=== PATIENT | female | born 1970 | race Caucasian/White ===

== ENCOUNTER → 2017-07-04 15:02 | Outpatient (CLI) | payer MEDICAID, SELFPAY ==
[2017-07-04 20:19] LABS: Amphetamine/Metha Screen,Urine Negative ng/mL (<1000); Barbiturates Screen,Urine Negative ng/mL (<200); Benzodiazepines Screen,Urine Negative ng/mL (200); Cannabinoid Screen,Urine Negative ng/mL (<50); Cocaine Screen,Urine Negative ng/g (<300); Methadone Screen,Urine Negative ng/mL (<300); Opiate Screen,Urine Positive ng/mL (<300); Phencyclidine Screen,Urine Negative ng/mL (<25)
[2017-07-10 12:15] LABS: Codeine Negative (Cutoff=100); Hydrocodone Positive (.); Hydromorphone Negative (Cutoff=100); Morphine Negative (Cutoff=100)
[2017-07-11 06:27] LABS: Opiates Positive (.)
== END ==
PROVIDERS: PCP Emergency Medicine; Visit Provider Clinical Nurse Specialist Family Health
DX: Z79.899 Other long term (current) drug therapy (principal)
CPT/HCPCS: 80305; 80361; 80365; G0480

== ENCOUNTER → 2017-07-31 14:51 | Outpatient (POV) | payer MEDICAID, SELFPAY ==
[2017-07-31 15:25] VITALS: BP 125/80; PULSE 75; RESP 20; O2SAT 97; BMI 29.0
--- NOTE | 2017-07-31 15:40 | HMH.PAINSOAP ---
[facility] Pain Management SOAP Note Subjective:: This patient is a pleasant 47-year-old white female who we are treating for low back pain with lumbar radiculopathy symptoms. Injections have made her worse in the past. She is working more so she is having more pain. However she is doing well with her [place] 5 mg 3 times a day and gabapentin 300 mg 4 times a day. We will refill her medications today. We will give HER-2 months worth of prescriptions. Her [place] and urine drug screen are all appropriate. Kaspar #[id number]. Objective:: Alert and oriented ?3 in no acute distress. Patient does have an antalgic gait. Motor strength of the lower extremities is 5 out of 5. There is no sensory deficit. Assessment:: Degenerative disc disease of lumbar spine with lumbar radiculopathy symptoms. Plan:: We will continue her [place] 5 mg 1 tablet 3 times a day and gabapentin 300 mg 5 times a day. She is also wanting us to refill her Cymbalta. We will find out if we have been prescribing this or if this comes from her primary care physician. We will give her 2 months worth of prescriptions for her [place]. We will follow-up with her in 3 months. She can picker tender her third month prescription from the pain clinic.
--- NOTE | 2017-07-31 15:44 | P.CONS_ITS ---
[facility] Pain Management SOAP Note Subjective:: This patient is a pleasant 47-year-old white female who we are treating for low back pain with lumbar radiculopathy symptoms. Injections have made her worse in the past. She is working more so she is having more pain. However she is doing well with her [place] 5 mg 3 times a day and gabapentin 300 mg 4 times a day. We will refill her medications today. We will give HER-2 months worth of prescriptions. Her [place] and urine drug screen are all appropriate. Kaspar # [id number]. Objective:: Alert and oriented ?3 in no acute distress. Patient does have an antalgic gait. Motor strength of the lower extremities is 5 out of 5. There is no sensory deficit. Assessment:: Degenerative disc disease of lumbar spine with lumbar radiculopathy symptoms. Plan:: We will continue her [place] 5 mg 1 tablet 3 times a day and gabapentin 300 mg 5 times a day. She is also wanting us to refill her Cymbalta. We will find out if we have been prescribing this or if this comes from her primary care physician. We will give her 2 months worth of prescriptions for her [place]. We will follow-up with her in 3 months. She can pickle pumper her third month prescription from the pain clinic.
--- NOTE | 2017-08-01 10:23 | PC.PHONENOTE ---
called in Rx for Cymbalta 30mg Daily with 2 refills to [facility] in Check
== END ==
PROVIDERS: Family Provider Emergency Medicine; PCP Emergency Medicine; Visit Provider Anesthesiology
DX: M54.16 Radiculopathy, lumbar region (principal)
CPT/HCPCS: 99212

== ENCOUNTER → 2017-10-30 12:29 | Outpatient (POV) | payer MEDICAID, SELFPAY ==
[2017-10-30 12:46] VITALS: BP 138/81; PULSE 69; RESP 18; O2SAT 99; BMI 33.3
--- NOTE | 2017-10-30 13:13 | HMH.PAINSOAP ---
[facility] Pain Management SOAP Note Subjective:: Patient is a pleasant 47-year-old white female resents today for medication refills. Patient is being treated for pain secondary to degenerative disc disease of lumbar spine with lumbar radiculopathy symptoms. Patient is currently being managed [place] 5 mg 1 p.o. 3 times daily and gabapentin 300 mg 1 p.o. 5 times a day. Patient is still working full-time and is having some increased pain. Patient would like to make some changes to her medication today I believe that this would be beneficial. Patient's ALEJANDRA #[id number] reviewed and appropriate. Patient's UDS appropriate in the past. We will send her for urine drug screen today to continue to monitor compliance. Patient rates her pain a 5 out of 10 today. Most of it being in her low back and her legs. ROS General: no recent weight change, no fever, no sleep disturbances Respiratory: no cough, no shortness of air, no recurring pulmonary infections Cardiovascular/Peripheral Vascular: No chest pain, No palpitations, no edema, no shortness of breath. Gastrointestinal: no incontinence, normal bowel movements reported Genitourinary: no incontinence Musculoskeletal: Back pain, leg pain Psychiatric: normal mood/ affect Neurological: [denies weakness in extremities], [denies balance issues] Objective:: Physical Exam General: Alert and oriented x3, no acute distress, pleasant and cooperative, [on room air] Lungs: Resps E/U, Symmetrical chest expansion, Eyes: PERRL Musculoskeletal: Flexion and extension of lumbar spine somewhat guarded secondary to pain, deep tendon reflexes normal, strength in upper and lower extremities [5/5], antalgic gait noted Neurological: speech clear, hosiery mender equal, no gross sensory deficits Assessment:: Degenerative disc disease of lumbar spine with lumbar radiculopathy symptoms Plan:: I spoke with Dr. Acosta in regards to patient medication management. Patient will be increased to [place] 5 mg 1 p.o. 4 times daily and gabapentin 600 mg 1 p.o. 3 times daily. Patient's Alejandra and urine drug screen both reviewed and appropriate. We will follow-up with this patient in 3 months. We will give her 2 months worth of prescriptions and she can bean picker her third in the interim. Patient has been prescribed a controlled substance after being counseled on the medication, medication safety, and possible side effects. ALEJANDRA report has been obtained and reviewed prior to prescription and found to be appropriate. Opioid contract was reviewed and signed by the patient, and that they have agreed to all of the terms set forth by our compliance program. This note was dictated using voice recognition software and may contain errors or omissions
--- NOTE | 2017-10-30 13:17 | P.CONS_ITS ---
[facility] Pain Management SOAP Note Subjective:: Patient is a pleasant 47-year-old white female resents today for medication refills. Patient is being treated for pain secondary to degenerative disc disease of lumbar spine with lumbar radiculopathy symptoms. Patient is currently being managed [place] 5 mg 1 p.o. 3 times daily and gabapentin 300 mg 1 p.o. 5 times a day. Patient is still working full-time and is having some increased pain. Patient would like to make some changes to her medication today I believe that this would be beneficial. Patient's ALEJANDRA #[id number] reviewed and appropriate. Patient's UDS appropriate in the past. We will send her for urine drug screen today to continue to monitor compliance. Patient rates her pain a 5 out of 10 today. Most of it being in her low back and her legs. ROS General: no recent weight change, no fever, no sleep disturbances Respiratory: no cough, no shortness of air, no recurring pulmonary infections Cardiovascular/Peripheral Vascular: No chest pain, No palpitations, no edema, no shortness of breath. Gastrointestinal: no incontinence, normal bowel movements reported Genitourinary: no incontinence Musculoskeletal: Back pain, leg pain Psychiatric: normal mood/ affect Neurological: [denies weakness in extremities], [denies balance issues] Objective:: Physical Exam General: Alert and oriented x3, no acute distress, pleasant and cooperative, [ on room air] Lungs: Resps E/U, Symmetrical chest expansion, Eyes: PERRL Musculoskeletal: Flexion and extension of lumbar spine somewhat guarded secondary to pain, deep tendon reflexes normal, strength in upper and lower extremities [5/5], antalgic gait noted Neurological: speech clear, cover maker equal, no gross sensory deficits Assessment:: Degenerative disc disease of lumbar spine with lumbar radiculopathy symptoms Plan:: I spoke with Dr. Acosta in regards to patient medication management. Patient will be increased to [place] 5 mg 1 p.o. 4 times daily and gabapentin 600 mg 1 p.o. 3 times daily. Patient's Alejandra and urine drug screen both reviewed and appropriate. We will follow-up with this patient in 3 months. We will give her 2 months worth of prescriptions and she can fruit picker her third in the interim. Patient has been prescribed a controlled substance after being counseled on the medication, medication safety, and possible side effects. ALEJANDRA report has been obtained and reviewed prior to prescription and found to be appropriate. Opioid contract was reviewed and signed by the patient, and that they have agreed to all of the terms set forth by our compliance program. This note was dictated using voice recognition software and may contain errors or omissions
[2017-10-30 14:32] LABS: Amphetamine/Metha Screen,Urine Negative ng/mL (<1000); Barbiturates Screen,Urine Negative ng/mL (<200); Benzodiazepines Screen,Urine Negative ng/mL (200); Cannabinoid Screen,Urine Negative ng/mL (<50); Cocaine Screen,Urine Negative ng/g (<300); Methadone Screen,Urine Negative ng/mL (<300); Opiate Screen,Urine Positive ng/mL (<300); Phencyclidine Screen,Urine Negative ng/mL (<25)
[2017-11-05 17:08] LABS: Codeine Negative (Cutoff=100); Hydrocodone Positive (.); Hydromorphone Positive (.); Morphine Negative (Cutoff=100)
[2017-11-06 09:48] LABS: Opiates Positive (.)
== END ==
PROVIDERS: Family Provider Emergency Medicine; PCP Family Medicine; Visit Provider Clinical Nurse Specialist Family Health
DX: M54.16 Radiculopathy, lumbar region (principal); Z79.899 Other long term (current) drug therapy
CPT/HCPCS: 80305; 80361; 80365; 99212; G0480

== ENCOUNTER → 2018-01-29 15:45 | Outpatient (POV) | payer MEDICAID, SELFPAY ==
[2018-01-29 15:53] VITALS: BP 137/77; PULSE 85; RESP 18; O2SAT 98; BMI 33.3
--- NOTE | 2018-01-29 16:08 | HMH.PAINSOAP ---
[facility] Pain Management SOAP Note Subjective:: Patient is a pleasant 47-year-old white female who presents today for medication refills. Patient is being treated for pain secondary to degenerative disc disease of lumbar spine with lumbar radiculopathy symptoms. Patient is currently being medically managed with [place] 5 mg 1 p.o. 4 times daily and gabapentin. Patient states she stopped her gabapentin due to some side effects including lightheadedness and dizziness. Patient is still working full-time. Patient's ALEJANDRA #[id number] reviewed and appropriate. Patient states that her [place] does not give her any side effects. Patient would like to discuss other options other than gabapentin could patient is tried Cymbalta in the past however she states it did not help her she rates her pain a 6 out of 10 today. Mostly in her low back and down her legs. ROS General: no recent weight change, no fever, no sleep disturbances Respiratory: no cough, no shortness of air, no recurring pulmonary infections Cardiovascular/Peripheral Vascular: No chest pain, No palpitations, no edema, no shortness of breath. Gastrointestinal: no incontinence, normal bowel movements reported Genitourinary: no incontinence Musculoskeletal: Back pain, leg pain Psychiatric: normal mood/ affect Neurological: [denies weakness in extremities], [denies balance issues] Objective:: Physical Exam General: Alert and oriented x3, no acute distress, pleasant and cooperative, [on room air] Lungs: Resps E/U, Symmetrical chest expansion, Eyes: PERRL Musculoskeletal: Flexion and extension of lumbar spine somewhat guarded secondary to pain, deep tendon reflexes normal, strength in upper and lower extremities [5/5], slightly antalgic gait noted Neurological: speech clear, medical unit secretary equal, no gross sensory deficits Assessment:: Degenerative disc disease lumbar spine with lumbar radiculopathy symptoms Plan:: We will refill the patient's [place] 5 mg 1 p.o. 4 times daily and give HER-2 months worth of prescriptions. We will also try her on Lyrica 75 mg 1 p.o. twice daily. We will do a 2 week trial to see if this is beneficial for her. If it is we can call in a prescription for her. We will follow-up with the patient in 3 months. Patient's urine drug screen has been appropriate in the past. We will send her for one today. Dr. Acosta has reviewed this chart and agrees with this plan of care. Patient has been prescribed a controlled substance after being counseled on the medication, medication safety, and possible side effects. ALEJANDRA report has been obtained and reviewed prior to prescription and found to be appropriate. Opioid contract was reviewed and signed by the patient, and that they have agreed to all of the terms set forth by our compliance program. This note was dictated using voice recognition software and may contain errors or omissions
== END ==
PROVIDERS: Family Provider Emergency Medicine; PCP Family Medicine; Visit Provider Clinical Nurse Specialist Family Health
DX: M51.16 Intervertebral disc disorders with radiculopathy, lumbar region (principal); Z76.0 Encounter for issue of repeat prescription
CPT/HCPCS: 99213

== ENCOUNTER → 2018-01-29 16:22 | Outpatient (CLI) | payer MEDICAID, SELFPAY ==
[2018-01-29 18:22] LABS: Amphetamine/Metha Screen,Urine Negative ng/mL (<1000); Barbiturates Screen,Urine Negative ng/mL (<200); Benzodiazepines Screen,Urine Negative ng/mL (<200); Cannabinoid Screen,Urine Negative ng/mL (<50); Cocaine Screen,Urine Negative ng/mL (<300); Methadone Screen,Urine Negative ng/mL (<300); Opiate Screen,Urine Positive ng/mL (<300); Phencyclidine Screen,Urine Negative ng/mL (<25)
[2018-02-06 06:13] LABS: Codeine Negative (Cutoff=100); Hydrocodone Positive (.); Hydromorphone Positive (.); Morphine Negative (Cutoff=100)
[2018-02-07 16:45] LABS: Opiates Positive (.)
== END ==
PROVIDERS: PCP Family Medicine; Visit Provider Clinical Nurse Specialist Family Health
DX: Z79.899 Other long term (current) drug therapy (principal)
CPT/HCPCS: 80305; 80361; 80365; G0480

== ENCOUNTER → 2018-04-30 14:39 | Outpatient (POV) | payer MEDICAID, SELFPAY ==
[2018-04-30 15:57] VITALS: BP 146/78; PULSE 87; RESP 18; O2SAT 98; BMI 33.7
--- NOTE | 2018-05-01 08:19 | HMH.PAINSOAP ---
[facility] Pain Management SOAP Note Subjective:: Patient is a pleasant 48-year-old white female who presents today for medication refills. Patient is currently on [place] 5 mg 1 p.o. 4 times a day. She unable to take Lyrica due to the expense. Patient denies side effects or medication and states it helps up to 80%. She still working full-time. ALEJANDRA #[id number] reviewed and appropriate. Urine drug screens have been appropriate in the past. ROS General: no recent weight change, no fever, no sleep disturbances Respiratory: no cough, no shortness of air, no recurring pulmonary infections Cardiovascular/Peripheral Vascular: No chest pain, No palpitations, no edema, no shortness of breath. Gastrointestinal: no incontinence, normal bowel movements reported Genitourinary: no incontinence Musculoskeletal: Back pain Psychiatric: normal mood/ affect Neurological: [denies weakness in extremities], [denies balance issues] Objective:: Physical Exam General: Alert and oriented x3, no acute distress, pleasant and cooperative, [on room air] Lungs: Resps E/U, Symmetrical chest expansion, Eyes: PERRL Musculoskeletal: Flexion and extension of lumbar spine somewhat guarded secondary to pain, deep tendon reflexes normal, strength in upper and lower extremities [5/5], antalgic gait noted Neurological: speech clear, platform builder equal, no gross sensory deficits Assessment:: Degenerative disc disease lumbar spine with lumbar radiculopathy Plan:: We will refill her [place] 5 mg 1 p.o. 4 times a day and give her 2 months worth of medication. We will follow-up with her in 3 months and reassess her symptoms at that time. Patient can berry picker her third month in the interim. Patient has been instructed to call the office if she has any issues prior to her next appointment. Dr. Acosta is reviewed this chart and agrees with this plan of care. Patient has been prescribed a controlled substance after being counseled on the medication, medication safety, and possible side effects. ALEJANDRA report has been obtained and reviewed prior to prescription and found to be appropriate. Opioid contract was reviewed and signed by the patient, and that they have agreed to all of the terms set forth by our compliance program.. This note was dictated using voice recognition software and may contain errors or omissions
--- NOTE | 2018-05-01 08:25 | P.CONS_ITS ---
[facility] Pain Management SOAP Note Subjective:: Patient is a pleasant 48-year-old white female who presents today for medication refills. Patient is currently on [place] 5 mg 1 p.o. 4 times a day. She unable to take Lyrica due to the expense. Patient denies side effects or medication and states it helps up to 80%. She still working full-time. ALEJANDRA #[id number] reviewed and appropriate. Urine drug screens have been appropriate in the past. ROS General: no recent weight change, no fever, no sleep disturbances Respiratory: no cough, no shortness of air, no recurring pulmonary infections Cardiovascular/Peripheral Vascular: No chest pain, No palpitations, no edema, no shortness of breath. Gastrointestinal: no incontinence, normal bowel movements reported Genitourinary: no incontinence Musculoskeletal: Back pain Psychiatric: normal mood/ affect Neurological: [denies weakness in extremities], [denies balance issues] Objective:: Physical Exam General: Alert and oriented x3, no acute distress, pleasant and cooperative, [on room air] Lungs: Resps E/U, Symmetrical chest expansion, Eyes: PERRL Musculoskeletal: Flexion and extension of lumbar spine somewhat guarded secondary to pain, deep tendon reflexes normal, strength in upper and lower extremities [5/5], antalgic gait noted Neurological: speech clear, curve saw operator equal, no gross sensory deficits Assessment:: Degenerative disc disease lumbar spine with lumbar radiculopathy Plan:: We will refill her [place] 5 mg 1 p.o. 4 times a day and give her 2 months worth of medication. We will follow-up with her in 3 months and reassess her symptoms at that time. Patient can excelsior picker her third month in the interim. Patient has been instructed to call the office if she has any issues prior to her next appointment. Dr. Acosta is reviewed this chart and agrees with this plan of care. Patient has been prescribed a controlled substance after being counseled on the medication, medication safety, and possible side effects. ALEJANDRA report has been obtained and reviewed prior to prescription and found to be appropriate. Opioid contract was reviewed and signed by the patient, and that they have agreed to all of the terms set forth by our compliance program.. This note was dictated using voice recognition software and may contain errors or omissions
== END ==
PROVIDERS: PCP Family Medicine; Visit Provider Clinical Nurse Specialist Family Health
DX: M51.16 Intervertebral disc disorders with radiculopathy, lumbar region (principal)
CPT/HCPCS: 99213

== ENCOUNTER → 2018-07-24 11:24 | Outpatient (POV) | payer MEDICAID, SELFPAY ==
[2018-07-24 11:41] VITALS: BP 126/72; PULSE 98; RESP 18; O2SAT 98; BMI 33.5
--- NOTE | 2018-07-24 12:08 | HMH.PAINSOAP ---
[facility] Pain Management SOAP Note Subjective:: Patient is a pleasant 48-year-old white female who presents today for medication refills. She is currently on [place] 5 mg 1 p.o. 4 times daily. Patient denies any side effects to the medication and states it helps up to 80%. Patient recently broke her right foot she is currently in a boot. Patient's urine drug screens have been appropriate in the past. Alejandra reviewed and appropriate. ROS General: no recent weight change, no fever, no sleep disturbances Respiratory: no cough, no shortness of air, no recurring pulmonary infections Cardiovascular/Peripheral Vascular: No chest pain, No palpitations, no edema, no shortness of breath. Gastrointestinal: no incontinence, normal bowel movements reported Genitourinary: no incontinence Musculoskeletal: Back pain, right foot pain Psychiatric: normal mood/ affect Neurological: [denies weakness in extremities], [denies balance issues] Objective:: Physical Exam General: Alert and oriented x3, no acute distress, pleasant and cooperative, [on room air] Lungs: Resps E/U, Symmetrical chest expansion, Eyes: PERRL Musculoskeletal: Flexion and extension of lumbar spine somewhat guarded secondary to pain, deep tendon reflexes normal, strength in upper and lower extremities [5/5], [abnormal gait noted] Neurological: speech clear, range mounter equal, no gross sensory deficits Assessment:: Degenerative disc disease lumbar spine with lumbar radiculopathy, right foot fracture Plan:: We will refill the patient's [place] 5 mg 1 p.o. 4 times daily and give her 2 months worth of medication. We will follow-up with her in 3 months and reassess her symptoms at that time she is. Patient can continuous pickling line pickler helper her third month in the interim. Patient's been instructed to call the office if she has any issues prior to her next appointment. Patient has been prescribed a controlled substance after being counseled on the medication, medication safety, and possible side effects. ALEJANDRA report has been obtained and reviewed prior to prescription and found to be appropriate. Opioid contract was reviewed and signed by the patient, and that they have agreed to all of the terms set forth by our compliance program. Dr. Acosta has reviewed this note and agrees with this plan of care. This note was dictated using voice recognition software and may contain errors or omissions
== END ==
PROVIDERS: PCP Family Medicine; Visit Provider Clinical Nurse Specialist Family Health
DX: M51.16 Intervertebral disc disorders with radiculopathy, lumbar region (principal); S92.901A Unspecified fracture of right foot, initial encounter for closed fracture
CPT/HCPCS: 99213

== ENCOUNTER → 2018-09-25 14:05 | Outpatient (CLI) | payer MEDICAID, SELFPAY ==
[2018-09-25 16:18] LABS: Amphetamine/Metha Screen,Urine Negative ng/mL (<1000); Barbiturates Screen,Urine Negative ng/mL (<200); Benzodiazepines Screen,Urine Negative ng/mL (<200); Cannabinoid Screen,Urine Negative ng/mL (<50); Cocaine Screen,Urine Negative ng/mL (<300); Methadone Screen,Urine Negative ng/mL (<300); Opiate Screen,Urine Negative ng/mL (<300); Phencyclidine Screen,Urine Negative ng/mL (<25)
[2018-10-02 05:14] LABS: Codeine Negative (Cutoff=100); Hydrocodone Positive (.); Hydromorphone Negative (Cutoff=100); Morphine Negative (Cutoff=100)
[2018-10-02 08:51] LABS: Opiates Positive (.)
== END ==
PROVIDERS: Visit Provider Clinical Nurse Specialist Family Health
DX: Z79.899 Other long term (current) drug therapy (principal)
CPT/HCPCS: 80305; 80361; 80365; G0480

== ENCOUNTER → 2018-10-15 14:30 | Outpatient (POV) | payer MEDICAID, SELFPAY ==
--- NOTE | 2018-10-15 14:53 | HMH.PAINSOAP ---
[facility] Pain Management SOAP Note Subjective:: Patient is a pleasant 48-year-old white female who presents today for medication refills. The patient is being treated for low back pain. She also had a right ankle fracture and is currently using a brace for the right ankle. She is also doing physical therapy 3 times a week. She says this has helped significantly, but she has not returned to work yet. Patient does report that the pain medication has been 80% effective her pain. She is currently on [place] 5 mg 1 p.o. 4 times daily. Patient's ALEJANDRA #[id number] has been reviewed and is appropriate. He denies side effects to her medication. ROS General: no recent weight change, no fever, no sleep disturbances Respiratory: no cough, no shortness of air, no recurring pulmonary infections Cardiovascular/Peripheral Vascular: No chest pain, No palpitations, no edema, no shortness of breath. Gastrointestinal: no incontinence, normal bowel movements reported Genitourinary: no incontinence Musculoskeletal: Back pain, hip pain Psychiatric: normal mood/ affect, [denies depression], [denies anxiety] Neurological: [denies weakness in extremities], [denies balance issues] Objective:: Physical Exam General: Alert and oriented x3, no acute distress, pleasant and cooperative, [on room air] Lungs: Resps E/U, Symmetrical chest expansion, Eyes: PERRL Musculoskeletal: Flexion and extension of lumbar spine somewhat guarded secondary to pain, deep tendon reflexes normal, strength in upper and lower extremities [5/5], [abnormal gait noted] Neurological: speech clear, cogeneration technician equal, no gross sensory deficits Assessment:: Degenerative disc disease lumbar spine with lumbar radiculopathy, right foot fracture Plan:: We will refill the patient's [place] 5 mg 1 p.o. 4 times daily and give her 2 months worth of medication we will follow-up with her in 3 months and reassess her symptoms at that time. She can warehouse order picker her third month in the interim. She is instructed to call the office if she has any issues prior to her next appointment. Patient has been prescribed a controlled substance after being counseled on the medication, medication safety, and possible side effects. ALEJANDRA report has been obtained and reviewed prior to prescription and found to be appropriate. Opioid contract was reviewed and signed by the patient, and that they have agreed to all of the terms set forth by our compliance program. Dr. Acosta has reviewed this note and agrees with this plan of care. This note was dictated using voice recognition software and may contain errors or omissions
--- NOTE | 2018-10-15 14:56 | P.CONS_ITS ---
[facility] Pain Management SOAP Note Subjective:: Patient is a pleasant 48-year-old white female who presents today for medication refills. The patient is being treated for low back pain. She also had a right ankle fracture and is currently using a brace for the right ankle. She is also doing physical therapy 3 times a week. She says this has helped significantly, but she has not returned to work yet. Patient does report that the pain medication has been 80% effective her pain. She is currently on [place] 5 mg 1 p.o. 4 times daily. Patient's ALEJANDRA #[id number] has been reviewed and is appropriate. He denies side effects to her medication. ROS General: no recent weight change, no fever, no sleep disturbances Respiratory: no cough, no shortness of air, no recurring pulmonary infections Cardiovascular/Peripheral Vascular: No chest pain, No palpitations, no edema, no shortness of breath. Gastrointestinal: no incontinence, normal bowel movements reported Genitourinary: no incontinence Musculoskeletal: Back pain, hip pain Psychiatric: normal mood/ affect, [denies depression], [denies anxiety] Neurological: [denies weakness in extremities], [denies balance issues] Objective:: Physical Exam General: Alert and oriented x3, no acute distress, pleasant and cooperative, [on room air] Lungs: Resps E/U, Symmetrical chest expansion, Eyes: PERRL Musculoskeletal: Flexion and extension of lumbar spine somewhat guarded secondary to pain, deep tendon reflexes normal, strength in upper and lower ext remities [5/5], [abnormal gait noted] Neurological: speech clear, home demonstration agent equal, no gross sensory deficits Assessment:: Degenerative disc disease lumbar spine with lumbar radiculopathy, right foot fracture Plan:: We will refill the patient's [place] 5 mg 1 p.o. 4 times daily and give her 2 months worth of medication we will follow-up with her in 3 months and reassess her symptoms at that time. She can shrimp picker her third month in the interim. She is instructed to call the office if she has any issues prior to her next appointment. Patient has been prescribed a controlled substance after being counseled on the medication, medication safety, and possible side effects. ALEJANDRA report has been obtained and reviewed prior to prescription and found to be appropriate. Opioid contract was reviewed and signed by the patient, and that they have agreed to all of the terms set forth by our compliance program. Dr. Acosta has reviewed this note and agrees with this plan of care. This note was dictated using voice recognition software and may contain errors or omissions
[2018-10-15 14:58] VITALS: BP 152/98; PULSE 89; RESP 18; O2SAT 98; BMI 35.5
== END ==
PROVIDERS: PCP Family Medicine; Visit Provider Clinical Nurse Specialist Family Health
DX: M51.16 Intervertebral disc disorders with radiculopathy, lumbar region (principal); S82.891D Other fracture of right lower leg, subsequent encounter for closed fracture with routine healing
CPT/HCPCS: 99212

== ENCOUNTER → 2019-01-28 08:38 | Outpatient (POV) | payer MEDICAID, SELFPAY ==
--- NOTE | 2019-01-28 09:17 | HMH.PAINSOAP ---
[facility] Pain Management SOAP Note Subjective:: She is a pleasant 48-year-old white female presents today for medication refills. She is currently being medically managed with [place] 5 mg 1 p.o. 4 times daily. 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 Patient rates her pain a 4 out of 10. Patient denies side effects or medication. Alejandra #[id number] reviewed and appropriate. Urine drug screens have been appropriate. ROS General: no recent weight change, no fever, no sleep disturbances Respiratory: no cough, no shortness of air, no recurring pulmonary infections Cardiovascular/Peripheral Vascular: No chest pain, No palpitations, no edema, no shortness of breath. Gastrointestinal: no incontinence, normal bowel movements reported Genitourinary: no incontinence Musculoskeletal: Back pain, leg pain Psychiatric: normal mood/ affect Neurological: [denies weakness in extremities], [denies balance issues] Objective:: Physical Exam General: Alert and oriented x3, no acute distress, pleasant and cooperative, [on room air] Lungs: Resps E/U, Symmetrical chest expansion, Eyes: PERRL Musculoskeletal: Flexion and extension of lumbar spine somewhat guarded secondary to pain, deep tendon reflexes normal, strength in upper and lower extremities [5/5], slightly antalgic gait noted Neurological: speech clear, learning support specialist equal, no gross sensory deficits Assessment:: Degenerative disc disease lumbar spine with lumbar radiculopathy Plan:: We will continue her on her [place] 5 mg 1 p.o. 4 times daily reassess her symptoms in 3 months. 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 Patient's been instructed to call the office if she has any issues prior to her next appointment. Patient has been prescribed a controlled substance after being counseled on the medication, medication safety, and possible side effects. ALEJANDRA report has been obtained and reviewed prior to prescription and found to be appropriate. Opioid contract was reviewed and signed by the patient, and that they have agreed to all of the terms set forth by our compliance program. Dr. Acosta has reviewed this note and agrees with this plan of care. This note was dictated using voice recognition software and may contain errors or omissions [facility] History I have reviewed the patient's past medical history: Yes Medical History: Reports:: Anxiety, Asthma, Depression, Migraine *Have you ever received a pneumonia vaccine?: Yes *Have you received a flu vaccine this season?: Yes Other Medical History: Reports: Other Other Surgeries: Yes: Dilation and Curettage, Tubal Ligation Amputation: No Fractures: Yes - *Social History Smoking Status: Current every day smoker Tobacco Type: cigarettes # Packs/Day (cigarettes): 1 Alcohol Intake: never Substance Use Type: denies use *Occupational Status:: employed Housing: house Household Members: significant other *Travel in the last 8 weeks: None - Psychiatric History Pschychiatric History:: Reports:: Anxiety, Depression Family Hx:: Non-contributory
--- NOTE | 2019-01-28 09:22 | P.CONS_ITS ---
[facility] Pain Management SOAP Note Subjective:: She is a pleasant 48-year-old white female presents today for medication refills. She is currently being medically managed with [place] 5 mg 1 p.o. 4 times daily. 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 Patient rates her pain a 4 out of 10. Patient denies side effects or medication. Alejandra #[id number] reviewed and appropriate. Urine drug screens have been appropriate. ROS General: no recent weight change, no fever, no sleep disturbances Respiratory: no cough, no shortness of air, no recurring pulmonary infections Cardiovascular/Peripheral Vascular: No chest pain, No palpitations, no edema, no shortness of breath. Gastrointestinal: no incontinence, normal bowel movements reported Genitourinary: no incontinence Musculoskeletal: Back pain, leg pain Psychiatric: normal mood/ affect Neurological: [denies weakness in extremities], [denies balance issues] Objective:: Physical Exam General: Alert and oriented x3, no acute distress, pleasant and cooperative, [on room air] Lungs: Resps E/U, Symmetrical chest expansion, Eyes: PERRL Musculoskeletal: Flexion and extension of lumbar spine somewhat guarded secondary to pain, deep tendon reflexes normal, strength in upper and lower extremities [5/5], slightly antalgic gait noted Neurological: speech clear, soap maker equal, no gross sensory deficits Assessment:: Degenerative disc disease lumbar spine with lumbar radiculopathy Plan:: We will continue her on her [place] 5 mg 1 p.o. 4 times daily reassess her symptoms in 3 months. 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 Patient's been instructed to call the office if she has any issues prior to her next appointment. Patient has been prescribed a controlled substance after being counseled on the medication, medication safety, and possible side effects. ALEJANDRA report has been obtained and reviewed prior to prescription and found to be appropriate. Opioid contract was reviewed and signed by the patient, and that they have agreed to a ll of the terms set forth by our compliance program. Dr. cAosta has reviewed this note and agrees with this plan of care. This note was dictated using voice recognition software and may contain errors or omissions [facility] History I have reviewed the patient's past medical history: Yes Medical History: Reports:: Anxiety, Asthma, Depression, Migraine *Have you ever received a pneumonia vaccine?: Yes *Have you received a flu vaccine this season?: Yes Other Medical History: Reports: Other Other Surgeries: Yes: Dilation and Curettage, Tubal Ligation Amputation: No Fractures: Yes - *Social History Smoking Status: Current every day smoker Tobacco Type: cigarettes # Packs/Day (cigarettes): 1 Alcohol Intake: never Substance Use Type: denies use *Occupational Status:: employed Housing: house Household Members: significant other *Travel in the last 8 weeks: None - Psychiatric History Pschychiatric History:: Reports:: Anxiety, Depression Family Hx:: Non-contributory
[2019-01-28 09:30] VITALS: BP 121/75; PULSE 84; RESP 18; O2SAT 98; BMI 37.3
[2019-01-28 15:54] LABS: Amphetamine/Metha Screen,Urine Negative ng/mL (<1000); Barbiturates Screen,Urine Negative ng/mL (<200); Benzodiazepines Screen,Urine Negative ng/mL (<200); Cannabinoid Screen,Urine Negative ng/mL (<50); Cocaine Screen,Urine Negative ng/mL (<300); Methadone Screen,Urine Negative ng/mL (<300); Opiate Screen,Urine Positive ng/mL (<300); Phencyclidine Screen,Urine Negative ng/mL (<25)
[2019-02-03 16:15] LABS: Codeine Negative (Cutoff=100); Hydrocodone Positive (.); Hydromorphone Positive (.); Morphine Negative (Cutoff=100)
[2019-02-04 14:24] LABS: Opiates Positive (.)
== END ==
PROVIDERS: PCP Family Medicine; Visit Provider Clinical Nurse Specialist Family Health
DX: M51.16 Intervertebral disc disorders with radiculopathy, lumbar region (principal)
CPT/HCPCS: 80305; 80361; 80365; 99212; G0480

== ENCOUNTER → 2019-05-09 10:23 | Outpatient (POV) | payer MEDICAID, SELFPAY ==
[2019-05-09 10:30] VITALS: BP 147/81; PULSE 80; RESP 18; O2SAT 99; BMI 34.7
--- NOTE | 2019-05-09 10:38 | HMH.PAINSOAP ---
[facility] Pain Management SOAP Note Subjective:: Patient is a pleasant 49-year-old white female who presents today for medication refills. She is being treated for low back pain with lumbar radiculopathy symptoms. She is currently managed with [place] 5 mg 1 tablet p.o. 4 times daily. She also takes gabapentin 300 mg 1 tablet p.o. 3 times daily. She denies any side effects to her medications. She rates her pain a 4 out of 10 today. Her [place] #[id number] has been reviewed and is appropriate. Patient says that she to reschedule her last appointment due to the loss of her granddaughter. Patient says her daughter recently had a baby that was born prematurely and due to complications 2 days later. Patient says she is having a difficult time dealing with the loss. She also complains of having some pain to her teeth. Patient says she has had chronic infections in her teeth. She is asking for an antibiotic today to treat her current abscessed tooth. She says that she will follow-up with her primary care provider, but was unable to get in with her at this time due to the holidays. Has any allergies to the antibiotics. Review of Systems General: No recent weight changes, no fever, no sleep disturbances Respiratory: No cough, no shortness of air, no recurring pulmonary infections Cardiovascular/peripheral vascular: No chest pain, no palpitations, no edema, no shortness of breath Gastrointestinal: No new onset incontinence, normal bowel movements reported Genitourinary: No new onset incontinence Musculoskeletal: Low back pain Psychiatric: Normal mood/affect Neurological: [Denies weakness in extremities], [denies balance issues] Objective:: Physical exam General: Alert and oriented x3, no acute distress, pleasant and cooperative, [on room air] Lungs: Respirations even and unlabored, symmetrical chest expansion Eyes: PERRL Musculoskeletal: Flexion and extension of lumbar spine somewhat guarded secondary to pain, deep tendon reflexes normal, strength in upper and lower extremities [5/5], [abnormal gait noted] Neurological: Speech clear, veneer supervisor equal, no gross sensory deficit Assessment:: Degenerative disc disease lumbar spine with lumbar radiculopathy Plan:: We will refill the patient's [place] 5 mg 1 tablet p.o. 4 times daily. We will also continue her on gabapentin 300 mg 1 tablet p.o. 3 times daily. We will call him the patient Bactrim DS 1 tablet p.o. twice daily for 7 days. 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 Patient's been instructed to contact the clinic if she has any concerns before next appointment. We will see her back in 3 months to reassess her symptoms. Dr. Acosta has reviewed this note and agrees with this plan of care. This note was dictated using voice recognition software and make contain errors or omissions. [facility] History I have reviewed the patient's past medical history: Yes Medical History: Reports:: Anxiety, Asthma, Depression, Migraine *Have you ever received a pneumonia vaccine?: Yes *Have you received a flu vaccine this season?: Yes Other Medical History: Reports: Other Other Surgeries: Yes: Dilation and Curettage, Tubal Ligation Amputation: No Fractures: Yes - *Social History Smoking Status: Current every day smoker Tobacco Type: cigarettes # Packs/Day (cigarettes): 1 Alcohol Intake: never Substance Use Type: denies use *Occupational Status:: other Housing: house Household Members: significant other *Travel in the last 8 weeks: None - Psychiatric History Pschychiatric History:: Reports:: Anxiety, Depression Family Hx:: Non-contributory
== END ==
PROVIDERS: PCP Family Medicine; Visit Provider Clinical Nurse Specialist Family Health
DX: M51.16 Intervertebral disc disorders with radiculopathy, lumbar region (principal)
CPT/HCPCS: 99212

== ENCOUNTER → 2019-07-29 13:36 | Outpatient (POV) | payer MEDICAID, SELFPAY ==
[2019-07-29 14:50] VITALS: BP 132/82; PULSE 88; RESP 18; O2SAT 98; BMI 34.7
[2019-07-29 18:41] LABS: Barbiturates Screen,Urine Negative ng/ml (<200); Benzodiazepines Screen,Urine Negative ng/ml (<200)
[2019-07-29 18:42] LABS: Amphetamine/Metha Screen,Urine Negative ng/ml (<1000); Cannabinoid Screen,Urine Negative ng/ml (<50)
[2019-07-29 18:43] LABS: Cocaine Screen,Urine Negative ng/ml (<300)
[2019-07-29 18:44] LABS: Methadone Screen,Urine Negative ng/ml (<300); Opiate Screen,Urine Positive ng/ml (<300)
[2019-07-29 18:45] LABS: Phencyclidine Screen,Urine Negative ng/ml (<25)
--- NOTE | 2019-07-30 08:56 | P.CONS_ITS ---
[facility] Pain Management SOAP Note Subjective:: She is a pleasant 49-year-old white female who presents today for medication refills she is being treated for low back pain with lumbar radiculopathy symptoms. She is currently managed with [place] 5 mg 1 tab p.o. 4 times daily and gabapentin 3 mg 1 tab p.o. 3 times daily. She denies side effects to her medication. She rates her pain an 8 out of 10 which is higher than typical. Alejandra #[id number] reviewed and appropriate she is still continuing to work. Patient has appropriate UDS is. ROS General: no recent weight change, no fever, no sleep disturbances Respiratory: no cough, no shortness of air, no recurring pulmonary infections Cardiovascular/Peripheral Vascular: No chest pain, No palpitations, no edema, no shortness of breath. Gastrointestinal: no new onset incontinence, normal bowel movements reported Genitourinary: no new onset incontinence Musculoskeletal: Back pain, leg pain Psychiatric: normal mood/ affect, [denies depression], [denies anxiety] Neurological: [denies new onset weakness in extremities], [denies new onset balance issues] Objective:: Physical Exam General: Alert and oriented x3, no acute distress, pleasant and cooperative, [on room air] Lungs: Resps E/U, Symmetrical chest expansion, Eyes: PERRL Musculoskeletal: Flexion and extension of lumbar spine somewhat guarded secondary to pain, deep tendon reflexes normal, strength in upper and lower extremities [5/5], slightly antalgic gait noted Neurological: speech clear, scientific laboratory supervisor equal, no gross sensory deficits Assessment:: Degenerative disc disease lumbar spine with lumbar radiculopathy Plan:: We will refill the patient's [place] 10 5 mg 1 tab p.o. 4 times daily and gabapentin 300 mg we will increase to 4 times a day. I will follow-up with the patient in 2 months reassess her symptoms at that time she has been instructed to call the office if she has any issues prior to her next appointment. Patient has been prescribed a controlled substance after being counseled on the medication, medication safety, and possible side effects. ALEJANDRA report has been obtained and reviewed prior to prescription and found to be appropriate. Opioid contract was reviewed and signed by the patient, and that they have agreed to all of the terms set forth by our compliance program. Dr. Acosta has reviewed this note and agrees with this plan of care. This note was dictated using voice recognition software and may contain errors or omissions [facility] History I have reviewed the patient's past medical history: Yes Medical History: Reports:: Anxiety, Asthma, Depression, Migraine *Have you ever received a pneumonia vaccine?: Yes *Have you received a flu vaccine this season?: Yes Other Medical History: Reports: Other Other Surgeries: Yes: Dilation and Curettage, Tubal Ligation Amputation: No Fractures: Yes - *Social History Smoking Status: Current every day smoker Tobacco Type: cigarettes # Packs/Day (cigarettes): 1 Alcohol Intake: never Substance Use Type: denies use *Occupational Status:: other Housing: house Household Members: significant other *Travel in the last 8 weeks: None - Psychiatric History Pschychiatric History:: Reports:: Anxiety, Depression Family Hx:: Non-contributory
[2019-08-04 15:27] LABS: Codeine Negative (Cutoff=100); Hydrocodone Positive (.); Hydromorphone Positive (.); Morphine Negative (Cutoff=100)
[2019-08-04 17:56] LABS: Opiates Positive (.)
== END ==
PROVIDERS: PCP Family Medicine; Visit Provider Clinical Nurse Specialist Family Health
DX: M51.16 Intervertebral disc disorders with radiculopathy, lumbar region (principal); Z79.899 Other long term (current) drug therapy
CPT/HCPCS: 80305; 80361; 80365; 99212; G0480

== ENCOUNTER → 2019-10-21 14:47 | Outpatient (POV) | payer MEDICAID, SELFPAY ==
[2019-10-21 15:16] VITALS: BP 159/91; PULSE 95; RESP 18; TEMP 36.6; O2SAT 98; BMI 33.9
--- NOTE | 2019-10-21 15:24 | HMH.PAINSOAP ---
[facility] Pain Management SOAP Note Subjective:: Patient is a pleasant 49-year-old white female who presents today for medication refill she is being treated for low back pain with lumbar radiculopathy symptoms. She is currently being managed with [place] 5 mg 1 tab p.o. 4 times daily and gabapentin 300 mg 1 tab p.o. 4 times daily. She denies side effects or medication. Patient Alejandra #[id number] reviewed and appropriate. Urine drug screens have been appropriate. Patient rates her pain a 4 out of 10 today. She has been furloughed from work due to the current pandemic. She will return to work this week. ROS General: no recent weight change, no fever, no sleep disturbances Respiratory: no cough, no shortness of air, no recurring pulmonary infections Cardiovascular/Peripheral Vascular: No chest pain, No palpitations, no edema, no shortness of breath. Gastrointestinal: no new onset incontinence, normal bowel movements reported Genitourinary: no new onset incontinence Musculoskeletal: Back pain, leg pain Psychiatric: normal mood/ affect, Neurological: [denies new onset weakness in extremities], [denies new onset balance issues] Objective:: Physical Exam General: Alert and oriented x3, no acute distress, pleasant and cooperative, [on room air] Lungs: Resps E/U, Symmetrical chest expansion, Eyes: PERRL Musculoskeletal: Flexion and extension of lumbar spine somewhat guarded secondary to pain, deep tendon reflexes normal, strength in upper and lower extremities [5/5], slightly antalgic gait noted Neurological: speech clear, electrical appliance preparer equal, no gross sensory deficits Assessment:: degenerative disc disease lumbar spine with lumbar radiculopathy Plan:: We will refill his [place] 5 mg 1 tab p.o. 4 times daily and gabapentin 300 mg 1 tab p.o. 4 times daily. We will give him 2 months worth of medication and reassess her symptoms in 3 months. 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 Dr. Acosta has reviewed this note and agrees with this plan of care. This note was dictated using voice recognition software and may contain errors or omissions Patient has been prescribed a controlled substance after being counseled on the medication, medication safety, and possible side effects. ALEJANDRA report has been obtained and reviewed prior to prescription and found to be appropriate. Opioid contract was reviewed and signed by the patient, and that they have agreed to all of the terms set forth by our compliance program. [facility] History I have reviewed the patient's past medical history: Yes Medical History: Reports:: Anxiety, Asthma, Depression, Migraine *Have you ever received a pneumonia vaccine?: Yes *Have you received a flu vaccine this season?: Yes Other Medical History: Reports: Other Other Surgeries: Yes: Dilation and Curettage, Tubal Ligation Amputation: No Fractures: Yes - *Social History Smoking Status: Current every day smoker Tobacco Type: cigarettes # Packs/Day (cigarettes): 1 Alcohol Intake: never Substance Use Type: denies use *Occupational Status:: other Housing: house Household Members: significant other *Travel in the last 8 weeks: None - Psychiatric History Pschychiatric History:: Reports:: Anxiety, Depression Family Hx:: Non-contributory
== END ==
PROVIDERS: PCP Family Medicine; Visit Provider Clinical Nurse Specialist Family Health
DX: M51.16 Intervertebral disc disorders with radiculopathy, lumbar region (principal)
CPT/HCPCS: 99212

== ENCOUNTER → 2020-01-23 14:18 | Outpatient (POV) | payer MEDICAID, SELFPAY ==
[2020-01-23 14:41] VITALS: BP 132/75; PULSE 74; RESP 18; O2SAT 99; BMI 34.9
--- NOTE | 2020-01-23 14:57 | HMH.PAINSOAP ---
[facility] Pain Management SOAP Note Subjective:: Patient is a 49-year-old white female who presents today for medication refills. She has been treated for low back pain with lumbar radiculopathy symptoms. She is managed with [place] 5 mg 1 tablet p.o. 4 times daily and gabapentin 300 mg 1 tablet p.o. 4 times daily. She denies any side effects to the medications. Patient says she has been battling and migraines over the last 3 to 4 days. She is having severe nausea. She would like to try Zofran to see if this gives her relief from her nausea. She does have an allergy to Phenergan. She says it caused her to feel like she has bugs crawling all over her. We will give her Zofran to see if this helps with the nausea. Her [place] #[id number] has been reviewed and is appropriate. Her morphine equivalent is 20. Her urine drug screens have been appropriate. Her pain a 7 out of 10 today. Review of Systems General: No recent weight changes, no fever, no sleep disturbances Respiratory: No cough, no shortness of air, no recurring pulmonary infections Cardiovascular/peripheral vascular: No chest pain, no palpitations, no edema, no shortness of breath Gastrointestinal: No new onset incontinence, normal bowel movements reported Genitourinary: No new onset incontinence Musculoskeletal: Low back pain Psychiatric: Normal mood/affect Neurological: [Denies weakness in extremities], [denies balance issues] Objective:: Physical exam General: Alert and oriented x3, no acute distress, pleasant and cooperative, [on room air] Lungs: Respirations even and unlabored, symmetrical chest expansion Eyes: PERRL Musculoskeletal: Flexion and extension of lumbar spine somewhat guarded secondary to pain, deep tendon reflexes normal, strength in upper and lower extremities [5/5], [abnormal gait noted] Neurological: Speech clear, cellular equipment repairer equal, no gross sensory deficit Assessment:: Degenerative disc disease lumbar spine with lumbar radiculopathy symptoms Plan:: We will refill the patient's [place] 5 mg 1 tablet p.o. 4 times daily and gabapentin 300 mg 1 tablet p.o. 3 times daily. We will give her 3 months worth of medication. We will also give her a month of Zofran 4 mg 1 tablet p.o. 3 times daily as needed nausea. We will see her back in the clinic in 3 months to reassess her symptoms. The patient and I specifically discussed risk factors for COVID19. These risks include, but are not limited to age greater than 60, heart or lung disease, diabetes, immunosuppression, and travel. We also discussed NSAIDs may worsen COVID19 infection or symptoms. Patient should not use NSAIDs to treat COVID19 signs or symptoms. Patient was also informed that any type of corticosteroid of any form (oral or injection) will decrease the patient's immune system response and may increase the likelihood of COVID19 infection and symptoms[address] Dr. Acosta has reviewed this note and agrees with this plan of care. This note was dictated using voice recognition software and make contain errors or omissions. [facility] History I have reviewed the patient's past medical history: Yes Medical History: Reports:: Anxiety, Asthma, Depression, Migraine *Have you ever received a pneumonia vaccine?: Yes *Have you received a flu vaccine this season?: Yes Other Medical History: Reports: Other Other Surgeries: Yes: Dilation and Curettage, Tubal Ligation Amputation: No Fractures: Yes - *Social History Smoking Status: Current every day smoker Tobacco Type: cigarettes # Packs/Day (cigarettes): 1 Alcohol Intake: never Substance Use Type: denies use *Occupational Status:: other Housing: house Household Members: significant other *Travel in the last 8 weeks: None - Psychiatric History Pschychiatric History:: Reports:: Anxiety, Depression Family Hx:: Non-contributory
== END ==
PROVIDERS: PCP Family Medicine; Visit Provider Clinical Nurse Specialist Family Health
DX: M51.16 Intervertebral disc disorders with radiculopathy, lumbar region (principal)
CPT/HCPCS: 99212

== ENCOUNTER → 2020-04-30 13:11 | Outpatient (POV) | payer MEDICAID, SELFPAY ==
[2020-04-30 13:18] VITALS: BP 131/80; PULSE 80; RESP 18; TEMP 36.6; O2SAT 98; BMI 29.0
--- NOTE | 2020-04-30 13:34 | HMH.PAINSOAP ---
[facility] Pain Management SOAP Note Subjective:: Patient is a 50-year-old white female who presents today for medication refills. She has been treated for chronic low back pain with lumbar radiculopathy symptoms. Patient says she is having worsening low back pain along with bilateral wrist and shoulder pain. She says her pain is worse in her left shoulder at this time. She says she is having difficulty raising her left arm above her head. Patient I did discuss undergoing injective therapy to her left shoulder, however, patient says she does not want to wait for the injection. She says she will go to her primary care provider's office to receive the injection. She has managed in the clinic with gabapentin 300 mg 1 tablet p.o. 4 times daily and [place] 5 mg 1 tablet p.o. 4 times daily. Patient was scheduled to come into the clinic last week, however, she says her car would not start and she was unable to make that appointment. As result, she will be out of medication today. Patient understands medication will be refilled tomorrow with Dr. DENNYS Cervantes. She does rate her pain a 7 out of 10 today. She denies any side effects to the medication. The patient's [place] #[id number] has been reviewed and is appropriate. Drug screens have been appropriate. Morphine equivalent is 0. Review of Systems General: No recent weight changes, no fever, no sleep disturbances Respiratory: No cough, no shortness of air, no recurring pulmonary infections Cardiovascular/peripheral vascular: No chest pain, no palpitations, no edema, no shortness of breath Gastrointestinal: No new onset incontinence, normal bowel movements reported Genitourinary: No new onset incontinence Musculoskeletal: Low back pain, left shoulder pain, bilateral wrist pain Psychiatric: Normal mood/affect Neurological: [Denies weakness in extremities], [denies balance issues] Objective:: Physical exam General: Alert and oriented x3, no acute distress, pleasant and cooperative, [on room air] Lungs: Respirations even and unlabored, symmetrical chest expansion Eyes: PERRL Musculoskeletal: Flexion and extension of lumbar and cervical spine somewhat guarded secondary to pain, deep tendon reflexes normal, strength in upper and lower extremities [5/5], slightly antalgic gait noted Neurological: Speech clear, 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 4 times daily as well as her gabapentin 3 mg 1 tablet p.o. 4 times daily. We will give the patient 3 months worth medication and see her back in clinic in 3 months to reassess her symptoms. She has been instructed to contact clinic if she has any concerns before next appointment. Risks and benefits of the medication have been explained in detail to the patient. The patient has been advised to consult with his/her primary care provider and pharmacist regarding drug-drug interaction of medications currently prescribed. The patient and I specifically discussed risk factors for COVID19. These risks include, but are not limited to age greater than 60, heart or lung disease, diabetes, immunosuppression, and travel. We also discussed NSAIDs may worsen COVID19 infection or symptoms. Patient should not use NSAIDs to treat COVID19 signs or symptoms. Patient was also informed that any type of corticosteroid of any form (oral or injection) will decrease the patient's immune system response and may increase the likelihood of COVID19 infection and symptoms. Patient has been instructed to contact clinic if he does she has any concerns before the next appointment. Dr. Acosta has reviewed this note and agrees with this plan of care. This note was dictated using voice recognition software and make contain errors or omissions. Patient has been prescribed a controlled substance after being counseled on the medication, medication sa
== END ==
PROVIDERS: PCP Family Medicine; Visit Provider Clinical Nurse Specialist Family Health
DX: M51.16 Intervertebral disc disorders with radiculopathy, lumbar region (principal)
CPT/HCPCS: 99212

== ENCOUNTER → 2020-07-30 13:13 | Outpatient (POV) | payer MEDICAID, SELFPAY ==
--- NOTE | 2020-07-30 13:52 | HMH.PAINSOAP ---
[facility] Pain Management SOAP Note Subjective:: Pleasant 50-year-old white female who presents today for medication refills. She recently has had some tooth ache which has resolved. She is also no longer moving. Her pharmacy is changing back to [facility]. She is currently being medically managed with [place] 5 mg 1 tab p.o. 4 times daily and gabapentin 300 mg 1 tab p.o. 4 times daily. She denies side effects from medication Alejandra #[id number] reviewed and appropriate drug screens have been appropriate her current morphine equivalent is 20. Patient does have some swelling in her foot that was broken about a year ago. Patient states that she utilizes a compression sock and brace when needed. ROS General: no recent weight change, no fever, no sleep disturbances Respiratory: no cough, no shortness of air, no recurring pulmonary infections Cardiovascular/Peripheral Vascular: No chest pain, No palpitations, no edema, no shortness of breath. Gastrointestinal: no new onset incontinence, normal bowel movements reported Genitourinary: no new onset incontinence Musculoskeletal: Back pain, upper and lower Psychiatric: normal mood/ affect Neurological: [denies new onset weakness in extremities], [denies new onset balance issues] Objective:: Physical Exam General: Alert and oriented x3, no acute distress, pleasant and cooperative, [on room air] Lungs: Resps E/U, Symmetrical chest expansion, Eyes: PERRL Musculoskeletal: Flexion and extension of lumbar spine somewhat guarded secondary to pain, deep tendon reflexes normal, strength in upper and lower extremities [5/5], [abnormal gait noted] Neurological: speech clear, general magistrate equal, no gross sensory deficits Assessment:: Degenerative disc disease lumbar spine lumbar radiculopathy symptoms and back pain Plan:: We will refill the patient's [place] 5 mg 1 tab p.o. 4 times daily minor gabapentin 300 mg 1 tab p.o. 4 times daily we will see the patient back in 3 months reassess her symptoms at that time she has been instructed to call the office if she has any issues prior to her next appointment. Dr. Acosta has reviewed this note and agrees with this plan of care. This note was dictated using voice recognition software and may contain errors or omissions Patient has been prescribed a controlled substance after being counseled on the medication, medication safety, and possible side effects. ALEJANDRA report has been obtained and reviewed prior to prescription and found to be appropriate. Opioid contract was reviewed and signed by the patient, and that they have agreed to all of the terms set forth by our compliance program. [facility] History I have reviewed the patient's past medical history: Yes Medical History: Reports:: Anxiety, Asthma, Depression, Migraine *Have you ever received a pneumonia vaccine?: No *Have you received a flu vaccine this season?: Yes Other Medical History: Reports: Other Other Surgeries: Yes: Dilation and Curettage, Tubal Ligation Amputation: No Fractures: Yes - *Social History Smoking Status: Current every day smoker Tobacco Type: cigarettes # Packs/Day (cigarettes): 1 Alcohol Intake: never Substance Use Type: denies use *Occupational Status:: employed Housing: house Household Members: significant other *Travel in the last 8 weeks: None - Psychiatric History Pschychiatric History:: Reports:: Anxiety, Depression Family Hx:: Non-contributory
[2020-07-30 13:57] VITALS: BP 133/78; PULSE 79; RESP 18; O2SAT 98; BMI 33.9
== END ==
PROVIDERS: Visit Provider Clinical Nurse Specialist Family Health
DX: M51.16 Intervertebral disc disorders with radiculopathy, lumbar region (principal)
CPT/HCPCS: 99212; G0463

== ENCOUNTER → 2020-10-29 13:57 | Outpatient (POV) | payer MEDICAID, SELFPAY ==
[2020-10-29 14:43] VITALS: BP 130/88; PULSE 79; RESP 20; O2SAT 98; BMI 32.3
--- NOTE | 2020-10-30 07:21 | HMH.PAINSOAP ---
[facility] Pain Management SOAP Note Subjective:: Patient is a 50-year-old white female who presents today for follow-up and for medication refill. The patient is being treated for degenerative disc disease lumbar spine with lumbar radiculopathy symptoms and chronic back pain. Patient says that she has pain all over today. She rates her pain a 5 out of 10 when not working and a 10 out of 10 when working. She has managed in the clinic with [place] 5 mg 1 tablet p.o. 4 times daily and gabapentin 300 mg 1 tablet p.o. 4 times daily. She denies any side effects. Her [place] #[id number] has been reviewed and is appropriate. Drug screen is appropriate. Review of Systems General: No recent weight changes, no fever, no sleep disturbances Respiratory: No cough, no shortness of air, no recurring pulmonary infections Cardiovascular/peripheral vascular: No chest pain, no palpitations, no edema, no shortness of breath Gastrointestinal: No new onset incontinence, normal bowel movements reported Genitourinary: No new onset incontinence Musculoskeletal: Low back pain Psychiatric: Normal mood/affect Neurological: [Denies weakness in extremities], [denies balance issues] Objective:: Physical exam General: Alert and oriented x3, no acute distress, pleasant and cooperative, [on room air] Lungs: Respirations even and unlabored, symmetrical chest expansion Eyes: PERRL Musculoskeletal: Flexion and extension of [] lumbar spine somewhat guarded secondary to pain, deep tendon reflexes normal, strength in upper and lower extremities [5/5], [abnormal gait noted] Neurological: Speech clear, glass 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 4 times daily and tramadol 50 mg 1 tablet p.o. 4 times daily. We will see the patient back in 1 month for refill. [facility] History I have reviewed the patient's past medical history: Yes Medical History: Reports:: Anxiety, Asthma, Depression, Migraine *Have you ever received a pneumonia vaccine?: Yes *Have you received a flu vaccine this season?: Yes Other Medical History: Reports: Other Other Surgeries: Yes: Dilation and Curettage, Tubal Ligation Amputation: No Fractures: Yes - *Social History Smoking Status: Current every day smoker Tobacco Type: cigarettes # Packs/Day (cigarettes): 1 Alcohol Intake: never Substance Use Type: denies use *Occupational Status:: employed Housing: house Household Members: significant other *Travel in the last 8 weeks: None - Psychiatric History Pschychiatric History:: Reports:: Anxiety, Depression Family Hx:: Non-contributory
== END ==
PROVIDERS: Visit Provider Clinical Nurse Specialist Family Health
DX: M51.16 Intervertebral disc disorders with radiculopathy, lumbar region (principal); G89.29 Other chronic pain
CPT/HCPCS: 99212; G0463

== ENCOUNTER → 2020-11-26 13:08 | Outpatient (POV) | payer MEDICAID, SELFPAY ==
[2020-11-26 13:18] VITALS: BP 137/86; PULSE 90; RESP 18; O2SAT 95; BMI 38.7
--- NOTE | 2020-11-26 13:31 | HMH.PAINSOAP ---
[facility] Pain Management SOAP Note Subjective:: Patient is a 50-year-old white female who presents today for medication refills and follow-up. She has been treated for degenerative disc disease lumbar spine with lumbar radiculopathy symptoms. She is managed with oral medications of [place] 5 mg 1 tablet p.o. 4 times daily, gabapentin 300 mg 1 tablet p.o. 4 times daily, meloxicam 15 mg 1 tablet p.o. daily. She denies any side effects. [facility] #[id number] has been reviewed and is appropriate. Morphine equivalent is 20. Her pain is a 6 out of 10. This is her baseline. Medications are working well for her. Review of Systems General: No recent weight changes, no fever, no sleep disturbances Respiratory: No cough, no shortness of air, no recurring pulmonary infections Cardiovascular/peripheral vascular: No chest pain, no palpitations, no edema, no shortness of breath Gastrointestinal: No new onset incontinence, normal bowel movements reported Genitourinary: No new onset incontinence Musculoskeletal: Chronic low back pain Psychiatric: Normal mood/affect Neurological: [Denies weakness in extremities], [denies balance issues] Objective:: Physical exam General: Alert and oriented x3, no acute distress, pleasant and cooperative, [on room air] Lungs: Respirations even and unlabored, symmetrical chest expansion Eyes: PERRL Musculoskeletal: Flexion and extension of [] lumbar spine somewhat guarded secondary to pain, deep tendon reflexes normal, strength in upper and lower extremities [5/5], [abnormal gait noted] Neurological: Speech clear, 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 4 times daily, gabapentin 300 mg 1 tablet p.o. 4 times daily, and meloxicam 50 mg 1 tablet p.o. daily. She will get a month medication be seen in the clinic in 1 month for reevaluation of symptoms. Her medications are working well for her at this time. Patient has been instructed to contact the clinic with any concerns before the next appointment. Dr. Acosta has reviewed this note and agrees with this plan of care. This note was dictated using voice recognition software and make contain errors or omissions. Risks and benefits of the medication have been explained in detail to the patient. The patient has been advised to consult with his/her primary care provider and pharmacist regarding drug-drug interaction of medications currently prescribed. Patient has been prescribed a controlled substance after being counseled on the medication, medication safety, and possible side effects. ALEJANDRA report has been obtained and reviewed prior to prescription and found to be appropriate. Opioid contract was reviewed and signed by the patient, and that they have agreed to all of the terms set forth by our compliance program. [facility] History I have reviewed the patient's past medical history: Yes Medical History: Reports:: Anxiety, Asthma, Depression, Migraine *Have you ever received a pneumonia vaccine?: Yes *Have you received a flu vaccine this season?: No Other Medical History: Reports: Other Other Surgeries: Yes: Dilation and Curettage, Tubal Ligation Amputation: No Fractures: Yes - *Social History Smoking Status: Current every day smoker Tobacco Type: cigarettes # Packs/Day (cigarettes): 1 Alcohol Intake: never Substance Use Type: denies use *Occupational Status:: employed Housing: house Household Members: significant other *Travel in the last 8 weeks: None - Psychiatric History Pschychiatric History:: Reports:: Anxiety, Depression Family Hx:: Non-contributory
== END ==
PROVIDERS: Visit Provider Clinical Nurse Specialist Family Health
DX: M51.16 Intervertebral disc disorders with radiculopathy, lumbar region (principal)
CPT/HCPCS: 99212; G0463

== ENCOUNTER → 2020-12-24 13:09 | Outpatient (POV) | payer MEDICAID, SELFPAY ==
[2020-12-24 13:18] VITALS: BP 134/91; PULSE 82; RESP 18; TEMP 36.6; O2SAT 98; BMI 37.1
--- NOTE | 2020-12-24 13:54 | HMH.PAINSOAP ---
[facility] Pain Management SOAP Note Subjective:: Patient is a 50-year-old white female who presents today for follow-up. She is also treated with medications in our clinic. She is being treated for degenerative disc disease lumbar spine with lumbar radiculopathy symptoms. Patient gets [place] 5 mg 1 tablet p.o. 4 times daily, gabapentin 300 mg 1 tablet p.o. 4 times daily, and meloxicam 15 mg 1 tablet p.o. daily. Patient does deny any side effects to the medication. She says she is doing well overall with her medication regimen. She gets 60 to 70 percent relief. She does rate her pain a 5 out of 10 today. Her Alejandra #[id number] has been reviewed and is appropriate. Drug screen is appropriate. Review of Systems General: No recent weight changes, no fever, no sleep disturbances Respiratory: No cough, no shortness of air, no recurring pulmonary infections Cardiovascular/peripheral vascular: No chest pain, no palpitations, no edema, no shortness of breath Gastrointestinal: No new onset incontinence, normal bowel movements reported Genitourinary: No new onset incontinence Musculoskeletal: Low back pain, intermittent bilateral leg pain Psychiatric: [Normal mood/affect] Neurological: [Denies weakness in extremities], [denies balance issues] Objective:: Physical exam General: Alert and oriented x3, no acute distress, pleasant and cooperative, [on room air] Lungs: Respirations even and unlabored, symmetrical chest expansion Eyes: PERRL Musculoskeletal: Flexion and extension of [] lumbar [spine] somewhat guarded secondary to pain, strength in upper and lower extremities [5/5], [antalgic gait noted] Neurological: Speech clear, [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 4 times daily and gabapentin 310 mg 1 tablet p.o. 4 times daily along with her meloxicam 15 mg 1 tablet p.o. daily. We will give the patient a month medication see her back in the clinic in 1 month for reevaluation of symptoms. Patient has been prescribed a controlled substance after being counseled on the medication, medication safety, and possible side effects. ALEJANDRA report has been obtained and reviewed prior to prescription and found to be appropriate. Opioid contract was reviewed and signed by the patient, and that they have agreed to all of the terms set forth by our compliance program. Risks and benefits of the medication have been explained in detail to the patient. The patient has been advised to consult with his/her primary care provider and pharmacist regarding drug-drug interaction of medications currently prescribed. Patient has been instructed to contact the clinic with any concerns before the next appointment. Dr. Acosta has reviewed this note and agrees with this plan of care. This note was dictated using voice recognition software and make contain errors or omissions. [facility] History I have reviewed the patient's past medical history: Yes Medical History: Reports:: Anxiety, Asthma, Depression, Migraine *Have you ever received a pneumonia vaccine?: No *Have you received a flu vaccine this season?: No Other Medical History: Reports: Other Other Surgeries: Yes: Dilation and Curettage, Tubal Ligation Amputation: No Fractures: Yes - *Social History Smoking Status: Current every day smoker Tobacco Type: cigarettes # Packs/Day (cigarettes): 1 Alcohol Intake: never Substance Use Type: denies use *Occupational Status:: employed Housing: house Household Members: significant other *Travel in the last 8 weeks: None - Psychiatric History Pschychiatric History:: Reports:: Anxiety, Depression Family Hx:: Non-contributory
== END ==
PROVIDERS: Visit Provider Clinical Nurse Specialist Family Health
DX: M51.16 Intervertebral disc disorders with radiculopathy, lumbar region (principal)
CPT/HCPCS: 99212; G0463

== ENCOUNTER → 2021-01-28 13:22 | Outpatient (POV) | payer MEDICAID, SELFPAY ==
--- NOTE | 2021-01-28 15:12 | HMH.VVPMSO ---
[facility] Virtual Visit SOAP Consent for virtual visit:: With the recent concerns about the COVID-19, we are trying to minimize exposure to you by shifting to telehealth appointments whenever possible. It restricts me from seeing you in person, but the trade off is protecting you during this pandemic. Can you see and hear me okay, and do you consent to this option? If not, I would be happy to see if we can reschedule your appointment in the future, when feasible. Has patient consented to this virtual visit?: Yes Subjective:: Patient is a 50-year-old white female who is following up today via telehealth due to recent Covid exposure. She is being treated for degenerative disc disease lumbar spine with lumbar radicular symptoms. She is managed with [place] 5 mg 1 tablet p.o. 4 times daily, gabapentin 300 g 1 tablet p.o. 4 times daily, meloxicam 15 mg 1 tablet p.o. daily. Patient denies any side effects to the medicine. She says that the medicine is giving her significant relief. She rates her pain a 4 out of 10. Right now, she is being managed with antibiotic therapy. She is reporting to be having dizziness, nausea, and coughing. Review of Systems General: No recent weight changes, no fever, no sleep disturbances Respiratory: No cough, no shortness of air, no recurring pulmonary infections Cardiovascular/peripheral vascular: No chest pain, no palpitations, no edema, no shortness of breath Gastrointestinal: No new onset incontinence, normal bowel movements reported Genitourinary: No new onset incontinence Musculoskeletal: Low back pain with radiation into bilateral lower extremities?chronic Psychiatric: [Normal mood/affect] Neurological: [Denies weakness in extremities], [denies balance issues] Objective:: Physical exam General: Alert and oriented x3, Assessment:: Degenerative disc disease lumbar spine with lumbar radiculopathy symptoms Plan:: We will continue the patient on gabapentin 300 mg 1 tablet p.o. 4 times daily, [place] 5 mg 1 tablet p.o. 4 times daily and meloxicam 15 mg 1 tablet p.o. daily. We will give the patient a month medication plan to see her in the clinic at next visit. [facility] #[id number] has been reviewed and is appropriate. Drug screen is appropriate. Risks and benefits of the medication have been explained in detail to the patient. The patient has been advised to consult with his/her primary care provider and pharmacist regarding drug-drug interaction of medications currently prescribed. Patient has been prescribed a controlled substance after being counseled on the medication, medication safety, and possible side effects. ALEJANDRA report has been obtained and reviewed prior to prescription and found to be appropriate. Opioid contract was reviewed and signed by the patient, and that they have agreed to all of the terms set forth by our compliance program. Patient has been instructed to contact the clinic with any concerns before the next appointment. Dr. Acosta has reviewed this note and agrees with this plan of care. This note was dictated using voice recognition software and make contain errors or omissions. Time In:: 13:20 Time Out:: 13:30 [facility] History I have reviewed the patient's past medical history: Yes Medical History: Reports:: Anxiety, Asthma, Depression, Migraine *Have you ever received a pneumonia vaccine?: No *Have you received a flu vaccine this season?: No Other Medical History: Reports: Other Other Surgeries: Yes: Dilation and Curettage, Tubal Ligation Amputation: No Fractures: Yes - *Social History Smoking Status: Current every day smoker Tobacco Type: cigarettes # Packs/Day (cigarettes): 1 Alcohol Intake: never Substance Use Type: denies use *Occupational Status:: employed Housing: house Household Members: significant other *Travel in the last 8 weeks: None - Psychiatric History Pschychiatric History:: Reports:: Anxiety, Depression Family Hx:: Non-contributory
== END ==
PROVIDERS: Visit Provider Clinical Nurse Specialist Family Health
DX: M51.16 Intervertebral disc disorders with radiculopathy, lumbar region (principal)
CPT/HCPCS: 99212; G0463

== ENCOUNTER → 2021-02-23 11:23 | Outpatient (POV) | payer MEDICAID, SELFPAY ==
[2021-02-23 11:55] VITALS: BP 151/93; PULSE 71; RESP 18; O2SAT 99; BMI 37.1
--- NOTE | 2021-02-23 12:47 | HMH.PAINSOAP ---
[facility] Pain Management SOAP Note Subjective:: Patient is a 50-year-old white female who presents today for medication refill. Last visit was via telehealth due to a respiratory infection. Patient says that she was worked up for Covid but was found to be negative. She is feeling much better regarding her respiratory symptoms. Patient is treated in the clinic for chronic low back pain with symptoms into her lower extremities. She does rate her pain a 6 out of 10 which is baseline for her. She does get [place] 5 mg 1 tablet p.o. 4 times daily, gabapentin 301 tablet p.o. 4 times daily, meloxicam 15 mg 1 tablet p.o. daily, and Flexeril 10 mg 1 tablet p.o. 3 times daily. She is doing well with her medication regimen. [facility] #[id number] has been reviewed and is appropriate. Morphine equivalent is 0. She denies any side effects from medication. Review of Systems General: No recent weight changes, no fever, no sleep disturbances Respiratory: No cough, no shortness of air, no recurring pulmonary infections Cardiovascular/peripheral vascular: No chest pain, no palpitations, no edema, no shortness of breath Gastrointestinal: No new onset incontinence, normal bowel movements reported Genitourinary: No new onset incontinence Musculoskeletal: Chronic low back pain with radiation into bilateral lower extremities Psychiatric: [Normal mood/affect] Neurological: [Denies weakness in extremities], [denies balance issues] Objective:: Physical exam General: Alert and oriented x3, no acute distress, pleasant and cooperative Lungs: Respirations even and unlabored, symmetrical chest expansion Eyes: PERRL Musculoskeletal: Flexion and extension of lumbar [spine] somewhat guarded secondary to pain, [antalgic gait noted] Neurological: Speech clear, no gross sensory deficit Assessment:: Degenerative disc disease lumbar spine with lumbar radiculopathy symptoms Plan:: We will refill the patient's Flexeril 10 mg 1 tablet p.o. 3 times daily, [place] 5 mg 1 tablet p.o. 4 times daily, gabapentin 300 mg 1 tablet p.o. 4 times daily. She does take meloxicam 15 mg 1 tablet p.o. daily but does not need refill on this medication at this visit. We will follow-up with the patient in 1 month for reevaluation of symptoms. Risks and benefits of the medication have been explained in detail to the patient. The patient does understand the risk of dependence on the medication when given over a prolonged period. Patient has been advised of risks of oversedation with the prescribed medication. Narcan has been offered to the paitent in the event of oversedation. Patient has been advised that a family member should also be educated regarding administration of Narcan. The patient has been advised to consult with his/her primary care provider and pharmacist regarding drug-drug interaction of medications currently prescribed. Patient has been prescribed a controlled substance after being counseled on the medication, medication safety, and possible side effects. ALEJANDRA report has been obtained and reviewed prior to prescription and found to be appropriate. Opioid contract was reviewed and signed by the patient, and that they have agreed to all of the terms set forth by our compliance program. Patient has been instructed to contact the clinic with any concerns before the next appointment. Dr. Acosta has reviewed this note and agrees with this plan of care. This note was dictated using voice recognition software and make contain errors or omissions. [facility] History I have reviewed the patient's past medical history: Yes Medical History: Reports:: Anxiety, Asthma, Depression, Migraine *Have you ever received a pneumonia vaccine?: No *Have you received a flu vaccine this season?: No Other Medical History: Reports: Other Other Surgeries: Yes: Dilation and Curettage, Tubal Ligation Amputation: No Fractures: Yes - *Social History Smoking Status: Current every day smok
== END ==
PROVIDERS: Visit Provider Clinical Nurse Specialist Family Health
DX: M51.16 Intervertebral disc disorders with radiculopathy, lumbar region (principal)
CPT/HCPCS: 99212; G0463

== ENCOUNTER → 2021-03-30 10:34 | Outpatient (POV) | payer MEDICAID, SELFPAY ==
[2021-03-30 11:02] VITALS: BP 141/96; PULSE 69; RESP 18; O2SAT 99; BMI 32.3
--- NOTE | 2021-03-30 11:16 | HMH.PAINSOAP ---
[facility] Pain Management SOAP Note Subjective:: Patient is a 50-year-old white female who presents today for medication refills. Patient says that she has recently had a new grandbaby. She is very excited. She was last seen via telehealth due to a respiratory infection. She is here today with complaints of worsening low back pain. She is managed with [place] 5 mg 1 tablet p.o. 4 times daily, gabapentin 300 mg 1 tablet p.o. 4 times daily, meloxicam 50 mg 1 tablet p.o. daily, and Flexeril 10 mg 1 tablet p.o. 3 times daily. The medications are working well for her at this time. She denies any side effects. She does have chronic low back pain that does go into her bilateral lower extremities. She is continuing to work daily. [facility] #[id number] has been reviewed and is appropriate. Morphine equivalent is 20. Patient says most of her pain today is in her wrist. She has worn braces to her wrist in the past which gave her some stability pain relief while working, but she is concerned she will need to undergo surgical intervention to her wrist pain. Review of Systems General: No recent weight changes, no fever, no sleep disturbances Respiratory: No cough, no shortness of air, no recurring pulmonary infections Cardiovascular/peripheral vascular: No chest pain, no palpitations, no edema, no shortness of breath Gastrointestinal: No new onset incontinence, normal bowel movements reported Genitourinary: No new onset incontinence Musculoskeletal: Bilateral wrist pain, low back pain with bilateral lower extremity pain Psychiatric: [Normal mood/affect] Neurological: [Denies weakness in extremities], [denies balance issues] Objective:: Physical exam General: Alert and oriented x3, no acute distress, pleasant and cooperative Lungs: Respirations even and unlabored, symmetrical chest expansion Eyes: PERRL Musculoskeletal: Flexion and extension of lumbar [spine] somewhat guarded secondary to pain, [antalgic gait noted] Neurological: Speech clear, no gross sensory deficit Assessment:: degenerative disc disease lumbar spine with lumbar radiculopathy symptoms, bilateral wrist pain Plan:: We will continue the patient's [place] 5 mg 1 tablet p.o. 4 times daily, gabapentin 310 mg 1 tablet p.o. 4 times daily, Flexeril 10 mg 1 tablet p.o. 3 times daily and meloxicam 15 mg 1 tablet p.o. daily. She will get a month medication we will see her back in the clinic in 1 month. Risks and benefits of the medication have been explained in detail to the patient. The patient does understand the risk of dependence on the medication when given over a prolonged period. Patient has been advised of risks of oversedation with the prescribed medication. Narcan has been offered to the paitent in the event of oversedation. Patient has been advised that a family member should also be educated regarding administration of Narcan. The patient has been advised to consult with his/her primary care provider and pharmacist regarding drug-drug interaction of medications currently prescribed. Patient has been prescribed a controlled substance after being counseled on the medication, medication safety, and possible side effects. ALEJANDRA report has been obtained and reviewed prior to prescription and found to be appropriate. Opioid contract was reviewed and signed by the patient, and that they have agreed to all of the terms set forth by our compliance program. Patient has been instructed to contact the clinic with any concerns before the next appointment. Dr. Acosta has reviewed this note and agrees with this plan of care. This note was dictated using voice recognition software and make contain errors or omissions. [facility] History I have reviewed the patient's past medical history: Yes Medical History: Reports:: Anxiety, Asthma, Depression, Migraine *Have you ever received a pneumonia vaccine?: No *Have you received a flu vaccine this season?: No Other Medical History: Christa
[2021-03-30 11:58] LABS: Benzodiazepines Screen,Urine Negative ng/ml (<200)
[2021-03-30 11:59] LABS: Amphetamine/Metha Screen,Urine Negative ng/ml (<1000)
[2021-03-30 12:00] LABS: Barbiturates Screen,Urine Negative ng/ml (<200); Cannabinoid Screen,Urine Negative ng/ml (<50)
[2021-03-30 12:01] LABS: Cocaine Screen,Urine Negative ng/ml (<300); Methadone Screen,Urine Negative ng/ml (<300)
[2021-03-30 12:02] LABS: Opiate Screen,Urine Positive ng/ml (<300)
[2021-03-30 12:03] LABS: Phencyclidine Screen,Urine Negative ng/ml (<25)
== END ==
PROVIDERS: Visit Provider Clinical Nurse Specialist Family Health
DX: M51.16 Intervertebral disc disorders with radiculopathy, lumbar region (principal); M25.531 Pain in right wrist; M25.532 Pain in left wrist; Z79.891 Long term (current) use of opiate analgesic
CPT/HCPCS: 80305; 99212; G0463

== ENCOUNTER → 2021-04-27 10:41 | Outpatient (POV) | payer MEDICAID, SELFPAY ==
[2021-04-27 10:58] VITALS: BP 147/78; PULSE 83; RESP 18; O2SAT 98; BMI 35.5
--- NOTE | 2021-04-27 11:13 | P.CONS_ITS ---
[facility] Pain Management SOAP Note Subjective:: Patient is a pleasant 51-year-old female who comes in here today for follow-up and medication refills. Patient is currently being treated for degenerative disc disease of the lumbar spine with lumbar radiculopathy symptoms. Patient is currently being managed with [place] 5 mg 4 times a day, gabapentin 300 mg 4 times a day, Flexeril 10 mg 3 times a day, and meloxicam 15 mg daily. Patient denies any side effects from any of these medications. Patient says that she is taking Aleve more than her meloxicam because she can take it more frequently. Patient says she does not need any refills on her meloxicam but she says that she still takes it from time to time. However she would like refills of the other medications. Patient denies any changes to location of pain. She rates her pain today as 5 out of 10. Her [place] number is [id number] with an active morphine equivalent of 20. Drug screen have been evaluated and appropriate. Review of Systems General: No recent weight changes, no fever, no sleep disturbances Respiratory: No cough, no shortness of air, no recurring pulmonary infections Cardiovascular/peripheral vascular: No chest pain, no palpitations, no edema, no shortness of breath Gastrointestinal: No new onset incontinence, normal bowel movements reported Genitourinary: No new onset incontinence Musculoskeletal: Low back pain Psychiatric: [Normal mood/affect] Neurological: [Denies weakness in extremities], [denies balance issues] Objective:: Physical exam General: Alert and oriented x3, no acute distress, pleasant and cooperative Lungs: Respirations even and unlabored, symmetrical chest expansion Eyes: PERRL Musculoskeletal: Flexion and extension of lumbar [spine] somewhat guarded secondary to pain, [antalgic gait noted] Neurological: Speech clear, no gross sensory deficit Assessment:: Degenerative disc disease of the lumbar spine with lumbar radiculopathy symptoms Plan:: We will continue the patient's [place] 5 mg 4 times a day, 100 mg 4 times a day, and Flexeril 10 mg 3 times a day.. We will provide the patient with [1 month] of refills. We would like to see the patient back in [1 month]. Patient has been instructed to contact the clinic with any concerns before the next appointment. Dr. Acosta has reviewed this note and agrees with this plan of care. This note was dictated using voice recognition software and make contain errors or omissions. [facility] History Medical History: Reports:: Anxiety, Asthma, Depression, Migraine *Have you ever received a pneumonia vaccine?: No *Have you received a flu vaccine this season?: No Other Medical History: Reports: Other Other Surgeries: Yes: Dilation and Curettage, Tubal Ligation Amputation: No Fractures: Yes - *Social History Smoking Status: Current every day smoker Tobacco Type: cigarettes # Packs/Day (cigarettes): 1 Alcohol Intake: never Substance Use Type: denies use *Occupational Status:: employed Housing: house Household Members: significant other *Travel in the last 8 weeks: None - Psychiatric History Pschychiatric History:: Reports:: Anxiety, Depression Family Hx:: Non-contributory
== END ==
PROVIDERS: Visit Provider Clinical Nurse Specialist Family Health
DX: M51.16 Intervertebral disc disorders with radiculopathy, lumbar region (principal)
CPT/HCPCS: 99212; G0463

== ENCOUNTER → 2021-05-27 10:48 | Outpatient (POV) | payer MEDICAID, SELFPAY ==
[2021-05-27 11:01] VITALS: BP 144/92; PULSE 87; RESP 18; O2SAT 99; BMI 32.3
--- NOTE | 2021-05-27 12:04 | HMH.PAINSOAP ---
[facility] Pain Management SOAP Note Subjective:: Patient is a 51-year-old white female who presents today for medication refills. Today, the patient rates her pain an 8 out of 10. She does have chronic low back pain. We manage the patient with [place] 5 mg 1 tablet p.o. 4 times daily, gabapentin 300 mg 1 tablet p.o. 4 times daily, Flexeril 10 mg 1 tablet p.o. 3 times daily, and meloxicam 15 mg 1 tablet p.o. daily. She is continuing to work and does say the medications do help her with her mobility while working. [facility] #[id number] has been reviewed and is appropriate. Drug screen is appropriate. Morphine equivalent is 20. She rates her pain an 8 out of 10 today. She does feel that the weather has contributed to worsening pain at this time. Review of Systems General: No recent weight changes, no fever, no sleep disturbances Respiratory: No cough, no shortness of air, no recurring pulmonary infections Cardiovascular/peripheral vascular: No chest pain, no palpitations, no edema, no shortness of breath Gastrointestinal: No new onset incontinence, normal bowel movements reported Genitourinary: No new onset incontinence Musculoskeletal: Low back pain, bilateral lower extremity pain Psychiatric: [Normal mood/affect] Neurological: [Denies weakness in extremities], [denies balance issues] Objective:: Physical exam General: Alert and oriented x3, no acute distress, pleasant and cooperative Lungs: Respirations even and unlabored, symmetrical chest expansion Eyes: PERRL Musculoskeletal: Flexion and extension of lumbar [spine] somewhat guarded secondary to pain, [antalgic gait noted] Neurological: Speech clear, no gross sensory deficit Assessment:: Degenerative disc disease lumbar spine with lumbar radiculopathy symptoms Plan:: We will continue the patient's [place] 5 mg 1 tablet p.o. 4 times daily, gabapentin 310 mg 1 tablet p.o. 4 times daily, Flexeril 10 mg 1 tablet p.o. 3 times daily, meloxicam 15 mg 1 tablet p.o. daily. The patient will get a month medication will be seen back in the clinic in 1 month. Risks and benefits of the medication have been explained in detail to the patient. The patient does understand the risk of dependence on the medication when given over a prolonged period. Patient has been advised of risks of oversedation with the prescribed medication. Narcan has been offered to the roberts chapeltent in the event of oversedation. Patient has been advised that a family member should also be educated regarding administration of Narcan. The patient has been advised to consult with his/her primary care provider and pharmacist regarding drug-drug interaction of medications currently prescribed. Patient has been prescribed a controlled substance after being counseled on the medication, medication safety, and possible side effects. ALEJANDRA report has been obtained and reviewed prior to prescription and found to be appropriate. Opioid contract was reviewed and signed by the patient, and that they have agreed to all of the terms set forth by our compliance program. Patient has been instructed to contact the clinic with any concerns before the next appointment. Dr. Acosta has reviewed this note and agrees with this plan of care. This note was dictated using voice recognition software and make contain errors or omissions. [facility] History I have reviewed the patient's past medical history: Yes Medical History: Reports:: Anxiety, Asthma, Depression, Migraine *Have you ever received a pneumonia vaccine?: No *Have you received a flu vaccine this season?: No Other Medical History: Reports: Other Other Surgeries: Yes: Dilation and Curettage, Tubal Ligation Amputation: No Fractures: Yes - *Social History Smoking Status: Current every day smoker Tobacco Type: cigarettes # Packs/Day (cigarettes): 1 Alcohol Intake: never Substance Use Type: denies use *Occupational Status:: unemployed Housing: house Household Members: significant
== END ==
PROVIDERS: Visit Provider Clinical Nurse Specialist Family Health
DX: M51.16 Intervertebral disc disorders with radiculopathy, lumbar region (principal)
CPT/HCPCS: 99212; G0463

== ENCOUNTER → 2021-07-01 15:06 | Outpatient (POV) | payer MEDICAID, SELFPAY ==
[2021-07-01 15:12] VITALS: BP 143/76; PULSE 86; RESP 18; O2SAT 96; BMI 35.5
--- NOTE | 2021-07-01 15:16 | HMH.PAINSOAP ---
[facility] Pain Management SOAP Note Subjective:: Is a very pleasant 51-year-old white female who presents today for follow-up and medication refills. She is currently being treated for degenerative disease of lumbar spine lumbar radiculopathy. She is currently managed with [place] 5 mg 1 tablet p.o. 4 times daily and gabapentin 300 mg 4 times daily, Flexeril 10 mg 3 times a day as needed for muscle spasms, and meloxicam 15 mg 1 tablet p.o. daily as needed. She states that her current pain regimen is adequately managing her chronic pain symptoms and allows her to maintain functionality and maintain her job. She denies any adverse effects to these medications. She is requesting refills on the gabapentin and [place] today. She rates her pain today as a 6 out of 10. ROS General: No recent weight changes, no fever, no sleep disturbances Respiratory: No cough, no shortness of air, no recurring pulmonary infections Cardiovascular/peripheral vascular: No chest pain, no palpitations, no edema, no shortness of breath Gastrointestinal: No new onset incontinence, normal bowel movements reported Genitourinary: No new onset incontinence Musculoskeletal: Low back and leg pain Psychiatric: [Normal mood/affect] Neurological: [Denies weakness in extremities], [denies balance issues] Objective:: General: Alert and oriented x3, no acute distress, pleasant and cooperative Lungs: Resps E/U, symmetric chest expansion Eyes: PERRL Musculoskeletal: limited flexion and extension of the lumbar spine secondary to pain. Deep tendon reflexes were normal in bilateral lower extremities. Motor exam was grossly intact in the bilateral lower extremities, antalgic gait noted. Neurological: Speech is clear, painter ordnance equal, no gross sensory deficits Assessment:: Degenerative disease of lumbar spine lumbar radiculopathy Plan:: I discussed with the patient that we will continue and refill her [place] 5 mg 1 tablet p.o. 4 times daily #124 1 month supply, and gabapentin 300 mg 1 tablet p.o. 4 times daily #120 for a 1 month supply with 2 refills. We will continue Flexeril 10 mg 3 times daily as needed and meloxicam 15 mg 1 tablet p.o. daily as needed but she does not need refills on these medications today. [facility] #[id number] and prior directions reviewed and appropriate. We will follow-up with this patient for reassessment and medication refills in 1 month. [facility] History Medical History: Reports:: Anxiety, Asthma, Depression, Migraine *Have you ever received a pneumonia vaccine?: No *Have you received a flu vaccine this season?: No Other Medical History: Reports: Other Other Surgeries: Yes: Dilation and Curettage, Tubal Ligation Amputation: No Fractures: Yes - *Social History Smoking Status: Current every day smoker Tobacco Type: cigarettes # Packs/Day (cigarettes): 1 Alcohol Intake: never Substance Use Type: denies use *Occupational Status:: unemployed Housing: house Household Members: significant other *Travel in the last 8 weeks: None - Psychiatric History Pschychiatric History:: Reports:: Anxiety, Depression Family Hx:: Non-contributory
[2021-07-01 19:21] LABS: Benzodiazepines Screen,Urine Negative ng/ml (<200)
[2021-07-01 19:22] LABS: Amphetamine/Metha Screen,Urine Negative ng/ml (<1000); Barbiturates Screen,Urine Negative ng/ml (<200)
[2021-07-01 19:23] LABS: Cannabinoid Screen,Urine Negative ng/ml (<50); Cocaine Screen,Urine Negative ng/ml (<300)
[2021-07-01 19:24] LABS: Methadone Screen,Urine Negative ng/ml (<300)
[2021-07-01 19:25] LABS: Opiate Screen,Urine Positive ng/ml (<300); Phencyclidine Screen,Urine Negative ng/ml (<25)
[2021-07-22 21:08] LABS: Codeine Negative (Cutoff=100); Hydrocodone Positive (.); Hydromorphone Positive (.); Morphine Negative (Cutoff=100); Opiates Positive (.)
== END ==
PROVIDERS: Visit Provider Anesthesiology Pain Medicine
DX: M51.16 Intervertebral disc disorders with radiculopathy, lumbar region (principal)
CPT/HCPCS: 80305; 80361; 80365; 99212; G0463; G0480

== ENCOUNTER → 2021-07-26 07:55 | Outpatient (POV) | payer MEDICAID, SELFPAY ==
[2021-07-26 08:19] VITALS: BP 140/94; PULSE 69; RESP 20; TEMP 36.5; O2SAT 100; BMI 35.5
--- NOTE | 2021-07-26 08:56 | HMH.PAINSOAP ---
[facility] Pain Management SOAP Note Subjective:: Patient is a very pleasant 51-year-old white female that presents today for medication refills. She is currently being treated for degenerative disc disease of her spine multiple levels with radiculopathy. She is currently being managed with [place] 5 mg 1 p.o. 4 times daily and gabapentin 3 mg 4 times daily, Flexeril 10 mg 3 times a day as needed for muscle spasm, meloxicam 15 mg 1 p.o. daily. She states her current pain regime is adequately managing her chronic pain symptoms and allows her to maintain functionality and maintain her job. She denies any adverse effects to these medications. She is requesting refills on the above medications. Her pain today is 5/10. Objective:: Patient is awake alert oriented x3 no acute distress. Flexion-extension lumbar spine somewhat guarded secondary to pain. Deep tendon reflexes lower extremities normal. Patient is in no acute distress. Motor exam grossly intact bilaterally. Assessment:: Disc disease lumbar spine multilevels. Lumbar radiculopathy at times. Plan:: Discussed in detail with the patient regarding continuing her current medication regime. We will refill her [place] 5 mg 1 p.o. 4 times daily. Gabapentin 300 mg 1 p.o. 4 times daily. 1 month supply with 2 refills. Flexeril as needed. Back strain appropriate. [facility] #[id number] has been reviewed and appropriate. Patient will return in 1 month. [facility] History I have reviewed the patient's past medical history: Yes Medical History: Reports:: Anxiety, Asthma, Depression, Migraine *Have you ever received a pneumonia vaccine?: Yes *Have you received a flu vaccine this season?: No Other Medical History: Reports: Other Other Surgeries: Yes: Dilation and Curettage, Tubal Ligation Amputation: No Fractures: Yes - *Social History Last grade of school completed: High school graduate Smoking Status: Current every day smoker Tobacco Type: cigarettes # Packs/Day (cigarettes): 1 Alcohol Intake: never Substance Use Type: denies use *Occupational Status:: other Housing: house Household Members: significant other *Travel in the last 8 weeks: None - Psychiatric History Expresses thoughts of harming self/others: None Pschychiatric History:: Reports:: Anxiety, Depression Family Hx:: Non-contributory
== END ==
PROVIDERS: Visit Provider Nurse Anesthetist, Certified Registered
DX: M51.16 Intervertebral disc disorders with radiculopathy, lumbar region (principal)
CPT/HCPCS: 99212; G0463

== ENCOUNTER → 2021-08-30 09:54 | Outpatient (POV) | payer MEDICAID, SELFPAY ==
[2021-08-30 10:05] VITALS: BP 127/87; PULSE 77; RESP 18; TEMP 36.6; O2SAT 98; BMI 35.5
--- NOTE | 2021-08-30 10:53 | P.CONS_ITS ---
[facility] Pain Management SOAP Note Subjective:: Patient is a pleasant 51-year-old female who is here for medication refill and follow-up. Patient is currently being treated for degenerative disc disease of lumbar spine with lumbar radiculopathy symptoms. Patient is being managed with [place] 5 mg 4 times a day, gabapentin 300 mg 4 times a day, Flexeril 10 mg 3 times a day, and meloxicam 15 mg daily. Patient denies any side effects from the medications. Patient denies any changes to the location and type of pain. Patient states that this is adequately helping manage their pain. Rates pain as 5 out of 10. [facility] number [id number] with an active morphine equivalent 20. Drug screens have been reviewed and appropriate. Review of Systems: General: No recent weight changes, no fever, no sleep disturbances Respiratory: No cough, no shortness of air, no recurring pulmonary infections Cardiovascular/peripheral vascular: No chest pain, no palpitations, no edema, no shortness of breath Gastrointestinal: No new onset incontinence, normal bowel movements reported Genitourinary: No new onset incontinence Musculoskeletal: Low back pain Psychiatric: [Normal mood/affect] Neurological: [Denies weakness in extremities], [denies balance issues] Objective:: Physical Exam: General: Alert and oriented x3, no acute distress, pleasant and cooperative, [on room air] Lungs: Respirations even and unlabored, symmetrical chest expansion Eyes: PERRL Musculoskeletal: Flexion and extension of lumbar [spine] somewhat guarded se condary to pain, [antalgic gait noted] Neurological: Speech clear, no gross sensory deficit Assessment:: Degenerative disc disease of lumbar spine with lumbar radiculopathy symptoms Plan:: We will continue the patient's [place] 5 mg 4 times a day, gabapentin 300 mg 4 times a day, meloxicam 15 mg daily. Patient states that she is only taking the Flexeril as needed. I will change it to Flexeril 10 mg twice a day.. We will provide the patient with 1 month of refills. We would like to see the patient back in 1 month for follow-up and reevaluation of chronic pain syndrome. Patient has been advised of risks of oversedation with the prescribed medication. Narcan has been offered to the patient in the event of oversedation. Patient has been advised that a family member should also be educated regarding administration of Narcan. Patient has been instructed to contact the clinic with any concerns before the next appointment. Dr. Acosta has reviewed this note and agrees with this plan of care. This note was dictated using voice recognition software and make contain errors or omissions. [facility] History Medical History: Reports:: Anxiety, Asthma, Depression, Migraine *Have you ever received a pneumonia vaccine?: No *Have you received a flu vaccine this season?: No Other Medical History: Reports: Other Other Surgeries: Yes: Dilation and Curettage, Tubal Ligation Amputation: No Fractures: Yes - *Social History Smoking Status: Current every day smoker Tobacco Type: cigarettes # Packs/Day (cigarettes): 1 Alcohol Intake: never Substance Use Type: denies use *Occupational Status:: employed Housing: house Household Members: significant other *Travel in the last 8 weeks: None - Psychiatric History Pschychiatric History:: Reports:: Anxiety, Depression Family Hx:: Non-contributory
== END ==
PROVIDERS: Visit Provider Student in an Organized Health Care Education/Training Program
DX: M51.16 Intervertebral disc disorders with radiculopathy, lumbar region (principal)
CPT/HCPCS: 99212; G0463

== ENCOUNTER → 2021-09-27 10:15 | Outpatient (POV) | payer MEDICAID, SELFPAY ==
[2021-09-27 11:10] VITALS: BP 149/106; PULSE 79; RESP 18; TEMP 36.9; O2SAT 98; BMI 35.5
--- NOTE | 2021-09-27 12:52 | HMH.PAINSOAP ---
[facility] Pain Management SOAP Note Subjective:: Patient is a pleasant 51-year-old female who is here for medication refill and follow-up. Patient is currently being treated for degenerative disc disease of the lumbar spine with lumbar radiculopathy symptoms. Patient is being managed with [place] 5 mg 4 times a day, gabapentin 300 mg 4 times a day, Flexeril 10 mg 3 times a day, and meloxicam 15 mg daily. Patient denies any side effects from the medications. Patient denies any changes to the location and type of pain. Patient states that this is adequately helping manage their pain. Rates pain as 6 out of 10. [facility] number [id number] with an active morphine equivalent 20. Drug screens have been reviewed and appropriate. Review of Systems: General: No recent weight changes, no fever, no sleep disturbances Respiratory: No cough, no shortness of air, no recurring pulmonary infections Cardiovascular/peripheral vascular: No chest pain, no palpitations, no edema, no shortness of breath Gastrointestinal: No new onset incontinence, normal bowel movements reported Genitourinary: No new onset incontinence Musculoskeletal: Low back pain Psychiatric: [Normal mood/affect] Neurological: [Denies weakness in extremities], [denies balance issues] Objective:: Physical Exam: General: Alert and oriented x3, no acute distress, pleasant and cooperative Lungs: Respirations even and unlabored, symmetrical chest expansion Eyes: PERRL Musculoskeletal: Flexion and extension of lumbar [spine] somewhat guarded secondary to pain, [antalgic gait noted] Neurological: Speech clear, no gross sensory deficit Assessment:: Degenerative disc disease of lumbar spine with lumbar radiculopathy symptoms Plan:: We will continue the patient's [place] 5 mg 4 times a day, gabapentin 300 mg 4 times a day, meloxicam 15 mg daily, Flexeril 10 mg 3 times a day. We will provide the patient with 1 month of refills. We would like to see the patient back in 1 month for follow-up and reevaluation of chronic pain syndrome. Patient has been advised of risks of oversedation with the prescribed medication. Narcan has been offered to the patient in the event of oversedation. Patient has been advised that a family member should also be educated regarding administration of Narcan. Patient has been instructed to contact the clinic with any concerns before the next appointment. Dr. Acosta has reviewed this note and agrees with this plan of care. This note was dictated using voice recognition software and make contain errors or omissions. [facility] History Medical History: Reports:: Anxiety, Asthma, Depression, Migraine *Have you ever received a pneumonia vaccine?: Yes *Have you received a flu vaccine this season?: No Other Medical History: Reports: Other Other Surgeries: Yes: Dilation and Curettage, Tubal Ligation Amputation: No Fractures: Yes - *Social History Smoking Status: Current every day smoker Tobacco Type: cigarettes # Packs/Day (cigarettes): 1 Alcohol Intake: never Substance Use Type: denies use *Occupational Status:: employed Housing: house Household Members: significant other *Travel in the last 8 weeks: None - Psychiatric History Pschychiatric History:: Reports:: Anxiety, Depression Family Hx:: Non-contributory
== END ==
PROVIDERS: Visit Provider Student in an Organized Health Care Education/Training Program
DX: M51.16 Intervertebral disc disorders with radiculopathy, lumbar region (principal)
CPT/HCPCS: 99212; G0463

== ENCOUNTER → 2021-10-25 11:37 | Outpatient (POV) | payer MEDICAID, SELFPAY ==
[2021-10-25 12:06] VITALS: BP 141/94; PULSE 78; RESP 20; TEMP 36.9; O2SAT 97; BMI 35.5
--- NOTE | 2021-10-25 13:05 | P.CONS_ITS ---
[facility] Pain Management SOAP Note Subjective:: Patient is a pleasant 51-year-old female who is here for medication refill and follow-up. Patient is currently being treated for degenerative disease of lumbar spine with lumbar radiculopathy symptoms. Patient is being managed with [place] 5 mg 4 times a day, gabapentin 300 mg 4 times a day, Flexeril 10 mg 3 times a day, and meloxicam 15 mg daily. Patient denies any side effects from the medications. Patient denies any changes to the location and type of pain. Patient states that this is adequately helping manage their pain. Rates pain as 6 out of 10. [facility] number [id number] with an active morphine equivalent 20. Drug screens have been reviewed and appropriate. Patient is needing refills on her [place] and gabapentin. Review of Systems: General: No recent weight changes, no fever, no sleep disturbances Respiratory: No cough, no shortness of air, no recurring pulmonary infections Cardiovascular/peripheral vascular: No chest pain, no palpitations, no edema, no shortness of breath Gastrointestinal: No new onset incontinence, normal bowel movements reported Genitourinary: No new onset incontinence Musculoskeletal: Low back pain Psychiatric: [Normal mood/affect] Neurological: [Denies weakness in extremities], [denies balance issues] Objective:: Physical Exam: General: Alert and oriented x3, no acute distress, pleasant and cooperative Lungs: Respirations even and unlabored, symmetrical chest expansion Eyes: PERRL Musculoskeletal: Flexion and extension of lumbar [spine] somewhat guarded secondary to pain, [antalgic gait noted] Neurological: Speech clear, no gross sensory deficit Assessment:: Degenerative disc disease of lumbar spine with lumbar radiculopathy symptoms Plan:: We will continue the patient's [place] 5 mg 4 times a day and gabapentin 300 mg 4 times a day. We will provide the patient with 1 month of refills. We would like to see the patient back in 1 month for follow-up and reevaluation of chronic pain syndrome. Patient has been advised of risks of oversedation with the prescribed medication. Narcan has been offered to the patient in the event of oversedation. Patient has been advised that a family member should also be educated regarding administration of Narcan. Patient has been instructed to contact the clinic with any concerns before the next appointment. Dr. Acosta has reviewed this note and agrees with this plan of care. This note was dictated using voice recognition software and make contain errors or omissions. [facility] History Medical History: Reports:: Anxiety, Asthma, Depression, Migraine *Have you ever received a pneumonia vaccine?: No *Have you received a flu vaccine this season?: No Other Medical History: Reports: Other Other Surgeries: Yes: Dilation and Curettage, Tubal Ligation Amputation: No Fractures: Yes - *Social History Smoking Status: Current every day smoker Tobacco Type: cigarettes # Packs/Day (cigarettes): 1 Alcohol Intake: never Substance Use Type: denies use *Occupational Status:: other Housing: house Household Members: significant other *Travel in the last 8 weeks: None - Psychiatric History Pschychiatric History:: Reports:: Anxiety, Depression Family Hx:: Non-contributory
== END ==
PROVIDERS: Visit Provider Student in an Organized Health Care Education/Training Program
DX: M51.16 Intervertebral disc disorders with radiculopathy, lumbar region (principal)
CPT/HCPCS: 99212; G0463

== ENCOUNTER → 2021-10-25 12:21 | Outpatient (CLI) | payer MEDICAID, SELFPAY ==
[2021-10-25 13:04] LABS: Amphetamine/Metha Screen,Urine Negative ng/ml (<1000); Barbiturates Screen,Urine Negative ng/ml (<200)
[2021-10-25 13:05] LABS: Benzodiazepines Screen,Urine Negative ng/ml (<200); Cannabinoid Screen,Urine Negative ng/ml (<50)
[2021-10-25 13:06] LABS: Cocaine Screen,Urine Negative ng/ml (<300)
[2021-10-25 13:07] LABS: Methadone Screen,Urine Negative ng/ml (<300); Opiate Screen,Urine Positive ng/ml (<300)
[2021-10-25 13:08] LABS: Phencyclidine Screen,Urine Negative ng/ml (<25)
[2021-11-02 23:07] LABS: Codeine Negative (Cutoff=100); Hydrocodone Positive (.); Hydromorphone Positive (.); Morphine Negative (Cutoff=100); Opiates Positive (.)
== END ==
PROVIDERS: PCP Family Medicine; Visit Provider Student in an Organized Health Care Education/Training Program
DX: Z79.891 Long term (current) use of opiate analgesic (principal)
CPT/HCPCS: 80305; 80361; 80365; G0480

== ENCOUNTER → 2021-11-22 07:55 | Outpatient (POV) | payer MEDICAID, SELFPAY ==
--- NOTE | 2021-11-22 08:45 | P.CONS_ITS ---
[facility] Pain Management SOAP Note Subjective:: Patient is a pleasant 51-year-old female who is here for medication refill and follow-up. Patient is currently being treated for degenerative disc disease of lumbar spine with lumbar radiculopathy symptoms. Patient rates her pain 6 out of 10 today. Pain is in her low back and an achy sensation. Patient denies any changes to the location or type of pain. Patient is being treated with [place] 5 mg 4 times a day, gabapentin 300 mg 4 times a day, Flexeril 10 mg 3 times a day, and meloxicam 15 mg daily. Patient denies any side effects from these medications. She does state that this medication is adequately managing her pain. Patient is requesting refill on her gabapentin and her [place]. Her [place] is [id number] with a morphine equivalent of 20. It has been reviewed and is appropriate. Review of Systems: General: No recent weight changes, no fever, no sleep disturbances Respiratory: No cough, no shortness of air, no recurring pulmonary infections Cardiovascular/peripheral vascular: No chest pain, no palpitations, no edema, no shortness of breath Gastrointestinal: No new onset incontinence, normal bowel movements reported Genitourinary: No new onset incontinence Musculoskeletal: No back pain Psychiatric: [Normal mood/affect] Neurological: [Denies weakness in extremities], [denies balance issues] Objective:: Physical Exam: General: Alert and oriented x3, no acute distress, pleasant and cooperative Lungs: Respirations even and unlabored, symmetrical chest expansion Eyes: PERRL Musculoskeletal: Flexion and extension of lumbar [spine] somewhat guarded secondary to pain, [antalgic gait noted] Neurological: Speech clear, no gross sensory deficit Assessment:: Degenerative disc disease of lumbar spine with lumbar radiculopathy symptoms Plan:: We will continue the patient's [place] 5 mg 4 times a day and gabapentin 300 mg 4 times a day. We will provide the patient with 1 month of refills. Patient will return to clinic in 1 month for medication refill and follow-up. Patient has been instructed to contact the clinic with any concerns before the next appointment. Dr. Acosta has reviewed this note and agrees with this plan of care. This note was dictated using voice recognition software and make contain errors or omissions. [facility] History I have reviewed the patient's past medical history: Yes Medical History: Reports:: Anxiety, Asthma, Depression, Migraine *Have you ever received a pneumonia vaccine?: No *Have you received a flu vaccine this season?: No Other Medical History: Reports: Other Other Surgeries: Yes: Dilation and Curettage, Tubal Ligation Amputation: No Fractures: Yes - *Social History Smoking Status: Current every day smoker Tobacco Type: cigarettes # Packs/Day (cigarettes): 1 Alcohol Intake: never Substance Use Type: denies use *Occupational Status:: other Housing: house Household Members: significant other *Travel in the last 8 weeks: Inside the [place] - Psychiatric History Pschychiatric History:: Reports:: Anxiety, Depression Family Hx:: Non-contributory
[2021-11-22 09:05] VITALS: BP 140/90; PULSE 70; RESP 20; TEMP 36.6; O2SAT 100; BMI 35.5
== END ==
PROVIDERS: Visit Provider Student in an Organized Health Care Education/Training Program
DX: M51.16 Intervertebral disc disorders with radiculopathy, lumbar region (principal); Z72.0 Tobacco use
CPT/HCPCS: 99212; G0463

== ENCOUNTER → 2021-12-27 09:56 | Outpatient (POV) | payer MEDICAID, SELFPAY ==
[2021-12-27 11:57] VITALS: BP 137/86; PULSE 71; RESP 20; TEMP 36.5; O2SAT 98; BMI 35.3
--- NOTE | 2021-12-27 13:04 | HMH.PAINSOAP ---
[facility] Pain Management SOAP Note Subjective:: Patient is a pleasant 51-year-old female who presents today for medication refill and follow-up. We are currently treating the patient for degenerative disc disease of lumbar spine with lumbar radiculopathy symptoms. Patient rates her pain today an 8 out of 10. She states her pain is all in her low back that radiates to her right hip. Patient denies any new trauma to the site. Patient states she has had falls in the past but had no significant trauma from these events. Patient describes this pain as a ache, throbbing sensation that is worse with activity. She states about 2 weeks ago her low back pain seemed more severe but it is getting better. Patient states she has pain occasionally in her wrist and has had injections in the past for this. She also states she uses a TENS unit and Salonpas that provides significant relief she is currently being managed with gabapentin 300 mg 4 times a day and [place] 5 mg 4 times a day. She denies any side effects from these medications. She states these medications are adequately managing her pain. Her [place] is [phone]. It has been reviewed and appropriate. Review of Systems: General: No recent weight changes, no fever, no sleep disturbances Respiratory: No cough, no shortness of air, no recurring pulmonary infections Cardiovascular/peripheral vascular: No chest pain, no palpitations, no edema, no shortness of breath Gastrointestinal: No new onset incontinence, normal bowel movements reported Genitourinary: No new onset incontinence Musculoskeletal: Low back pain, right hip pain Psychiatric: [Normal mood/affect] Neurological: [Denies weakness in extremities], [denies balance issues] Objective:: Physical Exam: General: Alert and oriented x3, no acute distress, pleasant and cooperative Lungs: Respirations even and unlabored, symmetrical chest expansion Eyes: PERRL Musculoskeletal: Flexion and extension of lumbar [spine] somewhat guarded secondary to pain, [antalgic gait noted]. Extreme point tenderness along right hip. Neurological: Speech clear, no gross sensory deficit Assessment:: Degenerative disc disease of lumbar spine with lumbar radiculopathy symptoms, right greater trochanter bursitis Plan:: Patient is having worsening pain in her right hip. She had extreme point tenderness along the outer aspect of her right hip. I have discussed with the patient regarding right hip bursa injections. Risk and benefits were discussed with the patient. The patient would like to proceed forward with this injection. I will order the patient a compounding cream. Patient will be scheduled for a right greater trochanteric bursa injection. Patient has been instructed to contact the clinic with any concerns before the next appointment. Dr. Acosta has reviewed this note and agrees with this plan of care. This note was dictated using voice recognition software and make contain errors or omissions. [facility] History I have reviewed the patient's past medical history: Yes Medical History: Reports:: Anxiety, Asthma, Depression, Migraine *Have you ever received a pneumonia vaccine?: Yes *Have you received a flu vaccine this season?: Yes Other Medical History: Reports: Other Other Surgeries: Yes: Dilation and Curettage, Tubal Ligation Amputation: No Fractures: Yes - *Social History Smoking Status: Current every day smoker Tobacco Type: cigarettes # Packs/Day (cigarettes): 1 Alcohol Intake: never Substance Use Type: denies use *Occupational Status:: employed Housing: house Household Members: significant other *Travel in the last 8 weeks: None - Psychiatric History Pschychiatric History:: Reports:: Anxiety, Depression Family Hx:: Non-contributory
== END ==
PROVIDERS: PCP Family Medicine; Visit Provider Nurse Practitioner Family
DX: M51.16 Intervertebral disc disorders with radiculopathy, lumbar region (principal); M70.61 Trochanteric bursitis, right hip
CPT/HCPCS: 99212; G0463

== ENCOUNTER 2021-12-31 08:48 | Day surgery (SDC) | payer MEDICAID, SELFPAY ==
[2021-12-31 09:12] VITALS: BP 144/94; PULSE 75; TEMP 36.5; O2SAT 100; BMI 33.0
[2021-12-31 09:35] VITALS: BP 143/93; PULSE 72; RESP 20; O2SAT 98
--- NOTE | 2021-12-31 10:10 | P.PCN_ITS ---
- Procedure Date: 12/31/21 Time: 09:30 Anesthesiologist:: Bruce Oakley CRNA Complications:: None Pre-procedure Diagnosis:: Right trochanteric bursitis Post-procedure Diagnosis:: Same Indications for Procedure:: This patient is a pleasant 51-year-old female that comes our injection clinic today for right trochanteric bursa injection. Patient has extreme point tenderness over the right trochanteric bursa area. She rates pain 8/10. Patient states she is unable to lie on that side without extreme pain. Walking increases pain. Procedure Details:: Procedure: Right trochanteric bursa injection under fluoroscopy We then moved to the right trochanteric bursa.~ C-arm fluoroscopy was used to view the left greater trochanter.~ The skin and subcutaneous tissues overlying the right greater trochanter were anesthetized using lidocaine, 1.5% and a 25- gauge needle.~ After this, a 22-gauge spinal needle was inserted and advanced until it contacted the right greater trochanter.~ Dye was injected and good spread was seen throughout the right trochanteric bursa. After this, approximately 5 mL of bupivacaine, 0.25% and Depo-Medrol, 40 mg was incrementally injected into the right right trochanteric bursa.~ The patient tolerated the procedure well with no complications. Plan and Disposition:: Patient was discharged without incident.
== END 2021-12-31 09:35 | disposition home or self-care (01) ==
LOC: SC.PAINP 08:49
PROVIDERS: PCP Family Medicine; Visit Provider Nurse Anesthetist, Certified Registered
DX: M70.61 Trochanteric bursitis, right hip (principal)
CPT/HCPCS: 20610; 77002; J1040

== ENCOUNTER → 2022-01-24 10:53 | Outpatient (POV) | payer MEDICAID, SELFPAY ==
[2022-01-24 11:15] VITALS: BP 140/91; PULSE 67; RESP 18; TEMP 36.6; O2SAT 99; BMI 35.5
--- NOTE | 2022-01-24 11:35 | A.OFFVIS_ITS ---
[facility] Pain Management SOAP Note Subjective:: Patient is a pleasant 51-year-old female who presents today for follow-up of right trochanteric bursa injection on 12/31/2021. We are currently treating the patient for degenerative disc disease of lumbar spine with lumbar radiculopathy symptoms, right greater trochanteric bursitis. Patient states she has had significant improvement of her pain symptoms following this injection. She rates 70 to 80% improvement and feels like she still is getting some relief. Patient denies any new trauma to the site. She states this is the same pain she has been experiencing. She describes this as a aching, throbbing sensation that is worse with increased activity. Patient continues to use her at home TENS unit and Salonpas that provides some relief. She is managed with gabapentin 300 mg 4 times a day and [place] 5 mg 4 times a day. Patient denies any side effects from this medication. She states these medications are adequately managing her pain. She is requesting a refill at today's visit. Her [place] is [phone]. Is been reviewed and appropriate. Review of Systems: General: No recent weight changes, no fever, no sleep disturbances Respiratory: No cough, no shortness of air, no recurring pulmonary infections Cardiovascular/peripheral vascular: No chest pain, no palpitations, no edema, no shortness of breath Gastrointestinal: No new onset incontinence, normal bowel movements reported Genitourinary: No new onset incontinence Musculoskeletal: Low back pain, right hip pain Psychiatric: [Normal mood/affect] Neurological: [Denies weakness in extremities], [denies balance issues] Objective:: Physical Exam: General: Alert and oriented x3, no acute distress, pleasant and cooperative Lungs: Respirations even and unlabored, symmetrical chest expansion Eyes: PERRL Musculoskeletal: Flexion and extension of lumbar [spine] somewhat guarded secondary to pain, [antalgic gait noted] Neurological: Speech clear, no gross sensory deficit Assessment:: Degenerative disc disease of lumbar spine with lumbar radiculopathy symptoms, right greater trochanteric bursitis Plan:: Patient continues to have significant improvement of her symptoms. At this time she is not needing additional injective therapy. I will reorder the patient's gabapentin 300 mg 4 times a day and [place] 5 mg 4 times a day and provide a 1 month supply of this medication. Patient will follow-up in 1 month for reevaluation of symptoms and medication refill. Patient has been advised of risks of oversedation with the prescribed medication. Narcan has been offered to the patient in the event of oversedation. Patient has been advised that a family member should also be educated regarding administration of Narcan. Patient has been instructed to contact the clinic with any concerns before the next appointment. Dr. Acosta has reviewed this note and agrees with this plan of care. This note was dictated using voice recognition software and make contain errors or omissions. PFSH PFSH Social History Smoking Status: Current every day smoker tobacco type: cigarettes packs per day: 1 alcohol intake: never substance use type: denies use current occupational status: employed Travel in the last 8 weeks: None household members: significant other housing: house
== END | disposition home or self-care (01) ==
PROVIDERS: Visit Provider Nurse Practitioner Family
DX: M51.16 Intervertebral disc disorders with radiculopathy, lumbar region (principal); M70.61 Trochanteric bursitis, right hip
CPT/HCPCS: 99212; G0463

== ENCOUNTER → 2022-02-28 10:33 | Outpatient (POV) | payer MEDICAID, SELFPAY ==
[2022-02-28 11:19] VITALS: BP 140/96; PULSE 73; RESP 18; TEMP 36.9; O2SAT 98; BMI 35.5
--- NOTE | 2022-02-28 11:22 | EXP.PAIN.SOA ---
[facility] Pain Management SOAP Note Subjective:: Patient is a pleasant 51-year-old female who presents today for follow-up. We are currently treating the patient for degenerative disc disease of lumbar spine with lumbar radiculopathy symptoms, right greater trochanteric bursitis. Today she rates her pain a 7 out of 10. She states the pain is primarily in her low back that radiates into her bilateral hips. Patient denies any new trauma or injury. She denies any change to location or type of pain she experiences. Patient does state that this is a aching, throbbing sensation that is worse with increased activity. 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 Patient does use a TENS unit at home. She is currently prescribed a compounding cream that she states does provide some additional improvement of her symptoms. She is also managed with gabapentin 300 mg 4 times a day and [place] 5 mg 4 times a day. Patient denies any side effects from these medications. She states these medications do adequately manage her pain. She is requesting refills at today's visit. Her [place] is [id number]. It has been reviewed and appropriate. Review of Systems: General: No recent weight changes, no fever, no sleep disturbances Respiratory: No cough, no shortness of air, no recurring pulmonary infections Cardiovascular/peripheral vascular: No chest pain, no palpitations, no edema, no shortness of breath Gastrointestinal: No new onset incontinence, normal bowel movements reported Genitourinary: No new onset incontinence Musculoskeletal: Low back pain, bilateral hip pain Psychiatric: [Normal mood/affect] Neurological: [Denies weakness in extremities], [denies balance issues] Objective:: Physical Exam: General: Alert and oriented x3, no acute distress, pleasant and cooperative Lungs: Respirations even and unlabored, symmetrical chest expansion Eyes: PERRL Musculoskeletal: Flexion and extension of lumbar [spine] somewhat guarded secondary to pain, [antalgic gait noted] Neurological: Speech clear, no gross sensory deficit Assessment:: Degenerative disc disease of lumbar spine with lumbar radiculopathy symptoms, bilateral greater trochanteric bursitis Plan:: Patient continues to have significant pain in her low back and bilateral hips. Patient did have limited range of motion of her lumbar spine during today's visit. I will refill the patient's gabapentin 300 mg 4 times a day and [place] 5 mg 4 times a day and provide a 1 month supply of this medication. I have also discussed with the patient regarding having repeat bilateral bursa injections in the future risk and benefits were discussed with the patient. At this time she would like to wait and see how the change in the weather affects her pain symptoms. We will follow-up with the patient in 1 month. Patient will return to clinic in 1 month for reevaluation of symptoms, medication refill and follow-up. Patient has been advised of risks of oversedation with the prescribed medication. Narcan has been offered to the patient in the event of oversedation. Patient has been advised that a family member should also be educated regarding administration of Narcan. Patient has been instructed to contact the clinic with any concerns before the next appointment. Dr. Acosta has reviewed this note and agrees with this plan of care. This note was dictated using voice recognition software and make contain errors or omissions. PFSH PFSH Social History Smoking Status: Current every day smoker tobacco type: cigarettes packs per day: 1 alcohol intake: never substance use type: denies use current occupational status: employed Travel in the last 8 weeks: None household members: significant other housing: house
== END | disposition home or self-care (01) ==
PROVIDERS: PCP Family Medicine; Visit Provider Nurse Practitioner Family
DX: M51.16 Intervertebral disc disorders with radiculopathy, lumbar region (principal); M70.61 Trochanteric bursitis, right hip; M70.62 Trochanteric bursitis, left hip; Z72.0 Tobacco use
CPT/HCPCS: 99212; G0463

== ENCOUNTER → 2022-02-28 11:24 | Outpatient (CLI) | payer MEDICAID, SELFPAY ==
[2022-02-28 12:39] LABS: Amphetamine/Metha Screen,Urine Negative ng/ml (<1000); Barbiturates Screen,Urine Negative ng/ml (<200)
[2022-02-28 12:40] LABS: Benzodiazepines Screen,Urine Negative ng/ml (<200)
[2022-02-28 12:41] LABS: Cannabinoid Screen,Urine Negative ng/ml (<50)
[2022-02-28 12:42] LABS: Cocaine Screen,Urine Negative ng/ml (<300)
[2022-02-28 12:43] LABS: Methadone Screen,Urine Negative ng/ml (<300); Opiate Screen,Urine Positive ng/ml (<300)
[2022-02-28 12:44] LABS: Phencyclidine Screen,Urine Negative ng/ml (<25)
[2022-03-03 12:12] LABS: Codeine Negative (Cutoff=100); Hydrocodone Positive (.); Hydromorphone Positive (.); Morphine Negative (Cutoff=100); Opiates Positive (.)
== END ==
PROVIDERS: PCP Family Medicine; Visit Provider Nurse Practitioner Family
DX: Z79.891 Long term (current) use of opiate analgesic (principal)
CPT/HCPCS: 80305; 80361; 80365; G0480

== ENCOUNTER → 2022-03-28 11:13 | Outpatient (POV) | payer MEDICAID, SELFPAY ==
[2022-03-28 11:41] VITALS: BP 147/87; PULSE 71; RESP 18; O2SAT 99; BMI 35.5
--- NOTE | 2022-03-28 12:18 | A.OFFVIS_ITS ---
[facility] Pain Management SOAP Note Subjective:: Patient is a pleasant 51-year-old female who presents today for medication refill and follow-up. We are currently treating the patient for degenerative disc disease of lumbar spine with lumbar radiculopathy symptoms, greater trochanteric bursitis, myofascial pain. Today she rates her pain a 6 out of 10. She states the pain continues to be in her low back that radiates into her bilateral hips. Patient denies any new trauma or injury. Patient denies any change in location or type of pain she experiences. She is currently managed with gabapentin 300 mg 4 times a day and [place] 5 mg 4 times a day. Patient denies any side effects from these medications. She states these medications do adequately manage her pain symptoms. She is requesting refills at today's visit. She does also take cyclobenzaprine 10 mg twice daily and is requesting a refill. Patient has had injective therapy in the past that has provided significant improvement of her symptoms including her bursa injection. Patient does state the previous trigger point injections did seem to aggravate her back pain. Her [place] is [id number]. It has been reviewed and appropriate. Review of Systems: General: No recent weight changes, no fever, no sleep disturbances Respiratory: No cough, no shortness of air, no recurring pulmonary infections Cardiovascular/peripheral vascular: No chest pain, no palpitations, no edema, no shortness of breath Gastrointestinal: No new onset incontinence, normal bowel movements reported Genitourinary: No new onset incontinence Musculoskeletal: Low back pain, hip pain Psychiatric: [Normal mood/affect] Neurological: [Denies weakness in extremities], [denies balance issues] Objective:: Physical Exam: General: Alert and oriented x3, no acute distress, pleasant and cooperative Lungs: Respirations even and unlabored, symmetrical chest expansion Eyes: PERRL Musculoskeletal: Flexion and extension of lumbar [spine] somewhat guarded secondary to pain, [antalgic gait noted] Neurological: Speech clear, no gross sensory deficit Assessment:: Degenerative disc disease of lumbar spine with lumbar radiculopathy symptoms, greater trochanteric bursitis, myofascial pain Plan:: Patient continues to have significant pain in her low back and bilateral hips however she is currently managed well with her current medication regimen. I will refill the patient's gabapentin 300 mg 4 times a day and [place] 5 mg 4 times a day and cyclobenzaprine 10 mg twice daily and provide a 1 month supply of these medications. We will follow-up with the patient in 1 month. Patient will return to clinic in 1 month for reevaluation of symptoms, medication refill and follow-up. Patient has been advised of risks of oversedation with the prescribed medicat ion. Narcan has been offered to the patient in the event of oversedation. Patient has been advised that a family member should also be educated regarding administration of Narcan. Patient has been instructed to contact the clinic with any concerns before the next appointment. Dr. Acosta has reviewed this note and agrees with this plan of care. This note was dictated using voice recognition software and make contain errors or omissions. PFSH PFSH Social History Smoking Status: Current every day smoker tobacco type: cigarettes packs per day: 1 alcohol intake: never substance use type: denies use current occupational status: employed Travel in the last 8 weeks: None household members: significant other housing: house
== END | disposition home or self-care (01) ==
PROVIDERS: PCP Family Medicine; Visit Provider Nurse Practitioner Family
DX: M51.16 Intervertebral disc disorders with radiculopathy, lumbar region (principal); M70.60 Trochanteric bursitis, unspecified hip; M79.10 Myalgia, unspecified site; Z72.0 Tobacco use
CPT/HCPCS: 99212; G0463

== ENCOUNTER → 2022-05-02 10:34 | Outpatient (POV) | payer MEDICAID, SELFPAY ==
[2022-05-02 11:44] VITALS: BP 133/89; PULSE 83; RESP 18; O2SAT 98; BMI 38.7
--- NOTE | 2022-05-02 14:35 | A.OFFVIS_ITS ---
[facility] Pain Management SOAP Note Subjective:: Patient is a pleasant 52-year-old female who is here for medication refill and follow-up. Patient is currently being treated for degenerative disc disease of lumbar spine with lumbar radiculopathy symptoms, greater trochanteric bursitis, myofascial pain. Patient is being managed with gabapentin 300 mg 4 times a day, [place] 5 mg 4 times a day, Flexeril 10 mg daily. Patient denies any side effects from the medications. Patient denies any changes to the location and type of pain. Patient states that this is adequately helping manage their pain. Rates pain as 6 out of 10. [facility] number [id number] with an active morphine equivalent 20. Drug screens have been reviewed and appropriate. Review of Systems: General: No recent weight changes, no fever, no sleep disturbances Respiratory: No cough, no shortness of air, no recurring pulmonary infections Cardiovascular/peripheral vascular: No chest pain, no palpitations, no edema, no shortness of breath Gastrointestinal: No new onset incontinence, normal bowel movements reported Genitourinary: No new onset incontinence Musculoskeletal: Low back pain, hip pain Psychiatric: [Normal mood/affect] Neurological: [Denies weakness in extremities], [denies balance issues] Objective:: Physical Exam: General: Alert and oriented x3, no acute distress, pleasant and cooperative Lungs: Respirations even and unlabored, symmetrical chest expansion Eyes: PERRL Musculoskeletal: Flexion and extension of lumbar [spine] somewhat guarded secondary to pain, [antalgic gait noted] Neurological: Speech clear, no gross sensory deficit Assessment:: Degenerative disc disease of lumbar spine with lumbar radiculopathy symptoms, myofascial pain, hip pain Plan:: We will continue the patient's gabapentin 300 mg 4 times a day, [place] 5 mg 4 times a day, Flexeril 10 mg twice a day. We will provide the patient with 1 month of refills. We would like to see the patient back in 1 month for follow-up and reevaluation of chronic pain syndrome. Patient has been advised of risks of oversedation with the prescribed medication. Narcan has been offered to the patient in the event of oversedation. Patient has been advised that a family member should also be educated regarding administration of Narcan. Patient has been instructed to contact the clinic with any concerns before the next appointment. Dr. Acosta has reviewed this note and agrees with this plan of care. This note was dictated using voice recognition software and make contain errors or omissions. [facility] Disclaimer: The information contained in this section may have been updated after the patient was seen, as this information can be updated by other users. Social History Smoking Status: Current every day smoker tobacco type: cigarettes packs per day: 1 alcohol intake: never substance use type: denies use current occupational status: employed Travel in the last 8 weeks: None household members: significant other housing: house
== END | disposition home or self-care (01) ==
PROVIDERS: PCP Family Medicine; Visit Provider Nurse Practitioner Family
DX: M51.16 Intervertebral disc disorders with radiculopathy, lumbar region (principal); M79.10 Myalgia, unspecified site; M70.60 Trochanteric bursitis, unspecified hip; M25.559 Pain in unspecified hip
CPT/HCPCS: 99212; G0463

== ENCOUNTER → 2022-05-30 10:19 | Outpatient (POV) | payer MEDICAID, SELFPAY ==
[2022-05-30 10:33] VITALS: BP 144/98; PULSE 93; RESP 18; O2SAT 98; BMI 37.1
--- NOTE | 2022-05-30 11:00 | EXP.PAIN.SOA ---
[facility] Pain Management SOAP Note Subjective:: Patient is a pleasant 52-year-old female who presents today for medication refill and follow-up. Patient is currently being treated for degenerative disc disease of lumbar spine with lumbar radiculopathy symptoms, greater trochanteric bursitis, myofascial pain. Today the patient rates her pain a 6 out of 10. Patient denies any new trauma or injury. Patient denies any change location or type of pain she experiences. Patient is currently managed with gabapentin 300 mg 4 times a day and [place] 5 mg 4 times a day. Patient denies any side effects from these medications. She states these medications do help manage her pain symptoms. She is also prescribed Flexeril 10 mg twice daily. Patient denies any side effects from this medication. She is requesting refills at today's visit. Her [place] is [id number]. Its been reviewed and appropriate. Review of Systems: General: No recent weight changes, no fever, no sleep disturbances Respiratory: No cough, no shortness of air, no recurring pulmonary infections Cardiovascular/peripheral vascular: No chest pain, no palpitations, no edema, no shortness of breath Gastrointestinal: No new onset incontinence, normal bowel movements reported Genitourinary: No new onset incontinence Musculoskeletal: Low back pain Psychiatric: [Normal mood/affect] Neurological: [Denies weakness in extremities], [denies balance issues] Objective:: Physical Exam: General: Alert and oriented x3, no acute distress, pleasant and cooperative Lungs: Respirations even and unlabored, symmetrical chest expansion Eyes: PERRL Musculoskeletal: Flexion and extension of lumbar [spine] somewhat guarded secondary to pain, [antalgic gait noted] Neurological: Speech clear, no gross sensory deficit ORT score updated with low risk Assessment:: Degenerative disc disease of lumbar spine with lumbar radiculopathy symptoms, greater trochanteric bursitis, myofascial pain Plan:: Patient continues to experience significant pain in her low back with radiating symptoms however she is doing well with her current medication regimen. I will refill the patient's gabapentin 300 mg 4 times a day, [place] 5 mg 4 times a day and Flexeril 10 mg twice daily and provide a 1 month supply of these medications. Patient will return to clinic in 1 month for reevaluation of symptoms, medication refill and follow-up. Patient has been advised of risks of oversedation with the prescribed medication. Narcan has been offered to the patient in the event of oversedation. Patient has been advised that a family member should also be educated regarding administration of Narcan. Patient has been instructed to contact the clinic with any concerns before the next appointment. Dr. Acosta has reviewed this note and agrees with this plan of care. This note was dictated using voice recognition software and make contain errors or omissions. [facility] Disclaimer: The information contained in this section may have been updated after the patient was seen, as this information can be updated by other users. Social History Smoking Status: Current every day smoker tobacco type: cigarettes packs per day: 1 alcohol intake: never substance use type: denies use current occupational status: employed Travel in the last 8 weeks: None household members: significant other housing: house
== END | disposition home or self-care (01) ==
PROVIDERS: Visit Provider Nurse Practitioner Family
DX: M51.16 Intervertebral disc disorders with radiculopathy, lumbar region (principal); M70.60 Trochanteric bursitis, unspecified hip; M79.10 Myalgia, unspecified site; F17.210 Nicotine dependence, cigarettes, uncomplicated
CPT/HCPCS: 99212; G0463

== ENCOUNTER → 2022-05-30 10:42 | Outpatient (CLI) | payer MEDICAID, SELFPAY ==
[2022-05-30 11:42] LABS: Amphetamine/Metha Screen,Urine Negative ng/ml (<1000); Barbiturates Screen,Urine Negative ng/ml (<200)
[2022-05-30 11:44] LABS: Benzodiazepines Screen,Urine Negative ng/ml (<200)
[2022-05-30 11:45] LABS: Cannabinoid Screen,Urine Negative ng/ml (<50); Cocaine Screen,Urine Negative ng/ml (<300)
[2022-05-30 11:46] LABS: Methadone Screen,Urine Negative ng/ml (<300)
[2022-05-30 11:47] LABS: Opiate Screen,Urine Positive ng/ml (<300); Phencyclidine Screen,Urine Negative ng/ml (<25)
[2022-06-03 10:52] LABS: Codeine Negative (Cutoff=100); Hydrocodone Positive (.); Hydromorphone Negative (Cutoff=100); Morphine Negative (Cutoff=100); Opiates Positive (.)
== END ==
PROVIDERS: PCP Family Medicine; Visit Provider Nurse Practitioner Family
DX: Z79.891 Long term (current) use of opiate analgesic (principal)
CPT/HCPCS: 80305; 80361; 80365; G0480

== ENCOUNTER → 2022-07-04 11:24 | Outpatient (POV) | payer MEDICAID, SELFPAY ==
--- NOTE | 2022-07-04 12:32 | A.OFFVIS_ITS ---
[facility] Pain Management SOAP Note Subjective:: Patient is a pleasant 52-year-old female who presents today for medication refill and follow-up. We are currently treating the patient for degenerative disc disease of lumbar spine with lumbar radiculopathy symptoms, greater trochanteric bursitis, myofascial pain. Today she rates her pain a 6 out of 10. Patient denies any new trauma or injury. Patient denies any change location or type of pain she experiences. Patient does state that she is having more neck and back and right wrist pain. Patient states she just feels like she may have overdone it. Patient is currently managed with gabapentin 300 mg 4 times a day and [place] 5 mg 4 times a day. Patient denies any side effects from this medication. She is also prescribed Flexeril 10mg twice a day. She states these medications do help manage her pain symptoms. She is requesting a refill at today's visit. Patient is also under the weather at today's visit and states she feels like she has a upper respiratory infection. Her [place] is [id number]. Its been reviewed and appropriate. Review of Systems: General: No recent weight changes, no fever, no sleep disturbances Respiratory: No cough, no shortness of air, no recurring pulmonary infections Cardiovascular/peripheral vascular: No chest pain, no palpitations, no edema, no shortness of breath Gastrointestinal: No new onset incontinence, normal bowel movements reported Genitourinary: No new onset incontinence Musculoskeletal: Neck pain, back pain, right wrist pain Psychiatric: [Normal mood/affect] Neurological: [Denies weakness in extremities], [denies balance issues] Objective:: Physical Exam: General: Alert and oriented x3, no acute distress, pleasant and cooperative Lungs: Respirations even and unlabored, symmetrical chest expansion Eyes: PERRL Musculoskeletal: Flexion and extension of lumbar [spine] somewhat guarded secondary to pain, [antalgic gait noted] Neurological: Speech clear, no gross sensory deficit Assessment:: Degenerative disc disease of lumbar spine with lumbar radiculopathy symptoms, greater trochanteric bursitis, myofascial pain, neck pain Plan:: Patient continues to experience significant pain however she is doing well with her current medication regimen. I will refill the patient's gabapentin 300 mg 4 times a day and [place] 5 mg 4 times a day and Flexeril 10 mg twice daily and prov kai a 1 month supply of these medications. Patient will return to clinic in 1 month for reevaluation of symptoms, medication refill and follow-up. Patient has been advised of risks of oversedation with the prescribed medication. Narcan has been offered to the patient in the event of oversedation. Patient has been advised that a family member should also be educated regarding administration of Narcan. Patient has been instructed to contact the clinic with any concerns before the next appointment. Dr. Acosta has reviewed this note and agrees with this plan of care. This note was dictated using voice recognition software and make contain errors or omissions. [facility] Disclaimer: The information contained in this section may have been updated after the patient was seen, as this information can be updated by other users. Social History Smoking Status: Current every day smoker tobacco type: cigarettes packs per day: 1 alcohol intake: never substance use type: denies use current occupational status: employed Travel in the last 8 weeks: None household members: significant other housing: house
[2022-07-04 12:34] VITALS: BP 132/86; PULSE 70; RESP 18; O2SAT 97; BMI 39.1
== END | disposition home or self-care (01) ==
PROVIDERS: PCP Family Medicine; Visit Provider Nurse Practitioner Family
DX: M51.16 Intervertebral disc disorders with radiculopathy, lumbar region (principal); M70.60 Trochanteric bursitis, unspecified hip; M54.2 Cervicalgia; M79.10 Myalgia, unspecified site; F17.210 Nicotine dependence, cigarettes, uncomplicated
CPT/HCPCS: 99212; G0463

== ENCOUNTER → 2022-08-01 10:50 | Outpatient (POV) | payer MEDICAID, SELFPAY ==
[2022-08-01 11:11] VITALS: BP 141/83; PULSE 74; RESP 18; O2SAT 98; BMI 38.7
--- NOTE | 2022-08-01 11:21 | EXP.PAIN.SOA ---
[facility] Pain Management SOAP Note Subjective:: Patient is a pleasant 52-year-old female who presents today for medication refill and follow-up. We are currently treating the patient for degenerative disc disease of lumbar spine with lumbar radiculopathy symptoms, greater trochanteric bursitis, myofascial pain. Today she rates her pain an 8 out of 10. Patient does state that she feels like her pain has worsened in her right shoulder and right wrist. Patient denies any specific trauma or injury related to these pains. She does describe this as a aching, popping sensation in her shoulder. She states her wrist pain is a sharp sensation that is very sensitive to the slightest touch. She states she does use wrist braces at night. Patient denies seen any orthopedic doctors in the past for her wrist pain. She is currently managed with gabapentin 300 mg 4 times a day, Flexeril 10 mg twice a day and [place] 5 mg 4 times a day. Patient denies any side effects from this medication. Her [place] is [id number]. Its been reviewed and appropriate. Review of Systems: General: No recent weight changes, no fever, no sleep disturbances Respiratory: No cough, no shortness of air, no recurring pulmonary infections Cardiovascular/peripheral vascular: No chest pain, no palpitations, no edema, no shortness of breath Gastrointestinal: No new onset incontinence, normal bowel movements reported Genitourinary: No new onset incontinence Musculoskeletal: Right shoulder, right wrist pain Psychiatric: [Normal mood/affect] Neurological: [Denies weakness in extremities], [denies balance issues] Objective:: Physical Exam: General: Alert and oriented x3, no acute distress, pleasant and cooperative Lungs: Respirations even and unlabored, symmetrical chest expansion Eyes: PERRL Musculoskeletal: Flexion and extension of right shoulder somewhat guarded secondary to pain, [antalgic gait noted] Neurological: Speech clear, no gross sensory deficit Assessment:: Degenerative disc disease of lumbar spine with lumbar radiculopathy symptoms, greater trochanteric bursitis, myofascial pain, right shoulder pain, right wrist pain Plan:: Patient continues to experience significant pain with limited range of motion of her right shoulder. I have discussed with the patient that she may benefit from a intra-articular shoulder injection. Risk and benefits were discussed with the patient however at this time she would like to wait. I have also discussed with the patient that she may benefit from a referral to an orthopedic physician for possible carpal tunnel syndrome. At this time she would like to hold off on this as well. I will order the patient compounding cream and refill her Flexeril 10 mg twice a day, [place] 5 mg 4 times a day and gabapentin 300 mg 4 times a day and provide a 1 month supply of this medication. Patient will return to clinic in 1 month for reevaluation of symptoms, medication refill and plan of care. Patient has been advised of risks of oversedation with the prescribed medication. Narcan has been offered to the patient in the event of oversedation. Patient has been advised that a family member should also be educated regarding administration of Narcan. Patient has been instructed to contact the clinic with any concerns before the next appointment. Dr. Acosta has reviewed this note and agrees with this plan of care. This note was dictated using voice recognition software and make contain errors or omissions. [facility] Disclaimer: The information contained in this section may have been updated after the patient was seen, as this information can be updated by other users. Social History Smoking Status: Current every day smoker tobacco type: cigarettes packs per day: 1 alcohol intake: never substance use type: denies use current occupational status: employed Travel in the last 8 weeks: None household members: significant other housing: house
== END | disposition home or self-care (01) ==
PROVIDERS: PCP Family Medicine; Visit Provider Nurse Practitioner Family
DX: M51.16 Intervertebral disc disorders with radiculopathy, lumbar region (principal); M70.60 Trochanteric bursitis, unspecified hip; M79.10 Myalgia, unspecified site; M25.511 Pain in right shoulder; M25.531 Pain in right wrist
CPT/HCPCS: 99212; G0463

== ENCOUNTER → 2022-08-29 12:57 | Outpatient (POV) | payer MEDICAID, SELFPAY ==
[2022-08-29 13:30] VITALS: BP 146/103; PULSE 68; RESP 18; O2SAT 97; BMI 36.1
--- NOTE | 2022-08-29 14:08 | EXP.PAIN.SOA ---
[facility] Pain Management SOAP Note Subjective:: Patient is a pleasant 52-year-old female who presents today for medication refill and follow-up. We are currently treating the patient for degenerative disc disease of lumbar spine with lumbar radiculopathy symptoms, greater trochanteric bursitis, myofascial pain. Today she rates her pain a 6 out of 10. Patient denies any new trauma or injury. Patient denies any change to the location or type of pain she experiences. She states she continues to have pain in her right shoulder, right hip and right wrist. She does describe this as an aching, throbbing sensation that is worse with increased activity. Patient denies any updated imaging for her shoulder. She is currently managed with gabapentin 300 mg 3 times a day, [place] 5 mg 4 times a day and Flexeril 10 mg twice a day. Patient denies any side effects from this medication. Patient is also prescribed compounding cream. Her [place] is [id number]. Its been reviewed and appropriate. Review of Systems: General: No recent weight changes, no fever, no sleep disturbances Respiratory: No cough, no shortness of air, no recurring pulmonary infections Cardiovascular/peripheral vascular: No chest pain, no palpitations, no edema, no shortness of breath Gastrointestinal: No new onset incontinence, normal bowel movements reported Genitourinary: No new onset incontinence Musculoskeletal: Right shoulder pain, right hip pain, right wrist pain Psychiatric: [Normal mood/affect] Neurological: [Denies weakness in extremities], [denies balance issues] Objective:: Physical Exam: General: Alert and oriented x3, no acute distress, pleasant and cooperative Lungs: Respirations even and unlabored, symmetrical chest expansion Eyes: PERRL Musculoskeletal: Flexion and extension of right shoulder somewhat guarded secondary to pain, [antalgic gait noted] Neurological: Speech clear, no gross sensory deficit Assessment:: Degenerative disc disease of lumbar spine with lumbar radiculopathy symptoms, greater trochanteric bursitis, myofascial pain, right shoulder pain, right hip pain, right wrist pain Plan:: Patient is having worsening pain in her right shoulder. I will order x-ray imaging with the plan to order more advanced imaging in the future. I will send in refills on her Flexeril 10 mg twice a day, [place] 5 mg 4 times a day and gabapentin 300 mg 4 times a day and provide a 1 month supply of this medication. I will also order Salonpas patches and provide 20 of these. Patient will return to clinic in 1 month for reevaluation of symptoms, medication refill and follow-up. Patient has been advised of risks of oversedation with the prescribed medication. Narcan has been offered to the patient in the event of oversedation. Patient has been advised that a family member should also be educated regarding administration of Narcan. Patient has been instructed to contact the clinic with any concerns before the next appointment. Dr. Acosta has reviewed this note and agrees with this plan of care. This note was dictated using voice recognition software and make contain errors or omissions. [facility] Disclaimer: The information contained in this section may have been updated after the patient was seen, as this information can be updated by other users. Social History Smoking Status: Current every day smoker tobacco type: cigarettes packs per day: 1 alcohol intake: never substance use type: denies use current occupational status: employed Travel in the last 8 weeks: None household members: significant other housing: house
== END | disposition home or self-care (01) ==
PROVIDERS: PCP Family Medicine; Visit Provider Nurse Practitioner Family
DX: M51.16 Intervertebral disc disorders with radiculopathy, lumbar region (principal); M70.60 Trochanteric bursitis, unspecified hip; M79.10 Myalgia, unspecified site; M25.551 Pain in right hip; M25.511 Pain in right shoulder; M25.531 Pain in right wrist
CPT/HCPCS: 99212; G0463

== ENCOUNTER → 2022-08-29 13:56 | Outpatient (CLI) | payer MEDICAID, SELFPAY ==
--- NOTE | 2022-08-29 14:00 | XR_ITS ---
FINAL REPORT CLINICAL HISTORY: SHOULDER PAIN FINDINGS: 3 views of the right shoulder were obtained. There is no acute fracture or dislocation. There is mild AC joint degenerative change. There are no soft tissue abnormalities. IMPRESSION: Mild AC joint degenerative change. Reviewed, Interpreted and Dictated by Sammy Carias III, MD Transcribed by Derick Prado Authenticated and [facility]
== END ==
PROVIDERS: PCP Family Medicine; Visit Provider Nurse Practitioner Family
DX: M25.511 Pain in right shoulder (principal)
CPT/HCPCS: 73030

== ENCOUNTER → 2022-09-26 12:59 | Outpatient (POV) | payer MEDICAID, SELFPAY ==
--- NOTE | 2022-09-26 13:49 | EXP.PAIN.SOA ---
[facility] Pain Management SOAP Note Subjective:: Patient is a pleasant 52-year-old female who presents today for medication refill and right shoulder x-ray follow-up.? We are currently treating the patient for degenerative disc disease of lumbar spine with lumbar radiculopathy symptoms, greater trochanteric bursitis, myofascial pain.? Today she rates her pain a 5 out of 10.? Patient denies any new trauma or injury.? Patient denies any change to the location or type of pain she experiences.? She continues to have an aching, throbbing sensation in her right shoulder that is worse with increased activity. She does state that over the last week it has been a little better but she has been off work due to taking vacation. She does state that she is scheduled to go back to work tomorrow. She is currently managed with gabapentin 300 mg 3 times a day, [place] 5 mg 4 times a day and Flexeril 10 mg twice a day.? Patient denies any side effects from this medication.? She states that she does not need refills on her Flexeril at this time. Patient is also prescribed compounding cream.? Patient is also interested in injective therapy to help lose weight. She is requesting information if we do any injections pertaining to this. Her [place] is [id number].? Its been reviewed and appropriate. Review of Systems: General: No recent weight changes, no fever, no sleep disturbances Respiratory: No cough, no shortness of air, no recurring pulmonary infections Cardiovascular/peripheral vascular: No chest pain, no palpitations,? no edema, no shortness of breath Gastrointestinal: No new onset incontinence, normal bowel movements reported Genitourinary: No new onset incontinence Musculoskeletal: Right shoulder pain, low back pain Psychiatric: [Normal mood/affect] Neurological: [Denies weakness in extremities], [denies balance issues] Objective:: Physical Exam: General: Alert and oriented x3, no acute distress, pleasant and cooperative Lungs: Respirations even and unlabored, symmetrical chest expansion Eyes: PERRL Musculoskeletal: Flexion and extension of right shoulder somewhat guarded secondary to pain, [antalgic gait noted] Neurological: Speech clear, no gross sensory deficit FINAL REPORT CLINICAL HISTORY: SHOULDER PAIN FINDINGS: 3 views of the right shoulder were obtained. There is no acute fracture or dislocation.? There is mild AC joint degenerative change.? There are no soft tissue abnormalities. IMPRESSION: Mild AC joint degenerative change. Reviewed, Interpreted and Dictated by Sammy Carias III, MD Transcribed by Derick Prado Authenticated and [facility] Assessment:: degenerative disc disease of lumbar spine with lumbar radiculopathy symptoms, greater trochanteric bursitis, myofascial pain Plan:: Patient's x-ray imaging of her right shoulder did show mild AC joint degenerative changes. I have discussed with the patient that she may benefit from an intra-articular shoulder injection in the future. We will discuss this at a later date. I have also counseled the patient that at this time we do not do injective therapy for weight loss however in the future I will let her know if something changes. I will refill the patient's gabapentin 300 mg 4 times a day and [place] 5 mg 4 times a day and provide a 1 month supply of this medication. Patient will return to clinic in 1 month for reevaluation of symptoms, medication refill and follow-up. Patient has been advised of risks of oversedation with the prescribed medication. Narcan has been offered to the patient in the event of oversedation. Patient has been advised that a family member should also be educated regarding administration of Narcan. Patient has been instructed to contact the clinic with any concerns before the next appointment. Dr. Acosta has reviewed this note and agrees with this plan of care. This note was dictated using voic
[2022-09-26 15:25] VITALS: BP 124/58; PULSE 65; RESP 18; O2SAT 97; BMI 35.2
== END | disposition home or self-care (01) ==
PROVIDERS: PCP Family Medicine; Visit Provider Nurse Practitioner Family
DX: M51.16 Intervertebral disc disorders with radiculopathy, lumbar region (principal); M70.60 Trochanteric bursitis, unspecified hip; M79.10 Myalgia, unspecified site
CPT/HCPCS: 99212; G0463

== ENCOUNTER → 2022-09-26 13:58 | Outpatient (CLI) | payer MEDICAID, SELFPAY ==
[2022-09-26 16:39] LABS: Barbiturates Screen,Urine Negative ng/ml (<200)
[2022-09-26 16:40] LABS: Amphetamine/Metha Screen,Urine Negative ng/ml (<1000); Benzodiazepines Screen,Urine Negative ng/ml (<200)
[2022-09-26 16:41] LABS: Methadone Screen,Urine Negative ng/ml (<300)
[2022-09-26 16:42] LABS: Cannabinoid Screen,Urine Negative ng/ml (<50); Cocaine Screen,Urine Negative ng/ml (<300)
[2022-09-26 16:44] LABS: Opiate Screen,Urine Positive ng/ml (<300); Phencyclidine Screen,Urine Negative ng/ml (<25)
[2022-10-04 12:23] LABS: Codeine Negative (Cutoff=100); Hydrocodone Positive (.); Hydromorphone Positive (.); Morphine Negative (Cutoff=100); Opiates Positive (.)
== END ==
PROVIDERS: PCP Family Medicine; Visit Provider Nurse Practitioner Family
DX: Z79.891 Long term (current) use of opiate analgesic (principal)
CPT/HCPCS: 80305; 80361; 80365; G0480

== ENCOUNTER → 2022-10-31 12:54 | Outpatient (POV) | payer MEDICAID, SELFPAY ==
[2022-10-31 13:04] VITALS: BP 149/94; PULSE 71; RESP 18; BMI 35.2
--- NOTE | 2022-10-31 13:08 | EXP.PAIN.SOA ---
[facility] Pain Management SOAP Note Subjective:: Patient is a pleasant 52-year-old female who presents today for medication refill and follow-up. We are currently treating the patient for degenerative disc disease of the lumbar spine with lumbar radiculopathy symptoms, myofascial pain, greater trochanteric bursitis. Today she rates her pain a 6 out of 10. Patient denies any new trauma or injury. Patient denies any change to location or type of pain she experiences. Patient is currently managed with gabapentin 300 mg 3 times a day, [place] 5 mg 4 times a day and Flexeril 10 mg twice a day. Patient denies any side effects from these medications. She does state that she does not need any of the Flexeril refills at this time. Patient is also interested in weight loss injections. Her [place] is [id number]. Its been reviewed and appropriate. Review of Systems: General: No recent weight changes, no fever, no sleep disturbances Respiratory: No cough, no shortness of air, no recurring pulmonary infections Cardiovascular/peripheral vascular: No chest pain, no palpitations, no edema, no shortness of breath Gastrointestinal: No new onset incontinence, normal bowel movements reported Genitourinary: No new onset incontinence Musculoskeletal: Low back pain Psychiatric: [Normal mood/affect] Neurological: [Denies weakness in extremities], [denies balance issues] Objective:: Physical Exam: General: Alert and oriented x3, no acute distress, pleasant and cooperative Lungs: Respirations even and unlabored, symmetrical chest expansion Eyes: PERRL Musculoskeletal: Flexion and extension of lumbar [spine] somewhat guarded secondary to pain, [antalgic gait noted] Neurological: Speech clear, no gross sensory deficit Assessment:: Degenerative disc disease of lumbar spine with lumbar radiculopathy symptoms, myofascial pain, greater trochanteric bursitis Plan:: I will refill the patient's gabapentin 300 mg 4 times a day and [place] 5 mg 4 times a day and provide a 1 month supply of this medication. I will also send in a prescription of lidocaine 5% patches. Patient will be referred to [facility] group therapy in [place] for possible weight loss injections. Patient will return to clinic in 1 month for reevaluation of symptoms and medication refill. Patient has been advised of risks of oversedation with the prescribed medication. Narcan has been offered to the patient in the event of oversedation. Patient has been advised that a family member should also be educated regarding administration of Narcan. Patient has been instructed to contact the clinic with any concerns before the next appointment. Dr. Acosta has reviewed this note and agrees with this plan of care. This note was dictated using voice recognition software and make contain errors or omissions. [facility] Disclaimer: The information contained in this section may have been updated after the patient was seen, as this information can be updated by other users. Social History Smoking Status: Current every day smoker tobacco type: cigarettes packs per day: 1 alcohol intake: never substance use type: denies use current occupational status: employed Travel in the last 8 weeks: None household members: significant other housing: house
== END | disposition home or self-care (01) ==
PROVIDERS: PCP Family Medicine; Visit Provider Nurse Practitioner Family
DX: M51.16 Intervertebral disc disorders with radiculopathy, lumbar region (principal); M79.10 Myalgia, unspecified site; M70.60 Trochanteric bursitis, unspecified hip
CPT/HCPCS: 99212; G0463

== ENCOUNTER → 2022-11-28 13:14 | Outpatient (POV) | payer MEDICAID, SELFPAY ==
--- NOTE | 2022-11-28 13:28 | EXP.PAIN.SOA ---
[facility] Pain Management SOAP Note Subjective:: Patient is a pleasant 52-year-old female who presents today for 1 month follow-up and medication refill. We are currently treating the patient for degenerative disc disease of lumbar spine with lumbar radiculopathy symptoms, myofascial pain, greater trochanteric bursitis. Today she rates her pain a 6 out of 10. Patient denies any new trauma or injury. Patient denies any change to the location or type of pain she experiences. At our last visit we did send a referral to the [facility] for possible weight loss injections however she states she has not heard from this office. Patient is currently managed with gabapentin 300 mg 3 times a day, [place] 5 mg 4 times a day and Flexeril 10 mg 2 times a day. Patient denies any side effects from this medication. She does state that the last lidocaine patches we sent and did provide significant relief and she is asking for additional refills on this as well. Her [place] is [id number]. Its been reviewed and appropriate. Review of Systems: General: No recent weight changes, no fever, no sleep disturbances Respiratory: No cough, no shortness of air, no recurring pulmonary infections Cardiovascular/peripheral vascular: No chest pain, no palpitations, no edema, no shortness of breath Gastrointestinal: No new onset incontinence, normal bowel movements reported Genitourinary: No new onset incontinence Musculoskeletal: Low back pain Psychiatric: [Normal mood/affect] Neurological: [Denies weakness in extremities], [denies balance issues] Objective:: Physical Exam: General: Alert and oriented x3, no acute distress, pleasant and cooperative Lungs: Respirations even and unlabored, symmetrical chest expansion Eyes: PERRL Musculoskeletal: Flexion and extension of lumbar [spine] somewhat guarded secondary to pain, [antalgic gait noted] Neurological: Speech clear, no gross sensory deficit Assessment:: Degenerative disc disease of lumbar spine with lumbar radiculopathy symptoms, myofascial pain, greater trochanteric bursitis Plan:: I will refill the patient's gabapentin 300 mg 4 times a day, [place] 5 mg 4 times a day, Flexeril 10 mg twice a day and lidocaine patches and provide a 1 month supply of these medications. We will also resend the referral to [facility]. Patient will return to clinic in 1 month for reevaluation of symptoms and medication refill. Patient has been advised of risks of oversedation with the prescribed medication. Narcan has been offered to the patient in the event of oversedation. Patient has been advised that a family member should also be educated regarding administration of Narcan. Patient has been instructed to contact the clinic with any concerns before the next appointment. Dr. Acosta has reviewed this note and agrees with this plan of care. This note was dictated using voice recognition software and make contain errors or omissions. [facility] Disclaimer: The information contained in this section may have been updated after the patient was seen, as this information can be updated by other users. Social History Smoking Status: Current every day smoker tobacco type: cigarettes packs per day: 1 alcohol intake: never substance use type: denies use current occupational status: employed Travel in the last 8 weeks: None household members: significant other housing: house
[2022-11-28 14:02] VITALS: BP 146/92; PULSE 73; RESP 18; O2SAT 96; BMI 38.4
== END | disposition home or self-care (01) ==
PROVIDERS: PCP Family Medicine; Visit Provider Nurse Practitioner Family
DX: M51.16 Intervertebral disc disorders with radiculopathy, lumbar region (principal); M79.10 Myalgia, unspecified site; M70.60 Trochanteric bursitis, unspecified hip
CPT/HCPCS: 99212; G0463

== ENCOUNTER → 2023-01-02 13:01 | Outpatient (POV) | payer MEDICAID, SELFPAY ==
--- NOTE | 2023-01-02 13:44 | EXP.PAIN.SOA ---
[facility] Pain Management SOAP Note Subjective:: Patient is a pleasant 52-year-old female who presents today for 1 month follow-up and medication refill. We are currently treating the patient for degenerative disc disease of the lumbar spine with lumbar radiculopathy symptoms, myofascial pain, greater trochanteric bursitis. Today she rates her pain a 10 out of 10. Patient states that on Monday she lost her balance and fell. She does state that she is sore around her inner thighs and her right knee has some bruising with edema related to where she landed on it. She does also states she has some soreness in her hands where she caught herself. Patient does not believe she had any thing broken or torn however just bruised up a little. Patient is currently managed with gabapentin 300 mg 3 times a day, Flexeril 10 mg twice a day, lidocaine patches and [place] 5 mg 4 times a day. Patient denies any side effects from this medication. She does state that she only needs refills on her pain medication and that she has enough on her other prescriptions at this time. Her [place] is [id number]. Has been reviewed and appropriate. Review of Systems: General: No recent weight changes, no fever, no sleep disturbances Respiratory: No cough, no shortness of air, no recurring pulmonary infections Cardiovascular/peripheral vascular: No chest pain, no palpitations, no edema, no shortness of breath Gastrointestinal: No new onset incontinence, normal bowel movements reported Genitourinary: No new onset incontinence Musculoskeletal: Low back pain, right knee pain Psychiatric: [Normal mood/affect] Neurological: [Denies weakness in extremities], [denies balance issues] Objective:: Physical Exam: General: Alert and oriented x3, no acute distress, pleasant and cooperative Lungs: Respirations even and unlabored, symmetrical chest expansion Eyes: PERRL Musculoskeletal: Flexion and extension of right knee somewhat guarded secondary to pain, [antalgic gait noted] Neurological: Speech clear, no gross sensory deficit Assessment:: Degenerative disc disease of lumbar spine with lumbar radiculopathy symptoms, myofascial pain, greater trochanteric bursitis, right knee pain related to acute fall Plan:: Patient is experiencing worsening pain in her right knee related to a recent fall. I will send in a prescription of prednisone 20 mg twice daily and provide a 5-day supply of this medication and refill her [place] 5 mg 4 times a day and provide a 1 month supply of this medication. I have counseled the patient if she continues to have pain in this joint we can order x-ray imaging to rule out any injury related to her recent fall. Patient states she will call us if she needs this. Patient will return to clinic in 1 month for reevaluation of symptoms and medication refill. Patient has been advised of risks of oversedation with the prescribed medication. Narcan has been offered to the patient in the event of oversedation. Patient has been advised that a family member should also be educated regarding administration of Narcan. Patient has been instructed to contact the clinic with any concerns before the next appointment. Dr. Acosta has reviewed this note and agrees with this plan of care. This note was dictated using voice recognition software and make contain errors or omissions. [facility] Disclaimer: The information contained in this section may have been updated after the patient was seen, as this information can be updated by other users. Social History Smoking Status: Current every day smoker tobacco type: cigarettes packs per day: 1 alcohol intake: never substance use type: denies use current occupational status: employed Travel in the last 8 weeks: None household members: significant other housing: house
[2023-01-02 15:09] VITALS: BP 137/86; PULSE 77; RESP 18; O2SAT 98; BMI 38.2
== END | disposition home or self-care (01) ==
PROVIDERS: Visit Provider Nurse Practitioner Family
DX: M51.16 Intervertebral disc disorders with radiculopathy, lumbar region (principal); M79.10 Myalgia, unspecified site; M70.60 Trochanteric bursitis, unspecified hip; M25.561 Pain in right knee
CPT/HCPCS: 99212; G0463

== ENCOUNTER → 2023-02-06 13:19 | Outpatient (POV) | payer MEDICAID, SELFPAY ==
[2023-02-06 14:14] VITALS: BP 145/85; PULSE 70; RESP 20; O2SAT 99; BMI 38.2
--- NOTE | 2023-02-06 14:40 | A.OFFVIS_ITS ---
[facility] Pain Management SOAP Note Subjective:: Patient is a pleasant 52-year-old female who presents today for medication refill. We are currently treating the patient for degenerative disc disease of lumbar spine with lumbar radiculopathy symptoms, myofascial pain, greater trochanteric bursitis. Today she rates her pain a 5 out of 10. Patient denies any new trauma or injury. She denies any change in location or type of pain she experiences. Today she states she continues to have pain in her low back that is worse with increased activity. She is currently managed with Flexeril 300 mg 3 times a day, Flexeril 10 mg twice a day, [place] 5 mg 4 times a day and lidocaine patches. Patient denies any side effects from these medications. She is requesting a refill. Patient was also sent for referral to [facility] for weight loss injections however today she states she continues to have not heard anything from this office. Her [place] is [id number]. Its been reviewed and appropriate. Review of Systems: General: No recent weight changes, no fever, no sleep disturbances Respiratory: No cough, no shortness of air, no recurring pulmonary infections Cardiovascular/peripheral vascular: No chest pain, no palpitations, no edema, no shortness of breath Gastrointestinal: No new onset incontinence, normal bowel movements reported Genitourinary: No new onset incontinence Musculoskeletal: Low back pain Psychiatric: [Normal mood/affect] Neurological: [Denies weakness in extremities], [denies balance issues] Objective:: Physical Exam: General: Alert and oriented x3, no acute distress, pleasant and cooperative Lungs: Respirations even and unlabored, symmetrical chest expansion Eyes: PERRL Musculoskeletal: Flexion and extension of lumbar [spine] somewhat guarded secondary to pain, [antalgic gait noted] Neurological: Speech clear, no gross sensory deficit Assessment:: Degenerative disc disease of lumbar spine with lumbar radiculopathy symptoms, myofascial pain, greater trochanteric bursitis Plan:: I will refill the patient's gabapentin 300 mg 4 times a day, [place] 5 mg 4 times a day, Flexeril 10 mg twice a day and lidocaine patches and provide a 1 month supply of this medication. I have counseled the patient that I will follow-up with the [place] regarding her referral and let her know at her next visit. Patient will return to clinic in 1 months for reevaluation of symptoms and medication refill. Patient has been advised of risks of oversedation with the prescribed medication. Narcan has been offered to the patient in the event of over sedation. Patient has been advised that a family member should also be educated regarding administration of Narcan. Patient has been instructed to contact the clinic with any concerns before the next appointment. Dr. Acosta has reviewed this note and agrees with this plan of care. This note was dictated using voice recognition software and make contain errors or omissions. [facility] Disclaimer: The information contained in this section may have been updated after the patient was seen, as this information can be updated by other users. Social History Smoking Status: Current every day smoker tobacco type: cigarettes packs per day: 1 alcohol intake: never substance use type: denies use current occupational status: other Travel in the last 8 weeks: None household members: significant other housing: house
== END | disposition home or self-care (01) ==
PROVIDERS: PCP Family Medicine; Visit Provider Nurse Practitioner Family
DX: M51.16 Intervertebral disc disorders with radiculopathy, lumbar region (principal); M79.10 Myalgia, unspecified site; M70.60 Trochanteric bursitis, unspecified hip
CPT/HCPCS: 99212; G0463

== ENCOUNTER → 2023-03-06 12:58 | Outpatient (POV) | payer MEDICAID, SELFPAY ==
[2023-03-06 14:27] VITALS: BP 150/100; PULSE 61; RESP 18; O2SAT 99; BMI 38.4
--- NOTE | 2023-03-06 14:34 | EXP.PAIN.SOA ---
[facility] Pain Management SOAP Note Subjective:: This patient is a very pleasant 52-year-old female that comes our clinic today for medication refills. Were currently treating the patient for degenerative disc lumbar spine multilevels. Lumbar radiculopathy. Myofascial pain. She rates her pain today 6/10. We currently manage the patient with gabapentin 300 mg 1 p.o. 3 times daily. Flexeril 10 mg 1 p.o. twice daily. [place] 5 mg 1 p.o. 4 times daily. Lidocaine patches. Patient reports the medications allow her to continue working. Allow her to continue with ADLs. She does not report any side effects from the medication. Her [place] #[id number] has been reviewed and appropriate. Objective:: Patient is awake alert [place] x3. In no acute distress. Flexion-extension lumbar spine somewhat guarded secondary to pain. Deep tendon reflexes upper and lower extremities normal. Motor strength upper and lower extremities normal. There is no gross sensory deficit. Gait is normal. Assessment:: Degenerative disc lumbar spine multilevels. Lumbar radiculopathy. Myofascial pain Plan:: We will refill the patient's medication as above. Patient will return to the clinic in 1 month. [facility] Disclaimer: The information contained in this section may have been updated after the patient was seen, as this information can be updated by other users. Social History Smoking Status: Current every day smoker tobacco type: cigarettes packs per day: 1 alcohol intake: never substance use type: denies use current occupational status: other Travel in the last 8 weeks: None household members: significant other housing: house
== END | disposition home or self-care (01) ==
PROVIDERS: PCP Family Medicine; Visit Provider Nurse Anesthetist, Certified Registered
DX: M51.16 Intervertebral disc disorders with radiculopathy, lumbar region (principal); M79.10 Myalgia, unspecified site
CPT/HCPCS: 99212; G0463

== ENCOUNTER → 2023-03-06 13:25 | Outpatient (CLI) | payer MEDICAID, SELFPAY ==
[2023-03-06 14:59] LABS: Barbiturates Screen,Urine Negative ng/ml (<200); Benzodiazepines Screen,Urine Negative ng/ml (<200)
[2023-03-06 15:00] LABS: Amphetamine/Metha Screen,Urine Negative ng/ml (<1000)
[2023-03-06 15:01] LABS: Cannabinoid Screen,Urine Negative ng/ml (<50); Methadone Screen,Urine Negative ng/ml (<300)
[2023-03-06 15:02] LABS: Cocaine Screen,Urine Negative ng/ml (<300)
[2023-03-06 15:03] LABS: Opiate Screen,Urine Positive ng/ml (<300); Phencyclidine Screen,Urine Negative ng/ml (<25)
== END ==
PROVIDERS: PCP Family Medicine; Visit Provider Anesthesiology
DX: Z79.891 Long term (current) use of opiate analgesic (principal)
CPT/HCPCS: 80305

== ENCOUNTER → 2023-04-10 11:13 | Outpatient (POV) | payer MEDICAID, SELFPAY ==
--- NOTE | 2023-04-10 11:46 | EXP.PAIN.SOA ---
[facility] Pain Management SOAP Note Subjective:: Patient is a pleasant 53-year-old female who presents today for medication refill and follow-up. We are currently treating the patient for degenerative disc disease of lumbar spine with lumbar radiculopathy symptoms, myofascial pain. Today she rates her pain a 5 out of 10. Patient denies any new trauma or injury. Patient states she continues to have her low back and leg pain on a daily basis. Patient does state since our last visit she did have her significant other back in January. Patient states she is still having a lot of stress and dealing with the loss. Patient is currently managed with gabapentin 300 mg 3 times a day, Flexeril 10 mg twice a day, Brilliant 5 mg 4 times a day and lidocaine patches. Patient denies any side effects from this medication. Patient states she does not need refills on the lidocaine patches or Flexeril at this time. Her [place] has been reviewed and is appropriate. Review of Systems: General: No recent weight changes, no fever, no sleep disturbances Respiratory: No cough, no shortness of air, no recurring pulmonary infections Cardiovascular/peripheral vascular: No chest pain, no palpitations, no edema, no shortness of breath Gastrointestinal: No new onset incontinence, normal bowel movements reported Genitourinary: No new onset incontinence Musculoskeletal: Low back pain Psychiatric: [Normal mood/affect] Neurological: [Denies weakness in extremities], [denies balance issues] Objective:: Physical Exam: General: Alert and oriented x3, no acute distress, pleasant and cooperative Lungs: Respirations even and unlabored, symmetrical chest expansion Eyes: PERRL Musculoskeletal: Flexion and extension of lumbar [spine] somewhat guarded secondary to pain, [antalgic gait noted] Neurological: Speech clear, no gross sensory deficit Assessment:: Degenerative disc disease of lumbar spine with lumbar radiculopathy symptoms, myofascial pain Plan:: I will refill the patient's gabapentin 300 mg 3 times a day and Brilliant 5 mg 4 times a day and provide 1 month supply of these medications. Patient will return to clinic in 1 month for reevaluation of symptoms and plan of care. Patient has been advised of risks of oversedation with the prescribed medication. Narcan has been offered to the patient in the event of oversedation. Patient has been advised that a family member should also be educated regarding administration of Narcan. Patient has been instructed to contact the clinic with any concerns before the next appointment. Dr. Acosta has reviewed this note and agrees with this plan of care. This note was dictated using voice recognition software and make contain errors or omissions. [facility] Disclaimer: The information contained in this section may have been updated after the patient was seen, as this information can be updated by other users. Social History Smoking Status: Current every day smoker tobacco type: cigarettes packs per day: 1 alcohol intake: never substance use type: denies use current occupational status: other Travel in the last 8 weeks: None household members: significant other housing: house
[2023-04-10 12:49] VITALS: BP 145/97; PULSE 72; RESP 18; O2SAT 98; BMI 34.7
== END | disposition home or self-care (01) ==
PROVIDERS: PCP Family Medicine; Visit Provider Nurse Practitioner Family
DX: M51.16 Intervertebral disc disorders with radiculopathy, lumbar region (principal); M79.10 Myalgia, unspecified site
CPT/HCPCS: 99212; G0463

== ENCOUNTER → 2023-05-22 12:59 | Outpatient (POV) | payer MEDICAID, SELFPAY ==
[2023-05-22 13:26] VITALS: BP 140/83; PULSE 65; RESP 18; O2SAT 99; BMI 34.8
--- NOTE | 2023-05-22 13:37 | A.OFFVIS_ITS ---
[facility] Pain Management SOAP Note Subjective:: Patient is a pleasant 53-year-old female who presents today for medication refill and follow-up. We are currently treating the patient for degenerative disc disease of lumbar spine with lumbar radiculopathy symptoms, myofascial pain. Today she rates her pain a 5 out of 10. Patient denies any new trauma or injury. She is currently managed with gabapentin 300 mg 4 times a day, Flexeril 10 mg twice a day and [place] 5 mg 4 times a day. Patient denies any side effects from these medications. She is also prescribed lidocaine patches however she states she does not need refills of those on this time. Her [place] has been reviewed and is appropriate. Review of Systems: General: No recent weight changes, no fever, no sleep disturbances Respiratory: No cough, no shortness of air, no recurring pulmonary infections Cardiovascular/peripheral vascular: No chest pain, no palpitations, no edema, no shortness of breath Gastrointestinal: No new onset incontinence, normal bowel movements reported Genitourinary: No new onset incontinence Musculoskeletal: Low back pain Psychiatric: [Normal mood/affect] Neurological: [Denies weakness in extremities], [denies balance issues] Objective:: Physical Exam: General: Alert and oriented x3, no acute distress, pleasant and cooperative Lungs: Respirations even and unlabored, symmetrical chest expansion Eyes: PERRL Musculoskeletal: Flexion and extension of lumbar [spine] somewhat guarded secondary to pain, [antalgic gait noted] Neurological: Speech clear, no gross sensory deficit Assessment:: Degenerative disc disease of lumbar spine with lumbar radiculopathy symptoms, myofascial pain Plan:: I will refill the patient's gabapentin 300 mg 4 times a day, Flexeril 10 mg twice a day and [place] 5 mg 4 times a day and provide a 1 month supply of this medication. Patient will return to clinic in 1 month for reevaluation of symptoms and medication refill. Patient has been advised of risks of oversedation with the prescribed medication. Narcan has been offered to the patient in the event of oversedation. Patient has been advised that a family member should also be educated regarding administration of Narcan. Patient has been instructed to contact the clinic with any concerns before the next appointment. Dr. Acosta has reviewed this note and agrees with this plan of care. This note was dictated using voice recognition software and make contain errors or omissions. [facility] Disclaimer: The information contained in this section may have been updated after the patient was seen, as this information can be updated by other users. Social History Smoking Status: Current every day smoker tobacco type: cigarettes packs per day: 1 alcohol intake: never substance use type: denies use current occupational status: employed Travel in the last 8 weeks: None household members: significant other housing: house
== END ==
LOC: SC.PAIN 12:59
PROVIDERS: Visit Provider Nurse Practitioner Family
DX: M51.16 Intervertebral disc disorders with radiculopathy, lumbar region (principal); M79.10 Myalgia, unspecified site
CPT/HCPCS: 99212; G0463

== ENCOUNTER → 2023-06-26 11:13 | Outpatient (POV) | payer MEDICAID, SELFPAY ==
--- NOTE | 2023-06-26 11:17 | A.OFFVIS_ITS ---
[facility] Pain Management SOAP Note Subjective:: Patient is a pleasant 53-year-old female who presents today for medication refill and 1 month follow-up. We are currently treating the patient for degenerative disc disease of lumbar spine with lumbar radiculopathy symptoms, myofascial pain. Today she rates her pain a 8 out of 10. Patient denies any new trauma or injury. She does state that she is having increased pain in her left hip as well as her right wrist. Patient states that she has been doing a lot at work and constantly up on her feet which may be causing worsening symptoms. She does states that this is an aching, throbbing sensation that is worse with increased activity. She does state the pain interferes with her ability perform activities of daily living such as cooking and cleaning. Patient has had hip injections in the past that did provide significant relief. She is currently managed with gabapentin 300 mg 4 times a day, Flexeril 10 mg twice a day, lidocaine patches and [place] 5 mg 4 times a day. Patient denies any side effects from these medications. She states she does not need refills on her Flexeril. Her [place] has been reviewed and is appropriate. Review of Systems: General: No recent weight changes, no fever, no sleep disturbances Respiratory: No cough, no shortness of air, no recurring pulmonary infections Cardiovascular/peripheral vascular: No chest pain, no palpitations, no edema, no shortness of breath Gastrointestinal: No new onset incontinence, normal bowel movements reported Genitourinary: No new onset incontinence Musculoskeletal: Left hip, right wrist pain Psychiatric: [Normal mood/affect] Neurological: [Denies weakness in extremities], [denies balance issues] Objective:: Physical Exam: General: Alert and oriented x3, no acute distress, pleasant and cooperative Lungs: Respirations even and unlabored, symmetrical chest expansion Eyes: PERRL Musculoskeletal: Flexion and extension of left hip somewhat guarded secondary to pain, [antalgic gait noted] Neurological: Speech clear, no gross sensory deficit Assessment:: Degenerative disc disease of lumbar spine with lumbar radiculopathy symptoms, myofascial pain, left hip pain, right wrist pain Plan:: Patient is experiencing worsening pain in her left hip with limited range of motion. I have discussed with the patient that she may benefit from left intra- articular articular hip injection. Risk and benefits were discussed with the patient and she would like to proceed forward with this plan of care. I have also discussed with the patient in future she may benefit from right radial nerve block. We will discuss this at a later date. I will refill the patient's gabapentin 300 mg 4 times a day, Flexeril 10 mg twice a day and [place] 5 mg 4 times a day and provide a 1 month supply of these medications. Patient will be scheduled for left hip intra-articular steroid injection. Risks and benefits of the medication have been explained in detail to the patient. The patient does understand the risk of dependence on the medication when given over a prolonged period. Patient has been advised of risks of oversedation with the prescribed medication. Narcan has been offered to the paitent in the event of oversedation. Patient has been advised that a family member should also be educated regarding administration of Narcan. The patient has been advised to consult with his/her primary care provider and pharmacist regarding drug-drug interaction of medications currently prescribed. Patient has been prescribed a controlled substance after being counseled on the medication, medication safety, and possible side effects. Opioid contract was reviewed and signed by the patient, and that they have agreed to all of the terms set forth by our compliance program. Patient has been instructed to contact the clinic with any concerns before the next appointment. Dr. Acosta has reviewed this note and agrees with this plan of care. This note was dictated using voice recognition software and make contain errors or omissions. [facility] Disclaimer: The information contained in this section may have been updated after the patient was seen, as this information can be updated by other users. Social History Smoking Status: Current every day smoker tobacco type: cigarettes packs per day: 1 alcohol intake: never substance use type: denies use current occupational status: employed Travel in the last 8 weeks: None household members: significant other housing: house
[2023-06-26 11:38] VITALS: BP 152/91; PULSE 80; RESP 18; O2SAT 100; BMI 34.9
[2023-06-26 16:37] LABS: Barbiturates Screen,Urine Negative ng/ml (<200)
[2023-06-26 16:39] LABS: Cannabinoid Screen,Urine Negative ng/ml (<50)
[2023-06-26 16:40] LABS: Cocaine Screen,Urine Negative ng/ml (<300)
[2023-06-26 16:41] LABS: Opiate Screen,Urine Positive ng/ml (<300)
[2023-06-26 16:42] LABS: Phencyclidine Screen,Urine Negative ng/ml (<25)
[2023-06-26 16:46] LABS: Benzodiazepines Screen,Urine Negative ng/ml (<200)
[2023-06-26 17:08] LABS: Amphetamine/Metha Screen,Urine Negative ng/ml (<1000)
[2023-06-26 17:12] LABS: Methadone Screen,Urine Negative ng/ml (<300)
[2023-07-01 17:37] LABS: Codeine Negative (Cutoff=100); Hydrocodone Positive (.); Hydromorphone Positive (.); Morphine Negative (Cutoff=100); Opiates Positive (.)
== END | disposition home or self-care (01) ==
PROVIDERS: PCP Family Medicine; Visit Provider Nurse Practitioner Family
DX: M51.16 Intervertebral disc disorders with radiculopathy, lumbar region (principal); M79.10 Myalgia, unspecified site; M25.552 Pain in left hip; M25.531 Pain in right wrist
CPT/HCPCS: 80307; 80361; 80365; 99212; G0463; G0480

== ENCOUNTER 2023-07-25 11:11 | Day surgery (SDC) | payer MEDICAID, SELFPAY ==
[2023-07-25] MEDS: BUPIVACAINE 0.25% 10ML INJ 25 MG IJ (11:35)
[2023-07-25] MEDS: LIDOCAINE 1% 5ML PF VIAL 5 ML (11:35)
[2023-07-25] MEDS: methylPREDNISolone ACETATE 80MG/ML VIAL 80 MG (11:35)
[2023-07-25 11:40] VITALS: BP 162/87; PULSE 60; RESP 18
--- NOTE | 2023-07-25 11:46 | P.PCN_ITS ---
Procedure Date: 07/25/23 Time: 11:40 Anesthesiologist:: Bruce Oakley CRNA Complications:: None Pre-procedure Diagnosis:: DJD left hip. Chronic left hip pain. Post-procedure Diagnosis:: Same. Indications for Procedure:: Patient is a very pleasant 53-year-old female comes our clinic today for intra- articular left hip injection. Patient is reporting what sounds like left trochanteric bursa injection in the past. However, according to the patient never intra-articular injection. She rates her pain 7/10. The pain is left lateral hip as well as anterior hip pain at times. Procedure Details:: Details of the procedure were explained to the patient. The patient was taken to procedure room placed in the supine position. The area over the left hip was cleaned using chlorhexidine as a cleansing solution. Using fluoroscopy guidance a 3 and half inch 22-gauge spinal needle was used to access the left hip joint without difficulty. After negative aspiration 3 cc of 1% lidocaine +3 cc of 0.25% Marcaine and 40 mg of Depo-Medrol was injected. Needle was withdrawn. Band-Aid applied. Patient tolerated procedure without difficulty. There are no complications. Plan and Disposition:: Patient was discharged without incident.
== END 2023-07-25 11:54 | disposition home or self-care (01) ==
PROVIDERS: PCP Family Medicine; Visit Provider Nurse Anesthetist, Certified Registered
DX: M16.12 Unilateral primary osteoarthritis, left hip (principal); M25.552 Pain in left hip; G89.29 Other chronic pain
CPT/HCPCS: 20610; 77002; J1040

== ENCOUNTER 2023-08-28 10:31 | Outpatient (POV) | payer MEDICAID, SELFPAY ==
[2023-08-28 10:38] VITALS: BP 149/87; PULSE 83; RESP 18; TEMP 36.7; O2SAT 99; BMI 32.3
--- NOTE | 2023-08-28 11:08 | EXP.PAIN.SOA ---
[facility] Pain Management SOAP Note Subjective:: Patient is a pleasant 53-year-old female who presents today for follow-up of left hip intra-articular injection on 07/25/2023. Today she rates her pain a 6 out of 10. Patient states that she feels like this injection made her pain worse. Patient states that they did have to stick around a little when this injection was done and that it causes worsening pain. Patient states that she continues to have hip issues and is thinking about going to see a chiropractor. Patient is currently managed with gabapentin 300 mg 4 times a day, Flexeril 10 mg twice a day, lidocaine patches and [place] 5 mg 4 times a day. Patient denies any side effects from this medication. Her [place] has been reviewed. Review of Systems: General: No recent weight changes, no fever, no sleep disturbances Respiratory: No cough, no shortness of air, no recurring pulmonary infections Cardiovascular/peripheral vascular: No chest pain, no palpitations, no edema, no shortness of breath Gastrointestinal: No new onset incontinence, normal bowel movements reported Genitourinary: No new onset incontinence Musculoskeletal: Low back pain, bilateral hip pain Psychiatric: [Normal mood/affect] Neurological: [Denies weakness in extremities], [denies balance issues] Objective:: Physical Exam: General: Alert and oriented x3, no acute distress, pleasant and cooperative Lungs: Respirations even and unlabored, symmetrical chest expansion Eyes: PERRL Musculoskeletal: Flexion and extension of lumbar [spine] somewhat guarded secondary to pain, [antalgic gait noted] Neurological: Speech clear, no gross sensory deficit Assessment:: Degenerative disc disease of lumbar spine with lumbar radiculopathy symptoms, bilateral hip pain, myofascial pain, greater trochanteric bursitis Plan:: I will send in a 5-day dose of prednisone 20 mg twice daily and also refill her gabapentin 300 mg 4 times a day and [place] 5 mg 4 times a day and provide a 1 month supply of these medications. Patient will return to clinic in 1 month for reevaluation of symptoms and plan of care. Risks and benefits of the medication have been explained in detail to the patient. The patient does understand the risk of dependence on the medication when given over a prolonged period. Patient has been advised of risks of oversedation with the prescribed medication. Narcan has been offered to the paitent in the event of oversedation. Patient has been advised that a family member should also be educated regarding administration of Narcan. The patient has been advised to consult with his/her primary care provider and pharmacist regarding drug-drug interaction of medications currently prescribed. Patient has been prescribed a controlled substance after being counseled on the medication, medication safety, and possible side effects. Opioid contract was reviewed and signed by the patient, and that they have agreed to all of the terms set forth by our compliance program. Patient has been instructed to contact the clinic with any concerns before the next appointment. Dr. Acosta has reviewed this note and agrees with this plan of care. This note was dictated using voice recognition software and make contain errors or omissions. [facility] Disclaimer: The information contained in this section may have been updated after the patient was seen, as this information can be updated by other users. Medical History (Updated 08/28/23 @ 10:39 by Karl Jon RN) No significant past medical history Family History (Updated 08/28/23 @ 10:39 by Karl Jon RN) Other No significant family history Social History Smoking Status: Current every day smoker tobacco type: cigarettes packs per day: 1 alcohol intake: never substance use type: denies use current occupational status: other Travel in the last 8 weeks: None household members: significant other housing: house
== END 2023-08-28 23:59 | disposition home or self-care (01) ==
PROVIDERS: PCP Family Medicine; Visit Provider Nurse Practitioner Family
DX: M51.16 Intervertebral disc disorders with radiculopathy, lumbar region (principal); M25.551 Pain in right hip; M25.552 Pain in left hip; M79.10 Myalgia, unspecified site; M70.60 Trochanteric bursitis, unspecified hip
CPT/HCPCS: 99212; G0463

== ENCOUNTER 2023-09-25 09:58 | Outpatient (POV) | payer SELFPAY ==
--- NOTE | 2023-09-25 11:31 | EXP.PAIN.SOA ---
[facility] Pain Management SOAP Note Subjective:: Patient is a pleasant 53-year-old female who presents today for medication refill and follow-up. Today she rates her pain an 8 out of 10. Patient denies any new trauma or injury. She does state that she is back to having significant pain in her left hip. Patient is managed with gabapentin 300 mg 4 times a day, Flexeril 10 mg twice a day, lidocaine patches and [place] 5 mg 4 times a day. Patient denies any side effects from these medications. She does state that she is no longer got insurance and that her current pharmacy was trying to charge $100 just for 1 prescription. Patient is interested in any options we may be able to provide to help her be able to afford these medications. Her [place] has been reviewed and is appropriate. Review of Systems: General: No recent weight changes, no fever, no sleep disturbances Respiratory: No cough, no shortness of air, no recurring pulmonary infections Cardiovascular/peripheral vascular: No chest pain, no palpitations, no edema, no shortness of breath Gastrointestinal: No new onset incontinence, normal bowel movements reported Genitourinary: No new onset incontinence Musculoskeletal: Low back pain, left hip pain Psychiatric: [Normal mood/affect] Neurological: [Denies weakness in extremities], [denies balance issues] Objective:: Physical Exam: General: Alert and oriented x3, no acute distress, pleasant and cooperative Lungs: Respirations even and unlabored, symmetrical chest expansion Eyes: PERRL Musculoskeletal: Flexion and extension of lumbar [spine] somewhat guarded secondary to pain, [antalgic gait noted] Neurological: Speech clear, no gross sensory deficit Assessment:: Degenerative disc disease of lumbar spine with lumbar radiculopathy symptoms, bilateral hip pain, myofascial pain, greater trochanteric bursitis Plan:: I will refill the patient's gabapentin, Flexeril, lidocaine patches and [place] and send it down to the clinic pharmacy to see if she can get it for cheaper cost here. Patient will return to clinic in 1 month for reevaluation of symptoms and plan of care. \ Risks and benefits of the medication have been explained in detail to the patient. The patient does understand the risk of dependence on the medication when given over a prolonged period. Patient has been advised of risks of oversedation with the prescribed medication. Narcan has been offered to the paitent in the event of oversedation. Patient has been advised that a family member should also be educated regarding administration of Narcan. The patient has been advised to consult with his/her primary care provider and pharmacist regarding drug-drug interaction of medications currently prescribed. Patient has been prescribed a controlled substance after being counseled on the medication, medication safety, and possible side effects. Opioid contract was reviewed and signed by the patient, and that they have agreed to all of the terms set forth by our compliance program. Patient has been instructed to contact the clinic with any concerns before the next appointment. Dr. Acosta has reviewed this note and agrees with this plan of care. This note was dictated using voice recognition software and make contain errors or omissions. [facility] Disclaimer: The information contained in this section may have been updated after the patient was seen, as this information can be updated by other users. Medical History (Updated 08/28/23 @ 10:39 by Karl Jon RN) No significant past medical history Family History (Updated 08/28/23 @ 10:39 by Karl Jon RN) Other No significant family history Social History Smoking Status: Current every day smoker tobacco type: cigarettes packs per day: 1 alcohol intake: never substance use type: denies use current occupational status: other Travel in the last 8 weeks: None household members: significant other housing: house
[2023-09-25 13:02] VITALS: BP 134/87; PULSE 68; RESP 18; O2SAT 100; BMI 31.8
== END 2023-09-25 23:59 | disposition home or self-care (01) ==
PROVIDERS: PCP Family Medicine; Visit Provider Nurse Practitioner Family
DX: M51.16 Intervertebral disc disorders with radiculopathy, lumbar region (principal); M25.551 Pain in right hip; M25.552 Pain in left hip; M79.10 Myalgia, unspecified site; M70.60 Trochanteric bursitis, unspecified hip
CPT/HCPCS: 99212; G0463

== ENCOUNTER 2023-10-30 11:02 | Outpatient (POV) | payer SELFPAY ==
[2023-10-30 11:23] VITALS: BP 129/77; PULSE 66; RESP 16; O2SAT 98; BMI 33.0
--- NOTE | 2023-10-30 11:26 | A.OFFVIS_ITS ---
[facility] Pain Management SOAP Note Subjective:: Patient is a pleasant 53-year-old female who presents today for medication refill and follow-up. Today she rates her pain a 6 out of 10. She denies any new trauma or injury. She is currently managed with gabapentin 300 mg 4 times a day, Flexeril 10 mg twice a day, lidocaine patches and [place] 5 mg 4 times a day. She denies any side effects from this medication. She does state that the clinic was much cheaper to switch prescriptions. Patient states that she really only needs her pain medication refilled at this time. Her [place] has been reviewed and is appropriate. Review of Systems: General: No recent weight changes, no fever, no sleep disturbances Respiratory: No cough, no shortness of air, no recurring pulmonary infections Cardiovascular/peripheral vascular: No chest pain, no palpitations, no edema, no shortness of breath Gastrointestinal: No new onset incontinence, normal bowel movements reported Genitourinary: No new onset incontinence Musculoskeletal: Low back pain Psychiatric: [Normal mood/affect] Neurological: [Denies weakness in extremities], [denies balance issues] Objective:: Physical Exam: General: Alert and oriented x3, no acute distress, pleasant and cooperative Lungs: Respirations even and unlabored, symmetrical chest expansion Eyes: PERRL Musculoskeletal: Flexion and extension of lumbar [spine] somewhat guarded secondary to pain, [antalgic gait noted] Neurological: Speech clear, no gross sensory deficit Assessment:: Degenerative disc disease of lumbar spine with lumbar radiculopathy symptoms, bilateral hip pain, myofascial pain, greater trochanteric bursitis Plan:: I will refill the patient's [place] and provide a 1 month supply of this medication. Patient will return to clinic in 1 month for reevaluation of symptoms and plan of care. Risks and benefits of the medication have been explained in detail to the patient. The patient does understand the risk of dependence on the medication when given over a prolonged period. Patient has been advised of risks of oversedation with the prescribed medication. Narcan has been offered to the paitent in the event of oversedation. Patient has been advised that a family member should also be educated regarding administration of Narcan. The patient has been advised to consult with his/her primary care provider and pharmacist regarding drug-drug interaction of medications currently prescribed. Patient has been prescribed a controlled substance after being counseled on the medication, medication safety, and possible side effects. Opioid contract was reviewed and signed by the patient, and that they have agreed to all of the terms set forth by our compliance program. Patient has been instructed to contact the clinic with any concerns before the next appointment. Dr. Acosta has reviewed this note and agrees with this plan of care. This note was dictated using voice recognition software and make contain errors or omissions. [facility] Disclaimer: The information contained in this section may have been updated after the pat ient was seen, as this information can be updated by other users. Medical History (Updated 08/28/23 @ 10:39 by Karl Jon RN) No significant past medical history Family History (Updated 08/28/23 @ 10:39 by Karl Jon RN) Other No significant family history Social History Smoking Status: Current every day smoker tobacco type: cigarettes packs per day : 1 alcohol intake: never substance use type: denies use current occupational status: employed Travel in the last 8 weeks: None household members: significant other housing: house
[2023-10-30 12:26] LABS: Amphetamine/Metha Screen,Urine Negative ng/ml (<1000)
[2023-10-30 12:27] LABS: Barbiturates Screen,Urine Negative ng/ml (<200)
[2023-10-30 12:28] LABS: Benzodiazepines Screen,Urine Negative ng/ml (<200); Cannabinoid Screen,Urine Negative ng/ml (<50)
[2023-10-30 12:29] LABS: Cocaine Screen,Urine Negative ng/ml (<300); Methadone Screen,Urine Negative ng/ml (<300)
[2023-10-30 12:30] LABS: Opiate Screen,Urine Negative ng/ml (<300)
[2023-10-30 12:31] LABS: Phencyclidine Screen,Urine Negative ng/ml (<25)
[2023-11-02 15:16] LABS: Codeine Negative (Cutoff=100); Hydrocodone Positive (.); Hydromorphone Negative (Cutoff=100); Morphine Negative (Cutoff=100); Opiates Positive (.)
== END 2023-10-30 23:59 | disposition home or self-care (01) ==
PROVIDERS: Anesthesiology; PCP Family Medicine; Visit Provider Nurse Practitioner Family
DX: M51.16 Intervertebral disc disorders with radiculopathy, lumbar region (principal); M25.551 Pain in right hip; M25.552 Pain in left hip; M79.10 Myalgia, unspecified site; M70.60 Trochanteric bursitis, unspecified hip
CPT/HCPCS: 80307; 80361; 80365; 99212; G0463; G0480

== ENCOUNTER 2023-11-27 11:11 | Outpatient (POV) | payer SELFPAY ==
--- NOTE | 2023-11-27 11:14 | EXP.PAIN.SOA ---
[facility] Disclaimer: The information contained in this section may have been updated after the patient was seen, as this information can be updated by other users. Medical History (Updated 11/27/23 @ 11:20 by Roseline Reynolds APRN) No significant past medical history Family History (Updated 08/28/23 @ 10:39 by Karl Jon RN) Other No significant family history Social History Smoking Status: Current every day smoker tobacco type: cigarettes packs per day: 1 alcohol intake: never substance use type: denies use current occupational status: employed Travel in the last 8 weeks: None household members: significant other housing: house PM Subjective & Objective Subjective Subjective:: Patient is a pleasant 53-year-old female who presents today for medication refill. Today she rates her pain a 6 out of 10. She denies any new trauma or injury. She is currently managed with gabapentin 300 mg 4 times a day, Flexeril 10 mg twice a day, lidocaine patches and [place] 5 mg 4 times a day. She denies any side effects from this medication. She states that she really is still just needing her [place] refilled. She states the Flexeril she just takes as needed and that her gabapentin she had decreased so that she has a little extra. She does state that her hands are still giving her fits with pain. 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 Patient has been prescribed compounded cream in the past. Her [place] has been reviewed and is appropriate. Review of Systems: General: No recent weight changes, no fever, no sleep disturbances Respiratory: No cough, no shortness of air, no recurring pulmonary infections Cardiovascular/peripheral vascular: No chest pain, no palpitations, no edema, no shortness of breath Gastrointestinal: No new onset incontinence, normal bowel movements reported Genitourinary: No new onset incontinence Musculoskeletal: Low back pain Psychiatric: [Normal mood/affect] Neurological: [Denies weakness in extremities], [denies balance issues] Pain at rest (0-10 scale): 6 Objective Objective:: Physical Exam: General: Alert and oriented x3, no acute distress, pleasant and cooperative Lungs: Respirations even and unlabored, symmetrical chest expansion Eyes: PERRL Musculoskeletal: Flexion and extension of lumbar [spine] somewhat guarded secondary to pain, [antalgic gait noted] Neurological: Speech clear, no gross sensory deficit Has patient had previous pain injection?: No Conservative treatment options previously tried: Home exercise plan Length of treatment: Longer than 6 weeks and Prescription medications Length of treatment: Longer than 6 weeks Meds Home Medications and Allergies Home Medications Medication Instructions Recorded Confirmed Type albuterol sulfate 90 mcg/actuation 2 puff INHALATION Q6H PRN 09/15/17 10/30/23 History breath activated powder inhaler Shortness Of Breath duloxetine 30 mg capsule,delayed 30 mg PO DAILY Pain 09/15/17 10/30/23 History release (Cymbalta) meloxicam 15 mg tablet 15 mg PO DAILY Pain #30 tabs 09/27/21 10/30/23 Rx camphor 3.1 %-methyl salicylate 10 1 patch topical TID N/A 09/26/22 10/30/23 History %-menthol 6 % topical patch (Salonpas) prednisone 20 mg tablet 20 mg PO BID #10 tabs 08/28/23 10/30/23 Rx cyclobenzaprine 10 mg tablet 10 mg PO BID Pain #60 tabs 09/25/23 10/30/23 Rx gabapentin 300 mg capsule 300 mg PO QID #120 caps 09/25/23 10/30/23 Rx lidocaine 5 % topical patch 1 patch topical DAILY Pain #30 ea 09/25/23 10/30/23 Rx hydrocodone 5 mg-acetaminophen 325 1 tab PO QID Pain #120 tabs 10/30/23 Rx mg tablet New Prescriptions to Start Prescriptions: Allergies Allergy/AdvReac Type Severity Reaction Status Date / Time aspirin Allergy Difficulty Verified 10/19/22 09:15 Breathing ibuprofen Allergy Difficulty Verified 10/19/22 09:15 Breathing ketorolac AdvReac Anxiety Verified 10/19/22 09:15 promethazine AdvReac Hallucinati Verified 10/19/22 09:15 ng Assessment and Plan *Assessment and plan (1) Degenerative disc disease, lumbar: Status: Acute Category: Medical Code(s): M51.36 - Other intervertebral disc degeneration, lumbar region (2) Lumbar radiculopathy: Status: Acute Category: Medical Code(s): M54.16 - Radiculopathy, lumbar region (3) Bilateral hand pain: Status: Acute Category: Medical Code(s): M79.641 - Pain in right hand; M79.642 - Pain in left hand Plan I will refill the patient's [place] and provide a 1 month supply of this medication. Patient will return to clinic in 1 month for reevaluation of symptoms and plan of care. I will refill medications risks and benefits of the medication have been explained in detail to the patient. The patient does understand the risk of dependence on the medication when given over a prolonged period. Patient has been advised of risks of oversedation with the prescribed medication. Narcan has been offered to the paitent in the event of oversedation. Patient has been advised that a family member should also be educated regarding administration of Narcan. The patient has been advised to consult with his/her primary care provider and pharmacist regarding drug-drug interaction of medications currently prescribed. Patient has been prescribed a controlled substance after being counseled on the medication, medication safety, and possible side effects. Opioid contract was reviewed and signed by the patient, and that they have agreed to all of the terms set forth by our compliance program. Patient has been instructed to contact the clinic with any concerns before the next appointment. Dr. Acosta has reviewed this note and agrees with this plan of care. This note was dictated using voice recognition software and make contain errors or omissions.
[2023-11-27 11:17] VITALS: BP 150/98; PULSE 69; RESP 16; O2SAT 99; BMI 32.3
== END 2023-11-27 23:59 | disposition home or self-care (01) ==
PROVIDERS: PCP Family Medicine; Visit Provider Nurse Practitioner Family
DX: M51.16 Intervertebral disc disorders with radiculopathy, lumbar region (principal); M79.641 Pain in right hand; M79.642 Pain in left hand; F17.210 Nicotine dependence, cigarettes, uncomplicated; Z79.899 Other long term (current) drug therapy
CPT/HCPCS: 99212; G0463

== ENCOUNTER 2024-01-01 11:13 | Outpatient (POV) | payer SELFPAY ==
[2024-01-01 11:43] VITALS: BP 145/69; PULSE 85; RESP 16; O2SAT 98; BMI 32.3
--- NOTE | 2024-01-01 11:47 | EXP.PAIN.SOA ---
[facility] Disclaimer: The information contained in this section may have been updated after the patient was seen, as this information can be updated by other users. Medical History (Updated 11/27/23 @ 11:20 by Roseline Reynolds APRN) No significant past medical history Family History (Updated 08/28/23 @ 10:39 by Karl Jon RN) Other No significant family history Social History Smoking Status: Current every day smoker tobacco type: cigarettes packs per day: 1 alcohol intake: never substance use type: denies use current occupational status: employed Travel in the last 8 weeks: None household members: significant other housing: house PM Subjective & Objective Subjective Subjective:: Patient is a pleasant 53-year-old female who presents today for medication refill. Today she rates her pain a 6 out of 10. She denies any new trauma or injury. She is currently managed with gabapentin 300 mg 4 times a day, Flexeril 10 mg twice a day, lidocaine patches and [place] 5 mg 4 times a day. She denies any side effects from this medication. She is stating today she needs refills on both her gabapentin and her [place]. Her [place] has been reviewed and is appropriate. Review of Systems: General: No recent weight changes, no fever, no sleep disturbances Respiratory: No cough, no shortness of air, no recurring pulmonary infections Cardiovascular/peripheral vascular: No chest pain, no palpitations, no edema, no shortness of breath Gastrointestinal: No new onset incontinence, normal bowel movements reported Genitourinary: No new onset incontinence Musculoskeletal: Low back pain Psychiatric: [Normal mood/affect] Neurological: [Denies weakness in extremities], [denies balance issues] Pain at rest (0-10 scale): 6 Objective Objective:: Physical Exam: General: Alert and oriented x3, no acute distress, pleasant and cooperative Lungs: Respirations even and unlabored, symmetrical chest expansion Eyes: PERRL Musculoskeletal: Flexion and extension of lumbar [spine] somewhat guarded secondary to pain, [antalgic gait noted] Neurological: Speech clear, no gross sensory deficit Has patient had previous pain injection?: No Conservative treatment options previously tried: Home exercise plan Length of treatment: Longer than 6-week Meds Home Medications and Allergies Home Medications ?Medication ?Instructions ?Recorded ?Confirmed ?Type albuterol sulfate 90 mcg/actuation 2 puff INHALATION Q6H PRN 09/15/17 11/27/23 History breath activated powder inhaler Shortness Of Breath duloxetine 30 mg capsule,delayed 30 mg PO DAILY Pain 09/15/17 11/27/23 History release (Cymbalta) meloxicam 15 mg tablet 15 mg PO DAILY Pain #30 tabs 09/27/21 11/27/23 Rx camphor 3.1 %-methyl salicylate 10 1 patch topical TID N/A 09/26/22 11/27/23 History %-menthol 6 % topical patch (Salonpas) prednisone 20 mg tablet 20 mg PO BID #10 tabs 08/28/23 11/27/23 Rx cyclobenzaprine 10 mg tablet 10 mg PO BID Pain #60 tabs 09/25/23 11/27/23 Rx gabapentin 300 mg capsule 300 mg PO QID #120 caps 09/25/23 11/27/23 Rx lidocaine 5 % topical patch 1 patch topical DAILY Pain #30 ea 09/25/23 11/27/23 Rx hydrocodone 5 mg-acetaminophen 325 1 tab PO QID Pain #120 tabs 11/27/23 Rx mg tablet New Prescriptions to Start Prescriptions: Allergies Allergy/AdvReac Type Severity Reaction Status Date / Time aspirin Allergy Difficulty Verified 10/19/22 09:15 Breathing ibuprofen Allergy Difficulty Verified 10/19/22 09:15 Breathing ketorolac AdvReac Anxiety Verified 10/19/22 09:15 promethazine AdvReac Hallucinati Verified 10/19/22 09:15 ng Assessment and Plan *Assessment and plan (1) Lumbar radiculopathy: Status: Acute Category: Medical Code(s): M54.16 - Radiculopathy, lumbar region (2) Degenerative disc disease, lumbar: Status: Acute Category: Medical Code(s): M51.36 - Other intervertebral disc degeneration, lumbar region Plan I will refill the patient's gabapentin and [place] and provide a 1 month supply of this medication. Patient will return to clinic in 1 month for reevaluation of symptoms and plan of care. Risks and benefits of the medication have been explained in detail to the patient. The patient does understand the risk of dependence on the medication when given over a prolonged period. Patient has been advised of risks of oversedation with the prescribed medication. Narcan has been offered to the paitent in the event of oversedation. Patient has been advised that a family member should also be educated regarding administration of Narcan. The patient has been advised to consult with his/her primary care provider and pharmacist regarding drug-drug interaction of medications currently prescribed. Patient has been prescribed a controlled substance after being counseled on the medication, medication safety, and possible side effects. Opioid contract was reviewed and signed by the patient, and that they have agreed to all of the terms set forth by our compliance program. Patient has been instructed to contact the clinic with any concerns before the next appointment. Dr. Acosta has reviewed this note and agrees with this plan of care. This note was dictated using voice recognition software and make contain errors or omissions.
== END 2024-01-01 23:59 | disposition home or self-care (01) ==
PROVIDERS: PCP Family Medicine; Visit Provider Nurse Practitioner Family
DX: M51.16 Intervertebral disc disorders with radiculopathy, lumbar region (principal); F17.210 Nicotine dependence, cigarettes, uncomplicated; Z79.899 Other long term (current) drug therapy
CPT/HCPCS: 99212; G0463

== ENCOUNTER 2024-02-05 11:18 | Outpatient (POV) | payer SELFPAY ==
--- NOTE | 2024-02-05 11:39 | A.OFFVIS_ITS ---
[facility] Disclaimer: The information contained in this section may have been updated after the patient was seen, as this information can be updated by other users. Medical History (Updated 11/27/23 @ 11:20 by Roseline Reynolds APRN) No significant past medical history Family History (Updated 08/28/23 @ 10:39 by Karl Jon RN) Other No significant family history Social History Smoking Status: Current every day smoker tobacco type: cigarettes packs per day: 1 alcohol intake: never substance use type: denies use current occupational status: unemployed Travel in the last 8 weeks: None household members: significant other housing: house PM Subjective & Objective Subjective Subjective:: Pleasant 53-year-old female who presents today for medication refill and follow- up. Today she rates her pain a 5 out of 10. She denies any new trauma or injury. Patient states that she still has not been able to get her lidocaine patches covered because she is self-pay and does not need any refills on that. She is currently managed with gabapentin 300 mg 4 times a day, Flexeril 10 mg twice a day and [place] 5 mg 4 times a day. She denies any side effects from this medication. She is requesting refills on all of those. Her [place] has been reviewed and is appropriate. Review of Systems: General: No recent weight changes, no fever, no sleep disturbances Respiratory: No cough, no shortness of air, no recurring pulmonary infections Cardiovascular/peripheral vascular: No chest pain, no palpitations, no edema, no shortness of breath Gastrointestinal: No new onset incontinence, normal bowel movements reported Genitourinary: No new onset incontinence Musculoskeletal: Low back pain Psychiatric: [Normal mood/affect] Neurological: [Denies weakness in extremities], [denies balance issues] Pain at rest (0-10 scale): 5 Objective Objective:: Physical Exam: General: Alert and oriented x3, no acute distress, pleasant and cooperative Lungs: Respirations even and unlabored, symmetrical chest expansion Eyes: PERRL Musculoskeletal: Flexion and extension of lumbar [spine] somewhat guarded secondary to pain, [antalgic gait noted] Neurological: Speech clear, no gross sensory deficit Has patient had previous pain injection?: No Conservative treatment options previously tried: Home exercise plan Length of treatment: Longer than 6 weeks Meds Home Medications and Allergies Home Medications ?Medication ?Instructions ?Recorded ?Confirmed ?Type albuterol sulfate 90 mcg/actuation 2 puff INHALATION Q6H PRN 09/15/17 01/01/24 History breath activated powder inhaler Shortness Of Breath duloxetine 30 mg capsule,delayed 30 mg PO DAILY Pain 09/15/17 01/01/24 History release (Cymbalta) meloxicam 15 mg tablet 15 mg PO DAILY Pain #30 tabs 09/27/21 01/01/24 Rx camphor 3.1 %-methyl salicylate 10 1 patch topical TID N/A 09/26/22 01/01/24 History %-menthol 6 % topical patch (Salonpas) prednisone 20 mg tablet 20 mg PO BID #10 tabs 08/28/23 01/01/24 Rx cyclobenzaprine 10 mg tablet 10 mg PO BID Pain #60 tabs 09/25/23 01/01/24 Rx lidocaine 5 % topical patch 1 patch topical DAILY Pain #30 ea 09/25/23 01/01/24 Rx gabapentin 300 mg capsule 300 mg PO QID #120 caps 01/01/24 Rx hydrocodone 5 mg-acetaminophen 325 1 tab PO QID Pain #120 tabs 01/01/24 Rx mg tablet New Prescriptions to Start Prescriptions: Allergies Allergy/AdvReac Type Severity Reaction Status Date / Time aspirin Allergy Difficulty Verified 10/19/22 09:15 Breathing ibuprofen Allergy Difficulty Verified 10/19/22 09:15 Breathing ketorolac AdvReac Anxiety Verified 10/19/22 09:15 promethazine AdvReac Hallucinati Verified 10/19/22 09:15 ng Assessment and Plan *Assessment and plan (1) Lumbar radiculopathy: Status: Acute Category: Medical Code(s): M54.16 - Radiculopathy, lumbar region (2) Degenerative disc disease, lumbar: Status: Acute Category: Medical Code(s): M51.36 - Other intervertebral disc degeneration, lumbar region Plan I will refill the patient's Flexeril, [place] and gabapentin and provide a 1 month supply of this medication. Patient will return to clinic in 1 month for re evaluation of symptoms and plan of care. Risks and benefits of the medication have been explained in detail to the patient. The patient does understand the risk of dependence on the medication when given over a prolonged period. Patient has been advised of risks of oversedation with the prescribed medication. Narcan has been offered to the paitent in the event of oversedation. Patient has been advised that a family member should also be educated regarding administration of Narcan. The patient has been advised to consult with his/her primary care provider and pharmacist regarding drug-drug interaction of medications currently prescribed. Patient has been prescribed a controlled substance after being counseled on the medication, medication safety, and possible side effects. Opioid contract was reviewed and signed by the patient, and that they have agreed to all of the terms set forth by our compliance program. Patient has been instructed to contact the clinic with any concerns before the next appointment. Dr. Acosta has reviewed this note and agrees with this plan of care. This note was dictated using voice recognition software and make contain errors or omissions.
[2024-02-05 11:59] VITALS: BP 139/85; PULSE 78; RESP 18; O2SAT 98; BMI 32.3
== END 2024-02-05 23:59 | disposition home or self-care (01) ==
PROVIDERS: PCP Family Medicine; Visit Provider Nurse Practitioner Family
DX: M51.16 Intervertebral disc disorders with radiculopathy, lumbar region (principal); F17.210 Nicotine dependence, cigarettes, uncomplicated
CPT/HCPCS: 99212; G0463

== ENCOUNTER 2024-03-04 11:12 | Outpatient (POV) | payer SELFPAY ==
--- NOTE | 2024-03-04 11:37 | A.OFFVIS_ITS ---
[facility] Disclaimer: The information contained in this section may have been updated after the patient was seen, as this information can be updated by other users. Medical History (Updated 11/27/23 @ 11:20 by Roseline Reynolds APRN) No significant past medical history Family History (Updated 08/28/23 @ 10:39 by Karl Jon RN) Other No significant family history Social History Smoking Status: Current every day smoker tobacco type: cigarettes packs per day: 1 alcohol intake: never substance use type: denies use current occupational status: employed Travel in the last 8 weeks: None household members: significant other housing: house PM Subjective & Objective Subjective Subjective:: Patient is a pleasant 53-year-old female who presents today for medication re fill. Today she rates her pain a 9 out of 10. Patient states that she did end up pulling a muscle the other day at work around the right side of her low back. Patient has been using a heating pad along with her lidocaine patches with some improvement. Patient is managed with gabapentin 300 mg 4 times a day, Flexeril 10 mg twice a day as needed and [place] 5 mg 4 times a day. She denies any side effects from this medication. She does state that she only needs the pain medicine refill. Patient is still doing self-pay and does not have insurance. Her [place] has been reviewed and is appropriate. Review of Systems: General: No recent weight changes, no fever, no sleep disturbances Respiratory: No cough, no shortness of air, no recurring pulmonary infections Cardiovascular/peripheral vascular: No chest pain, no palpitations, no edema, no shortness of breath Gastrointestinal: No new onset incontinence, normal bowel movements reported Genitourinary: No new onset incontinence Musculoskeletal: Low back pain Psychiatric: [Normal mood/affect] Neurological: [Denies weakness in extremities], [denies balance issues] Pain at rest (0-10 scale): 9 Objective Objective:: Physical Exam: General: Alert and oriented x3, no acute distress, pleasant and cooperative Lungs: Respirations even and unlabored, symmetrical chest expansion Eyes: PERRL Musculoskeletal: Flexion and extension of lumbar [spine] somewhat guarded secondary to pain, [antalgic gait noted] point tenderness along right lumbar pa raspinous muscles Neurological: Speech clear, no gross sensory deficit Has patient had previous pain injection?: No Conservative treatment options previously tried: Prescription medications Length of treatment: Longer than 12 weeks Meds Home Medications and Allergies Home Medications ?Medication ?Instructions ?Recorded ?Confirmed ?Type albuterol sulfate 90 mcg/actuation 2 puff INHALATION Q6H PRN 09/15/17 02/05/24 History breath activated powder inhaler Shortness Of Breath duloxetine 30 mg capsule,delayed 30 mg PO DAILY Pain 09/15/17 02/05/24 History release (Cymbalta) meloxicam 15 mg tablet 15 mg PO DAILY Pain #30 tabs 09/27/21 02/05/24 Rx camphor 3.1 %-methyl salicylate 10 1 patch topical TID N/A 09/26/22 02/05/24 History %-menthol 6 % topical patch (Salonpas) prednisone 20 mg tablet 20 mg PO BID #10 tabs 08/28/23 02/05/24 Rx lidocaine 5 % topical patch 1 patch topical DAILY Pain #30 ea 09/25/23 02/05/24 Rx cyclobenzaprine 10 mg tablet 10 mg PO BID Pain #60 tabs 02/05/24 Rx gabapentin 300 mg capsule 300 mg PO QID #120 caps 02/05/24 Rx hydrocodone 5 mg-acetaminophen 325 1 tab PO QID Pain #120 tabs 02/05/24 Rx mg tablet New Prescriptions to Start Prescriptions: Allergies Allergy/AdvReac Type Severity Reaction Status Date / Time aspirin Allergy Difficulty Verified 10/19/22 09:15 Breathing ibuprofen Allergy Difficulty Verified 10/19/22 09:15 Breathing ketorolac AdvReac Anxiety Verified 10/19/22 09:15 promethazine AdvReac Hallucinati Verified 10/19/22 09:15 ng Assessment and Plan *Assessment and plan (1) Lumbar radiculopathy: Status: Acute Category: Medical Code(s): M54.16 - Radiculopathy, lumbar region (2) Degenerative disc disease, lumbar: Status: Acute Category: Medical Code(s): M51.36 - Other intervertebral disc degeneration, lumbar region Plan We will refill the patient's [place] and provide a 1 month supply of this medication. Patient will return to clinic in 1 month for reevaluation of symptoms and plan of care. Risks and benefits of the medication have been explained in detail to the patient. The patient does understand the risk of dependence on the medication when given over a prolonged period. Patient has been advised of risks of oversedation with the prescribed medication. Narcan has been offered to the paitent in the event of oversedation. Patient has been advised that a family member should also be educated regarding administration of Narcan. The patient has been advised to consult with his/her primary care provider and pharmacist regarding drug-drug interaction of medications currently prescribed. Patient has been prescribed a controlled substance after being counseled on the medication, medication safety, and possible side effects. Opioid contract was reviewed and signed by the patient, and that they have agreed to all of the terms set forth by our compliance program. Patient has been instructed to contact the clinic with any concerns before the next appointment. Dr. Acosta has reviewed this note and agrees with this plan of care. This note was dictated using voice recognition software and make contain errors or omissions.
[2024-03-04 11:38] VITALS: BP 147/81; PULSE 80; RESP 18; O2SAT 100; BMI 31.8
== END 2024-03-04 23:59 | disposition home or self-care (01) ==
PROVIDERS: PCP Family Medicine; Visit Provider Nurse Practitioner Family
DX: M51.16 Intervertebral disc disorders with radiculopathy, lumbar region (principal); F17.210 Nicotine dependence, cigarettes, uncomplicated
CPT/HCPCS: 99212; G0463

== ENCOUNTER 2024-04-01 12:43 | Outpatient (POV) | payer SELFPAY ==
--- OUTSIDE RECORDS SUMMARY | 2024-04-01 12:45 | XMS_ITS | Encounter Summary ---
Author Organization [place] [address] Care Team Providers Care Production Broaching Machine Operator Name Role Phone Carmella Ulloa MD Primary Care Provider [phone] Reason for Visit * Reason Onset Date Comments Central Patient Navigator Outreach 08/28/2023 Mammogram Central Order Completion Outreach 08/28/2023 Cologuard Encounter Details Date Type Department Care Team (Late st Contact Info) Description 08/28/2023 Patient Outreach [facility] [address] [place] [address] Carmella Ulloa MD [address] [place] [address] Central Patient Navigator Outreach (Mammogram); Central Order Completion Outreach (Cologuard) Social History Tobacco Use Types Packs/Day Years Used Date Smoking Tobacco: Every Day Cigarettes Smokeless Tobacco: Never Alcohol Use Standard Drinks/Week Comments Yes 0 (1 standard drink = 0.6 oz pur e alcohol) occassional PHQ-2 Answer Date Recorded PHQ-2 Score 0 11/01/2019 Comments No Sex and Gender Information Value Date Recorded Sex Assigned at Not on file Legal Sex Female 5:20 AM EDT Gender Identity Not on file Sexual Orientation Not on file documented as of this encounter Functional Status * Is the person deaf or does he/she have serious difficulty hearing? Answer Date of Assessment Author No 11/01/2019 1:53 PM EDT Juan Francisco Walters MA * Is the person blind or does he/she have serious difficulty seeing even when wearing glasses? Answer Date of Assessment Author No 11/01/2019 1:53 PM EDT Juan Francisco Walters MA * Does this person have serious difficulty walking or climbing stairs? Answer Date of Assessment Author No 11/01/2019 1:53 PM EDT Juan Francisco Walters MA * Does this person have difficulty dressing or bathing? Answer Date of Assessment Author No 11/01/2019 1:53 PM EDT Juan Francisco Walters MA * Because of a physical, mental or emotional condition, does this person have difficulty doing errands alone such as visiting a doctor's office or shopping? Answer Date of Assessment Author No 11/01/2019 1:53 PM EDT Juan Francisco Walters MA documented as of this encounter Mental Status * Because of a physical, mental or emotional condition, does this person have serious difficulty concentrating, remembering or making decisions? Answer Entry Date Author No 11/01/2019 1:53 PM EDT Juan Francisco Walters MA documented in this encounter Progress Notes * Zahira Hernandez RN - 08/28/2023 8:54 AM EDT SEP Order Completion Outcome Tracking Contact Attempt:: Final Cologuard Outcome:: Patient Agreeable to Complete, Patient Received Kit (declined new kit) During Targeted Care Gap Outreach, care gaps addressed are Annual Wellness Visit and Mammogram. Patient/Parent/Guardian declined I've had a in the family and I'm still trying to get back on my feet. documented in this encounter Plan of Treatment Not on file documented as of this encounter Goals Goal Patient Goal Type Associated Problems Recent Progress Patient-Stated? Author Maintain a healthy diet, exercise regularly and maintain an ideal body weight General No Tiana Mena, RN Stay Tobacco Free Lifestyle No Tiana Mena RN documented as of this encounter Visit Diagnoses Not on filedocumented in this encounter Care Teams Production Broaching Machine Operator Relationship Specialty Start Date End Date Carmella Ulloa MD [address] [place] [address] PCP - General Family Medicine 09/27/17 documented as of this encounter
--- OUTSIDE RECORDS SUMMARY | 2024-04-01 12:45 | XMS_ITS | Encounter Summary ---
Author Organization [facility] [place] [address] Care Team Providers Care Health Assistant Name Role Phone Carmella Ulloa MD Primary Care Provider [phone] Reason for Visit * Reason Onset Date Comments COVID-19 Rapid Testing 01/27/2021 Encounter Details Date Type Department Care Team (Latest Contact Info) Description 01/27/2021 11:00 AM EDT Clinical Support [facility] [address] [place] [address] Dayna Louis, [address] [place] [address] Upper respiratory tract infection, unspecified type (Primary Dx) Social History Tobacco Use Types Packs/Day Years [...] on file Sexual Orientation Not on file COVID-19 Exposure Response Date Recorded In the last month, have you been in contact with someone who was confirmed or suspected to have Coronavirus / COVID-19? No / Unsure 01/26/2021 11:03 AM EDT documented as of this encounter Functional Status [...] documented in this encounter Progress Notes * Dayna Louis RMA - 01/27/2021 11:00 AM EDT Patient swabbed for COVID19 per protocol Patient tolerated well with no complications or complaints Rapid and FLu completed Patient notified of results documented in this encounter Plan of Treatment Not on file documented as of this encounter Goals Goal Patient Goal Type Associated Problems Recent Progress Patient-Stated? Author Maintain a healthy diet, exercise regularly and maintain an ideal body weight General No Tiana Mena, RN Stay Tobacco Free Lifestyle No Tiana Mena, RN documented as of this encounter Procedures Procedure Name Priority Date/Time Associated Diagnosis Comments POCT KAMERON SARS ANTIGEN Routine 01/27/2021 10:49 AM EDT Upper respiratory tract infection, unspecified type POCT KAMERON INFLUENZA A/B Routine 01/27/2021 10:49 AM EDT Upper respiratory tract infection, unspecified type documented in this encounter Results * POCT KAMERON INFLUENZA A/B (01/27/2021 10:49 AM EDT) Influenza A Antigen Negative Negative SEP OFFICE Influenza B Antigen Negative Negative SEP OFFICE Lot Number SEP OFFICE Expiration Date SEP OFFICE SeriAl # SEP OFFICE Control Line SEP OFFICE 01/27/2021 10:4 9 AM EDT 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 [employer] SHINGLE POINT OF CARE TEST ORDERABLE S Final Result Performing Organization Address [facility] Co de Phone Number SEP OFFICE * POCT KAMERON SARS ANTIGEN (01/27/2021 10:49 AM EDT) SARS Antigen Negative Negative SEP OFFICE Lot Number SEP OFFICE Expiration Date SEP OFFICE SeriAl # SEP OFFICE Control Line SEP OFFICE 01/27/2021 10:4 9 AM EDT 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 [employer] SHINGLE POINT OF CARE TEST ORDERABLE S Final Result Performing Organization Address [facility] Co de Phone Number SEP OFFICE documented in this encounter Visit Diagnoses Diagnosis Upper respiratory tract infection, unspecified type- Primary documented in this encounter Care Teams Health Assistant Relationship Specialty Start Date End Date Carmella Ulloa MD [address] [place] [address] PCP - General Family Medicine 09/27/17 documented as of this encounter
--- OUTSIDE RECORDS SUMMARY | 2024-04-01 12:45 | XMS_ITS | Encounter Summary ---
Author Organization [place] [address] Care Team Providers Care Oxygen Therapist Name Role Phone Carmella Ulloa MD Primary Care Provider [phone] Reason for Visit * Reason Onset Date Comments Medication Refill 05/31/2021 Encounter Details Date Type Department Care Team (Late st Contact Info) Description 05/31/2021 Refill [facility] [address] [place] [phone] Carmella Ulloa MD [address] [place] [id number] Medication Refill Social History Tobacco Use Types Packs/Day Years [...] Francisco Walters MA documented in this encounter Ordered Prescriptions Prescription Sig Dispense Quantity Refills Last Filled Start Date End Date cyclobenzaprine (FLEXERIL) 10 mg Oral TabletIndications:C hronic pain of left knee Take 1 Tablet by mouth 3 times daily. 90 Tablet 2 06/01/2021 documented in this encounter Plan of Treatment Not on file documented as of this encounter Goals Goal Patient Goal Type Associated Problems Recent Progress Patient-Stated? Author Maintain a healthy diet, exercise regularly and maintain an ideal body weight General No Tiana Mena, RN Stay Tobacco Free Lifestyle No Tiana Mena RN documented as of this encounter Visit Diagnoses Diagnosis Chronic pain of left knee Pain in joint, lower leg documented in this encounter Discontinued Medications Medication Sig Discontinue Reason Start Date End Da te cyclobenzaprine (FLEXERIL) 10 mg Oral TabletIndications:Chroni c pain of left knee Take 1 Tablet by mouth 3 times daily. Reorder 02/01/2021 05/31/2021 documented as of this encounter Care Teams Oxygen Therapist Relationship Specialty Start Date End Date Carmella Ulloa MD [address] [place] [address] PCP - General Family Medicine 09/27/17 documented as of this encounter
--- OUTSIDE RECORDS SUMMARY | 2024-04-01 12:45 | XMS_ITS | Encounter Summary ---
Author Organization [place] [address] Care Team Providers Care Cmo Name Role Phone Carmella Ulloa MD Primary Care Provider [phone] Reason for Visit * Reason Onset Date Comments Medication Refill 01/29/2021 Encounter Details Date Type Department Care Team (Late st Contact Info) Description 01/29/2021 Refill [facility] [address] [place] [phone] Carmella Ulloa MD [address] [place] [phone] Medication Refill Social History Tobacco Use Types [...] End Date cyclobenzaprine (FLEXERIL) 10 mg Oral TabletIndications: Chronic pain of left knee Take 1 Tablet by mouth 3 times daily. 90 Tablet 2 02/01/2021 05/31/2021 albuterol (PROVENTIL HFA;VENTOLIN HFA) 90 mcg/actuation Inhl HFA Aerosol Inhaler Inhale 2 Puffs into the lungs every 6 hours as needed for Wheezing. 18 g 5 02/01/2021 05/31/2021 documented in this encounter Miscellaneous Notes * Telephone Encounter - Juan C Mckoy CPhT - 02/01/2021 1:25 PM EDT cyclobenzaprine- Medication Refill Protocol not available for this medication. Routed to office staff. albuterol - Medication Refill Protocol not available for this medication. Routed to office staff. documented in this encounter Plan of Treatment Not on file documented as of this encounter Goals Goal Patient Goal Type Associated Problems Recent Progress Patient-Stated? Author Maintain a healthy diet, exercise regularly and maintain an ideal body weight General No Tiana Mena RN Stay Tobacco Free Lifestyle No Tiana Mena RN documented as of this encounter Visit Diagnoses Diagnosis Chronic pain of left knee Pain in joint, lower leg documented in this encounter Discontinued Medications Medication Sig Discontinue Reason Start Date End Da te albuterol (PROVENTIL HFA;VENTOLIN HFA) 90 mcg/actuation Inhl HFA Aerosol Inhaler Inhale 2 Puffs into the lungs every 6 hours as needed for Wheezing. Reorder 11/01/2019 01/29/2021 cyclobenzaprine (FLEXERIL) 10 mg Oral TabletIndications:Chroni c pain of left knee Take 1 Tab by mouth 3 times daily. Reorder 11/01/2019 01/29/2021 documented as of this encounter Care Teams Cmo Relationship Specialty Start Date End Date Carmella Ulloa MD [address] [place] [address] PCP - General Family Medicine 09/27/17 documented as of this encounter
--- OUTSIDE RECORDS SUMMARY | 2024-04-01 12:45 | XMS_ITS | Encounter Summary ---
Author Organization [place] [address] Care Team Providers Care Skiver Welt End Name Role Phone Carmella Ulloa MD Primary Care Provider [phone] Reason for Visit * Reason Onset Date Comments Medication Refill 05/31/2021 Encounter Details Date Type Department Care Team (Late st Contact Info) Description 05/31/2021 Refill [facility] [address] [place] [phone] Carmella Ulloa MD [address] [place] [phone] Medication Refill Social History Tobacco Use Types [...] Refills Last Filled Start Date End Date albuterol (PROVENTIL HFA;VENTOLIN HFA) 90 mcg/actuation Inhl HFA Aerosol Inhaler Inhale 2 Puffs into the lungs every 6 hours as needed for Wheezing. 18 g 5 06/01/2021 04/16/2022 documented in this encounter Plan of Treatment Not on file documented as of this encounter Goals Goal Patient Goal Type Associated Problems Recent Progress Patient-Stated? Author Maintain a healthy diet, exercise regularly and maintain an ideal body weight General No Tiana Mena, CHRISTY Stay Tobacco Free Lifestyle No Tiana Mena RN documented as of this encounter Visit Diagnoses Not on filedocumented in this encounter Discontinued Medications Medication Sig Discontinue Reason Start Date End Da te albuterol (PROVENTIL HFA;VENTOLIN HFA) 90 mcg/actuation Inhl HFA Aerosol Inhaler Inhale 2 Puffs into the lungs every 6 hours as needed for Wheezing. Reorder 02/01/2021 05/31/2021 documented as of this encounter Care Teams Skiver Welt End Relationship Specialty Start Date End Date Carmella Ulloa MD [address] [place] [address] PCP - General Family Medicine 09/27/17 documented as of this encounter
--- OUTSIDE RECORDS SUMMARY | 2024-04-01 12:45 | XMS_ITS | Encounter Summary ---
Author Organization [place] [address] Care Team Providers Care Community Support Professional Name Role Phone Carmella Ulloa MD Primary Care Provider [phone] Reason for Visit * Reason Onset Date Comments Central Patient Navigator Outreach 09/29/2022 mammogram Encounter Details Date Type Department Care Team (Late st Contact Info) Description 09/29/2022 Patient Outreach SEP [facility] [address] [place] [address] Carmella Ulloa MD [address] [place] [address] Central Patient Navigator Outreach (mammogram ) Social History Tobacco Use Types Packs/Day Years [...] documented in this encounter Progress Notes * Celine Slater, RN - 09/29/2022 3:56 PM EDT SEP Order Completion Outcome Tracking Contact Attempt:: First Cologuard Outcome:: Left Voicemail to Return Call at [phone], [facility] Message Patient Outreach: Care Gap Outreach Attempt Count: 1st Care Gaps Addressed apron operator: Mammogram Outcome: Left message to return call to RN at and [employer] Message Sent documented in this encounter Plan of Treatment Not on file documented as of this encounter Goals Goal Patient Goal Type Associated Problems Recent Progress Patient-Stated? Author Maintain a healthy diet, exercise regularly and maintain an ideal body weight General No Tiana Mena, RN Stay Tobacco Free Lifestyle No Tiana Mena, RN documented as of this encounter Visit Diagnoses Not on filedocumented in this encounter Care Teams Community Support Professional Relationship Specialty Start Date End Date Carmella Ulloa MD [address] [place] [address] PCP - General Family Medicine 09/27/17 documented as of this encounter
--- OUTSIDE RECORDS SUMMARY | 2024-04-01 12:45 | XMS_ITS | Encounter Summary ---
Author Organization [place] [address] Care Team Providers Care Automotive Electrician Helper Name Role Phone Carmella Ulloa MD Primary Care Provider [phone] Reason for Referral * Medication Prior Authorization - Closed Specialty Diagnoses / Procedures Referred By Contac t Referred To Contact Carmella Ulloa MD [address] [place] [address] Phone: tel: fax: Referral ID Status Reason Start Date Expiration Date Visits Re quested Visits Authorized [id number] Closed 1 1 Reason for Visit * Reason Comments Gynecologic Exam Annual Exam Encounter Details Date Type Department Care Team (Late st Contact Info) Description 04/16/2022 11:00 AM EST Office Visit [place] [phone] Carmella Ulloa MD [address] [place] [address] Annual physical exam (Primary Dx); Pap smear for cervical cancer screening; Mild intermittent asthma, unspecified whether complicated Social History Tobacco Use Types Packs/Day Years Used Date Smoking Tobacco: Every Day Cigarettes Smokeless Tobacco: Never Tobacco Cessation:Ready to Q uit: Not Asked; Counseling Given: Not Answered Alcohol Use Standard Drinks/Week Comments Yes 0 (1 standard drink = 0.6 oz pur e alcohol) occassional PHQ-2 Answer Date Recorded PHQ-2 Score 0 11/01/2019 Comments No Sex and Gender Information Value Date Recorded Sex Assigned at Not on file Legal Sex Female 5:20 AM EDT Gender Identity Not on file Sexual Orientation Not on file documented as of this encounter Last Filed Vital Signs Vital Sign Reading Time Taken Comments Blood Pressure 124/82 04/16/2022 11:24 AM EST Pulse - - Temperature 36.7 ??C (98.1 ??F) 04/16/2022 11:[address] Respiratory Rate - - Oxygen Saturation - - Inhaled Oxygen Concentration - - Weight 103.4 kg (228 lb) 04/16/2022 11:24 AM EST Height 167.6 cm (5' 6 ) 04/16/2022 11:24 AM EST Body Mass Index 36.8 04/16/2022 11:24 AM EST documented in this encounter Functional Status * Is the [...] of Assessment Author No 11/01/2019 1:53 PM JOSHUAT Juan Francisco Walters MA * Does this [...] Entry Date Author No 11/01/2019 1:53 PM Juan Francisco Wu MA documented in this encounter Ordered Prescriptions Prescription Sig Dispense Quantity Refills Last Filled Start Date End Date albuterol (PROVENTIL HFA;VENTOLIN HFA) 90 mcg/actuation Inhl HFA Aerosol InhalerIndications: Mild intermittent asthma, unspecified whether complicated Inhale 2 Puffs into the lungs every 6 hours as needed for Wheezing. 18 g 5 04/16/2022 documented in this encounter Progress Notes * Carmella Ulloa MD - 04/16/2022 11:00 AM EST Vitals: 04/16/22 1124 BP: 124/82 Temp: 98.1 ??F (36.7 ??C) TempSrc: Temporal Weight: 228 lb (103.4 kg) Height: 5' 6 (1.676 m) SUBJECTIVE: Chief Complaint Patient presents with ??? Gynecologic Exam ??? Annual Exam HPI: Well Adult: Subjective Ms. Goel is a 52 y.o. female here for an annual wellness visit. Diet: regular Exercise: intermittent Activities of Daily Living: Functional Level: Self-care ADL Limitations: none Social Interaction Screen: Do you have concerns about issues that may impact social interaction such as developmental or behavioral/mental health conditions? no Health Maintenance Due Topic Date Due ??? Hepatitis B Vaccine (1 of 3 - 3-dose series) Never done ??? COVID-19 Vaccine (1) Never done ??? Pneumococcal Vaccine 0-64 (1 - PCV) Never done ??? DTaP/TDaP/Td (1 - Tdap) Never done ??? Cervical Cancer Screening Never done ??? Colon Cancer Screening Never done ??? Zoster (1 of 2) Never done ??? Breast Cancer Screening Never done ??? Annual Wellness Exam 10/31/2020 ??? Influenza Vaccine (1) Never done Health Maintenance Topic Date Due ??? Hepatitis B Vaccine (1 of 3 - 3-dose series) Never done ??? COVID-19 Vaccine (1) Never done ??? Pneumococcal Vaccine 0-64 (1 - PCV) Never done ??? DTaP/TDaP/Td (1 - Tdap) Never done ??? Cervical Cancer Screening Never done ??? Colon Cancer Screening Never done ??? Zoster (1 of 2) Never done ??? Breast Cancer Screening Never done ??? Annual Wellness Exam 10/31/2020 ??? Influenza Vaccine (1) Never done There is no immunization history on file for this patient. Patient Active Problem List Diagnosis ??? Asthma ??? Migraine Past Medical History: Diagnosis Date ??? Chronic back pain ??? Migraine Past Surgical History: Procedure Laterality Date ??? TUBAL LIGATION Allergies Allergen Reactions ??? Ciprofloxacin ??? Imitrex [Sumatriptan Succinate] ??? Promethazine Current Outpatient Medications on File Prior to Visit Medication Sig Dispense Refill ??? cyclobenzaprine (FLEXERIL) 10 mg Oral Tablet Take 1 Tablet by mouth 3 times daily. 90 Tablet 2 ??? gabapentin (NEURONTIN) 300 mg Oral Capsule Take by mouth 5 times daily. ??? HYDROcodone-acetaminophen (NORCO) 5-325 mg Oral Tablet Take 1 Tab by mouth every 6 hours as needed for Pain. ??? meloxicam (MOBIC) 15 mg Oral Tablet Take 1 tablet by mouth once daily 90 Tab 0 No current facility-administered medications on file prior to visit. Social History Socioeconomic History ??? Marital status: Legally Spouse name: None ??? Number of children: None ??? Years of education: None ??? Highest education level: None Tobacco Use ??? Smoking status: Every Day Packs/day: 0.50 Types: Cigarettes ??? Smokeless tobacco: Never Substance and Sexual Activity ??? Alcohol use: Yes Comment: occassional ??? Drug use: No History reviewed. No pertinent family history. No results found. Results for orders placed or performed in visit on 04/16/22 [facility] ELECTRICAL CONSTRUCTION PROJECT MANAGER CYTOLOGY ORDER Narrative The following orders were created for panel order [facility] ELECTRICAL CONSTRUCTION PROJECT MANAGER CYTOLOGY ORDER. Procedure Abnormality Status --------- ------ ELECTRICAL CONSTRUCTION PROJECT MANAGER CYTOLOGY REQUEST (PA...[[id number]] In process GC CHLAMYDIA THIN PREP[[id number]] In process TRICHOMONAS VAGINALIS BY...[[id number]] In process Please view results for these tests on the individual orders. Patient Care Team: aCrmella Ulloa MD as PCP - General (Family Medicine) No results found for: WBC, HGB, HCT, PLT, CHOLESTEROL, TRIG, HDL, LDLDIRECT, LDLCALC, ALT, AST, NA,K, CL, CREATININE, BUN, CO2, TSH, INR, GLUCOSE, GLU, HGBA1C, MICROALBUR, TSHREFLEX Additional issues addressed today: Gynecologic Exam This is a new problem. The current episode started today. The problem occurs constantly. The problem has been unchanged. The patient is experiencing no pain. She is not . Pertinent negatives include no discolored urine, fever, frequency, hematuria or urgency. The vaginal discharge was normal. There has been no bleeding. She has not been passing clots. She has not been passing tissue. Nothing aggravates the symptoms. She has tried nothing for the symptoms. She is sexually active. It is unknown whether or not her partner has an STD. She uses nothing for contraception. Her menstrual history has been irregular. Pt presents with pap exam. Pt's last pap and mammogram was at [facility]. Unknown date. Pt reports normal results. Pt has no concerns at this time. Review of Systems Constitutional: Negative for fatigue and fever. HENT: Negative. Respiratory: Negative for cough and wheezing. Cardiovascular: Negative. Gastrointestinal: Negative. Genitourinary: Negative for frequency, hematuria and urgency. Musculoskeletal: Negative. Psychiatric/Behavioral: Negative. OBJECTIVE: Physical Exam Vitals and nursing note reviewed. Exam conducted with a repairer kiln car present. HENT: Head: Normocephalic. Cardiovascular: Rate and Rhythm: Normal rate. Heart sounds: No murmur heard. Pulmonary: Effort: Pulmonary effort is normal. Breath sounds: No wheezing. Abdominal: Palpations: Abdomen is soft. Tenderness: There is no abdominal tenderness. Genitourinary: Comments: Pap done in the usual fashion Skin: General: Skin is warm. Neurological: General: No focal deficit present. Mental Status: She is alert. Psychiatric: Mood and Affect: Mood normal. Assessment Diagnoses and all orders for this visit: Annual physical exam Pap smear for cervical cancer screening - [facility] ELECTRICAL CONSTRUCTION PROJECT MANAGER CYTOLOGY ORDER; Future Mild intermittent asthma, unspecified whether complicated - albuterol (PROVENTIL HFA;VENTOLIN HFA) 90 mcg/actuation Inhl HFA Aerosol Inhaler; Inhale 2 Puffs into the lungs every 6 hours as needed for Wheezing. Dispense: 18 g; Refill: 5 documented in this encounter Plan of Treatment Not on file documented as of this encounter Goals Goal Patient Goal Type Associated Problems Recent Progress Patient-Stated? Author Maintain a healthy diet, exercise regularly and maintain an ideal body weight General No Tiana Mena RN Stay Tobacco Free Lifestyle No Tiana Mena RN documented as of this encounter Procedures Procedure Name Priority Date/Time Associated Diagnosis Comments ELECTRICAL CONSTRUCTION PROJECT MANAGER CYTOLOGY REQUEST (PAP ONLY) Routine 04/16/2022 12:05 PM EST Pap smear for cervical cancer screening TRICHOMONAS VAGINALIS BY TMA (PAP PANEL) Routine 04/16/2022 12:05 PM EST Pap smear for cervical cancer screening GC CHLAMYDIA THIN PREP Routine 04/16/2022 12:05 PM EST Pap smear for cervical cancer screening [facility] ELECTRICAL CONSTRUCTION PROJECT MANAGER CYTOLOGY ORDER Routine 04/16/2022 12:05 PM EST Pap smear for cervical cancer screening documented in this encounter Results * TRICHOMONAS VAGINALIS BY TMA (PAP PANEL) (04/16/2022 12:05 PM EST) Trichomonas vaginalis by TMA Not Detected Not Detected 04/18/2022 4:01 PM EST PREFERRED [employer] Thin Prep SPECIMEN FROM UTERINE CERVIX / Unknown 04/16/2022 12:05 PM EST 04/16/2022 12:05 PM EST Narrative [facility]REF[facility] - 04/18/2022 4:01 PM EST Test methodology is social media manager mediated amplification (TMA) using the Aptima Trichomonas vaginalis assay from [employer]. ?? A negative result does not completely rule out a Trichomonas vaginalis infection due to potential inhibitors or levels present below the limit of detection of this assay. ??Results are dependent on proper collection and transport of specimen. ??This test is indicated for medical purposes only and should not be used for legal or forensic purposes. ?? The assay has been cleared by the FDA to test the following specimens from symptomatic or asymptomatic women: clinician-collected endocervical swabs, clinician-collected vaginal swabs, and ??specimens collected in PreservCyt solution. ??Testing on first-catch male and female urine is not FDA-approved by this methodology; performance characteristics of the assay on these sample types were determined by [facility]. us Carmella Ulloa MD MICROBIOLOGY - GENERAL ORDERAB LES Final Result [facility] [address] [facility] , [place] [address] * GC CHLAMYDIA THIN PREP (04/16/2022 12:05 PM EST) Chlamydia trachomatis Not Detected Not Detected 04/18/2022 3:51 PM EST [facility] Neisseria gonorrhoeae Not Detected Not Detected 04/18/2022 3:51 PM EST [facility] Thin Prep SPECIMEN FROM UTERINE CERVIX / Unknown 04/16/2022 12:05 PM EST 04/16/2022 12:05 PM EST Narrative [facility] [employer], [facility] - 04/18/2022 3:51 PM EST Testing methodology is social media manager mediated amplification (TMA) using the Aptima Combo 2 assay from [employer]. A negative result does not completely rule out a Chlamydia trachomatis or Neisseria gonorrhoeae infection due to potential inhibitors or levels present below the limit of detection by this assay. ??Results are dependent on proper collection and transport of specimen. This test is indicated for medical purposes only and should not be used for legal or forensic purposes. The performance characteristics of this assay were validated by the testing laboratory. This assay is FDA cleared to test the following specimens: clinician-collected endocervical, vaginal, male urethral swab specimens, rectal swabs, and throat/pharyngeal swabs; patient collected vaginal specimens within a clinic setting; Thin Prep Specimens in PreservCyt Solution; and first-stream, unpreserved male and female urine specimens. Detailed methodology is available upon request. Carmella Ulloa MD MICROBIOLOGY - GENERAL ORDERAB LES Final Result [facility] [address] [facility] , [place] [address] * ELECTRICAL CONSTRUCTION PROJECT MANAGER CYTOLOGY REQUEST (PAP ONLY) (04/16/2022 12:05 PM EST) CASE REPORT Gynecologic Cytology Report ? Case: [id number] ? Authorizing Provider: ??Carmella Ulloa MD ?Collected: ? 04/16/2022 1205 ? Ordering Location: ? [facility] ? Received: ?04/16/2022 1205 ? First Screen: ?Alejandra Moe, CT ? Specimen: ?LIQUID-BASED PAP - CERVICAL/ENDOCERV ICAL, Cervix, Endocervical ? 04/20/2022 3:58 PM EST [facility] PAP FINAL DIAGNOSIS Negative for intraepithelial lesion or malignancy 04/20/2022 3:58 PM [facility] OSCOPIC DESCRIPTION Microscopic examination is performed and the findings corroborate the diagnosis. 04/20/2022 3:58 PM EST [facility] PAP SMEAR ADEQUACY Satisfactory for evaluation 04/20/2022 3:58 PM EST [facility] PAP ORGANISMS NOTED Abundant bacteria present. 04/20/2022 3:58 PM EST [facility] ENDOCERVICAL T-ZONE Transformation zone present 04/20/2022 3:58 PM EST [facility] EMBEDDED IMAGES 3:58 PM EST [facility] PAP DISCLAIMER The Pap Smear is a screening test that aids in the detection of cervical cancer and cancer precursors. Both false positive and false negative results can occur. The test should be used at regular intervals, and positive results should be confirmed before definitive therapy. Processed using the [employer] Waredresser Automated cytology screening device ([employer]). 04/20/2022 3:58 PM EST [facility] Thin Prep ENDOCERVICAL STRUCTURE / Unknown 04/16/2022 12:05 PM EST 04/16/2022 12:05 PM EST us Carmella Ulloa MD CYTOLOGY ORDERABLES Final Resu lt [facility] [address] [place] [phone] documented in this encounter Visit Diagnoses Diagnosis Annual physical exam- Primary Routine general medical examination at a health care facility Pap smear for cervical cancer screening Screening for malignant neoplasm of the cervix Mild intermittent asthma, unspecified whether complicated documented in this encounter Discontinued Medications Medication Sig Discontinue Reason Start Date End Da te Brompheniramine-Pseudoe ph-DM 2-30-10 mg/5 mL Oral SyrupIndications:Cough, Upper respiratory tract infection, unspecified type Take 10 mL by mouth every 4 hours as needed. DELETE-Therapy completed 01/26/2021 04/16/2022 albuterol (PROVENTIL HFA;VENTOLIN HFA) 90 mcg/actuation Inhl HFA Aerosol Inhaler Inhale 2 Puffs into the lungs every 6 hours as needed for Wheezing. Reorder 06/01/2021 04/16/2022 documented as of this encounter Care Teams Automotive Electrician Helper Relationship Specialty Start Date End Date Carmella Ulloa MD [address] [place] [address] PCP - General Family Medicine 09/27/17 documented as of this encounter
--- OUTSIDE RECORDS SUMMARY | 2024-04-01 12:45 | XMS_ITS | Encounter Summary ---
Author Organization [place] [address] Care Team Providers Care Chimney Supervisor Brick Name Role Phone Carmella Ulloa MD Primary Care Provider [phone] Reason for Visit * Reason Onset Date Comments Central Patient Navigator Outreach 03/21/2022 Pap Encounter Details Date Type Department Care Team (Late st Contact Info) Description 03/21/2022 Patient Outreach [facility] [address] [place] [address] Carmella Ulloa MD [address] [place] [address] Central Patient Navigator Outreach (Pap) Social History Tobacco Use Types Packs/Day Years [...] documented in this encounter Progress Notes * Dorene Morataya RN - 03/21/2022 4:30 PM EST Patient Outreach: Care Gap Outreach Attempt Count: 1st Care Gaps Addressed air conditioning installer supervisor: Cervical Cancer Screening Outcome: Annual Wellness Visit Scheduled 04/16/22 and Cervical Cancer screening scheduled 04/16/22. AWV and pap scheduled together. documented in this encounter Plan of Treatment [...] on filedocumented in this encounter Care Teams Chimney Supervisor Brick Relationship Specialty Start Date End Date Carmella Ulloa MD [address] [place] [address] PCP - General Family Medicine 09/27/17 documented as of this encounter
--- OUTSIDE RECORDS SUMMARY | 2024-04-01 12:45 | XMS_ITS | Encounter Summary ---
Author Organization [place] [address] Care Team Providers Care Loan Services Professional Name Role Phone Carmella Ulloa MD Primary Care Provider [phone] Reason for Visit * Reason Onset Date Comments Central Order Completion Outreach 03/09/2023 Cologuard Encounter Details Date Type Department Care Team (Late st Contact Info) Description 03/09/2023 Patient Outreach [facility] [address] [place], [place] [phone] Carmella Ulloa MD [address] [place] [address] Central Order Completion Outreach (Cologuard) Social History [...] documented in this encounter Progress Notes * Gema Moe RN - 03/14/2023 10:21 AM EDT [facility] Order Completion Outcome Tracking Contact Attempt:: Final Cologuard Outcome:: No Answer, Left Voicemail to Return Call at [phone] * Xochilt Montejo RN - 03/09/2023 1:56 PM EDT [facility] Order Completion Outcome Tracking Contact Attempt:: First Cologuard Outcome:: No Answer, Unable to Reach, MyChart Message documented in this encounter Plan of Treatment [...] on filedocumented in this encounter Care Teams Loan Services Professional Relationship Specialty Start Date End Date Carmella Ulloa MD [address] [place] [address] PCP - General Family Medicine 09/27/17 documented as of this encounter
--- OUTSIDE RECORDS SUMMARY | 2024-04-01 12:45 | XMS_ITS | Clinical Summary ---
Author Organization [facility] Address [address] [place] [address] Phone Care Team Providers Care Casino Enforcement Agent Name Role Phone Carmella Ulloa MD Primary Care Provider [phone] Allergies Active Allergy Reactions Criticality Noted Date Comments Ciprofloxacin 10/09/2009 Sumatriptan Succinate 12/30/2011 Promethazine 10/09/2009 Medications gabapentin (NEURONTIN) 300 mg Oral Capsule Take by mouth 5 times daily. Active HYDROcodone-aceta minophen (NORCO) 5-325 mg Oral Tablet Take 1 Tab by mouth every 6 hours as needed for Pain. Active meloxicam (MOBIC) 15 mg Oral TabletIndications :Chronic pain of left knee Take 1 tablet by mouth once daily 90 Tab 07/30/2020 Active cyclobenzaprine (FLEXERIL) 10 mg Oral TabletIndications :Chronic pain of left knee Take 1 Tablet by mouth 3 times daily. 90 Tablet 2 06/01/2021 Active albuterol (PROVENTIL HFA;VENTOLIN HFA) 90 mcg/actuation Inhl HFA Aerosol InhalerIndication s:Mild intermittent asthma, unspecified whether complicated Inhale 2 Puffs into the lungs every 6 hours as needed for Wheezing. 18 g 5 04/16/2022 Active Active Problems Patient Care Coordination No te Formatting of this note migh t be different from the original. [place] report 08/11/2014 [facility] audit completed by Frida Borges RN on 05/29/2020. Problem Noted Date Diagnosed Date Asthma 10/09/2009 Migraine 10/09/2009 Surgical History Surgery Date Site/Laterality Comments TUBAL LIGATION Medical History Medical History Date Comments Chronic back pain Migraine Social History Tobacco Use Types Packs/Day Years [...] on file Sexual Orientation Not on file Obstetrics History Last Filed Vital Signs Vital Sign Reading Time Taken Comments Blood Pressure 124/82 04/16/2022 11:24 AM EST Pulse 88 06/17/2018 5:14 PM EST Temperature 36.7 ??C (98.1 ??F) 04/16/2022 11:[address] Respiratory Rate 18 06/17/2018 5:14 PM EST Oxygen Saturation 100% 06/17/2018 5:14 PM EST Inhaled Oxygen Concentration - - Weight 103.4 kg (228 lb) 04/16/2022 11:24 AM EST Height 167.6 cm (5' 6 ) 04/16/2022 11:24 AM EST Body Mass Index 36.8 04/16/2022 11:24 AM EST Plan of Treatment Health Maintenance Due Date Last Done Comments Pneumococcal Vaccine 0-64 (1 of 2 - PCV) 1976 DTaP/TDaP/Td (1 - Tdap) 1989 Hepatitis B Vaccine (1 of 3 - 19+ 3-dose series) 1989 HPV/Pap Cotest 2000 Breast Cancer Screening 2010 Cologuard 2015 Colon Cancer Screening 2015 Colonoscopy 2015 FIT 2015 Sigmoidoscopy 2015 Virtual Colonography 2015 Zoster (1 of 2) 2020 Annual Wellness Exam 04/16/2023 04/16/2022 COVID-19 Vaccine (1 - season) 2024 Influenza Vaccine (#1) 2024 Cervical Cancer Screening 04/16/2025 Pap Smear 04/16/2025 04/16/2022, 04/16/2022 Goals Goal Patient Goal Type Associated Problems Recent Progress Patient-Stated? Author Maintain a healthy diet, exercise regularly and maintain an ideal body weight General No Tiana Mena, CHRISTY Stay Tobacco Free Lifestyle No Tiana Mena RN Procedures Procedure Name Priority Date/Time Associated Diagnosis Comments [facility] MERCANTILE REPORTER CYTOLOGY ORDER Routine 04/16/2022 12:05 PM EST Pap smear for cervical cancer screening from Last 3 Months or Most Recently Relevant to Health Maintenance Insurance [place] [id number] * Guarantor: Raquel Goel Account Type Relation to Patient Date of Phone Billing Address [place] Personal Family Self Care Teams Casino Enforcement Agent Relationship Specialty Start Date End Date Carmella Ulloa MD [address] [place] [address] PCP - General Family Medicine 09/27/17
--- OUTSIDE RECORDS SUMMARY | 2024-04-01 12:45 | XMS_ITS | Encounter Summary ---
Author Organization [place] [address] Care Team Providers Care Valve Inserter Name Role Phone Carmella Ulloa MD Primary Care Provider [phone] Reason for Visit * Reason Onset Date Comments Medication Refill 09/01/2023 Encounter Details Date Type Department Care Team (Late st Contact Info) Description 09/01/2023 Refill [facility] [address] [place] [phone] Carmella Ulloa MD [address] [place] [address] Medication Refill Social History Tobacco Use Types [...] of Assessment Author No 11/01/2019 1:53 PM Juan Francisco Wu MA * Because of a physical, mental [...] Francisco Wu MA documented in this encounter Plan of Treatment Not on file documented as of this encounter Goals Goal Patient Goal Type Associated Problems Recent Progress Patient-Stated? Author Maintain a healthy diet, exercise regularly and maintain an ideal body weight General No Tiana Mena RN Stay Tobacco Free Lifestyle No Tiana Mena RN documented as of this encounter Visit Diagnoses Diagnosis Mild intermittent asthma, unspecified whether complicated documented in this encounter Care Teams Valve Inserter Relationship Specialty Start Date End Date Carmella Ulloa MD [address] [place] [address] PCP - General Family Medicine 09/27/17 documented as of this encounter
--- OUTSIDE RECORDS SUMMARY | 2024-04-01 12:45 | XMS_ITS | Encounter Summary ---
Author Organization [place] [address] Care Team Providers Care Drop Tester Name Role Phone Carmella Ulloa MD Primary Care Provider [phone] Encounter Details Date Type Department Care Team (Late st Contact Info) Description 11/02/2022 Orders Only SEP [facility] [address] [place] [address] Carmella Ulloa MD [address] [place] [address] Screening for cancer of the rectum; Screen for colon cancer Social History Tobacco Use Types Packs/Day Years [...] No 11/01/2019 1:53 PM EDT Juan Francisco Wlaters MA documented in this encounter Plan of Treatment Not on file documented as of this encounter Goals Goal Patient Goal Type Associated Problems Recent Progress Patient-Stated? Author Maintain a healthy diet, exercise regularly and maintain an ideal body weight General No Tiana Mena RN Stay Tobacco Free Lifestyle No Tiana Mena RN documented as of this encounter Visit Diagnoses Diagnosis Screening for cancer of the rectum Screening for malignant neoplasm of the rectum Screen for colon cancer Special screening for malignant neoplasms, colon documented in this encounter Care Teams Drop Tester Relationship Specialty Start Date End Date Carmella Ulloa MD [address] [place] [address] PCP - General Family Medicine 09/27/17 documented as of this encounter
--- OUTSIDE RECORDS SUMMARY | 2024-04-01 12:45 | XMS_ITS | Encounter Summary ---
Author Organization [place] [address] Care Team Providers Care Digital Strategy Manager Name Role Phone Carmella Ulloa MD Primary Care Provider [phone] Encounter Details Date Type Department Care Team (Late st Contact Info) Description 10/04/2021 Orders Only SEP [facility] [address] [place] [address] Carmella Ulloa MD [address] [place] [address] Screening for colon cancer; Screening for cancer of the rectum Social History Tobacco Use Types Packs/Day Years [...] Francisco Walters MA documented in this encounter Plan of Treatment Not on file documented as of this encounter Goals Goal Patient Goal Type Associated Problems Recent Progress Patient-Stated? Author Maintain a healthy diet, exercise regularly and maintain an ideal body weight General No Tiana Mena RN Stay Tobacco Free Lifestyle No Tiana Mena RN documented as of this encounter Visit Diagnoses Diagnosis Screening for colon cancer Special screening for malignant neoplasms, colon Screening for cancer of the rectum Screening for malignant neoplasm of the rectum documented in this encounter Care Teams Digital Strategy Manager Relationship Specialty Start Date End Date Carmella Ulloa MD [address] [place] [address] PCP - General Family Medicine 09/27/17 documented as of this encounter
--- OUTSIDE RECORDS SUMMARY | 2024-04-01 12:45 | XMS_ITS | Encounter Summary ---
Author Organization [facility] [place] [address] Care Team Providers Care Dicer Operator Name Role Phone Carmella Ulloa MD Primary Care Provider [phone] Encounter Details Date Type Department Care Team (Latest Contact Info) Description 01/26/2021 Travel Social History Tobacco Use Types Packs/Day Years [...] 1:53 PM Juan Francisco Wu MA documented as of this encounter Mental [...] on filedocumented in this encounter Care Teams Dicer Operator Relationship Specialty Start Date End Date Carmella Ulloa MD [address] [place] [address] PCP - General Family Medicine 09/27/17 documented as of this encounter
--- OUTSIDE RECORDS SUMMARY | 2024-04-01 12:45 | XMS_ITS | Encounter Summary ---
Author Organization [place] [address] Care Team Providers Care Oil And Gas Drafter Name Role Phone Carmella Ulloa MD Primary Care Provider [phone] Reason for Visit * Reason Onset Date Comments Central Patient Navigator Outreach 02/01/2022 mammogram Encounter Details Date Type Department Care Team (Late st Contact Info) Description 02/01/2022 Patient Outreach SEP [facility] [address] [place] [address] Carmella Ulloa MD [address] [place] [address] Central Patient Navigator Outreach (mammogram) Social History Tobacco Use Types Packs/Day Years [...] documented in this encounter Progress Notes * Ernestina De Guzman RN - 02/01/2022 10:48 AM EDT Patient Outreach: Care Gap Outreach Attempt Count: 1st Care Gaps Addressed grooming salon manager: Mammogram Outcome: Patient declined SEP Order Completion Outcome Tracking Contact Attempt:: Final Cologuard Outcome:: Patient Declined Patient declined reason:: Not Interested documented in this encounter Plan of Treatment Not on file documented as of this encounter Goals Goal Patient Goal Type Associated Problems Recent Progress Patient-Stated? Author Maintain a healthy diet, exercise regularly and maintain an ideal body weight General No Tiana Mena, RN Stay Tobacco Free Lifestyle No Tiana eMna RN documented as of this encounter Visit Diagnoses Not on filedocumented in this encounter Care Teams Oil And Gas Drafter Relationship Specialty Start Date End Date Carmella Ulloa MD [address] [place] [address] PCP - General Family Medicine 09/27/17 documented as of this encounter
--- OUTSIDE RECORDS SUMMARY | 2024-04-01 12:45 | XMS_ITS | Encounter Summary ---
Author Organization [place] [address] Care Team Providers Care Caramel Coloring Operator Name Role Phone Carmella Juarez MD Primary Care Provider [phone] Reason for Visit * Reason Onset Date Comments Symptom Call 11/26/2020 infected tooth Encounter Details Date Type Department Care Team (Late st Contact Info) Description 11/26/2020 Telephone [facility] [address] [place] [id number] Carmella Juarez MD [address] [place] [address] Symptom Call (infected tooth ) Social History Tobacco Use Types Packs/Day [...] Refills Last Filled Start Date End Date amoxicillin (AMOXIL) 875 mg Oral Tablet Take 1 Tab by mouth 2 times daily for 10 days. 20 Tab 11/26/2020 12/06/2020 documented in this encounter Miscellaneous Notes * Addendum Note - Carmella Juarez MD - 11/26/2020 5:38 PM EDTAddended by: CARMELLA JUAREZ on: 11/26/2020 05:38 PM Modules accepted: Orders, SmartSet * Telephone Encounter - Roseanne Stinson - 11/26/2020 1:31 PM EDT Pt has a broken tooth and is infected and she hasn't been able to get into see a dentist. She wouldlike to know if you can call in an antibiotic for her to clear the infection. Please advise. [facility] [address] [place] [id number] - [address] [phone] documented in this encounter Plan of Treatment [...] on filedocumented in this encounter Care Teams Caramel Coloring Operator Relationship Specialty Start Date End Date Carmella Juarez MD [address] [place] [address] PCP - General Family Medicine 09/27/17 documented as of this encounter
--- OUTSIDE RECORDS SUMMARY | 2024-04-01 12:45 | XMS_ITS | Encounter Summary ---
Author Organization [place] [address] Care Team Providers Care Oil Refinery Process Technician Name Role Phone Carmella Ulloa MD Primary Care Provider [phone] Reason for Visit * Reason Comments Medication Refill Encounter Details Date Type Department Care Team (Late st Contact Info) Description 01/30/2021 Refill [facility] [address] [place] [address] Carmella Ulloa MD [address] [place] [address] Medication Refill Social History Tobacco Use Types [...] joint, lower leg documented in this encounter Care Teams Oil Refinery Process Technician Relationship Specialty Start Date End Date Carmella Ulloa MD [address] [place] [address] PCP - General Family Medicine 09/27/17 documented as of this encounter
--- OUTSIDE RECORDS SUMMARY | 2024-04-01 12:45 | XMS_ITS | Encounter Summary ---
Author Organization [place] [address] Care Team Providers Care Heel Shaver Name Role Phone Carmella Ulloa MD Primary Care Provider [phone] Reason for Visit * Reason Comments URI Encounter Details Date Type Department Care Team (Late st Contact Info) Description 01/26/2021 11:45 AM EDT Telemedicine [facility] [address] [place] [address] Júnior Hurt, EFRAIN [address] [place] [address] Cough (Primary Dx); Upper respiratory tract infection, unspecified type Social History Tobacco Use Types Packs/Day Years [...] Refills Last Filled Start Date End Date azithromycin (ZITHROMAX) 250 mg Oral TabletIndications: Upper respiratory tract infection, unspecified type Take 2 tablets (500 mg) on Day 1, followed by 1 tablet (250 mg) once daily on Days 2 through 5. 6 Tablet 01/26/2021 1 Brompheniramine-Ps eudoeph-DM 2-30-10 mg/5 mL Oral SyrupIndications:C ough,Upper respiratory tract infection, unspecified type Take 10 mL by mouth every 4 hours as needed. 240 mL 01/26/2021 2 predniSONE (DELTASONE) 20 mg Oral TabletIndications: Upper respiratory tract infection, unspecified type Take 2 Tablets by mouth daily for 5 days. 10 Tablet 01/26/2021 1 documented in this encounter Progress Notes * Júnior Hurt APRN - 01/26/2021 11:45 AM EDT Patient presented today for routine care follow-up through a video visit. Patient has reviewed the terms and conditions of service as part of the registration for today's visit. A video visit does not replace a ogdx-cy-aapc exam and further services may be necessary. We are conducting her video visit in a private space and this video visit is being conducted in accordance with state telehealth/video visit regulations. HPI: Presents virtually with bones hurt , nausea, dizziness, smothering when laying flat, chills, SOB, cough for the last 3-4 days. Denies sick contacts. Has taken ana m seltzer cold and flu with minimal improvement. Review of Systems Constitutional: Negative for chills and fever. HENT: Positive for congestion and rhinorrhea. Respiratory: Positive for cough and shortness of breath. Gastrointestinal: Positive for nausea. Negative for diarrhea and vomiting. Musculoskeletal: Positive for arthralgias and myalgias. Neurological: Positive for dizziness. Exam: Constitutional: NAD, appropriately groomed. Appears comfortable. HENT: No gross deformities. Voice normal. No facial swelling noted. Eyes: Extra occular movements grossly intact. Visible portions of the eyes appear normal. No redness or discharge visible via casual video inspection. Cardiopulmonary: Does not appear in cardiopulmonary distress. Easy respirations w/o labored breathing. No audible gross wheezing or breathlessness. Neuro: Alert and oriented. Conversational. No gross deficits or facial droop appreciated on video evaluation. Psych: Appropriate mood and affect. Normal conversation and thought content. Assessment Diagnoses and all orders for this visit: Cough - Uknekxjswgeophz-Bevwqpxvq-UO 2-30-10 mg/5 mL Oral Syrup; Take 10 mL by mouth every 4 hours as needed. Dispense: 240 mL; Refill: 0 Upper respiratory tract infection, unspecified type - predniSONE (DELTASONE) 20 mg Oral Tablet; Take 2 Tablets by mouth daily for 5 days. Dispense: 10 Tablet; Refill: 0 - Qpfjxhfdedqfpot-Pmdazwqto-US 2-30-10 mg/5 mL Oral Syrup; Take 10 mL by mouth every 4 hours as needed. Dispense: 240 mL; Refill: 0 - azithromycin (ZITHROMAX) 250 mg Oral Tablet; Take 2 tablets (500 mg) on Day 1, followed by 1 tablet (250 mg) once daily on Days 2 through 5. Dispense: 6 Tablet; Refill: 0 -Declines COVID or flu testing at this time. Can complete as needed. documented in this encounter Plan of Treatment Not on file documented as of this encounter Goals Goal Patient Goal Type Associated Problems Recent Progress Patient-Stated? Author Maintain a healthy diet, exercise regularly and maintain an ideal body weight General No Tiana Mena, RN Stay Tobacco Free Lifestyle No Tiana Mena RN documented as of this encounter Visit Diagnoses Diagnosis Cough- Primary Upper respiratory tract infection, unspecified type documented in this encounter Care Teams Heel Shaver Relationship Specialty Start Date End Date Carmella Ulloa MD [address] [place] [address] PCP - General Family Medicine 09/27/17 documented as of this encounter
--- OUTSIDE RECORDS SUMMARY | 2024-04-01 12:45 | XMS_ITS | Referral Summary ---
Author Organization [facility] Address [address] [place] [address] Phone Care Team Providers Care Farmworker Name Role Phone Carmella Ulloa MD Primary Care Provider [phone] Allergies Active Allergy Reactions Criticality Noted Date [...] different from the original. [place] report 08/11/2014 [facility] audit completed by Frida Borges RN on 05/29/2020. Problem Noted Date Diagnosed Date Asthma 10/09/2009 Migraine 10/09/2009 Social History Tobacco Use Types Packs/Day Years [...] on file Sexual Orientation Not on file Last Filed Vital Signs Vital Sign Reading [...] Mass Index 36.8 04/16/2022 11:24 AM EST Functional Status * Is the person deaf [...] 1:53 PM EDT Juan Francisco Walters MA Mental Status * Because of a physical, mental or emotional condition, does this person have serious difficulty concentrating, remembering or making decisions? Answer Entry Date Author No 11/01/2019 1:53 PM Juan Francisco Wu MA Plan of Treatment Not on file Goals Goal Patient Goal Type Associated Problems Recent Progress Patient-Stated? Author Maintain a healthy diet, exercise regularly and maintain an ideal body weight General No Tiana Mena RN Stay Tobacco Free Lifestyle No Tiana Mena RN Procedures Procedure Name Priority Date/Time Associated Diagnosis Comments [facility] CYT[facility] ORDER Routine 04/16/2022 12:05 PM EST Pap smear for cervical cancer screening from Last 3 Months or Most Recently Relevant to Health Maintenance Insurance * Guarantor: Raquel Goel Account Type Relation to Patient Date of Phone Billing Address [place] Personal Family Self Care Teams Farmworker Relationship Specialty Start Date End Date Carmella Ulloa MD [address] [place] [address] PCP - General Family Medicine 09/27/17
--- OUTSIDE RECORDS SUMMARY | 2024-04-01 12:46 | XMS_ITS | Encounter Summary ---
Author Organization [place] [address] Care Team Providers Care Analysis Specialist Name Role Phone Carmella Ulloa MD Primary Care Provider Reason for Visit * Physical Therapy (Routine) - Closed Specialty Diagnoses / Procedures Referred By Shun moralez Referred To Contact Clinic/Center-Physical Therapy / Physical Therapy Diagnoses PT Procedures pt Kirby Sharif MD [facility] Physical Therapy [address] [address] Phone: tel: fax: Referral ID Status Reason Start Date Expiration Date Visits Re quested Visits Authorized [id number] Closed 08/03/2018 11/03/2018 Encounter Details Date Type Department Care Team (Latest Contact Info) Description 08/22/2018 2:19 PM EDT - 08/22/2018 11:59 PM EDT Hospital Encounter [facility] [place] [place] [address] Luanne Walter, PT Discharge Disposition: Home or Self Care Social History Tobacco Use Types Packs/Day Years Used Date Smoking Tobacco: Every Day Cigarettes Smokeless Tobacco: Never Alcohol Use Standard Drinks/Week Comments Yes 0 (1 standard drink = 0.6 oz pur e alcohol) occassional Comments No Sex and Gender Information Value Date Recorded Sex Assigned at Not on file Legal Sex Female 5:20 AM EDT Gender Identity Not on file Sexual Orientation Not on file documented as of this encounter Functional Status * Is the person deaf or does he/she have serious difficulty hearing? Answer Date of Assessment Author No 09/29/2017 3:46 PM EDT Raquel Magallon RMA * Is the person blind or does he/she have serious difficulty seeing even when wearing glasses? Answer Date of Assessment Author No 09/29/2017 3:46 PM EDT Raquel Magallon RMA * Does this person have serious difficulty walking or climbing stairs? Answer Date of Assessment Author No 09/29/2017 3:46 PM EDT Raquel Magallon RMMary Jane * Does this person have difficulty dressing or bathing? Answer Date of Assessment Author No 09/29/2017 3:46 PM EDT Raquel Magallon ALIDA * Because of a physical, mental or emotional condition, does this person have difficulty doing errands alone such as visiting a doctor's office or shopping? Answer Date of Assessment Author No 09/29/2017 3:46 PM EDT Raquel Magallon ALIDA documented as of this encounter Mental Status * Because of a physical, mental or emotional condition, does this person have serious difficulty concentrating, remembering or making decisions? Answer Entry Date Author No 09/29/2017 3:46 PM EDT Raquel Magallon RMMary Jane documented in this encounter Medications at Time of Discharge gabapentin (NEURONTIN) 300 mg Oral Capsule Take by mouth 5 times daily. HYDROcodone-aceta minophen (NORCO) 5-325 mg Oral Tablet Take 1 Tab by mouth every 6 hours as needed for Pain. documented as of this encounter Discharge Disposition Disposition Code Departure Means Destination Home or Self Care documented in this encounter Progress Notes * Luanne Walter, PT - 08/22/2018 2:39 PM EDT Images from the original note were not included. Physical Therapy Daily Progress Note 08/22/2018 Raquel Goel : 1970 Visit #?? /Insurance :6 out of 12 /[employer] Onset Date: 06/15/18 Diagnosis: Right ankle lateral malleolus fracture Precautions: universal MD Follow Up:[place] 09/04/18 Medication Changes: none Reassessment Date/Recert Date: 09/03/18 Next FOTO due: 6th visit GCodes due: 10th visit Time In/Out: 1434/1508 Subjective Reports her pain is about a 4. Has been walking with the brace in the house HEP: Compliant Objective Exercises performed with brace donned this date Able to ambulate around clinic with brace and cane today FOTO Eval: Patient Score: 40 Predicted Score: 58 Predicted Change: 18 Subsequent FOTO Scores (score and date): Education: Needs Assistance: Yes Understood: Yes Treatment: Therapeutic exercise x 28 min Recumbent bike x 5 min L6 without brace Lunge forward for ankle dorsiflexion x 20 with brace Total gym L16 without brace Marches x 20 PF x 20 DF x 20 Squats x 20 BAPS board L2 with brace AP/DF x 20 Inv/Ev x20 Circles CW, CCW x 20 each Ant tib stretch at stair 3 x 30s Weight shifts x 20 Total timed treatment: 28 min (TE x 2) Assessment Tolerates treatment well. Continues to have improved tolerance to WB Plan Continue PT: Signature: Luanne Walter, IVIS Date: 08/22/2018 documented in this encounter Plan of Treatment [...] on filedocumented in this encounter Care Teams Analysis Specialist Relationship Specialty Start Date End Date Carmella Ulloa MD [address] [place] [address] PCP - General Family Medicine 09/27/17 documented as of this encounter
--- OUTSIDE RECORDS SUMMARY | 2024-04-01 12:46 | XMS_ITS | Encounter Summary ---
Author Organization [facility] [place] [address] Care Team Providers Care Hoist Cylinder Loader Name Role Phone Carmella Ulloa MD Primary Care Provider [phone] Reason for Visit * Reason Comments Annual Exam Ear Fullness Encounter Details Date Type Department Care Team (Late st Contact Info) Description 11/01/2019 1:45 PM EDT Office Visit [address] [address] Carmella Ulloa MD [address] [place] [address] Annual physical exam (Primary Dx); Chronic pain of left knee; Acute otitis media with effusion of left ear Social History Tobacco Use Types Packs/Day Years [...] have Coronavirus / COVID-19? No / Unsure 10/31/2019 3:53 PM EDT documented as of this encounter Last Filed Vital Signs Vital Sign Reading Time Taken Comments Blood Pressure 122/84 11/01/2019 1:53 PM EDT Pulse - - Temperature 36.4 ??C (97.6 ??F) 11/01/2019 1:53 PM ED T Respiratory Rate - - Oxygen Saturation - - Inhaled Oxygen Concentration - - Weight 104.3 kg (230 lb) 11/01/2019 1:53 PM EDT Height 167.6 cm (5' 6 ) 11/01/2019 1:53 PM EDT Body Mass Index 37.12 11/01/2019 1:53 PM EDT documented in this encounter Functional Status * [...] End Date amoxicillin (AMOXIL) 875 mg Oral TabletIndications: Acute otitis media with effusion of left ear Take 1 Tab by mouth 2 times daily for 10 days. 20 Tab 11/01/2019 11/11/2019 meloxicam (MOBIC) 15 mg Oral TabletIndications: Chronic pain of left knee Take 1 Tab by mouth daily. 30 Tab 5 11/01/2019 07/30/2020 cyclobenzaprine (FLEXERIL) 10 mg Oral TabletIndications: Chronic pain of left knee Take 1 Tab by mouth 3 times daily. 90 Tab 2 11/01/2019 01/29/2021 albuterol (PROVENTIL HFA;VENTOLIN HFA) 90 mcg/actuation Inhl HFA Aerosol Inhaler Inhale 2 Puffs into the lungs every 6 hours as needed for Wheezing. 18 g 5 11/01/2019 01/29/2021 documented in this encounter Progress Notes * Carmella Ulloa MD - 11/01/2019 1:45 PM EDT Vitals: 11/01/19 1353 BP: 122/84 Temp: 97.6 ??F (36.4 ??C) Weight: 230 lb (104.3 kg) Height: 5' 6 (1.676 m) SUBJECTIVE: Chief Complaint Patient presents with ??? Annual Exam ??? Ear Fullness HPI: Abstract This is a new problem. The current episode started today. The problem occurs constantly. The problem has been unchanged. Pertinent negatives include no abdominal pain, coughing, fatigue, fever, nausea or rash. Ear Fullness There is pain in the left ear. The current episode started 1 to 4 weeks ago. The problem occurs constantly. The problem has been unchanged. Pertinent negatives include no abdominal pain, coughing, diarrhea or rash. Pt Is here today for annual exam, ear fullness and refills Well Adult: Subjective Ms. Goel is a 49 y.o. female here for an annual wellness visit. Diet: Good Exercise: Daily Activities of Daily Living: Functional Level: Self-care ADL Limitations: none Social Interaction Screen: Do you have concerns about issues that may impact social interaction such as developmental or behavioral/mental health conditions? no Health Maintenance Due Topic Date Due ??? Annual Wellness Exam 1972 ??? Pneumococcal Vaccine 0-64 (1 of - PPSV23) 1976 ??? Cervical Cancer Screening 1991 Health Maintenance Topic Date Due ??? Annual Wellness Exam 1972 ??? Pneumococcal Vaccine 0-64 (1 of 1 - PPSV23) 1976 ??? Cervical Cancer Screening 1991 ??? Influenza Vaccine (Season Ended) 2020 (Originally 01/14/2020) There is no immunization history on file for this patient. Patient Active Problem List Diagnosis ??? Asthma ??? Migraine Past Medical History: Diagnosis Date ??? Chronic back pain ??? Migraine Past Surgical History: Procedure Laterality Date ??? TUBAL LIGATION Allergies Allergen Reactions ??? Ciprofloxacin ??? Imitrex [Sumatriptan Succinate] ??? Promethazine Current Outpatient Medications on File Prior to Visit Medication Sig Dispense Refill ??? gabapentin (NEURONTIN) 300 mg Oral Capsule Take by mouth 5 times daily. ??? HYDROcodone-acetaminophen (NORCO) 5-325 mg Oral Tablet Take 1 Tab by mouth every 6 hours as needed for Pain. No current facility-administered medications on file prior to visit. Social History Socioeconomic History ??? Marital status: Legally Spouse name: None ??? Number of children: None ??? Years of education: None ??? Highest education level: None Tobacco Use ??? Smoking status: Current Every Day Smoker Packs/day: 0.50 Types: Cigarettes ??? Smokeless tobacco: Never Used Substance and Sexual Activity ??? Alcohol use: Yes Comment: occassional ??? Drug use: No History reviewed. No pertinent family history. No exam data present No results found for this visit on 11/01/19. Patient Care Team: Carmella Ulloa MD as PCP - General (Family Medicine) No results found for: WBC, HGB, HCT, PLT, CHOLESTEROL, TRIG, HDL, LDLDIRECT, LDLCALC, ALT, AST, NA,K, CL, CREATININE, BUN, CO2, TSH, INR, GLUCOSE, GLU, HGBA1C, MICROALBUR, TSHREFLEX Additional issues addressed today: Review of Systems Constitutional: Negative for fatigue and fever. HENT: Positive for ear pain. Respiratory: Negative for cough and wheezing. Cardiovascular: Negative. Gastrointestinal: Negative for abdominal pain, diarrhea and nausea. Genitourinary: Negative. Musculoskeletal: Negative. Skin: Negative for rash. Neurological: Negative. Hematological: Negative. Psychiatric/Behavioral: Negative. OBJECTIVE: Physical Exam Vitals signs and nursing note reviewed. HENT: Head: Normocephalic. Comments: Left tm erythema Right Ear: Tympanic membrane normal. Cardiovascular: Rate and Rhythm: Normal rate. Heart sounds: No murmur. Pulmonary: Effort: Pulmonary effort is normal. Breath sounds: No wheezing. Abdominal: Palpations: Abdomen is soft. Tenderness: There is no abdominal tenderness. Skin: General: Skin is warm. Neurological: General: No focal deficit present. Mental Status: She is alert. Psychiatric: Mood and Affect: Mood normal. Assessment Raquel was seen today for annual exam and ear fullness. Diagnoses and all orders for this visit: Annual physical exam Chronic pain of left knee - cyclobenzaprine (FLEXERIL) 10 mg Oral Tablet; Take 1 Tab by mouth 3 times daily. - meloxicam (MOBIC) 15 mg Oral Tablet; Take 1 Tab by mouth daily. Acute otitis media with effusion of left ear - amoxicillin (AMOXIL) 875 mg Oral Tablet; Take 1 Tab by mouth 2 times daily for 10 days. Other orders - albuterol (PROVENTIL HFA;VENTOLIN HFA) 90 mcg/actuation Inhl HFA Aerosol Inhaler; Inhale 2 Puffs into the lungs every 6 hours as needed for Wheezing. monitor. Declines labs. Declines pap documented in this encounter Plan of Treatment Not on file documented as of this encounter Goals Goal Patient Goal Type Associated Problems Recent Progress Patient-Stated? Author Maintain a healthy diet, exercise regularly and maintain an ideal body weight General No Tiana Mena, RN Stay Tobacco Free Lifestyle No Tiana Mena, RN documented as of this encounter Visit Diagnoses Diagnosis Annual physical exam- Primary Routine general medical examination at a health care facility Chronic pain of left knee Pain in joint, lower leg Acute otitis media with effusion of left ear documented in this encounter Discontinued Medications Medication Sig Discontinue Reason Start Date End Da te albuterol (PROVENTIL HFA;VENTOLIN HFA) 90 mcg/actuation Inhl HFA Aerosol Inhaler Inhale 2 Puffs into the lungs every 6 hours as needed for Wheezing. Reorder 11/01/2019 cyclobenzaprine (FLEXERIL) 10 mg Oral TabletIndications:Chronic pain of left knee,Closed fracture of distal end of right fibula, unspecified fracture morphology, sequela Take 1 Tab by mouth 3 times daily. Reorder 08/21/2018 11/01/2019 meloxicam (MOBIC) 15 mg Oral TabletIndications:Chronic pain of left knee,Closed fracture of distal end of right fibula, unspecified fracture morphology, sequela Take 1 tablet by mouth once daily Reorder 08/26/2019 11/01/2019 documented as of this encounter Care Teams Hoist Cylinder Loader Relationship Specialty Start Date End Date Carmella Ulloa MD [address] [place] [address] PCP - General Family Medicine 09/27/17 documented as of this encounter
--- OUTSIDE RECORDS SUMMARY | 2024-04-01 12:46 | XMS_ITS | Encounter Summary ---
Author Organization [place] [address] Care Team Providers Care Passenger Car Upholsterer Apprentice Name Role Phone Carmella Ulloa MD Primary Care Provider [phone] Reason for Visit * Physical Therapy (Routine) - Closed Specialty Diagnoses / Procedures Referred By Shun moralez Referred To Contact Clinic/Center-Physical Therapy / Physical Therapy Diagnoses PT Procedures pt Kirby Sharif MD [facility] Physical Therapy [address] [address] Phone: tel: fax: Referral ID Status Reason Start Date Expiration Date Visits Re quested Visits Authorized [id number] Closed 08/03/2018 11/03/2018 19 19 Encounter Details Date Type Department Care Team (Latest Contact Info) Description 09/12/2018 3:11 PM EDT - 09/12/2018 11:59 PM EDT Hospital Encounter [facility] [place] [address] Luanne Walter, PT Discharge Disposition: Home or [...] Magallon RMA * Does this person have difficulty dressing or bathing? Answer Date of Assessment Author No 09/29/2017 3:46 PM EDT Raquel Magallon RMA * Because of a physical, mental or emotional condition, does this person have difficulty doing errands alone such as visiting a doctor's office or shopping? Answer Date of Assessment Author No 09/29/2017 3:46 PM EDT Raquel Magallon RMA documented as of this encounter Mental Status * Because of a physical, mental or emotional condition, does this person have serious difficulty concentrating, remembering or making decisions? Answer Entry Date Author No 09/29/2017 3:46 PM EDT Raquel Magallon RMA documented in this encounter Medications at Time of Discharge gabapentin (NEURONTIN) 300 mg Oral Capsule Take by mouth 5 times daily. HYDROcodone-aceta minophen (NORCO) 5-325 mg Oral Tablet Take 1 Tab by mouth every 6 hours as needed for Pain. documented as of this encounter Discharge Disposition Disposition Code Departure Means Destination Home or Self Care documented in this encounter Miscellaneous Notes * Plan of Care - Luanne Walter, PT - 09/12/2018 3:18 PM EDT Images from the original note were not included. Physical Therapy Daily Progress Note/Reassessment 09/12/2018 Raquel Manasa : 1970 Visit #?? /Insurance :8 out of 12 /[facility] Onset Date: 06/15/18 Diagnosis: Right ankle lateral malleolus fracture Precautions: universal MD Follow Up:Bilbo Medication Changes: none Reassessment Date/Recert Date: 09/30/18 Next FOTO due: 09/30/18 Time In/Out: 1518/1550 Subjective Saw the commercial loan assistant, said her ankle was looking better, just isn't strong enough for all the hours she needs to be on her feet. Pain is about a 3-4 HEP: Compliant Objective Exercises performed with brace donned this date Able to ambulate around clinic with brace and cane today AROM: AFFECTED FOOT/ANKLE: DF: 4* PF: 62 Inversion: 30 Eversion: 22 1st Ray MTP Ext: 45 3* 65* 45 25 60 DF: 4+ PF: 4+ Inv: 3 Ev: 3 Hip Flex: 4/5 All other LE 5/5 FOTO Eval: Patient Score: 40 Predicted Score: 58 Predicted Change: 18 Subsequent FOTO Scores (score and date): 08/31 - Education: Needs Assistance: Yes Understood: Yes Treatment: Therapeutic exercise x 29 min Nustep Load 6 x 5 min Seat at 7 Step ups 6 x 20 Lateral x 20 Trampoline step ups x 10 Lateral x 10 Plantarflexion x 10 Partial eccentrics plantarflexion x 10 40 On wall and back - braided walks, tandem walk, backward walk, toe walks, heel walks On foam pad Standing SLR abd, ext 2 x 10 Lunge forward for ankle dorsiflexion 5s x 15 with band for mobilization At bar in front of mirror Walking forward x 3 Plantarflexion, dorsiflexion 2 x 10 Toe taps x 20 Marches x 20 SLR x 20 (B) Ankle 4 way x 10 w/red band Runners stretch gastroc, soleus 2 x 30 each Total timed treatment: 29 min (TE x 2) Total treatment time: 29 minutes Assessment Tolerates treatment well. Improved tolerance to exercises, tolerates standing exercises well. Tolerates balance exercises well. Goals set for 4 weeks. Functional Goals: 1. Patient to demonstrate independence with HEP. MET 2. Patient's FOTO score will increase to 47 noting an increase in overall function MET 3. Patient will demonstrate gait wfl in order to improve ability to walk. NOT MET 4. Patient will demonstrate ankle ROM equal to unaffected to improve ability to squat. NOT MET - improved 5. Patient will demonstrate ankle strength >/= 4 to improve ability to stand. NOT MET - improved Plan Continue PT: Signature: Luanne Walter PT Date: 09/12/2018 documented in this encounter Plan of Treatment [...] on filedocumented in this encounter Care Teams Passenger Car Upholsterer Apprentice Relationship Specialty Start Date End Date Carmella Ulloa MD [address] [place] [address] PCP - General Family Medicine 09/27/17 documented as of this encounter
--- OUTSIDE RECORDS SUMMARY | 2024-04-01 12:46 | XMS_ITS | Encounter Summary ---
Author Organization [place] [address] Care Team Providers Care Motion Graphics Artist Name Role Phone Carmella Ulloa MD Primary Care Provider [phone] Reason for Visit * Reason Onset Date Comments Care Management - Chart Review 06/18/2018 ED Follow-Up Call 06/18/2018 Encounter Details Date Type Department Care Team (Late st Contact Info) Description 06/18/2018 Patient Outreach [facility] [address] [place] [address] Tiana Mena RN Care Management - Chart Review; ED Follow-Up Call Social History Tobacco Use Types Packs/Day Years [...] Raquel Magallon RMA documented in this encounter Progress Notes * Raquel Hall RMA - 06/20/2018 12:11 PM EST ED Follow Up Regarding the most recent emergency room visit: Contact made?: No If no, did you leave a message?: Yes Was letter sent?: Yes If patient is unable to fill medications, please consider a social work consult if criteria met: * Tiana Mena RN - 06/18/2018 12:50 PM EST Patient seen in the ER on 06/17/18 and ER visit noted the following information: ??COURSE & MEDICAL DECISION MAKING Raquel Goel presents to the ED with the above complaints.X-ray reveals a mildly displaced comminuted fracture of the distal fibula patient be placed in a short leg splint she's been given crutchesencouraged ice and elevation will be given a small amount of pain medication to follow with orthopedist in 1-2 days ?? FINAL IMPRESSION 1. First degree ankle sprain, right, initial encounter 2. Closed fracture of distal end of fibula, unspecified fracture morphology, initial encounter ?Based upon review, patient MD score to remain a Level 1 at this time. RN Blasting Helper to reassess as needed. documented in this encounter Plan [...] on filedocumented in this encounter Care Teams Motion Graphics Artist Relationship Specialty Start Date End Date Carmella Ulloa MD [address] [place] [address] PCP - General Family Medicine 09/27/17 documented as of this encounter
--- OUTSIDE RECORDS SUMMARY | 2024-04-01 12:46 | XMS_ITS | Encounter Summary ---
Author Organization [place] [address] Care Team Providers Care Inbound Telemarketer Name Role Phone Carmella Ulloa MD Primary Care Provider [phone] Encounter Details Date Type Department Care Team (Latest Contact Info) Description 09/14/2018 3:30 PM EDT - 09/14/2018 11:59 PM EDT Hospital Encounter [facility] [place] [place] [address] Luanne Walter, PT Discharge Disposition: Home or [...] 09/29/2017 3:46 PM EDT Raquel Magallon ALIDA Bass * Because of a physical, mental or emotional condition, does this person have difficulty doing errands alone such as visiting a doctor's office or shopping? Answer Date of Assessment Author No 09/29/2017 3:46 PM EDT Raquel Magallon JUNE BassMary Jane documented as of this encounter Mental Status * Because of a physical, mental or emotional condition, does this person have serious difficulty concentrating, remembering or making decisions? Answer Entry Date Author No 09/29/2017 3:46 PM EDT Raquel Magallon JUNE BassMary Jane documented in this encounter Medications at [...] Progress Notes * Luanne Walter, PT - 09/14/2018 3:36 PM EDT Images from the original note were not included. Physical Therapy Daily Progress Note 09/14/2018 Raquel Goel : 1970 Visit #?? /Insurance :9 out of 12 [facility] Onset Date: 06/15/18 Diagnosis: Right ankle lateral malleolus fracture Precautions: universal MD Follow Up:Bilbo Medication Changes: none Reassessment Date/Recert Date: 09/30/18 Next FOTO due: 09/30/18 Time In/Out: 1533/1600 Subjective Pain about a 3.5, hasn't done much on her ankle yet today HEP: Compliant Objective Exercises performed with brace donned this date Able to ambulate around clinic with brace and cane today AROM: AFFECTED FOOT/ANKLE: DF: 4* PF: 62 Inversion: 30 Eversion: 22 1st Ray MTP Ext: 45 3* 65* 45 25 60 DF: 4+ PF: 4+ Inv: 3 Ev: 3 Hip Flex: 4/5 All other LE / FOTO Eval: Patient Score: 40 Predicted Score: 58 Predicted Change: 18 Subsequent FOTO Scores (score and date): 08/31 Education: Needs Assistance: Yes Understood: Yes Treatment: Therapeutic exercise x 27 min Nustep Load 7 x 5 min Seat at 7 Step ups 6 x 20 Lateral x 20 Trampoline step ups x 15 Lateral x 15 Plantarflexion x 20 Eccentric PF x 10 On foam pad Standing SLR abd, ext 2 x 10 (Rt Stance only) Soleus wall squat x 15 Carpet to wall and back Toe walks Heel walks Braided walking Tandem walk Total timed treatment: 27 min (TE x 2) Total treatment time: 27 minutes Assessment Tolerates treatment well. Improved tolerance to eccentric plantarflexion. Goals set for 4 weeks. Functional Goals: [...] - improved Plan Continue PT: Signature: Luanne Walter, IVIS Date: 09/14/2018 documented in this encounter Plan of Treatment [...] on filedocumented in this encounter Care Teams Inbound Telemarketer Relationship Specialty Start Date End Date Carmella Ulloa MD [address] [place] [address] PCP - General Family Medicine 09/27/17 documented as of this encounter
--- OUTSIDE RECORDS SUMMARY | 2024-04-01 12:46 | XMS_ITS | Encounter Summary ---
Author Organization [place] [address] Care Team Providers Care Associate Pastor Name Role Phone Carmella Ulloa MD Primary Care Provider [phone] Reason for Visit * Physical Therapy (Routine) - Closed Specialty Diagnoses / Procedures Referred By Shun moralez Referred To Contact Clinic/Center-Physical Therapy / Physical Therapy Diagnoses PT Procedures pt Kirby Sharif MD [facility] Physical Therapy [address] [address] Phone: tel: fax: Referral ID Status Reason Start Date Expiration Date Visits Re quested Visits Authorized [id number] Closed 08/03/2018 11/03/2018 19 19 Encounter Details Date Type Department Care Team (Latest Contact Info) Description 08/10/2018 2:00 PM EDT - 08/10/2018 11:59 PM EDT Hospital Encounter [facility] [place] [place] [address] Luanne Walter, PT Discharge Disposition: Home or [...] PM EDT Raquel Magallon RMMary Jane * Is the person blind or does he/she have serious difficulty seeing even when wearing glasses? Answer Date of Assessment Author No 09/29/2017 3:46 PM EDT Raquel Magallon RMMary Jane * Does this person have serious difficulty walking or climbing stairs? Answer Date of Assessment Author No 09/29/2017 3:46 PM EDT Raquel Magallon ALIDA * Does this person have difficulty dressing [...] 3:46 PM EDT Raquel Magallon ALIDA documented in this encounter Medications at Time [...] Progress Notes * Luanne Walter, PT - 08/10/2018 1:58 PM EDT Images from the original note were not included. Physical Therapy Daily Progress Note 08/10/2018 Raquel Goel : 1970 Visit #?? /Insurance : 3/[facility] Onset Date: 06/15/18 Diagnosis: Right ankle lateral malleolus fracture Precautions: universal MD Follow Up:[place] 09/04/18 Medication Changes: none Reassessment Date/Recert Date: 09/03/18 Next FOTO due: 6th visit GCodes due: 10th visit Time In/Out: 1400/1450 Subjective Reports her pain is about a 4 with medication. Has been sleeping in the boot which she feels has helped. HEP: Compliant Objective FOTO Eval: Patient Score: 40 Predicted Score: 58 Predicted Change: 18 Subsequent FOTO Scores (score and date): Education: Needs Assistance: Yes Understood: Yes Treatment: Therapeutic exercise x 25 min Recumbent bike x 5 min L2 Lunge forward for ankle dorsiflexion x 20 Walking around clinic with brace x 1.5 laps Seated DF x 15 with brace PF x 15 with brace BAPS board L2 all planes x 15 Seated heel slides x 15 for DF Seated DF and PF x 10 without brace Ant tib stretch with cane 3 x 30s Gastroc stretch 2 x 30s Total timed treatment: 25 min (TE x 2) Gameready x 15 minutes Low pressure (1 ice) Assessment Tolerates treatment well. Needs time to don and doff brace. Does well with walking around the clinic, but requires RW for gait in the brace. Slight pain with gait, slight pain with exercises out of brace. Plan Continue PT: Signature: Luanne Walter, PT Date: 08/10/2018 documented in this encounter Plan of Treatment [...] on filedocumented in this encounter Care Teams Associate Pastor Relationship Specialty Start Date End Date Carmella Ulloa MD [address] [place] [address] PCP - General Family Medicine 09/27/17 documented as of this encounter
--- OUTSIDE RECORDS SUMMARY | 2024-04-01 12:46 | XMS_ITS | Encounter Summary ---
Author Organization [place] [address] Care Team Providers Care Hub Cutter Apprentice Name Role Phone Carmella Ulloa MD Primary Care Provider [phone] Encounter Details Date Type Department Care Team (Latest Contact Info) Description 01/02/2020 Travel Social History Tobacco Use Types Packs/Day [...] have Coronavirus / COVID-19? No / Unsure 01/02/2020 9:07 AM EDT documented as of this encounter [...] on filedocumented in this encounter Care Teams Hub Cutter Apprentice Relationship Specialty Start Date End Date Carmella Ulloa MD [address] [place] [address] PCP - General Family Medicine 09/27/17 documented as of this encounter
--- OUTSIDE RECORDS SUMMARY | 2024-04-01 12:46 | XMS_ITS | Encounter Summary ---
Author Organization [place] [address] Care Team Providers Care Computer Operations Manager Name Role Phone Carmella Ulloa MD Primary Care Provider [phone] Encounter Details Date Type Department Care Team (Latest Contact Info) Description 09/26/2018 3:00 PM EDT - 09/26/2018 11:59 PM EDT Hospital Encounter [facility] [place] [place] [address] Luanne Walter, PT Discharge Disposition: Home or [...] No 09/29/2017 3:46 PM EDT Raquel Magallon Shelia, RMA * Because of a physical, mental or emotional condition, does this person have difficulty doing errands alone such as visiting a doctor's office or shopping? Answer Date of Assessment Author No 09/29/2017 3:46 PM EDT Ariadne MagallonJUNE BurrellMary Jane documented as of this encounter Mental Status * Because of a physical, mental or emotional condition, does this person have serious difficulty concentrating, remembering or making decisions? Answer Entry Date Author No 09/29/2017 3:46 PM EDT Ariadne MagallonALIDA Burrell documented in this encounter Medications at Time [...] of Care - Luanne Walter, PT - 09/26/2018 3:17 PM EDT Images from the original note were not included. Physical Therapy Daily Progress Note/Reassessment 09/26/2018 Raquel Goel : 1970 Visit #?? /Insurance :12 out of 12 /[facility] Onset Date: 06/15/18 Diagnosis: Right ankle lateral malleolus fracture Precautions: universal MD Follow Up:[facility] 10/02 Medication Changes: none Reassessment Date/Recert Date: today Next FOTO due: next session Time In/Out: 0886/1538 Subjective Reports her ankle is a 2, Back is about a 5 - took alieve before therapy HEP: Compliant Objective AROM: AFFECTED FOOT/ANKLE: DF: 4* PF: 62 Inversion: 45 Eversion: 30 1st Ray MTP Ext: 3* 65* 45 25 60 DF: 5 PF: 4+ Inv: 4+ Ev: 4+ Hip Flex: 4/5 All other LE 5/5 FOTO Eval: Patient Score: 40 Predicted Score: 58 Predicted Change: 18 Subsequent FOTO Scores (score and date): 08/31 - Education: Needs Assistance: Yes Understood: Yes Treatment: Therapeutic exercise x 30 min Nustep Load 5 x 5 min Seat at 7 Trampoline step ups x 20 Lateral x 20 Plantarflexion x 20 Eccentric PF x 20 Stair squat x 20 Soleus wall squat x 20 Carpet to wall and back Braided walking Tandem walk Walking outside on hill Up hlll Side steps (B) SL balance pitchback x 20 atnerior and lateral (B) BOSU blue side squat x 10 Hip abd, ext 2 x 10 each Single leg sit to stand x 20 (B) Reassess x 5 min Total timed treatment: 28 min (TE x 2) Total treatment time: 28 minutes Assessment Tolerates treatment well. Demonstrates improved strength, ROM. Remains a candidate for therapy in order to improve functional activity, balance, strength and return to work. Goals set for 4 weeks. Functional Goals: 1. Patient to demonstrate independence with HEP. MET 2. Patient's FOTO score will increase to 47 noting an increase in overall function MET 3. Patient will demonstrate gait wfl in order to improve ability to walk. NOT MET - improved 4. Patient will demonstrate ankle ROM equal to unaffected to improve ability to squat. MET 5. Patient will demonstrate ankle strength >/= 4 to improve ability to stand. MET Plan Continue PT: Signature: Luanne Walter, PT Date: 09/26/2018 documented in this encounter Plan of Treatment [...] on filedocumented in this encounter Care Teams Computer Operations Manager Relationship Specialty Start Date End Date Carmella Ulloa MD [address] [place] [address] PCP - General Family Medicine 09/27/17 documented as of this encounter
--- OUTSIDE RECORDS SUMMARY | 2024-04-01 12:46 | XMS_ITS | Encounter Summary ---
Author Organization [place] [address] Care Team Providers Care Molder Automobile Carpets Name Role Phone Carmella Ulloa MD Primary Care Provider [phone] Reason for Visit * Physical Therapy (Routine) - Closed Specialty Diagnoses / Procedures Referred By Shun moralez Referred To Contact Clinic/Center-Physical Therapy / Physical Therapy Diagnoses PT Procedures pt Kirby Sharif MD [facility] Physical Therapy [address] [address] Phone: tel: fax: Referral ID Status Reason Start Date Expiration Date Visits Re quested Visits Authorized [id number] Closed 08/03/2018 11/03/2018 19 19 Encounter Details Date Type Department Care Team (Latest Contact Info) Description 08/03/2018 12:41 PM EDT - 08/03/2018 11:59 PM EDT Hospital Encounter [facility] [place] [address] Luanne Walter, PT Discharge Disposition: Home or [...] Assessment Author No 09/29/2017 3:46 PM EDT MagallonRaquel travis RMA * Is the person blind or does he/she have serious difficulty seeing even when wearing glasses? Answer Date of Assessment Author No 09/29/2017 3:46 PM EDT MagallonRaquel travis RMA * Does this person have serious difficulty walking or climbing stairs? Answer Date of Assessment Author No 09/29/2017 3:46 PM EDT Raquel Magallon ALIDA * Does this person have difficulty dressing or bathing? Answer Date of Assessment Author No 09/29/2017 3:46 PM EDT MagallonRaquel travis ALIDA * Because of a physical, mental [...] of Care - Luanne Walter, PT - 08/03/2018 12:59 PM EDT Images from the original note were not included. Physical Therapy Foot and Ankle Evaluation 08/03/2018 Visit # /Insurance : 1/[facility] Onset Date: 06/15/18 Diagnosis: Right ankle lateral malleolus fracture Precautions: universal MD Follow Up: [facility] , Subjective: Raquel Goel is a 48 y.o., female, referred by Dr. Sharif . Primary complaint: Reports she went outside to cover the wood, thinks she slipped on the ice. Thought she had sprained it, had it elevated and iced over the weekend. Boyfriend made her go to the doctor on Monday, found out it was broken, not sprained. Has trouble walking on hills. Can get down her steps due to having something to hold on to, going up is harder because it's not here to hold. When she sleeps wears brace a little looser so she doesn't twist it. Reports she feels like she noticies discoloration at times, has numbness tingling in her foot at times. Pain scale: 3 right now with medicine, 10 at worst Location: lateral ankle Type: pressure, ache, pressure pain shooting Pain increases when: sit to stand, walking, squatting and stairs Pain decreases when: ice Sensation/Neurovascular: Numbness and Tingling Diagnostic Tests: 06/17/18 FINDINGS: ?? There is a mildly displaced, comminuted fracture of the distal fibula at and below the level of the ankle joint. Ankle mortise alignment is normal. Lateral predominant soft tissue swelling. ?? IMPRESSION: ?? Mildly displaced, comminuted fracture of the distal fibula. Have you received any Speech or Physical therapy this year? No Are you currently receiving any Home Health services? No Any problems with speech, communication, memory? No Barriers to learning? No Recent falls? Yes, fall that lead to this injury At the present time, would you say that your overall health is excellent, very good, fair or poor?good Social/Function: Occupation: [employer] ADLs: getting off low surfaces, walking, in and out of tub, steps Primary physical needs at work/ with hobbies/at home: sitting, standing, walking, lifting, pushing and pulling Living situation: with boyfriend Past Medical History: Diagnosis Date ??? Chronic back pain ??? Migraine Past Surgical History: Procedure Laterality Date ??? TUBAL LIGATION Current Outpatient Prescriptions Medication Sig Dispense Refill ??? albuterol (PROVENTIL HFA;VENTOLIN HFA) 90 mcg/actuation Inhl HFA Aerosol Inhaler Inhale 2 Puffsinto the lungs every 6 hours as needed for Wheezing. ??? cyclobenzaprine (FLEXERIL) 10 mg Oral Tablet Take 10 mg by mouth 3 times daily. ??? gabapentin (NEURONTIN) 300 mg Oral Capsule Take by mouth 5 times daily. ??? HYDROcodone-acetaminophen (NORCO) 5-325 mg Oral Tablet Take 1 Tab by mouth every 6 hours as needed for Pain. ??? meloxicam (MOBIC) 15 mg Oral Tablet Take 1 Tab by mouth daily. 30 Tab 1 ??? terbinafine HCl (LAMISIL) 250 mg Oral Tablet Take 1 Tab by mouth daily. 30 Tab 0 No current facility-administered medications for this encounter. not taking meloxicam currently because taking aleive; not taking terbinafine HCl Allergies: Ciprofloxacin; Imitrex [sumatriptan succinate]; and Promethazine Denies latex allergy Patient stated goals: get back to work, get foot better Observation: Body Composition: 66 , 208# Assistive Devices: straight cane on right Skin integrity: Intact Gait: antalgic. Gait with cane on the right. Attempted to switch cane to left side and patient reports feeling less stable and does not like it on the left. Objective: FOTO: Patient Score: 40 Predicted Score: 58 Predicted Change: 18 Patient Specific Functional Scale (PSFS): 1. Patient will be able to being on my feet for a long period of time Current status: 0/10 2. Patient will be able to squatting down Current status: 0/10 3. Patient will be able to getting up and down in lower places Current status: 110 Palpation: lateral malleolus, along 5th metatarsal tender, tender in calf AROM: AFFECTED FOOT/ANKLE: DF: lacking 8* PF: 30 Inversion: 10 Eversion: 8 1st Ray MTP Ext: 45 3* 65* 45 25 60 Normal Ranges: DF: 10 ? - 17 ? PF: 45 ? - 60 ? Inversion: 24 ? - 40 ? Eversion:13 ? - 18 ? 1st MTP Ext: 55 ? - 65? Joint Play: Grossly: guarded and hypomobile Strength: AFFECTED Foot/Ankle: ANKLE: KNEE: DF: 3/5 Flex:3/5 PF: 3- Ext: 3/5 Inversion: 3- HIP: Eversion: 3- Flex: 3/5 1st Ray MTP Ext: 3/5 Ext: N/A Abd: 4/5 IR:NT ER: NT UNAffected Foot/Ankle: Grossly: 4+/5 grosly Circumference: Figure 8 AFFECTED: 76 cm Figure 8 Unaffected: 74 cm Single Leg Stance: Unable to perform\ Neuro Screen: Sensation: Altered decreased sensation in left foot. Special Tests No special test performed due to recent fracture Treatment today included: Evaluation and HEP Instruction Response to Treatment: Increased pain Response to HEP instruction/patient education: Instruction/patient education, Verbalized understanding Therapeutic exercise x 10 minutes Ankle ABC x 1 cycle Toe curls x 15 Ankle pf/df x 15 Ankle inversion x 15 Ankle eversion x 15 Gastroc stretch x 30s Soleus stretch x 30s Assessment: Raquel Goel presents with signs and symptoms consistent with right ankle injury. Patient demonstrates decreased ROM, strength, functional activity, increased pain, decreased balance, abnormal gait. Patient? s problem is categorized as the following Treatment Based Classification: Exercise & Conditioning Objective Impairments and Functional/Activity Limitations: standing, squatting, getting up and downin lower places Patient presents as a good rehabilitation candidate. Goals set for 4 weeks. Functional Goals: 1. Patient to demonstrate independence with HEP. 2. Patient's FOTO score will increase to 47 noting an increase in overall function 3. Patient will demonstrate gait wfl in order to improve ability to walk 4. Patient will demonstrate ankle ROM equal to unaffected to improve ability to squat. 5. Patient will demonstrate ankle strength >/= 4 to improve ability to stand Patient presents with co-morbidities of N/A and personal factors of N/A that may impact patient/family's ability toWork and Perform ADLs. During today's evaluation he/she presented with problem areasin musculoskeletal system, neuromuscular system, activity limitations and participation restrictionthat are impacting functional activities and participation (see objective measures for further detail). Due to routine healing, the patient's presentation is stable at this time.This patient presented today with lowcomplexity. Reference Chart: Co-morbidities & Personal Factors Body system elements Presentation Clinical Decision Making Low Evaluation 0 1-2 Stable / Predictable Low Moderate Evaluation 1-2 3 or more Evolving/ Changing Moderate High Evaluation 3 or more 4 or more Unstable/ Unpredictable High Plan: Patient will be seen 2 times per week for 4 weeks. Treatment to include: Therapeutic exercise, Neuromuscular re-education, Manual soft tissue and/or joint mobilization, Patient education, Electrical stimulation, Cryotherapy, Moist heat and Functionalactivity training This evaluation to serve as D/C summary, if the patient doesn't return for further treatment. Time In: 1300 TimeOut: 1350 Total timed treatment: 10 minutes (TE x 1) Total treatment time: 50 minutes Signed: Luanne Walter, PT Date: 08/03/2018 documented in this encounter Plan of Treatment [...] on filedocumented in this encounter Care Teams Molder Automobile Carpets Relationship Specialty Start Date End Date Carmella Ulloa MD [address] [place] [address] PCP - General Family Medicine 09/27/17 documented as of this encounter
--- OUTSIDE RECORDS SUMMARY | 2024-04-01 12:46 | XMS_ITS | Encounter Summary ---
Author Organization [facility] [place] [address] Care Team Providers Care Weave Room Supervisor Name Role Phone Carmella Ulloa MD Primary Care Provider [phone] Encounter Details Date Type Department Care Team (Latest Contact Info) Description 04/30/2020 Travel Social History Tobacco Use Types Packs/Day [...] have Coronavirus / COVID-19? No / Unsure 04/30/2020 3:14 PM EST documented as of this encounter Functional Status [...] Mena, CHRISTY Stay Tobacco Free Lifestyle No Taina Mena RN documented as of this encounter Visit Diagnoses Not on filedocumented in this encounter Care Teams Weave Room Supervisor Relationship Specialty Start Date End Date Carmella Ulloa MD [address] [place] [address] PCP - General Family Medicine 09/27/17 documented as of this encounter
--- OUTSIDE RECORDS SUMMARY | 2024-04-01 12:46 | XMS_ITS | Encounter Summary ---
Author Organization [place] [address] Care Team Providers Care Cableway Operator Name Role Phone Carmella Ulloa MD Primary Care Provider [phone] Reason for Visit * Physical Therapy (Routine) - Closed Specialty Diagnoses / Procedures Referred By Shun moralez Referred To Contact Clinic/Center-Physical Therapy / Physical Therapy Diagnoses PT Procedures pt Kirby Sharif MD [facility] Physical Therapy [address] [address] Phone: tel: fax: Referral ID Status Reason Start Date Expiration Date Visits Re quested Visits Authorized [id number] Closed 08/03/2018 11/03/2018 19 19 Encounter Details Date Type Department Care Team (Latest Contact Info) Description 08/08/2018 2:54 PM EDT - 08/08/2018 11:59 PM EDT Hospital Encounter [facility] [place] [place] [address] Luanne Walter, PT Discharge Disposition: Home or [...] Magallon ALIDA * Does this person have serious difficulty [...] Progress Notes * Luanne Walter, PT - 08/08/2018 2:59 PM EDT Images from the original note were not included. Physical Therapy Daily Progress Note 08/08/2018 Raquel Goel : 1970 Visit #?? /Insurance : 2/[facility] Onset Date: 06/15/18 Diagnosis: Right ankle lateral malleolus fracture Precautions: universal MD Follow Up:Kole 09/04/18 Medication Changes: none Reassessment Date/Recert Date: 09/03/18 Next FOTO due: 6th visit GCodes due: 10th visit Time In/Out: 1500/1555 Subjective Reports MD wants her to wean from the boot to the brace. [facility]ed at [facility] this weekend so got a lot of work in her ankle HEP: Compliant Objective FOTO Eval: Patient Score: 40 Predicted Score: 58 Predicted Change: 18 Subsequent FOTO Scores (score and date): Education: Needs Assistance: Yes Understood: Yes Treatment: Therapeutic exercise x 30 min Recumbent bike x 5 min No resistance Lunge forward for ankle dorsiflexion x 10, x 15 with self mobilization Ankle plantarflexion x 15 Ankle dorsiflexion x 15 Ankle inversion x 15 Ankle ABC x x 3 cycles Gastroc stretch 2 x 30s Soleus stretch 2 x 30s Seated PF x 10 Seated DF x 10 Towel scrunch x 20 BAPS board L2 x 5 df/pf, inv/ev Total timed treatment: 30 min Gameready x 15 minutes Low pressure (1 ice) Assessment Tolerates treatment well. Work felt with exercises, minimal pain during session. Plan Continue PT: Signature: Luanne Walter, IVIS Date: 08/08/2018 documented in this encounter Plan of Treatment [...] on filedocumented in this encounter Care Teams Cableway Operator Relationship Specialty Start Date End Date Carmella Ulloa MD [address] [place] [address] PCP - General Family Medicine 09/27/17 documented as of this encounter
--- OUTSIDE RECORDS SUMMARY | 2024-04-01 12:46 | XMS_ITS | Encounter Summary ---
Author Organization [place] [address] Care Team Providers Care Outpatient Facility Physical Therapist Name Role Phone Carmella Ulloa MD Primary Care Provider [phone] Reason for Visit * Physical Therapy (Routine) - Closed Specialty Diagnoses / Procedures Referred By Shun moralez Referred To Contact Clinic/Center-Physical Therapy / Physical Therapy Diagnoses PT Procedures pt Kirby Sharif MD [facility] Physical Therapy [address] [address] Phone: tel: fax: Referral ID Status Reason Start Date Expiration Date Visits Re quested Visits Authorized [id number] Closed 08/03/2018 11/03/2018 19 19 Encounter Details Date Type Department Care Team (Latest Contact Info) Description 10/17/2018 1:00 PM EDT - 10/17/2018 11:59 PM EDT Hospital Encounter [facility] [place] [address] Luanne Walter, PT Discharge Disposition: Home or [...] Progress Notes * Luanne Walter, PT - 10/17/2018 1:00 PM EDT Images from the original note were not included. Physical Therapy Daily Progress Note 10/17/2018 Raquel Goel : 1970 Visit #?? /Insurance :(12) 2 out of 7 approved through 11-03-18 /[facility] Onset Date: 06/15/18 Diagnosis: Right ankle lateral malleolus fracture Precautions: universal MD Follow Up:[place] 10/23 Medication Changes: none Reassessment Date/Recert Date: 10/27/18 Next FOTO due: 10/27/18 Time In/Out: 1302/1332 Subjective Reports her ankle is a 4. Weather and everything in general has her pain acting up today. HEP: Compliant Objective AROM: AFFECTED FOOT/ANKLE: DF: [...] Yes Understood: Yes Treatment: Therapeutic exercise x 22 min Elliptical x 2 min Carpet to wall and back with 2# PF Braided walk Side steps Zig Zags Backward Zig Zags Marches Soleus wall squat 2 x 10 Stair squat x 20 Neuromuscular Re-ed x 8 min Trampoline step ups x 20 (B) 2# Lateral x 20 Plantarflexion x 20 Squats x 20 Marches x 20 Pitchback SLS Bilateral and anterior throws Tandem walking Total timed treatment: 30 min (TE x 2) Total treatment time: 30 minutes Assessment Tolerates treatment well. Performed therapeutic exercise for strength, endurance, ROM. Performed neuromuscular re-ed to work on balance, proprioception. Less talkative this session. Fatigued with exercises. Some vocal sounds of discomfort with stair squat. Goals set for 4 weeks. Functional Goals: [...] MET Plan Continue PT: Signature: Luanne Walter, IVIS Date: 10/17/2018 documented in this encounter Plan of Treatment Not on file documented as of this encounter Goals Goal Patient Goal Type Associated Problems Recent Progress Patient-Stated? Author Maintain a healthy diet, exercise regularly and maintain an ideal body weight General No Tiana Mena RN Stay Tobacco Free Lifestyle No Mena, Tinaa E, RN documented as of this encounter Visit Diagnoses Not on filedocumented in this encounter Care Teams Outpatient Facility Physical Therapist Relationship Specialty Start Date End Date Carmella Ulloa MD [address] [place] [address] PCP - General Family Medicine 09/27/17 documented as of this encounter
--- OUTSIDE RECORDS SUMMARY | 2024-04-01 12:46 | XMS_ITS | Encounter Summary ---
Author Organization [place] [address] Care Team Providers Care Probate Judge Name Role Phone Carmella Ulloa MD Primary Care Provider [phone] Reason for Visit * Physical Therapy (Routine) - Closed Specialty Diagnoses / Procedures Referred By Shun moralez Referred To Contact Clinic/Center-Physical Therapy / Physical Therapy Diagnoses PT Procedures pt Kirby Sharif MD [facility] Physical Therapy [address] [address] Phone: tel: fax: Referral ID Status Reason Start Date Expiration Date Visits Re quested Visits Authorized [id number] Closed 08/03/2018 11/03/2018 Encounter Details Date Type Department Care Team (Latest Contact Info) Description 08/31/2018 2:12 PM EDT - 08/31/2018 11:59 PM EDT Hospital Encounter [facility] [place] [place] [address] Luanne Walter, PT Discharge Disposition: Home or [...] of Care - Luanne Walter, PT - 08/31/2018 2:39 PM EDT Images from the original note were not included. Physical Therapy Daily Progress Note/Reassessment 08/31/2018 Raquel Goel : 1970 Visit #?? /Insurance :7 out of 12 /[facility] Onset Date: 06/15/18 Diagnosis: Right ankle lateral malleolus fracture Precautions: universal MD Follow Up:[facility] 09/04/18 Medication Changes: none Reassessment Date/Recert Date: today Next FOTO due: today Time In/Out: 1437/1506 Subjective Reports her pain is about a 3. Went all day yesterday without the boot - had the brace on around the house. HEP: Compliant Objective Exercises performed with brace [...] without brace Lunge forward for ankle dorsiflexion 5s x [...] time: 29 minutes Assessment Tolerates treatment well. Demonstrate improved gait, strength, functional activity, ROM, WB and decreased pain. Remains a candidate for PT to continue to improve function, gait and strength Goals set for 4 weeks. Functional Goals: [...] Continue PT: Signature: Luanne Walter PT Date: 08/31/2018 documented in this encounter Plan of Treatment [...] on filedocumented in this encounter Care Teams Probate Judge Relationship Specialty Start Date End Date Carmella Ulloa MD [address] [place] [address] PCP - General Family Medicine 09/27/17 documented as of this encounter
--- OUTSIDE RECORDS SUMMARY | 2024-04-01 12:46 | XMS_ITS | Encounter Summary ---
Author Organization [place] [address] Care Team Providers Care Plant Sprayer Name Role Phone Carmella Ulloa MD Primary Care Provider Reason for Visit * Physical Therapy (Routine) - Closed Specialty Diagnoses / Procedures Referred By Shun moralez Referred To Contact Clinic/Center-Physical Therapy / Physical Therapy Diagnoses PT Procedures pt Kirby Sharif MD [facility] Physical Therapy [address] [address] Phone: tel: fax: Referral ID Status Reason Start Date Expiration Date Visits Re quested Visits Authorized [id number] Closed 08/03/2018 11/03/2018 19 19 Encounter Details Date Type Department Care Team (Latest Contact Info) Description 10/19/2018 1:00 PM EDT - 10/19/2018 11:59 PM EDT Hospital Encounter [facility] [place] [address] Luanne Walter, PT Discharge Disposition: Home or [...] PM EDT Raquel Magallon RMMary Jane documented as of this encounter Mental [...] of Care - Luanne Walter, PT - 10/19/2018 1:01 PM EDT Images from the original note were not included. Physical Therapy Daily Progress Note/Reassessment/Progress Report 10/19/2018 Raquel Goel : 1970 Visit #?? /Insurance :(12) 3 out of 7 approved through 11-03-18 /[facility] Onset Date: 06/15/18 Diagnosis: Right ankle lateral malleolus fracture Precautions: universal MD Follow Up:[place] 10/23 Medication Changes: none Reassessment Date/Recert Date: today Next FOTO due: today Time In/Out: 1300/1330 Subjective Reports her ankle is a 3-4. Was sore yesterday from being up on it doing a lot of walking. HEP: Compliant Objective AROM: AFFECTED FOOT/ANKLE: DF: 4* PF: 62 Inversion: 45 Eversion: 30 1st Ray MTP Ext: 3* 65* 45 25 60 DF: 5 PF: 5 Inv: 5 - a little tender Ev: 5 Hip Flex: 4/5 All other LE 5/5 FOTO Eval: Patient Score: 40 Predicted Score: 58 Predicted Change: 18 Subsequent FOTO Scores (score and date): 08/31 Lt LE: 16s Rt LE: 4w Education: Needs Assistance: Yes Understood: Yes Treatment: Therapeutic exercise x 22 min Elliptical x 3 min Carpet to wall and back with 2# PF Braided walk Side steps Zig Zags Backward Zig Zags Marches Soleus wall squat 2 x 10 Stair squat x 20 Neuromuscular Re-ed x 8 min Trampoline step ups x 20 (B) 3# Lateral x 20 Plantarflexion x 20 Squats x 20 Marches x 20 Pitchback SLS Bilateral and anterior throws Tandem walking Total timed treatment: 30 min (TE x 1, NMR x 1) Total treatment time: 30 minutes Assessment Tolerates treatment well. Demonstrates improved strength, ROM, functional activity, FOTO. Patient has improved endurance on her ankle. Will hold PT, discharge pending MD recommendation on Monday. Patient educated to call clinic with what MD recommends. Patient has demonstrated improved ability to stand on her ankle, and tolerates session with weights on her ankle being up on her ankle. If MD recommends further PT, continue to work on balance and endurance. Goals will be developed if MD recommends continued PT. Goals set for 4 weeks. Functional Goals: 1. Patient to demonstrate independence with HEP. MET 2. Patient's FOTO score will increase to 47 noting an increase in overall function MET 3. Patient will demonstrate gait wfl in order to improve ability to walk. MET 4. Patient will demonstrate ankle ROM equal to unaffected to improve ability to squat. MET 5. Patient will demonstrate ankle strength >/= 4 to improve ability to stand. MET Plan Hold PT pending MD recommendation Signature: Luanne Walter PT Date: 10/19/2018 documented in this encounter Plan of Treatment [...] on filedocumented in this encounter Care Teams Plant Sprayer Relationship Specialty Start Date End Date Carmella Ulloa MD [address] [place] [address] PCP - General Family Medicine 09/27/17 documented as of this encounter
--- OUTSIDE RECORDS SUMMARY | 2024-04-01 12:46 | XMS_ITS | Encounter Summary ---
Author Organization [place] [address] Care Team Providers Care Data Integration Analyst Name Role Phone Carmella Ulloa MD Primary Care Provider [phone] Reason for Visit * Reason Comments Leg Pain Encounter Details Date Type Department Care Team (Late st Contact Info) Description 08/21/2018 3:00 PM EDT Office Visit [facility] [address] [place] [address] Carmella Ulloa MD [address] [place] [address] Chronic pain of left knee (Primary Dx); Closed fracture of distal end of right fibula, unspecified fracture morphology, sequela Social History Tobacco Use Types Packs/Day Years Used Date Smoking Tobacco: Every Day Cigarettes Smokeless Tobacco: Never Tobacco Cessation:Ready to Q uit: No; Counseling Given: Yes Alcohol Use Standard Drinks/Week Comments Yes 0 [...] Sign Reading Time Taken Comments Blood Pressure 126/84 08/21/2018 3:47 PM EDT Pulse - - Temperature 37.1 ??C (98.7 ??F) 08/21/2018 3:47 PM ED T Respiratory Rate - - Oxygen Saturation - - Inhaled Oxygen Concentration - - Weight 103.9 kg (229 lb) 08/21/2018 3:47 PM EDT Height 167.6 cm (5' 6 ) 08/21/2018 3:47 PM EDT Body Mass Index 36.96 08/21/2018 3:47 PM EDT documented in this encounter Functional [...] Raquel Magallon RMA documented in this encounter Ordered Prescriptions Prescription Sig Dispense Quantity Refills Last Filled Start Date End Date meloxicam (MOBIC) 15 mg Oral TabletIndications:C hronic pain of left knee,Closed fracture of distal end of right fibula, unspecified fracture morphology, sequela Take 1 Tab by mouth daily. 30 Tab 2 08/21/2018 03/05/2019 cyclobenzaprine (FLEXERIL) 10 mg Oral TabletIndications:C hronic pain of left knee,Closed fracture of distal end of right fibula, unspecified fracture morphology, sequela Take 1 Tab by mouth 3 times daily. 90 Tab 2 08/21/2018 11/01/2019 documented in this encounter Progress Notes * Carmella Ulloa MD - 08/21/2018 3:00 PM EDT Vitals: 08/21/18 1547 BP: 126/84 Temp: 98.7 ??F (37.1 ??C) TempSrc: Tympanic Weight: 229 lb (103.9 kg) Height: 5' 6 (1.676 m) Chief Complaint Patient presents with ??? Leg Pain Leg Pain The pain is present in the left knee, left upper leg, left lower leg, left hip, left ankle and leftfoot. This is a recurrent problem. The current episode started more than 1 month ago. The problem occurs constantly. The problem has been unchanged. Pt is here today for left leg, hip, and knee pain from where she is over compensating where she broke her rt ankle Review of Systems Constitutional: Negative. HENT: Negative. Respiratory: Negative for cough and wheezing. Cardiovascular: Negative for leg swelling. Gastrointestinal: Negative. Genitourinary: Negative. Musculoskeletal: Positive for arthralgias, gait problem and joint swelling. Psychiatric/Behavioral: Negative. Physical Exam Constitutional: She appears well-developed. HENT: Head: Normocephalic. Cardiovascular: Normal rate and regular rhythm. Pulmonary/Chest: Effort normal. She has no wheezes. Abdominal: Soft. There is no tenderness. Musculoskeletal: She exhibits tenderness. Right foot in boot. Left medial knee edema and ttp Psychiatric: She has a normal mood and affect. Nursing note and vitals reviewed. See time date stamps in the EMR for other pertinent history components reviewed as part of today's encounter. [facility] Documentation [facility] Flowsheet was completed/reviewed as part of today's visit. Educated patient regarding the diagnosis, medication/treatment, goals, self- management tools and instructions based on their care plan. They verbalized understanding of the education given on the After Visit Summary [AVS] for today's visit. A copy of the AVS was provided either in writing and/or via [employer]. A new medicine was not prescribed on this visit. Assessment Diagnoses and all orders for this visit: Chronic pain of left knee - cyclobenzaprine (FLEXERIL) 10 mg Oral Tablet; Take 1 Tab by mouth 3 times daily. Dispense: 90 Tab; Refill: 2 - meloxicam (MOBIC) 15 mg Oral Tablet; Take 1 Tab by mouth daily. Dispense: 30 Tab; Refill: 2 Closed fracture of distal end of right fibula, unspecified fracture morphology, sequela - cyclobenzaprine (FLEXERIL) 10 mg Oral Tablet; Take 1 Tab by mouth 3 times daily. Dispense: 90 Tab; Refill: 2 - meloxicam (MOBIC) 15 mg Oral Tablet; Take 1 Tab by mouth daily. Dispense: 30 Tab; Refill: 2 - ketorolac (TORADOL) injection 60 mg; Inject 2 mL into the muscle once. Currently in a boot did have broken ankle. Monitor. Is in physical therapy. documented in this encounter Plan of Treatment Not on file documented as of this encounter Goals Goal Patient Goal Type Associated Problems Recent Progress Patient-Stated? Author Maintain a healthy diet, exercise regularly and maintain an ideal body weight General No Tiana Mena RN Stay Tobacco Free Lifestyle No Tiana Mena RN documented as of this encounter Visit Diagnoses Diagnosis Chronic pain of left knee- Primary Pain in joint, lower leg Closed fracture of distal end of right fibula, unspecified fracture morphology, sequela documented in this encounter Administered Medications Inactive Administered Medications - up to 1 most recent administrations Medication Order MAR Action Action Date Dose Rate Site ketorolac (TORADOL) injection 60 mg 60 mg, Intramuscular, ONCE, 1 dose, On Mon08/21/18 at 1600, Maximum IV dose is 30mg, Dx: 1. Closed fracture of distal end of right fibula, unspecified fracture morphology, sequelaIndications:Close d fracture of distal end of right fibula, unspecified fracture morphology, sequela Given 08/21/2018 4:01 PM EDT 60 mg Left Upper Outer Quadrant documented in this encounter Discontinued Medications Medication Sig Discontinue Reason Start Date End Da te terbinafine HCl (LAMISIL) 250 mg Oral TabletIndications:Tinea cruris Take 1 Tab by mouth daily. DELETE-Therapy completed 03/29/2018 08/21/2018 cyclobenzaprine (FLEXERIL) 10 mg Oral Tablet Take 10 mg by mouth 3 times daily. Reorder 08/21/2018 meloxicam (MOBIC) 15 mg Oral Tablet Take 1 Tab by mouth daily. Reorder 09/29/2017 08/21/2018 documented as of this encounter Care Teams Data Integration Analyst Relationship Specialty Start Date End Date Carmella Ulloa MD [address] [place] [address] PCP - General Family Medicine 09/27/17 documented as of this encounter
--- OUTSIDE RECORDS SUMMARY | 2024-04-01 12:46 | XMS_ITS | Encounter Summary ---
Author Organization [place] [address] Care Team Providers Care Rope Cleaner Name Role Phone Carmella Ulloa MD Primary Care Provider [phone] Encounter Details Date Type Department Care Team (Latest Contact Info) Description 09/21/2018 3:00 PM EDT - 09/21/2018 11:59 PM EDT Hospital Encounter [facility] [place] [address] Luanne Walter, PT Discharge Disposition: Home or [...] PM EDT Raquel Magallon JUNE BassMary Jane * Because of a physical, mental or emotional condition, does this person have difficulty doing errands alone such as visiting a doctor's office or shopping? Answer Date of Assessment Author No 09/29/2017 3:46 PM EDT Raquel Magallon Shelia ALIDA documented as of this encounter Mental Status * Because of a physical, mental or emotional condition, does this person have serious difficulty concentrating, remembering or making decisions? Answer Entry Date Author No 09/29/2017 3:46 PM EDT Raquel Magallon Shelia ALIDA documented in this encounter Medications at [...] Progress Notes * Luanne Walter, PT - 09/21/2018 3:04 PM EDT Images from the original note were not included. Physical Therapy Daily Progress Note 09/21/2018 Raquel Goel : 1970 Visit #?? /Insurance :11 out of 12 [facility] On[facility] Date: 06/15/18 Diagnosis: Right ankle lateral malleolus fracture Precautions: universal MD Follow Up:[place] Medication Changes: none Reassessment Date/Recert Date: 09/30/18 Next FOTO due: 09/30/18 Time In/Out: 1502/1531 Subjective Reports her ankle is a 3. Hasn't done too much due to the rain. HEP: Compliant Objective Exercises performed with brace donned this date Able to ambulate around clinic with brace and cane today AROM: AFFECTED FOOT/ANKLE: DF: 4* PF: 62 Inversion: 30 Eversion: 22 1st Ray MTP Ext: 45 3* 65* 45 25 60 DF: 4+ PF: 4+ Inv: 3 Ev: 3 Hip Flex: 4/5 All other LE 09/16 FOTO Eval: Patient Score: 40 Predicted Score: 58 Predicted Change: 18 Subsequent FOTO Scores (score and date): 08/31 Education: Needs Assistance: Yes Understood: Yes Treatment: Therapeutic exercise x 28 min Nustep Load 5 x 5 min Seat at 7 Step ups 6 x 20 Lateral x 20 Trampoline step ups x 20 Lateral x 20 Plantarflexion x 20 Eccentric PF x 20 Stair squat x 20 Soleus wall squat x 20 Carpet to wall and back Toe walks Heel walks Braided walking Tandem walk SL balance pitchback x 15 atnerior and lateral (B) BOSU blue side squat x 10 Hip abd, ext 2 x 10 each Flat side up squat x 10 Total timed treatment: 28 min (TE x 2) Total treatment time: 28 minutes Assessment Tolerates treatment well. Hesistant to challenge her balance, preferring to keep the left toe as a kickstand when performing so she doesn't feel like she is going to fall. Very difficult to perform BOSU squats on both sides. Increased challenge on BOSU vs foam pad. Goals set for 4 weeks. Functional Goals: [...] Continue PT: Signature: Luanne Walter, IVIS Date: 09/21/2018 documented in this encounter Plan of Treatment [...] on filedocumented in this encounter Care Teams Rope Cleaner Relationship Specialty Start Date End Date Carmella Ulloa MD [address] [place] [address] PCP - General Family Medicine 09/27/17 documented as of this encounter
--- OUTSIDE RECORDS SUMMARY | 2024-04-01 12:46 | XMS_ITS | Encounter Summary ---
Author Organization [place] [address] Care Team Providers Care Weaving Machine Operator Name Role Phone Carmella Ulloa MD Primary Care Provider [phone] Reason for Visit * Reason Onset Date Comments Care Management - Chart Review 03/27/2018 ED Follow-Up Call 03/27/2018 Encounter Details Date Type Department Care Team (Late st Contact Info) Description 03/27/2018 Patient Outreach [facility] [address] [place] [address] Tiana Mena RN Care Management [...] Author No 09/29/2017 3:46 PM EDT MagallonRaquel ALIDA * Because of a physical, mental or emotional condition, does this person have difficulty doing errands alone such as visiting a doctor's office or shopping? Answer Date of Assessment Author No 09/29/2017 3:46 PM EDT Ariadne Magallonhuber Bass ALIDA documented as of this encounter Mental Status * Because of a physical, mental or emotional condition, does this person have serious difficulty concentrating, remembering or making decisions? Answer Entry Date Author No 09/29/2017 3:46 PM EDT Ariadne Magallonhuber Bass ALIDA documented in this encounter Progress Notes * Raquel Hall RMA - 03/27/2018 3:01 PM EST ED Follow Up Regarding the most recent emergency room visit: Contact made?: No If no, did you leave a message?: Yes Was letter sent?: Yes If patient is unable to fill medications, please consider a social work consult if criteria met: * Tiana Mena RN - 03/27/2018 11:38 AM EST Health Shale Processing Technician: Patient seen in the ER on 03/26/18 and ER visit noted the following information: COURSE & MEDICAL DECISION MAKING Patient was seen in the emergency department and evaluated for the chief complaint as described in history of present illness. Complete history and physical were performed. Patient's presenting symptoms, physical exam, and diagnostic evaluation are consistent with A labial cellulitis. At this time t here is no palpable abscess. This is on the labia majora and does not extend into the labia minora,introitus or perineum. At this time, the patient will be discharged with Bactrim and Keflex. She takes Aleve and Raven for chronic pain. She can take these as prescribed by her physician. She is to follow-up with her primary care physician within the next 2 days for a recheck and is to return to the emergency department as needed for new or worsening symptoms. I will give her the next 2 days off of work. The patient understands and agrees with the plan. ?? FINAL IMPRESSION 1. Cellulitis of labia majora ? Condition at Discharge Stable ?? Based upon review, patient MD score to remain a Level 1 at this time .HCA to reassess as needed. documented in this [...] on filedocumented in this encounter Care Teams Weaving Machine Operator Relationship Specialty Start Date End Date Carmella Ulloa MD [address] [place] [address] PCP - General Family Medicine 09/27/17 documented as of this encounter
--- OUTSIDE RECORDS SUMMARY | 2024-04-01 12:46 | XMS_ITS | Encounter Summary ---
Author Organization [facility] [place] [address] Care Team Providers Care Project Manager/Design Manager Name Role Phone Carmella Ulloa MD Primary Care Provider [phone] Encounter Details Date Type Department Care Team (Latest Contact Info) Description 01/03/2020 Travel Social History Tobacco Use Types Packs/Day [...] have Coronavirus / COVID-19? No / Unsure 01/03/2020 10:40 AM EDT documented as of this encounter [...] on filedocumented in this encounter Care Teams Project Manager/Design Manager Relationship Specialty Start Date End Date Carmella Ulloa MD [address] [place] [address] PCP - General Family Medicine 09/27/17 documented as of this encounter
--- OUTSIDE RECORDS SUMMARY | 2024-04-01 12:46 | XMS_ITS | Encounter Summary ---
Author Organization [place] [address] Care Team Providers Care Regional Sales Director Name Role Phone Carmella Ulloa MD Primary Care Provider [phone] Reason for Visit * Reason Comments Ankle Injury Monday slipped on ic e and injured right ankle positive swelling and difficulty standing due anali pain Encounter Details Date Type Department Care Team (Late st Contact Info) Description 06/17/2018 5:24 PM EST - 06/17/2018 6:35 PM EST [facility] [address] [place] [address] Catia Amaral MD [address] [place] [id number] First degree ankle sprain, right, initial encounter (Primary Dx); Closed fracture of distal end of fibula, unspecified fracture morphology, initial encounter Discharge Disposition: Home or Self Care Social [...] Sign Reading Time Taken Comments Blood Pressure 105/71 06/17/2018 5:14 PM EST Pulse 88 06/17/2018 5:14 PM EST Temperature 37.1 ??C (98.7 ??F) 06/17/2018 5:14 PM ES T Respiratory Rate 18 06/17/2018 5:14 PM EST Oxygen Saturation 100% 06/17/2018 5:14 PM EST Inhaled Oxygen Concentration - - Weight 94.3 kg (208 lb) 06/17/2018 5:14 PM EST Height 167.6 cm (5' 6 ) 06/17/2018 5:14 PM EST Body Mass Index 33.57 06/17/2018 5:14 PM EST documented in this encounter Functional Status [...] Entry Date Author No 09/29/2017 3:46 PM EDRaquel Church RMA documented in this encounter Discharge Instructions * Discharge Instructions* Tiny Massey APRN - 06/17/2018 6:12 PM EST Patient has been advised to use crutches for nonweightbearing keep splint in place to follow with orthopedist in 1-2 days may take Lohman for severe pain Tylenol or Motrin for mild to moderate pain return for worsening or change * Attachments The following attachments cannot be sent through Care Everywhere. * Cast or Splint Care Adult (Salvadorean) * Tibial and Fibular Fractures (Salvadorean) documented in this encounter Medications at Time of Discharge gabapentin (NEURONTIN) 300 mg Oral Capsule Take by mouth 5 times daily. HYDROcodone-aceta minophen (NORCO) 5-325 mg Oral Tablet Take 1 Tab by mouth every 6 hours as needed for Pain. HYDROcodone-aceta minophen (NORCO) 5-325 mg Oral Tablet Take 1 Tab by mouth every 6 hours as needed for Acute Pain (R52) for up to 3 days. 12 Tab 06/17/2018 06/20/2018 documented as of this encounter Ordered Prescriptions Prescription Sig Dispense Quantity Refills Last Filled Start Date End Date HYDROcodone-acetam inophen (NORCO) 5-325 mg Oral Tablet Take 1 Tab by mouth every 6 hours as needed for Acute Pain (R52) for up to 3 days. 12 Tab 06/17/2018 06/20/2018 documented in this encounter Discharge Disposition Disposition Code Departure Means Destination Home or Self [facility] documented in this encounter ED Notes * Tiny Massey, AIRPORT OPERATIONS COORDINATOR - 06/17/2018 5:06 PM EST CHIEF COMPLAINT Chief Complaint Patient presents with ??? Ankle Injury Monday slipped on ice and injured right ankle positive swelling and difficulty standing due anali pain HPI Raquel Goel is a 48 y.o. female who presents to the Emergency Room Patient states that she slipped on ice on Monday injuring her right ankle states that she has swelling and ecchymosis to the areastates she is unable to fully bear weight secondary to the pain states that she has a high pain tolerance and has just been tolerating it states she's been keeping it elevated with ice states it is not getting any better continues to have swelling she denies any other injury denies any other pain she has taken no medications prior to arrival REVIEW OF SYSTEMS See HPI for further details. Review of systems otherwise negative. PAST MEDICAL HISTORY Past Medical History: Diagnosis Date ??? Chronic back pain ??? Migraine FAMILY HISTORY No family history on file. SOCIAL HISTORY Social History Social History ??? Marital status: Legally Spouse name: N/A ??? Number of children: N/A ??? Years of education: N/A Social History Main Topics ??? Smoking status: Current Every Day Smoker Packs/day: 0.50 Types: Cigarettes ??? Smokeless tobacco: Never Used ??? Alcohol use Yes Comment: occassional ??? Drug use: No ??? Sexual activity: Not Asked Other Topics Concern ??? None Social History Narrative ??? None SURGICAL HISTORY Past Surgical History: Procedure Laterality Date ??? TUBAL LIGATION CURRENT MEDICATIONS No current facility-administered medications for this encounter. Current Outpatient Prescriptions: ??? albuterol (PROVENTIL HFA;VENTOLIN HFA) 90 mcg/actuation Inhl HFA Aerosol Inhaler, Inhale 2 Puffs into the lungs every 6 hours as needed for Wheezing., Disp: , Rfl: ??? cyclobenzaprine (FLEXERIL) 10 mg Oral Tablet, Take 10 mg by mouth 3 times daily., Disp: , Rfl: ??? gabapentin (NEURONTIN) 300 mg Oral Capsule, Take by mouth 5 times daily., Disp: , Rfl: ??? HYDROcodone-acetaminophen (NORCO) 5-325 mg Oral Tablet, Take 1 Tab by mouth every 6 hours as needed for Pain., Disp: , Rfl: ??? meloxicam (MOBIC) 15 mg Oral Tablet, Take 1 Tab by mouth daily., Disp: 30 Tab, Rfl: 1 ??? terbinafine HCl (LAMISIL) 250 mg Oral Tablet, Take 1 Tab by mouth daily., Disp: 30 Tab, Rfl: 0 ALLERGIES Allergies Allergen Reactions ??? Ciprofloxacin ??? Imitrex [Sumatriptan Succinate] ??? Promethazine PHYSICAL EXAM VITAL SIGNS: ED Triage Vitals [06/17/18 1714] Temp 98.7 ??F (37.1 ??C) Pulse 88 Resp 18 BP 105/71 SpO2 100 % Height 5' 6 (1.676 m) Weight 208 lb (94.3 kg) Constitutional: Well developed, Well nourished, No acute distress, Non-toxic appearance. HENT: Normocephalic, Atraumatic, Bilateral external ears normal, Nose normal. Eyes: Pupils equal and round, Conjunctiva normal, No discharge. Neck: Normal range of motion, Supple, No stridor. Cardiovascular: Normal heart rate. Thorax & Lungs: No respiratory distress. Musculoskeletal: Ambulatory, gross range of motion normal.Hip: Normal hip, No swelling, No tenderness, Full range of motion, No deformity, No shortening, Normal distal pulses, Normal distal sensationKnee: Normal knee, No swelling, No tenderness, Full range of motion, No deformity, No effusion, No ligamentous instability. Ankle: Normal ankle, No swelling, No tenderness, Full range of motion, No deformity. Positive for edema to the lateral aspect of the right ankle able to minimally flex and dorsiflex secondary to the pain positive for gross edema with hematoma no gross deformity U refill of less than 3 seconds +3 posterior tibial and pedal pulses Skin: Warm and dry. Neurologic: Alert. No focal deficits. LABS/RADIOLOGY/PROCEDURES Labs Reviewed - No data to display XR ANKLE RIGHT AP LATERAL AND OBLIQUE Final Result XR ANKLE RIGHT AP LATERAL AND OBLIQUE, 06/17/2018 5:56 PM CLINICAL HISTORY: -ANKLE INJURY COMPARISON: None. PROCEDURE COMMENTS: Routine views. FINDINGS: There is a mildly displaced, comminuted fracture of the distal fibula at and below the level of the ankle joint. Ankle mortise alignment is normal. Lateral predominant soft tissue swelling. IMPRESSION: Mildly displaced, comminuted fracture of the distal fibula. COURSE & MEDICAL DECISION MAKING Pertinent Labs & Imaging studies reviewed. (See chart for details) Vitals: 06/17/18 1714 BP: 105/71 BP Location: Left arm Patient Position: Sitting Pulse: 88 Resp: 18 Temp: 98.7 ??F (37.1 ??C) TempSrc: Oral SpO2: 100% Weight: 208 lb (94.3 kg) Height: 5' 6 (1.676 m) Raquel Goel presents to the ED with the above complaints.X-ray reveals a mildly displaced comminuted fracture of the distal fibula patient be placed in a short leg splint she's been given crutchesencouraged ice and elevation will be given a small amount of pain medication to follow with orthopedist in 1-2 days FINAL IMPRESSION 1. First degree ankle sprain, right, initial encounter 2. Closed fracture of distal end of fibula, unspecified fracture morphology, initial encounter This chart was completed using voice recognition technology and may contain unintended errors Tiny Massey APRN 06/17/18 1803 Cosigned by Catia Aamral MD at 06/17/2018 7:53 PM EST Associated attestation - Catia Amaral MD - 06/17/2018 7:53 PM EST Patient seen and treated independently by the nurse practitioner This chart was completed using voice recognition technology and may contain unintended errors documented in this encounter Plan of Treatment [...] Procedure Name Priority Date/Time Associated Diagnosis Comments XR ANKLE RIGHT AP LATERAL AND OBLIQUE BORIS 06/17/2018 5:56 PM EST documented in this encounter Results * XR ANKLE RIGHT AP LATERAL AND OBLIQUE (06/17/2018 5:56 PM EST) Anatomical Region Laterality Modality Ankle Radiographic Shyann ging 06/17/2018 5:56 PM EST Impressions 06/17/2018 6:02 PM EST Mildly displaced, comminuted fracture of the distal fibula. Narrative 06/17/2018 6:02 PM EST XR ANKLE RIGHT AP LATERAL AND OBLIQUE, ??06/17/2018 5:56 PM CLINICAL HISTORY: ??-ANKLE INJURY COMPARISON: ??None. PROCEDURE COMMENTS: Routine views. FINDINGS: There is a mildly displaced, comminuted fracture of the distal fibula at and below the level of the ankle joint. Ankle mortise alignment is normal. Lateral predominant soft tissue swelling. Procedure Note Roderick Courtney MD - 06/17/2018 XR ANKLE RIGHT AP LATERAL AND OBLIQUE, 06/17/2018 5:56 PM CLINICAL HISTORY: -ANKLE INJURY COMPARISON: None. PROCEDURE COMMENTS: Routine views. FINDINGS: There is a mildly displaced, comminuted fracture of the distal fibula atand below the level of the ankle joint. Ankle mortise alignment is normal.Lateral predominant soft tissue swelling. IMPRESSION: Mildly displaced, comminuted fracture of the distal fibula. us Catia Amaral MD IMG DIAGNOSTIC IMAGING ORDERAB LES Final Result documented in this encounter Visit Diagnoses Diagnosis First degree ankle sprain, right, initial encounter- Primary Closed fracture of distal end of fibula, unspecified fracture morphology, initial encounter documented in this encounter Orders Nursing Count Last Ordered Date First Orde red Date APPLY ICE TO AFFECTED AREA 1 06/17/2018 SHORT LEG SPLINT 1 06/17/2018 documented in this encounter Care Teams Regional Sales Director Relationship Specialty Start Date End Date Carmella Ulloa MD [address] [place] [address] PCP - General Family Medicine 09/27/17 documented as of this encounter
--- OUTSIDE RECORDS SUMMARY | 2024-04-01 12:46 | XMS_ITS | Encounter Summary ---
Author Organization [place] [address] Care Team Providers Care Marketing Officer Name Role Phone Carmella Ulloa MD Primary Care Provider [phone] Reason for Visit * Reason Comments Shoulder Pain left Knee Pain Encounter Details Date Type Department Care Team (Late st Contact Info) Description 05/01/2020 2:30 PM EST Office Visit [facility] [address] [place] [address] Carmella Ulloa MD [address] [place] [address] Chronic pain of both knees (Primary Dx); Chronic left shoulder pain; Mild intermittent asthma, unspecified whether complicated Social [...] PM EST documented as of this encounter Last Filed Vital Signs Vital Sign Reading Time Taken Comments Blood Pressure 122/84 05/01/2020 3:03 PM EST Pulse - - Temperature 36.1 ??C (97 ??F) 05/01/2020 3:03 PM EST Respiratory Rate - - Oxygen Saturation - - Inhaled Oxygen Concentration - - Weight 108.4 kg (239 lb) 05/01/2020 3:03 PM EST Height 167.6 cm (5' 6 ) 05/01/2020 3:03 PM EST Body Mass Index 38.58 05/01/2020 3:03 PM EST documented in this encounter Functional [...] Progress Notes * Carmella Ulloa MD - 05/01/2020 2:30 PM EST Vitals: 05/01/20 1503 BP: 122/84 Temp: 97 ??F (36.1 ??C) TempSrc: Oral Weight: 239 lb (108.4 kg) Height: 5' 6 (1.676 m) SUBJECTIVE: Chief Complaint Patient presents with ??? Shoulder Pain left ??? Knee Pain HPI: Shoulder Pain The pain is present in the left shoulder. This is a recurrent problem. The current episode started more than 1 month ago. The problem occurs constantly. The problem has been unchanged. Pertinent negatives include no fever. Knee Pain This is a recurrent problem. The current episode started more than 1 month ago. The problem occurs constantly. The problem has been unchanged. Pertinent negatives include no fever. Pt is here today for left shoulder pain and bilateral knee pain Review of Systems Constitutional: Negative for fatigue and fever. HENT: Negative. Respiratory: Negative for cough and wheezing. Cardiovascular: Negative. Gastrointestinal: Negative for abdominal pain and constipation. Genitourinary: Negative. Musculoskeletal: Positive for arthralgias and gait problem. Hematological: Negative. Psychiatric/Behavioral: Negative. OBJECTIVE: Physical Exam Vitals signs and nursing note reviewed. HENT: Head: Normocephalic. Cardiovascular: Rate and Rhythm: Normal rate. Heart sounds: No murmur. Pulmonary: Effort: Pulmonary effort is normal. Breath sounds: No wheezing. Abdominal: Palpations: Abdomen is soft. Tenderness: There is no abdominal tenderness. Musculoskeletal: General: Tenderness present. Comments: adriana knee ttp Medially. Left shoulder ac joint ttp with trap spasm Neurological: General: No focal deficit present. Mental Status: She is alert. Psychiatric: Mood and Affect: Mood normal. Assessment Diagnoses and all orders for this visit: Chronic pain of both knees - methylPREDNISolone acetate (DEPO-Medrol) injection 120 mg Chronic left shoulder pain - methylPREDNISolone acetate (DEPO-Medrol) injection 120 mg Mild intermittent asthma, unspecified whether complicated documented in this encounter Plan of Treatment Not on file documented as of this encounter Goals Goal Patient Goal Type Associated Problems Recent Progress Patient-Stated? Author Maintain a healthy diet, exercise regularly and maintain an ideal body weight General No Tiana Mena, RN Stay Tobacco Free Lifestyle No Tiana Mena, RN documented as of this encounter Visit Diagnoses Diagnosis Chronic pain of both knees- Primary Chronic left shoulder pain Pain in joint, shoulder region Mild intermittent asthma, unspecified whether complicated documented in this encounter Orders Medications Ordered That Jose Carlos ht Not Have Been Administered Count Last Ordered Date First Ordered Date methylPREDNISolone acetate ( DEPO-Medrol) injection 120 mg 1 05/01/2020 documented in this encounter Care Teams Marketing Officer Relationship Specialty Start Date End Date Carmella Ulloa MD [address] [place] [address] PCP - General Family Medicine 09/27/17 documented as of this encounter
--- OUTSIDE RECORDS SUMMARY | 2024-04-01 12:46 | XMS_ITS | Encounter Summary ---
Author Organization [place] [address] Care Team Providers Care Neurophysiology Tech Name Role Phone Carmella Ulloa MD Primary Care Provider [phone] Reason for Visit * Physical Therapy (Routine) - Closed Specialty Diagnoses / Procedures Referred By Shun moralez Referred To Contact Clinic/Center-Physical Therapy / Physical Therapy Diagnoses PT Procedures pt Kirby Sharif MD [facility] Physical Therapy [address] [address] Phone: tel: fax: Referral ID Status Reason Start Date Expiration Date Visits Re quested Visits Authorized [id number] Closed 08/03/2018 11/03/2018 19 19 Encounter Details Date Type Department Care Team (Latest Contact Info) Description 08/24/2018 2:26 PM EDT - 08/24/2018 11:59 PM EDT Hospital Encounter [facility] [place] [address] Luanne Walter, PT Discharge Disposition: Home or [...] Progress Notes * Luanne Walter, PT - 08/24/2018 2:40 PM EDT Images from the original note were not included. Physical Therapy Daily Progress Note 08/24/2018 Raquel Goel : 1970 Visit #?? /Insurance :7 out of 12 /[employer] Onset Date: 06/15/18 Diagnosis: Right ankle lateral malleolus fracture Precautions: universal MD Follow Up:[facility] 09/04/18 Medication Changes: none Reassessment Date/Recert Date: 09/03/18 Next FOTO due: 6th visit GCodes due: 10th visit Time In/Out: 1431/1507 Subjective Reports her pain is about a 1-2, hasn't done to much to aggravate it. Was going to come with her brace today but was worried about the ground being slick due to the rain. HEP: Compliant Objective [...] mobilization At bar in front of mirror Weight shifts x 10 Walking forward x 3 Walking backward x 3 Marches x 20 Hip abduction x 10 alternating Plantarflexion, dorsiflexion 2 x 10 Toe taps x [address] x 10 w/red band Runners stretch gastroc, soleus 2 x 30 each Nu Step x 5 min L5 - untimed Total timed treatment: 30 min (TE x 2) Total treatment time: 35 minutes Assessment Tolerates treatment well. Improved ability to WB in standing. Performed exercises without brace this date. Plan Continue PT: Signature: Luanne Walter, IVIS Date: 08/24/2018 documented in this encounter Plan of Treatment [...] on filedocumented in this encounter Care Teams Neurophysiology Tech Relationship Specialty Start Date End Date Carmella Ulloa MD [address] [place] [address] PCP - General Family Medicine 09/27/17 documented as of this encounter
--- OUTSIDE RECORDS SUMMARY | 2024-04-01 12:46 | XMS_ITS | Encounter Summary ---
Author Organization [facility] [place] [address] Care Team Providers Care Field Sales Trainer Name Role Phone Carmella Ulloa MD Primary Care Provider Encounter Details Date Type Department Care Team (Latest Contact Info) Description 10/31/2019 Travel Social History Tobacco Use Types Packs/Day [...] PM EDT documented as of this encounter Functional [...] of Assessment Author No 09/29/2017 3:46 PM EDRaquel Church RMA documented as of this encounter Mental Status * Because of a physical, mental or emotional condition, does this person have serious difficulty concentrating, remembering or making decisions? Answer Entry Date Author No 09/29/2017 3:46 PM EDRaquel Church RMA documented in this encounter Plan of Treatment [...] on filedocumented in this encounter Care Teams Field Sales Trainer Relationship Specialty Start Date End Date Carmella Ulloa MD [address] [place] [address] PCP - General Family Medicine 09/27/17 documented as of this encounter
--- OUTSIDE RECORDS SUMMARY | 2024-04-01 12:46 | XMS_ITS | Encounter Summary ---
Author Organization [place] [place] [address] Care Team Providers Care Systems Programmer Name Role Phone Carmella Juarez MD Primary Care Provider [phone] Reason for Visit * Reason Comments Cellulitis Encounter Details Date Type Department Care Team (Late st Contact Info) Description 03/29/2018 10:15 AM EST Office Visit [facility] [address] [place] [address] Carmella Juarez MD [address] [place] [address] Cellulitis of labia majora (Primary Dx); Tinea cruris Social History Tobacco Use Types Packs/Day Years [...] Sign Reading Time Taken Comments Blood Pressure 124/76 03/29/2018 10:12 AM EST Pulse - - Temperature 36.8 ??C (98.2 ??F) 03/29/2018 10:[address] Respiratory Rate - - Oxygen Saturation - - Inhaled Oxygen Concentration - - Weight 92.1 kg (203 lb) 03/29/2018 10:12 AM EST Height 165.1 cm (5' 5 ) 03/29/2018 10:12 AM EST Body Mass Index 33.78 03/29/2018 10:12 AM EST documented in this encounter Functional [...] EDRaquel Church RMA documented in this encounter Ordered Prescriptions Prescription Sig Dispense Quantity Refills Last Filled Start Date End Date terbinafine HCl (LAMISIL) 250 mg Oral TabletIndications:T inea cruris Take 1 Tab by mouth daily. 30 Tab 03/29/2018 08/21/2018 terbinafine HCl (LAMISIL) 250 mg Oral TabletIndications:T inea cruris Take 1 Tab by mouth daily. 30 Tab 03/29/2018 03/29/2018 documented in this encounter Progress Notes * Carmella Juarez MD - 03/29/2018 10:15 AM EST Images from the original note were not included. Vitals: 03/29/18 1012 BP: 124/76 Temp: 98.2 ??F (36.8 ??C) TempSrc: Tympanic Weight: 203 lb (92.1 kg) Height: 5' 5 (1.651 m) Chief Complaint Patient presents with ??? Cellulitis Cellulitis This is a new problem. The current episode started in the past 7 days. The problem is unchanged. The affected locations include the genitalia. Pertinent negatives include no cough, fatigue or fever. The treatment provided mild relief. Pt is here today for an Ed for cellulitis in her vaginal area that has been present for about a week Review of Systems Constitutional: Negative for fatigue and fever. HENT: Negative. Respiratory: Negative for cough and wheezing. Cardiovascular: Negative. Gastrointestinal: Negative. Genitourinary: Positive for genital sores. Musculoskeletal: Negative. Skin: Positive for rash. Neurological: Negative. Psychiatric/Behavioral: Negative. Physical Exam Constitutional: She appears well-developed. HENT: Head: Normocephalic. Cardiovascular: Normal rate and regular rhythm. Pulmonary/Chest: Effort normal. She has no wheezes. Abdominal: Soft. There is no tenderness. Genitourinary: Genitourinary Comments: Erythematous rash to bilateral groin folds. Right labia majora with open erythema and edema improved when compared per er records Skin: Rash noted. There is erythema. Nursing note and vitals reviewed. See time date stamps in the EMR for other pertient history components reviewed as part of today's encounter. [facility] Documentation Medication Compliance: Compliant all the time Understanding of Current Medications: Good Medication Compliance Barriers: None or N/A Self-Management Tools: N/A, no chronic conditions Self-Management Ability: Good Willingness to Adopt Healthy Behaviors: Good Potential Barriers to completing treatment plans today: No significant barriers [facility] Flowsheet was completed/reviewed as part of today's visit. Educated patient regarding the diagnosis, medication/treatment, goals, self- management tools and instructions based on their care plan. They verbalized understanding of the education given on the After Visit Summary [AVS] for today's visit. A copy of the AVS was provided either in writing and/or via DocbookMD. A new medicine was not prescribed on this visit. Assessment Diagnoses and all orders for this visit: Cellulitis of labia majora Tinea cruris - terbinafine HCl (LAMISIL) 250 mg Oral Tablet; Take 1 Tab by mouth daily. Dispense: 30 Tab; Refill: 0 Continue antibiotics. montior documented in this encounter Miscellaneous Notes * Addendum Note - Carmella Juarez MD - 03/29/2018 10:15 AM ESTAddended by: CARMELLA JUAREZ on: 03/29/2018 10:27 AM Modules accepted: Orders documented in this encounter Plan of Treatment Not on file documented as of this encounter Goals Goal Patient Goal Type Associated Problems Recent Progress Patient-Stated? Author Maintain a healthy diet, exercise regularly and maintain an ideal body weight General No Tiana Mena RN Stay Tobacco Free Lifestyle No Tiana Mena RN documented as of this encounter Visit Diagnoses Diagnosis Cellulitis of labia majora- Primary Vaginitis and vulvovaginitis, unspecified Tinea cruris Dermatophytosis of groin and perianal area documented in this encounter Discontinued Medications Medication Sig Discontinue Reason Start Date End Da te terbinafine HCl (LAMISIL) 250 mg Oral TabletIndications:Tinea cruris Take 1 Tab by mouth daily. Reorder 03/29/2018 03/29/2018 documented as of this encounter Care Teams Systems Programmer Relationship Specialty Start Date End Date Carmella Juarez MD [address] [place] [address] PCP - General Family Medicine 09/27/17 documented as of this encounter
--- OUTSIDE RECORDS SUMMARY | 2024-04-01 12:46 | XMS_ITS | Encounter Summary ---
Author Organization [place] [address] Care Team Providers Care Wheel Blocker Name Role Phone Carmella Ulloa MD Primary Care Provider [phone] Reason for Visit * Physical Therapy (Routine) - Closed Specialty Diagnoses / Procedures Referred By Shun moralez Referred To Contact Clinic/Center-Physical Therapy / Physical Therapy Diagnoses PT Procedures pt Kirby Sharif MD [facility] Physical Therapy [address] [address] Phone: tel: fax: Referral ID Status Reason Start Date Expiration Date Visits Re quested Visits Authorized [id number] Closed 08/03/2018 11/03/2018 19 19 Encounter Details Date Type Department Care Team (Latest Contact Info) Description 08/14/2018 1:30 PM EDT - 08/14/2018 11:59 PM EDT Hospital Encounter [place] [address] Luanne Walter, PT Discharge Disposition: Home or [...] Progress Notes * Luanne Walter, PT - 08/14/2018 1:30 PM EDT Images from the original note were not included. Physical Therapy Daily Progress Note 08/14/2018 Raquel Goel : 1970 Visit #?? /Insurance : 3/[employer] Onset Date: 06/15/18 Diagnosis: Right ankle lateral malleolus fracture Precautions: universal MD Follow Up:[place] 09/04/18 Medication Changes: none Reassessment Date/Recert Date: 09/03/18 Next FOTO due: 6th visit GCodes due: 10th visit Time In/Out: 1332/1403 Subjective Reports her pain is about a 2. Ankle feels a little better as she's been moving it more at home. Feels the ankle brace irritates her ankle more. HEP: Compliant Objective FOTO Eval: Patient Score: 40 Predicted Score: 58 Predicted Change: 18 Subsequent FOTO Scores (score and date): Education: Needs Assistance: Yes Understood: Yes Treatment: Therapeutic exercise x 28 min Recumbent bike x 5 min L4 without brace Lunge forward for ankle dorsiflexion x 20 with brace Total gym L13 with brace Marches x 20 PF x 20 DF x 20 SLR x 20 BAPS board L2 without brace AP/DF x 15 Inv/Ev x 15 Circles CW, CCW x 15 each Weight shifts at mirror x 20 with brace Seated DF x 15 without brace PF x 15 without brace Seated heel slides x 20 w/o brace Ant tib 2 x 30s Gastroc stretch x 30s Total timed treatment: 28 min (TE x 2) Assessment Tolerates treatment well. Needs time to don and doff brace. Very hesitant to put weight through right LE with weight shifts and total gym. Plan Continue PT: Signature: Luanne Walter, PT Date: 08/14/2018 documented in this encounter Plan of Treatment [...] on filedocumented in this encounter Care Teams Wheel Blocker Relationship Specialty Start Date End Date Carmella Ulola MD [address] [place] [address] PCP - General Family Medicine 09/27/17 documented as of this encounter
--- OUTSIDE RECORDS SUMMARY | 2024-04-01 12:46 | XMS_ITS | Encounter Summary ---
Author Organization [place] [address] Care Team Providers Care Contract Accountant Name Role Phone Carmella Ulloa MD Primary Care Provider [phone] Reason for Visit * Reason Onset Date Comments Central Patient Navigator Outreach 05/18/2020 Cervical Cancer Screening Encounter Details Date Type Department Care Team (Late st Contact Info) Description 05/18/[address] [facility] [address] [place], [place] [address] Carmella Ulloa MD [address] [place] [address] Central Patient Navigator Outreach (Cervical Cancer Screening ) Social History Tobacco Use Types Packs/Day [...] documented in this encounter Progress Notes * Anny Schofield RN - 05/18/2020 3:56 PM EST Patient Outreach: Care Gap Outreach Attempt Count: 1st Care Gaps Addressed cooperative education director: Mammogram, Cervical Cancer Screening and Colorectal Cancer Screening Outcome: Patient declined documented in this encounter Plan of Treatment [...] on filedocumented in this encounter Care Teams Contract Accountant Relationship Specialty Start Date End Date Carmella Ulloa MD [address] [place] [address] PCP - General Family Medicine 09/27/17 documented as of this encounter
--- OUTSIDE RECORDS SUMMARY | 2024-04-01 12:46 | XMS_ITS | Encounter Summary ---
Author Organization [place] [address] Care Team Providers Care Icu Specialist Name Role Phone Carmella Ulloa MD Primary Care Provider [phone] Reason for Visit * Reason Onset Date Comments Central Patient Navigator Outreach 02/04/2020 Cervical Cancer Screening Encounter Details Date Type Department Care Team (Late st Contact Info) Description 02/04/2020 Patient Outreach [facility] [address] [place] [address] Carmella Ulloa MD [address] [place] [address] Central Patient Navigator Outreach (Cervical Cancer Screening) Social History Tobacco Use Types Packs/Day Years [...] documented in this encounter Progress Notes * Allison Wakefield RN - 02/04/2020 3:11 PM EDT Patient Outreach: Care Gap Outreach Attempt Count: 1st Care Gaps Addressed quality liaison: Appointment, Flu Shot and Cervical Cancer Screening Outcome: No answer documented in this encounter Plan of Treatment [...] on filedocumented in this encounter Care Teams Icu Specialist Relationship Specialty Start Date End Date Carmella Ulloa MD [address] [place] [address] PCP - General Family Medicine 09/27/17 documented as of this encounter
--- OUTSIDE RECORDS SUMMARY | 2024-04-01 12:46 | XMS_ITS | Encounter Summary ---
Author Organization [place] [address] Care Team Providers Care Multi Line Claims Adjuster Name Role Phone Carmella Ulloa MD Primary Care Provider [phone] Reason for Visit * Reason Comments Medication Refill Encounter Details Date Type Department Care Team (Late st Contact Info) Description 03/05/2019 Refill [facility] [address] [place] [address] Carmella Ulloa MD [address] [place] [address] Medication Refill Social History Tobacco Use Types [...] End Date meloxicam (MOBIC) 15 mg Oral TabletIndications: Chronic pain of left knee,Closed fracture of distal end of right fibula, unspecified fracture morphology, sequela TAKE 1 TABLET BY MOUTH ONCE DAILY 30 Tab 2 03/06/2019 08/26/2019 documented in this encounter Plan of Treatment [...] left knee Pain in joint, lower leg Closed fracture of distal end of right fibula, unspecified fracture morphology, sequela documented in this encounter Discontinued Medications Medication Sig Discontinue Reason Start Date End Da te meloxicam (MOBIC) 15 mg Oral TabletIndications:Chronic pain of left knee,Closed fracture of distal end of right fibula, unspecified fracture morphology, sequela Take 1 Tab by mouth daily. Reorder 08/21/2018 03/05/2019 documented as of this encounter Care Teams Multi Line Claims Adjuster Relationship Specialty Start Date End Date Carmella Ulloa MD [address] [place] [address] PCP - General Family Medicine 09/27/17 documented as of this encounter
--- OUTSIDE RECORDS SUMMARY | 2024-04-01 12:46 | XMS_ITS | Encounter Summary ---
Author Organization [place] [address] Care Team Providers Care Light Bulb Assembler Name Role Phone Carmella Ulloa MD Primary Care Provider [phone] Reason for Visit * Reason Comments Medication Refill Encounter Details Date Type Department Care Team (Late st Contact Info) Description 07/30/2020 Refill [facility] [address] [place] [address] Carmella Ulloa MD [address] [place] [address] Medication Refill Social History Tobacco Use Types [...] of Assessment Author No 11/01/2019 1:53 PM EDJuan Francisco Gao MA * Does this person have difficulty [...] hronic pain of left knee Take 1 tablet by mouth once daily 90 Tab 07/30/2020 documented in this encounter Plan of Treatment [...] 15 mg Oral TabletIndications:Chronic pain of left knee Take 1 Tab by mouth daily. 11/01/2019 07/30/2020 documented as of this encounter Care Teams Light Bulb Assembler Relationship Specialty Start Date End Date Carmella Ulloa MD [address] [place] [address] PCP - General Family Medicine 09/27/17 documented as of this encounter
--- OUTSIDE RECORDS SUMMARY | 2024-04-01 12:46 | XMS_ITS | Encounter Summary ---
Author Organization [place] [address] Care Team Providers Care Manager Mission Name Role Phone Carmella Ulloa MD Primary Care Provider [phone] Reason for Visit * Physical Therapy (Routine) - Closed Specialty Diagnoses / Procedures Referred By Shun moralez Referred To Contact Clinic/Center-Physical Therapy / Physical Therapy Diagnoses PT Procedures pt Kirby Sharif MD [facility] Physical Therapy [address] [address] Phone: tel: fax: Referral ID Status Reason Start Date Expiration Date Visits Re quested Visits Authorized [id number] Closed 08/03/2018 11/03/2018 19 19 Encounter Details Date Type Department Care Team (Latest Contact Info) Description 08/16/2018 1:24 PM EDT - 08/16/2018 11:59 PM EDT Hospital Encounter [facility] [place] [address] Luanne Walter, PT Discharge Disposition: Home or [...] Progress Notes * Luanne Walter, PT - 08/16/2018 1:32 PM EDT Images from the original note were not included. Physical Therapy Daily Progress Note 08/16/2018 Raquel Goel : 1970 Visit #?? /Insurance : 3/[employer] Onset Date: 06/15/18 Diagnosis: Right ankle lateral malleolus fracture Precautions: universal MD Follow Up:Kole 09/04/18 Medication Changes: none Reassessment Date/Recert Date: 09/03/18 Next FOTO due: 6th visit GCodes due: 10th visit Time In/Out: 1300/1302 Subjective Reports her pain is about a 4. HEP: Compliant Objective Exercises performed this date without brace to assess patient tolerance FOTO Eval: Patient Score: 40 Predicted Score: 58 Predicted Change: 18 Subsequent FOTO Scores (score and date): Education: Needs Assistance: Yes Understood: Yes Treatment: Therapeutic exercise x 28 min Recumbent bike x 5 min L6 without brace Lunge forward for ankle dorsiflexion x 20 with brace Total gym L16 without brace Marches x 20 PF x 20 DF x 20 SLR x 20 Squats x 20 BAPS board L2 without brace Standing AP/DF x 15 Inv/Ev x 15 Circles CW, CCW x 20 each Total timed treatment: 28 min (TE x 2) Assessment Tolerates treatment well. Decreased hesistation with WB on total gym this date. Give yellow theraband for ankle 4 ways Plan Continue PT: Signature: Luanne Walter, IVIS Date: 08/16/2018 documented in this encounter Plan of Treatment [...] on filedocumented in this encounter Care Teams Manager Mission Relationship Specialty Start Date End Date Carmella Ulloa MD [address] [place] [address] PCP - General Family Medicine 09/27/17 documented as of this encounter
--- OUTSIDE RECORDS SUMMARY | 2024-04-01 12:46 | XMS_ITS | Encounter Summary ---
Author Organization [place] [address] Care Team Providers Care Endless Track Vehicle Supervisor Name Role Phone Carmella Ulloa MD Primary Care Provider [phone] Reason for Visit * Reason Onset Date Comments Symptom Call 12/19/2019 Encounter Details Date Type Department Care Team (Late st Contact Info) Description 12/19/2019 Telephone [facility] [address] [place] [address] Carmella Ulloa MD [address] [place] [address] Symptom Call Social History Tobacco Use Types Packs/Day [...] Refills Last Filled Start Date End Date clotrimazole (LOTRIMIN) 1 % Top Cream Apply topically 2 times daily for 10 days. 24 g 12/19/2019 0 documented in this encounter Miscellaneous Notes * Telephone Encounter - Brynn Hamilton CCMA - 12/19/2019 3:26 PM EDT Pt made aware * Telephone Encounter - Carmella Ulloa MD - 12/19/2019 2:40 PM EDT Clotrimazole sent. Needs appt to assess if needs further. Antibiotic will not Help that * Telephone Encounter - Kori Pierre - 12/19/2019 11:52 AM EDT Symptoms Call Who is reporting the symptoms: Patient What symptom(s) is the patient experiencing: patient calls it jock each, red and itches in the crease of her legs How long have symptoms been present: 7 day(s) ago Has the patient been seen for this: Yes in the past Has the patient tried anything to relieve the symptoms and did it help: Yes medicated powder If pain, what level on scale 1-10 (10 being the greatest): 6 at times Desired Outcome: Rx, a cream and antibiotic Pharmacy & Location: [facility] [address] [place] [address] [facility] [address] [phone] Additional Notes: documented in this encounter Plan of Treatment [...] on filedocumented in this encounter Care Teams Endless Track Vehicle Supervisor Relationship Specialty Start Date End Date Carmella Ulloa MD [address] [place] [address] PCP - General Family Medicine 09/27/17 documented as of this encounter
--- OUTSIDE RECORDS SUMMARY | 2024-04-01 12:46 | XMS_ITS | Encounter Summary ---
Author Organization [place] [address] Care Team Providers Care Green Chain Marker Name Role Phone Carmella Ulloa MD Primary Care Provider [phone] Reason for Visit * Reason Comments Medication Refill Encounter Details Date Type Department Care Team (Late st Contact Info) Description 08/26/2019 Refill [facility] [address] [place] [address] Carmella Ulloa MD [address] [place] [address] Medication Refill Social History Tobacco Use Types [...] No 09/29/2017 3:46 PM EDT Raquel Magallon SheliaALIDA * Because of a physical, mental or [...] Magallon Shelia ALIDA documented in this encounter Ordered Prescriptions Prescription Sig Dispense Quantity Refills Last Filled Start Date End Date meloxicam (MOBIC) 15 mg Oral TabletIndications: Chronic pain of left knee,Closed fracture of distal end of right fibula, unspecified fracture morphology, sequela Take 1 tablet by mouth once daily 30 Tab 08/26/2019 11/01/2019 documented in this encounter Plan of Treatment [...] TAKE 1 TABLET BY MOUTH ONCE DAILY 03/06/2019 08/26/2019 documented as of this encounter Care Teams Green Chain Marker Relationship Specialty Start Date End Date Carmella Ulloa MD [address] [place] [address] PCP - General Family Medicine 09/27/17 documented as of this encounter
--- OUTSIDE RECORDS SUMMARY | 2024-04-01 12:46 | XMS_ITS | Encounter Summary ---
Author Organization [place] [address] Care Team Providers Care Commercial Airplane Pilot Name Role Phone Carmella Ulloa MD Primary Care Provider [phone] Encounter Details Date Type Department Care Team (Latest Contact Info) Description 09/19/2018 3:00 PM EDT - 09/19/2018 11:59 PM EDT Hospital Encounter [facility] [place] [address] Luanne Walter, PT Discharge Disposition: Home or [...] Progress Notes * Luanne Walter, PT - 09/19/2018 3:02 PM EDT Images from the original note were not included. Physical Therapy Daily Progress Note 09/19/2018 Raquel Goel : 1970 Visit #?? /Insurance [facility]10 [facility] of 12 [facility] Onset Date: 06/15/18 Diagnosis: Right ankle lateral malleolus fracture Precautions: universal MD Follow Up:[facility] Medication Changes: none Reassessment Date/Recert Date: 09/30/18 Next FOTO due: 09/30/18 Time In/Out: 1502/1530 Subjective Reports a sharp pain at times in her ankle. Was doing it some Monday, but has started more so over the weekend. Ankle is about a 2 today sitting, about a 5 when she's up on it. HEP: Compliant Objective Exercises performed with brace [...] walking Tandem walk SL balance pitchback x 10 atnerior and lateral (B) Total timed treatment: 27 min (TE x 2) Total treatment time: 27 minutes Assessment Tolerates treatment well. Able to progress through exercises faster today. Difficulty with SL balance for pitchback. Goals set for 4 weeks. Functional Goals: [...] improved Plan Continue PT: Signature: Luanne Walter, PT Date: 09/19/2018 documented in this encounter Plan of Treatment [...] on filedocumented in this encounter Care Teams Commercial Airplane Pilot Relationship Specialty Start Date End Date Carmella Ulloa MD [address] [place] [address] PCP - General Family Medicine 09/27/17 documented as of this encounter
--- OUTSIDE RECORDS SUMMARY | 2024-04-01 12:46 | XMS_ITS | Encounter Summary ---
Author Organization [place] [address] Care Team Providers Care Auto Club Safety Program Coordinator Name Role Phone Carmella Ulloa MD Primary Care Provider [phone] Reason for Visit * Reason Comments Insect Bite upper left thigh Other bacterial infection Encounter Details Date Type Department Care Team (Late st Contact Info) Description 01/03/2020 10:45 AM EDT Office Visit [facility] [address] [place] [address] Carmella Ulloa MD [address] [place] [id number] Spider bite wound, undetermined intent, initial encounter (Primary Dx); Candidiasis Social History Tobacco Use Types Packs/Day Years [...] AM EDT documented as of this encounter Last Filed Vital Signs Vital Sign Reading Time Taken Comments Blood Pressure 130/82 01/03/2020 11:13 AM EDT Pulse - - Temperature 36.2 ??C (97.2 ??F) 01/03/2020 11:13 AM E DT Respiratory Rate - - Oxygen Saturation - - Inhaled Oxygen Concentration - - Weight 103.4 kg (228 lb) 01/03/2020 11:13 AM EDT Height 167.6 cm (5' 6 ) 01/03/2020 11:13 AM EDT Body Mass Index 36.8 01/03/2020 11:13 AM EDT documented in this encounter Functional Status [...] Refills Last Filled Start Date End Date nystatin (MYCOSTATIN) Top CreamIndications:C andidiasis Apply topically 2 times daily for 14 days. 30 g 2 01/03/2020 0 sulfamethoxazole-t rimethoprim (BACTRIM DS) 800-160 mg Oral TabletIndications: Spider bite wound, undetermined intent, initial encounter Take 1 Tab by mouth every 12 hours for 10 days. 20 Tab 01/03/2020 0 fluconazole (DIFLUCAN) 100 mg Oral TabletIndications: Candidiasis Take 1 Tab by mouth daily for 14 days. 14 Tab 01/03/2020 0 documented in this encounter Progress Notes * Carmella Ulloa MD - 01/03/2020 10:45 AM EDT Vitals: 01/03/20 1113 BP: 130/82 Temp: 97.2 ??F (36.2 ??C) Weight: 228 lb (103.4 kg) Height: 5' 6 (1.676 m) SUBJECTIVE: Chief Complaint Patient presents with ??? Insect Bite upper left thigh ??? Other bacterial infection HPI: Insect Bite This is a new problem. The current episode started in the past 7 days. The problem is unchanged. The affected locations include the left upper leg. Pertinent negatives include no cough, diarrhea, fatigue or fever. Other This is a new problem. The current episode started 1 to 4 weeks ago. The problem occurs constantly.The problem has been unchanged. Associated symptoms include a rash. Pertinent negatives include no abdominal pain, coughing, fatigue, fever or nausea. Pt is here today for a spider bite, jock itch, and bacterial infection Review of Systems Constitutional: Negative for fatigue and fever. HENT: Negative. Respiratory: Negative for cough and wheezing. Cardiovascular: Negative. Gastrointestinal: Negative for abdominal pain, diarrhea and nausea. Genitourinary: Negative. Musculoskeletal: Negative. Skin: Positive for rash and wound. Neurological: Negative. Psychiatric/Behavioral: Negative. OBJECTIVE: Physical Exam Vitals signs and nursing note reviewed. HENT: Head: Normocephalic. Cardiovascular: Rate and Rhythm: Normal rate. Heart sounds: No murmur. Pulmonary: Effort: Pulmonary effort is normal. Breath sounds: No wheezing. Abdominal: Palpations: Abdomen is soft. Tenderness: There is no abdominal tenderness. Skin: Findings: Erythema and rash present. Comments: Left inner thigh with 1 cm erythema and edema. Groin with dense erythema and moisture. Neurological: General: No focal deficit present. Mental Status: She is alert. Psychiatric: Mood and Affect: Mood normal. Assessment Diagnoses and all orders for this visit: Spider bite wound, undetermined intent, initial encounter - sulfamethoxazole-trimethoprim (BACTRIM DS) 800-160 mg Oral Tablet; Take 1 Tab by mouth every 12 hours for 10 days. Dispense: 20 Tab; Refill: 0 Candidiasis - fluconazole (DIFLUCAN) 100 mg Oral Tablet; Take 1 Tab by mouth daily for 14 days. Dispense: 14 Tab; Refill: 0 - nystatin (MYCOSTATIN) Top Cream; Apply topically 2 times daily for 14 days. Dispense: 30 g; Refill: 2 documented in this encounter Plan of Treatment Not on file documented as of this encounter Goals Goal Patient Goal Type Associated Problems Recent Progress Patient-Stated? Author Maintain a healthy diet, exercise regularly and maintain an ideal body weight General No Tiana Mena, RN Stay Tobacco Free Lifestyle No Tiana Mena RN documented as of this encounter Visit Diagnoses Diagnosis Spider bite wound, undetermined intent, initial encounter- Primary Candidiasis Candidiasis of unspecified site documented in this encounter Care Teams Auto Club Safety Program Coordinator Relationship Specialty Start Date End Date Carmella Ulloa MD [address] [place] [address] PCP - General Family Medicine 09/27/17 documented as of this encounter
--- OUTSIDE RECORDS SUMMARY | 2024-04-01 12:46 | XMS_ITS | Encounter Summary ---
Author Organization [place] [address] Care Team Providers Care Programs Director Name Role Phone Carmella Ulloa MD Primary Care Provider [phone] Reason for Visit * Physical Therapy (Routine) - Closed Specialty Diagnoses / Procedures Referred By Shun moralez Referred To Contact Clinic/Center-Physical Therapy / Physical Therapy Diagnoses PT Procedures pt Kirby Sharif MD [facility] Physical Therapy [address] [address] Phone: tel: fax: Referral ID Status Reason Start Date Expiration Date Visits Re quested Visits Authorized [id number] Closed 08/03/2018 11/03/2018 19 19 Encounter Details Date Type Department Care Team (Latest Contact Info) Description 10/12/2018 10:30 AM EDT - 10/12/2018 11:59 PM EDT Hospital Encounter [facility] [place] [address] Luanne Walter, PT Discharge Disposition: Home or [...] Progress Notes * Luanne Walter, PT - 10/12/2018 10:32 AM EDT Images from the original note were not included. Physical Therapy Daily Progress Note 10/12/2018 Raquel Goel : 1970 Visit #?? /Insurance :(12) 1 out of 7 approved through 11-03-18 /[facility] Onset Date: 06/15/18 Diagnosis: Right ankle lateral malleolus fracture Precautions: universal MD Follow Up:[facility] 10/23 Medication Changes: none Reassessment Date/Recert Date: 10/27/18 Next FOTO due: 10/27/18 Time In/Out: 1033/1100 Subjective Reports her ankle is a 2. Back doing okay so far. Ankle been doing okay around the house. said she's off for another 3 weeks in order to build up her ankle and her knees. Ankle was looking okay, just want to strengthen it more before she's on her feet for a work shift. HEP: Compliant Objective AROM: AFFECTED FOOT/ANKLE: DF: [...] 7 x 5 min Seat at 7 Trampoline step ups x 20 (B) 2# Lateral x 20 Plantarflexion x 20 Marches x 20 Carpet to wall and back with 2# PF Braided walk Side steps x 2 Zig Zags Marches Soleus wall squat 2# 2 x 10 Stair squat x 20 Soleus stretch x 30s Gastroc stretch x 30s (B) Deferred Eccentric PF x 20 Stair squat x [...] Reassess x 5 min Total timed treatment: 27 min (TE x 2) Total treatment time: 27 minutes Assessment Tolerates treatment well. Fatigued at end of session. Reports some discomfort in knees with exercises. Difficulty performing soleus stretch due to brace and slight pain in ankle. Goals set for 4 weeks. Functional Goals: [...] Continue PT: Signature: Luanne Walter, PT Date: 10/12/2018 documented in this encounter Plan of Treatment [...] on filedocumented in this encounter Care Teams Programs Director Relationship Specialty Start Date End Date Carmella Ulloa MD [address] [place] [address] PCP - General Family Medicine 09/27/17 documented as of this encounter
--- OUTSIDE RECORDS SUMMARY | 2024-04-01 12:46 | XMS_ITS | Encounter Summary ---
Author Organization [place] [address] Care Team Providers Care Belt Maker Helper Name Role Phone Carmella Juarez MD Primary Care Provider [phone] Reason for Visit * Reason Onset Date Comments Dental Pain 12/19/2018 Encounter Details Date Type Department Care Team (Late st Contact Info) Description 12/19/2018 Telephone [facility] [address] [place] [address] Carmella Juarez MD [address] [place] [address] Dental Pain Social History Tobacco Use Types Packs/Day Years [...] PM EDT Raquel Magallon RMMary Jane * Because of a physical, mental [...] Date Author No 09/29/2017 3:46 PM EDT MagallonRaquel travis RMMary Jane documented in this encounter Ordered Prescriptions Prescription Sig Dispense Quantity Refills Last Filled Start Date End Date amoxicillin (AMOXIL) 250 mg/5 mL Oral Suspension for Reconstitution Take 10 mL by mouth 3 times daily for 10 days. 300 mL 12/19/2018 9 amoxicillin (AMOXIL) 875 mg Oral Tablet Take 1 Tab by mouth 2 times daily for 10 days. 20 Tab 12/19/2018 9 documented in this encounter Miscellaneous Notes * Addendum Note - Carmella Juarez MD - 12/19/2018 5:28 PM EDTAddended by: CARMELLA JUAREZ on: 12/19/2018 05:28 PM Modules accepted: Orders * Telephone Encounter - Carmella Juarez MD - 12/19/2018 5:27 PM EDT done * Telephone Encounter - Cezar Cruz - 12/19/2018 12:50 PM EDT Ca we please call in abx for teeth -- had one break off and has open nerve and thinks infected -- can we please make it a liquid documented in this encounter Plan of Treatment [...] Discontinue Reason Start Date End Da te amoxicillin (AMOXIL) 875 mg Oral Tablet Take 1 Tab by mouth 2 times daily for 10 days. Cancelled by 12/19/2018 12/19/2018 documented as of this encounter Care Teams Belt Maker Helper Relationship Specialty Start Date End Date Carmella Juarez MD [address] [place] [address] PCP - General Family Medicine 09/27/17 documented as of this encounter
--- OUTSIDE RECORDS SUMMARY | 2024-04-01 12:46 | XMS_ITS | Encounter Summary ---
Author Organization [place] [address] Care Team Providers Care Producer Assistant Name Role Phone Carmella Ulloa MD Primary Care Provider [phone] Encounter Details Date Type Department Care Team (Late st Contact Info) Description 05/22/2020 Orders Only [facility] [address] [place] [address] Carmella Ulloa MD [address] [place] [id number] Screening for colon cancer; Screening for cancer [...] maintain an ideal body weight General No iTana Mena, RN Stay Tobacco Free Lifestyle No Tiana Mena, RN documented as of this encounter Visit Diagnoses Diagnosis Screening for colon cancer Special screening for malignant neoplasms, colon Screening for cancer of the rectum Screening for malignant neoplasm of the rectum documented in this encounter Care Teams Producer Assistant Relationship Specialty Start Date End Date Carmella Ulloa MD [address] [place] [address] PCP - General Family Medicine 09/27/17 documented as of this encounter
--- OUTSIDE RECORDS SUMMARY | 2024-04-01 12:47 | XMS_ITS | Encounter Summary ---
Author Organization [place] [address] Care Team Providers Care Monomer Recovery Operator Name Role Phone Carmella Ulloa MD Primary Care Provider [phone] Reason for Visit * Physical Therapy (Routine) - Closed Specialty Diagnoses / Procedures Referred By Contdeandra t Referred To Contact Clinic/Center-Physical Therapy / Physical Therapy Diagnoses eval bilateral wrist pain injury Procedures PT EVAL 60 Aleks Nichols DO Phone: tel: fax: [facility] Physical Therapy [address] [place] [address] Phone: tel: fax: Referral ID Status Reason Start Date Expiration Date Visits Re quested Visits Authorized [id number] Closed 01/26/2018 03/28/2018 12 12 Encounter Details Date Type Department Care Team (Latest Contact Info) Description 02/08/2018 3:29 PM EDT - 02/08/2018 11:59 PM EDT Hospital Encounter [facility] Physical Therapy [address] [place] [address] Roxann Kitchen, PT [address] [place] [address] Discharge Disposition: Home or Self Care Social History Tobacco Use Types Packs/Day Years Used Date Smoking Tobacco: Never Smokeless Tobacco: Never Alcohol Use Standard Drinks/Week Comments No 0 (1 standard drink = 0.6 oz pur e alcohol) Comments No Sex and Gender Information Value [...] documented in this encounter Progress Notes * Roxann Kitchen, PT - 02/08/2018 3:11 PM EDT Images from the original note were not included. Physical Therapy Daily Progress Note 02/08/2018 Raquel Manasa : 1970 Visit #/Insurance 4/Worker's Comp Onset Date: 3 weeks Diagnosis:other synovitis and tenosynovitis, unspecified hand. Precautions:MD steven Follow Up:Nichols : 2 weeks from Monday02/20/18 Medication Changes: no changes. Reassessment Date/Recert Date: 02/25/18 Next FOTO due: 6th visit GCodes due: 10th visit Time In/Out: 336-400 Pain Scale: 6/10 due to work Location: bilateral wrist(s) Type: aching Subjective She c/o left thumb going numb on her. MD says there is improvement and to continue PT. HEP: Compliant Objective FOTO Eval: Patient Score: 45 FOTO Expected Score: 60 Anticipated Change:15 Subsequent FOTO Scores (score and date): Education: Needs Assistance: Yes Understood: Yes Treatment: Therapeutic exercise x 24 min (TE) UE bike x 2 min forward and back at level 4 with braces. Wrist flexion/extension x 10, x 10 each with yellow band Wrist roller x 5 Wrist deviation 1# 2 x 10 Beads with tweezers x 20 B Thumb flexion x 10 B w/rubber band Thumb adduction x 10 (B) Thumb abduction x 10 (B) Wrist flexion stretch x 30s (B) Wrist extension stretch x 30s (B) Thumb stretch x 30s (B) Scapular retraction x 10 for posture Total timed treatment: 24 min (TE x 2) Assessment Tolerates treatment fair. Very sore today from work. Plan Continue PT: Progress as tolerated Signature: Roxann Kitchen, PT Date: 02/08/2018 documented in this encounter Plan of Treatment Not on file documented as of this encounter Goals Goal Patient Goal Type Associated Problems Recent Progress Patient-Stated? Author Maintain a healthy diet, exercise regularly and maintain an ideal body weight General No Tiana Mena, RN documented as of this encounter Visit Diagnoses Not on filedocumented in this encounter Care Teams Monomer Recovery Operator Relationship Specialty Start Date End Date Carmella Ulloa MD [address] [place] [address] PCP - General Family Medicine 09/27/17 documented as of this encounter
--- OUTSIDE RECORDS SUMMARY | 2024-04-01 12:47 | XMS_ITS | Encounter Summary ---
Author Organization [place] [address] Care Team Providers Care Radiological Technician Name Role Phone Unavailable Primary Care Provider Unavailabl e Encounter Details Date Type Department Care Team (Late st Contact Info) Description 10/13/2005 10:02 AM EDT - 10/13/2005 11:59 PM EDT Hospital Encounter [facility] Leo Lord, DO [address] [place] [address] Social History Tobacco Use Types Packs/Day Years Used Date Smoking Tobacco: Never Assessed Comments Unknown Sex and Gender Information Value Date Recorded Sex Assigned at Not on file Legal Sex Female 5:20 AM EDT Gender Identity Not on file Sexual Orientation Not on file documented as of this encounter Plan of Treatment Scheduled Orders Name Type Priority Associated Diagnoses Orde r Schedule CT ABD/PELVIS ASSISTANT BROKER Imaging Routine Once fo r 1 Occurrences starting 07/22/2009 until 07/22/2009, 1 completed documented as of this encounter Procedures Procedure Name Priority Date/Time Associated Diagnosis Comments CT ABD/PELVIS ASSISTANT BROKER Routine 10/13/2005 10: 00 AM EDT documented in this encounter Results * CT ABD/PELVIS ASSISTANT BROKER (10/13/2005 10:00 AM EDT) Anatomical Region Laterality Modality Other 10/13/2005 10:0 0 AM EDT Narrative 10/13/2005 11:56 AM EDT Abdomen and pelvic CT with contrast, 10/13/2005. Clinical History- 35-year-old female with pain. My right side is doubling me over. Symptoms for two weeks. History of asthma and bronchitis. Findings- Contiguous 5-mm images were obtained through the abdomen and pelvis following the uneventful administration of oral and intravenous contrast. 100 cc Optiray-320 were administered without immediate reported complications. Abdomen- Calcified left base pulmonary granuloma. Two calcified right base pulmonary granulomas also noted. Mild left base atelectasis and/or scarring. Liver, spleen, pancreas, left adrenal gland, and kidneys within normal limits. 19-mm oval low attenuation lesion within the right adrenal gland, nonspecific. Gallbladder has an unremarkable CT appearance. Stomach is only partially distended. Apparent thickening of the gastric wall is likely due to poor distention^ however depending on clinical concern, an upper GI examination may be beneficial. Oral contrast material partially opacifies the small bowel which is unremarkable. Pelvis- Oral contrast partially opacifies the colon which is also unremarkable. Uterus and ovaries have an unremarkable CT appearance. Depending on clinical concern, uterus and ovaries are best evaluated by ultrasound. Patient's bladder was mildly distended during the examination and is within normal limits. Impression- 1. 19-mm low attenuation lesion within the right adrenal gland, nonspecific. In a patient this age, this likely represents an adrenal adenoma^ however other etiologies cannot be entirely excluded and therefore, further evaluation is necessary. Specifically, either a noncontrast thin-cut adrenal CT or an in and out of phase MR examination is recommended for further evaluation. 2. Evidence of prior granulomatous disease. 3. Otherwise, essentially unremarkable contrast-enhanced abdomen and pelvic CT. ? Truck Leasing Manager- KAREL CALZADA ? Reading Radiologist- EVELIN NICHOLS ? Released Date Time- 10/13/05 1241 Procedure Note Evelin Nichols - 07/22/[address] with contrast, 10/13/2005. Clinical History- 35-year-old female with pain. My right side is doubling me over. Symptoms for two weeks. History of asthma and bronchitis. Findings- Contiguous 5-mm images were obtained through the abdomen and pelvis following the uneventful administration of oral and intravenous contrast. 100 cc Optiray-320 were administered without immediate reported complications. Abdomen- Calcified left base pulmonary granuloma. Two calcified right base pulmonary granulomas also noted. Mild left base atelectasis and/or scarring. Liver, spleen, pancreas, left adrenal gland, and kidneys within normal limits. 19-mm oval low attenuation lesion within the right adrenal gland, nonspecific. Gallbladder has an unremarkable CT appearance. Stomach is only partially distended. Apparent thickening of the gastric wall is likely due to poor distention^ however depending on clinical concern, an upper GI examination may be beneficial. Oral contrast material partially opacifies the small bowel which is unremarkable. Pelvis- Oral contrast partially opacifies the colon which is also unremarkable. Uterus and ovaries have an unremarkable CT appearance. Depending on clinical concern, uterus and ovaries are best evaluated by ultrasound. Patient's bladder was mildly distended during the examination and is within normal limits. Impression- 1. 19-mm low attenuation lesion within the right adrenal gland, nonspecific. In a patient this age, this likely represents an adrenal adenoma^ however other etiologies cannot be entirely excluded and therefore, further evaluation is necessary. Specifically, either a noncontrast thin-cut adrenal CT or an in and out of phase MR examination is recommended for further evaluation. 2. Evidence of prior granulomatous disease. 3. Otherwise, essentially unremarkable contrast-enhanced abdomen and pelvic CT. Truck Leasing Manager- KAREL Jones Radiologist- EVELIN NICHOLS MD Released Date Time- 10/13/05 1241 us Leo Pop DO [facility] Result documented in this encounter Visit Diagnoses Not on filedocumented in this encounter
--- OUTSIDE RECORDS SUMMARY | 2024-04-01 12:47 | XMS_ITS | Encounter Summary ---
Author Organization [place] [address] Care Team Providers Care Sawmilling Operator Name Role Phone Carmella Ulloa MD Primary Care Provider [phone] Reason for Visit * Physical Therapy (Routine) - Closed Specialty Diagnoses / Procedures Referred By Contac t Referred To Contact Clinic/Center-Physical Therapy / Physical Therapy Diagnoses eval bilateral wrist pain injury Procedures PT EVAL 60 Aleks Nichols, DO Phone: tel: fax: [facility] Physical Therapy [address] [address] Phone: tel: fax: Referral ID Status Reason Start Date Expiration Date Visits Re quested Visits Authorized [id number] Closed 01/26/2018 03/28/2018 12 12 Encounter Details Date Type Department Care Team (Latest Contact Info) Description 02/22/2018 3:30 PM EDT - 02/22/2018 11:59 PM EDT Hospital Encounter [facility] Physical Therapy [address] [address] Luanne Walter, PT Discharge Disposition: Home or [...] Progress Notes * Luanne Walter, PT - 02/22/2018 3:33 PM EDT Images from the original note were not included. Physical Therapy Daily Progress Note/Reassessment 02/22/2018 Raquel Goel : 1970 Visit #/Insurance 7/Worker's Comp Onset Date: 3 weeks Diagnosis:other synovitis and tenosynovitis, unspecified hand. Precautions:MD steven Follow Up:Magdalena : 2 weeks from Monday02/20/18 Medication Changes: no changes. Reassessment Date/Recert Date: 02/25/18 Next FOTO due: 6th visit GCodes due: 10th visit Time In/Out: 1535/1613 Pain Scale: 7 /10 Location: bilateral wrist(s) Type: aching Subjective Reports her wrists are sore from work yesterday. HEP: Compliant Objective FOTO Eval: Patient Score: 45 FOTO Expected Score: 60 Anticipated Change:15 Subsequent FOTO Scores (score and date): Education: Needs Assistance: Yes Understood: Yes Treatment: Therapeutic exercise x 28 min (TE) UE bike x 2 min forward and back at level 4 with braces. Wrist flexion/extension 2 x 10 each with yellow band Wrist roller x 5 Wrist deviation w/yellow band x 10 Beads with tweezers x 20 B Thumb flexion x 10 B w/rubber band Thumb adduction x 10 (B) Thumb abduction x 10 (B) Wrist flexion stretch x 30s (B) Wrist extension stretch x 30s (B) Thumb stretch x 30s (B) Scapular retraction x 10 for posture Total timed treatment: 25 min (TE x 2) US to Bilateral wrists x 8 min Assessment Increased pain with decreased tolerance. Shaking in wrist with exercises. Reports slight decreased pain with US, mostly just an odd feeling. Reassess next session Plan Continue PT: Progress as tolerated Signature: Luanne Walter, PT Date: 02/22/2018 documented in this encounter Plan of Treatment Not on file documented as of this encounter Goals Goal Patient Goal Type Associated Problems Recent Progress Patient-Stated? Author Maintain a healthy diet, exercise regularly and maintain an ideal body weight General No Tiana Mena, RN documented as of this encounter Visit Diagnoses Not on filedocumented in this encounter Care Teams Sawmilling Operator Relationship Specialty Start Date End Date Carmella Ulloa MD [address] [place] [address] PCP - General Family Medicine 09/27/17 documented as of this encounter
--- OUTSIDE RECORDS SUMMARY | 2024-04-01 12:47 | XMS_ITS | Encounter Summary ---
Author Organization [place] [address] Care Team Providers Care Pilot Captain Name Role Phone Unavailable Primary Care Provider Unavailabl e Encounter Details Date Type Department Care Team (Late st Contact Info) Description 10/09/2009 Abstract SEP [facility] [address] [place] [address] Zeferino Schroeder MD [address] [address] Asthma; Migraine Social History Tobacco Use Types Packs/Day Years Used Date Smoking Tobacco: Never Alcohol Use Standard Drinks/Week Comments No 0 (1 standard drink = 0.6 oz pur e alcohol) Comments Unknown Sex and Gender Information Value Date Recorded Sex Assigned at Not on file Legal Sex Female 5:20 AM EDT Gender Identity Not on file Sexual Orientation Not on file documented as of this encounter Plan of Treatment Not on file documented as of this encounter Visit Diagnoses Diagnosis Asthma Unspecified asthma Migraine Migraine, unspecified, without mention of intractable migraine without mention of status migrainosus documented in this encounter Historical Medications * This list may reflect changes made after this encounter. sertraline (ZOLOFT) 50 mg tablet Take 50 mg by mouth daily. 09/29/2017 sumatriptan (IMITREX) 100 mg tablet Take 100 mg by mouth once as needed for Migraine. 09/29/2017 trazodone (DESYREL) 50 mg tablet Take 50 mg by mouth nightly. 09/29/2017 hydrocodone-ibupr ofen (VICOPROFEN) 7.5-200 mg per tablet Take 1 Tab by mouth every 8 hours as needed for Pain. 7.5/500 09/29/2017 added in this encounter
--- OUTSIDE RECORDS SUMMARY | 2024-04-01 12:47 | XMS_ITS | Encounter Summary ---
Author Organization [place] [address] Care Team Providers Care Escrow Officer Name Role Phone Unavailable Primary Care Provider Unavailabl e Encounter Details Date Type Department Care Team (Late st Contact Info) Description 10/12/2005 3:43 PM EDT - 10/12/2005 11:59 PM EDT Hospital Encounter [facility] Leo Lord, DO [address] [place] [address] Social History Tobacco Use Types Packs/Day Years [...]
--- OUTSIDE RECORDS SUMMARY | 2024-04-01 12:47 | XMS_ITS | Encounter Summary ---
Author Organization [place] [address] Care Team Providers Care Lawyer Real Estate Name Role Phone Unavailable Primary Care Provider Unavailabl e Reason for Visit * Reason Comments Headache c/o migraine headach e began yesterday. 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 Also c/o chronic back pain. Encounter Details Date Type Department Care Team (Late Contact Info) Description 12/30/2011 9:41 PM EDT - 12/30/2011 11:30 PM EDT [facility] [address] [facility] [place] [address] Ld Medina MD [address] [place] [phone] Headache Discharge Disposition: Home or Self Care Social [...] Sign Reading Time Taken Comments Blood Pressure 134/78 12/30/2011 9:49 PM EDT Pulse 90 12/30/2011 9:49 PM EDT Temperature 37.1 ??C (98.8 ??F) 12/30/2011 9:49 PM ED T Respiratory Rate 16 12/30/2011 9:49 PM EDT Oxygen Saturation 97% 12/30/2011 9:49 PM EDT Inhaled Oxygen Concentration - - Weight 74.8 kg (165 lb) 12/30/2011 9:49 PM EDT Height 165.1 cm (5' 5 ) 12/30/2011 9:49 PM EDT Body Mass Index 27.46 12/30/2011 9:49 PM EDT documented in this encounter Discharge Instructions * Discharge Instructions* Rip Liu APRN - 12/30/2011 11:14 PM EDT Follow up with family doctor in one to 2 days for recheck. * Attachments The following attachments cannot be sent through Care Everywhere. * HEADACHE, GENERAL, WITHOUT CAUSE, [id number] ([place]OREAN) documented in this encounter Discharge Disposition Disposition Code Departure Means Destination Home or Self Shelter documented in this encounter Progress Notes * Unknown, Unknown - 12/30/2011 10:15 PM EDT * Unknown, Unknown - 12/30/2011 9:32 PM EDT * Unknown, Unknown - 12/30/2011 9:30 PM EDT documented in this encounter ED Notes * Rip Liu APRN - 12/30/2011 10:08 PM EDT Chief Complaint Patient presents with ??? 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 Also c/o chronic back pain. HPI Comments: Patient presents with a two-day history of headache. She has a long history of chronic migraines in the past. She states it has been a few years since her last CAT scan. She states she has seen a specialist for this previously. She took a Vicodin 7.5 mg tablet yesterday but is now outof this medicine. She presents with her [id number] and mother who are also patients here and sheis driving home. Denies any nausea or vomiting. Positive photophobia. No recent head injury. The history is provided by the patient. Allergies Allergen Reactions ??? Ciprofloxacin ??? Imitrex (Sumatriptan Succinate) ??? Promethazine Home Medications: Prior to Admission medications Medication Sig Start Date End Date Taking? Authorizing Provider hydrocodone-ibuprofen (VICOPROFEN) 7.5-200 mg per tablet Take 1 Tab by mouth every 8 hours as needed for Pain. 7.5/500 Yes Provider, Historical trazodone (DESYREL) 50 mg tablet Take 50 mg by mouth nightly. Provider, Historical sumatriptan (IMITREX) 100 mg tablet Take 100 mg by mouth once as needed for Migraine. Provider, Historical sertraline (ZOLOFT) 50 mg tablet Take 50 mg by mouth daily. Provider, Historical Past Medical History: Past Medical History Diagnosis Date ??? Chronic back pain ??? Migraine Social History: reports that she has never smoked. She does not have any smokeless tobacco history on file. She reports that she does not drink alcohol. Family History: No family history on file. Surgical History: History reviewed. No pertinent past surgical history. Review of Systems Constitutional: Negative for fever and chills. Eyes: Negative. Respiratory: Negative for cough and shortness of breath. Cardiovascular: Negative for chest pain, palpitations and leg swelling. Gastrointestinal: Negative for nausea, vomiting, abdominal pain and diarrhea. Genitourinary: Negative for dysuria and frequency. Musculoskeletal: Negative. Skin: Negative for rash. Neurological: Positive for headaches. Psychiatric/Behavioral: Negative. All other systems reviewed and are negative. Blood pressure 134/78, pulse 90, temperature 98.8 ??F (37.1 ??C), temperature source Oral, resp. rate 16, height 5' 5 (1.651 m), weight 165 lb (74.844 kg), SpO2 97.00%. Physical Exam Constitutional: She is oriented to person, place, and time. She appears well- developed and well-nourished. HENT: Head: Normocephalic. Eyes: Pupils are equal, round, and reactive to light. Neck: Normal range of motion. Neck supple. Cardiovascular: Normal rate, regular rhythm and normal heart sounds. Pulmonary/Chest: Effort normal and breath sounds normal. No respiratory distress. Neurological: She is alert and oriented to person, place, and time. No cranial nerve deficit. Skin: Skin is warm and dry. Psychiatric: She has a normal mood and affect. Procedures Radiology/EKG/Labs: ED Course: Appropriate laboratory and radiology studies reviewed Patient presents with a headache. She is driving home. Instructed to followup with family doctor jaziel to 2 days for recheck. Toradol injection given in the department.I treated this patient independently. ED Clinical Impression: Migraine headache Critical Care time Condition at Discharge/Transfer from Department: Stable Rip Liu APRN 12/30/11 2315 Cosigned by Ld Medina MD at 12/31/2011 12:25 AM EDT documented in this encounter Miscellaneous Notes * Miscellaneous - Unknown, Unknown - 01/02/2012 9:46 AM EDT documented in this encounter Plan of Treatment Not on file documented as of this encounter Visit Diagnoses Diagnosis Headache(784.0) Headache Migraine, unspecified, without mention of intractable migraine without mention of status migrainosus documented in this encounter Administered Medications Inactive Administered Medications - up to 1 most recent administrations Medication Order MAR Action Action Date Dose Rate Site ketorolac (TORADOL) injection 60 mg 60 mg, Intramuscular, ONCE, 1 dose, On Mon12/30/11 at 2215 Given 12/30/2011 10:25 PM EDT 60 mg Left Upper Outer Quadrant documented in this encounter Active and Recently Administered Medications Times are shown in EDT. Scheduled Medication Order 12/28/2011 12/29/2011 12/30/2011 ketorolac (TORADOL) injection 60 mg (COMPLETED) 60 mg, Intramuscular, ONCE, 1 dose, On Mon12/30/11 at 2215 2225 (Given - Provid er: Tricia Montelongo RN) documented in this encounter
--- OUTSIDE RECORDS SUMMARY | 2024-04-01 12:47 | XMS_ITS | Encounter Summary ---
Author Organization [place] [address] Care Team Providers Care Assistant Associate Full Professor Name Role Phone Nonstaff, Referring Primary Care Provider Zonia kidd Reason for Visit * Reason Comments Cough Body Aches, fever - unknow does not own a thermometer, cough, congestion, runny nose, nausea without vomiting, denies diarrhea. symptoms have been ongoing for 5 days, CPtA-none Encounter Details Date Type Department Care Team (Late st Contact Info) Description 07/16/2017 9:38 PM EST - 07/16/2017 10:19 PM EST Emergency [facility] [address] [id number] Ld Medina MD [address] [place] [id number] Acute URI (Primary Dx) Discharge Disposition: Home or Self Care Social [...] Sign Reading Time Taken Comments Blood Pressure 124/69 07/16/2017 9:09 PM EST Pulse 85 07/16/2017 9:09 PM EST Temperature 37.1 ??C (98.7 ??F) 07/16/2017 9:09 PM ES T Respiratory Rate 20 07/16/2017 9:09 PM EST Oxygen Saturation 97% 07/16/2017 9:09 PM EST Inhaled Oxygen Concentration - - Weight 86.2 kg (190 lb) 07/16/2017 9:09 PM EST Height 167.6 cm (5' 6 ) 07/16/2017 9:09 PM EST Body Mass Index 30.67 07/16/2017 9:09 PM EST documented in this encounter Discharge Instructions * Discharge Instructions* Rip Rodriguez APRN - 07/16/2017 9:57 PM EST Follow-up with family doctor in 2-3 days as needed. Prompt follow-up if persistent worsening shortness of breath, other concerns. Take azithromycin as directed. Mucinex [id number] as directed. * Attachments The following attachments cannot be sent through Care Everywhere. * UPPER RESPIRATORY INFECTION, ADULT, [id number] (IRAQI) documented in this encounter Medications at Time of Discharge azithromycin (ZITHROMAX) 250 mg Oral Tablet Take 1 Tab by mouth every 24 hours for 4 days. 4 Tab 07/16/2017 07/20/2017 documented as of this encounter Ordered Prescriptions Prescription Sig Dispense Quantity Refills Last Filled Start Date End Date azithromycin (ZITHROMAX) 250 mg Oral Tablet Take 1 Tab by mouth every 24 hours for 4 days. 4 Tab 07/16/2017 07/20/2017 documented in this encounter Discharge Disposition Disposition Code Departure Means Destination Home or Self Usp documented in this encounter ED Notes * Rip Rodriguez, EFRAIN - 07/16/2017 8:53 PM EST Chief Complaint Patient presents with ??? Cough Body Aches, fever - unknow does not own a thermometer, cough, congestion, runny nose, nausea without vomiting, denies diarrhea. symptoms have been ongoing for 5 days, CPtA-none Patient presents complaining of a one-week history of productive cough. History of asthma. She lastused her albuterol last night. No recent recorded fevers but has felt chilled and feverish at times. Denies any nausea, vomiting, diarrhea. Smokes one half pack per day. Denies any shortness of breath at this time. Also complains of sore throat. Generalized body aches. 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 Ciprofloxacin ??? Imitrex [Sumatriptan Succinate] ??? Promethazine Home Medications: Prior to Admission medications Medication Sig Start Date End Date Taking? Authorizing Provider sertraline (ZOLOFT) 50 mg tablet Take 50 mg by mouth daily. Yes Provider, Historical trazodone (DESYREL) 50 mg tablet Take 50 mg by mouth nightly. Yes Provider, Historical azithromycin (ZITHROMAX) 250 mg Oral Tablet Take 1 Tab by mouth every 24 hours for 4 days. 07/16/17 07/20/17 Rip Rodriguez APRN hydrocodone-ibuprofen (VICOPROFEN) 7.5-200 mg per tablet Take 1 Tab by mouth every 8 hours as needed for Pain. 7.5/500 Provider, Historical sumatriptan (IMITREX) 100 mg tablet Take 100 mg by mouth once as needed for Migraine. Provider, Historical Past Medical History: Past Medical History: Diagnosis Date ??? Chronic back pain ??? Migraine Social History: reports that she has never smoked. She has never used smokeless tobacco. She reports that she does not drink alcohol. Family History: No family history on file. Surgical History: History reviewed. No pertinent surgical history. Review of Systems Review of Systems Constitutional: Negative for chills. HENT: Positive for congestion and sore throat. Eyes: Negative. Respiratory: Positive for cough. Negative for shortness of breath. Cardiovascular: Negative for chest pain, palpitations and leg swelling. Gastrointestinal: Negative for abdominal pain, diarrhea, nausea and vomiting. Genitourinary: Negative for dysuria, frequency and hematuria. Musculoskeletal: Positive for myalgias. Skin: Negative for rash. Neurological: Negative. Psychiatric/Behavioral: Negative. All other systems reviewed and are negative. Physical Exam Blood pressure 124/69, pulse 85, temperature 98.7 ??F (37.1 ??C), temperature source Oral, resp. rate 20, height 5' 6 (1.676 m), weight 190 lb (86.2 kg), SpO2 97 %. Physical Exam Constitutional: She is oriented to person, place, and time. She appears well- developed and well-nourished. HENT: Head: Normocephalic. Mouth/Throat: Oropharynx is clear and moist. Bilateral ear exam is normal. Neck: Normal range of motion. Neck supple. Cardiovascular: Normal rate, regular rhythm and normal heart sounds. Pulmonary/Chest: Effort normal and breath sounds normal. No respiratory distress. Neurological: She is alert and oriented to person, place, and time. Skin: Skin is warm and dry. Psychiatric: She has a normal mood and affect. Procedures Radiology/EKG/Labs: Results for orders placed or performed during the hospital encounter of 07/16/17 STREP SCREEN Result Value Ref Range Strep Screen Not Detected Not Detected INFLUENZA A/B ANTIGENS Result Value Ref Range Influ A Ag Not Detected Not Detected Influ B Ag Not Detected Not Detected Narrative Negative or Invalid results in patients with high clinical suspicion should be verified with RT-PCR, available as Respiratory Viral Mini Panel ([id number]) in [facility]. The WHO recommends molecular testing (Respiratory Viral DNA Test) during periods of low influenza activity instead of rapid tests. Should rapid tests be used, then both positive and negative test results should be confirmed by a molecular method. The WHO also recommends confirmatory testing by a molecular method (Respiratory Viral DNA Test) for all negative rapid test results during seasonal occurrence of influenza. ED Course: Appropriate laboratory and radiology studies reviewed Patient presents to URI symptoms. Laboratory findings noted above. Azithromycin given here with a prescription for the same. Instructed to follow-up with family doctor in 2-3 days as needed. Prompt follow-up instructions given. Mucinex [id number] as directed. ED Clinical Impression: URI Critical Care time Condition at Discharge/Transfer from Department: Stable This chart was completed using voice recognition technology and may contain unintended errors Rip Rodriguez APRN 07/16/170 Cosigned by Ld Medina MD at 07/17/2017 4:50 AM EST Associated attestation - Ld Medina MD - 07/17/2017 4:50 AM EST This chart was completed using voice recognition technology and may contain unintended errors documented in this encounter Plan of Treatment Not on file documented as of this encounter Procedures Procedure Name Priority Date/Time Associated Diagnosis Comments STREP A DNA STAT 07/16/2017 9:23 PM EST STREP SCREEN STAT 07/16/2017 9:23 PM EST INFLUENZA A/B ANTIGENS Routine 07/16/2017 9:23 PM EST documented in this encounter Results * STREP A DNA (07/16/2017 9:23 PM EST) Strep A DNA Not Detected Not Detected 8 2:38 PM EST [facility] Swab SPECIMEN FROM THROAT / Unknown 07/16/2017 9:23 PM EST 07/16/2017 9:25 PM EST Narrative [facility] - 07/17/2017 2:38 PM EST Test methodology by DNA probe. The performance characteristics of this test were validated by [facility]. A negative result does not rule out the presence of Group A Streptococcus DNA in concentrations below the level of detection of the assay. This laboratory is authorized under the Clinical Laboratory Improvement Amendments (CLIA) as qualified to perform high complexity testing. Compliance statement is available in the Laboratory. us Ld Medina MD MICROBIOLOGY - GENERAL ORDERABLE S Final Result [facility] [address] [place] [address] * INFLUENZA A/B ANTIGENS (07/16/2017 9:23 PM EST) Pathologist [facility] Influ A Ag Not Detected Not Detected 07/16/2017 9:39 PM EST [facility] Influ B Ag Not Detected Not Detected 07/16/2017 9:39 PM EST [facility] Swab SPECIMEN FROM NASOPHARYNGEAL STRUCTURE / Unknown 07/16/2017 9:23 PM EST 07/16/2017 9:25 PM EST Narrative [facility] - 07/16/2017 9:39 PM EST Negative or Invalid results in patients with high clinical suspicion should be verified with RT-PCR, available as Respiratory Viral Mini Panel ([id number]) in [facility]. The WHO recommends molecular testing (Respiratory Viral DNA Test) during periods of low influenza activity instead of rapid tests. ??Should rapid tests be used, then both positive and negative test results should be confirmed by a molecular method. ??The WHO also recommends confirmatory testing by a molecular method (Respiratory Viral DNA Test) for all negative rapid test results during seasonal occurrence of influenza. Ld Medina MD MICROBIOLOGY - GENERAL ORDERABLE S Final Result Performing Organization Address City/[facility]/ZIP Co de Phone Number [facility] [address] [place] [address] * STREP SCREEN (07/16/2017 9:23 PM EST) Strep Screen Not Detected Not Detected 07/17/19 9:36 PM EST [facility] Swab SPECIMEN FROM THROAT / Unknown 07/16/2017 9:23 PM EST 07/16/2017 9:25 PM EST Ld Medina MD MICROBIOLOGY - GENERAL ORDERABLE S Final Result Performing Organization Address City/[facility] Co de Phone Number [facility] [address] [place] [address] documented in this encounter Visit Diagnoses Diagnosis Acute URI- Primary Acute upper respiratory infections of unspecified site documented in this encounter Administered Medications Inactive Administered Medications - up to 1 most recent administrations Medication Order MAR Action Action Date Dose Rate Site azithromycin (ZITHROMAX) tablet 500 mg 500 mg, Oral, ONCE, 1 dose, On 07/16/17 at 2200 Given 07/16/2017 10:16 PM EST 500 mg documented in this encounter Active and Recently Administered Medications Times are shown in EST. Scheduled Medication Order 07/14/2017 07/15/2017 07/16/2017 azithromycin (ZITHROMAX) tablet 500 mg (COMPLETED) 500 mg, Oral, ONCE, 1 dose, On 07/16/17 at 2200 2216 (Given - [facility] er: Zahira Adams RN) documented in this encounter Care Teams Assistant Associate Full Professor Relationship Specialty Start Date End Date Nonstaff, Referring PCP - General 06/01/14 09/26/17 documented as of this encounter
--- OUTSIDE RECORDS SUMMARY | 2024-04-01 12:47 | XMS_ITS | Encounter Summary ---
Author Organization [place] [address] Care Team Providers Care Risk Analyst Name Role Phone Unavailable Primary Care Provider Unavailabl e Reason for Visit * Reason Comments Medication Refill Encounter Details Date Type Department Care Team (Late st Contact Info) Description 12/14/2009 Refill [facility] [address] [place] [address] Zeferino Schroeder MD [address] [phone] Medication Refill Social History Tobacco Use Types [...]
--- OUTSIDE RECORDS SUMMARY | 2024-04-01 12:47 | XMS_ITS | Encounter Summary ---
Author Organization [place] [address] Care Team Providers Care Sr Technical Sales Consultant Name Role Phone Unavailable Primary Care Provider Unavailabl e Encounter Details Date Type Department Care Team (Late st Contact Info) Description 08/28/2007 10:52 AM EDT - 08/28/2007 11:59 PM EDT Hospital Encounter [facility] Leo Lord, DO [address] [place] [address] Social History Tobacco Use Types Packs/Day Years Used Date Smoking Tobacco: Never Assessed Comments Unknown Sex and Gender Information Value Date Recorded Sex Assigned at Not on file Legal Sex Female 5:20 AM EDT Gender Identity Not on file Sexual Orientation Not on file documented as of this encounter Plan of Treatment Scheduled Orders Name Type Priority Associated Diagnoses Orde r Schedule MR LUMBAR SPINE W/O CONT GC Imaging Routine Once for 1 Occur rences starting 07/23/2009 until 07/23/2009, 1 completed documented as of this encounter Procedures Procedure Name Priority Date/Time Associated Diagnosis Comments GC MR LUMBAR SPINE W/O CONT Routine 08/28/2007 11:05 AM EDT documented in this encounter Results * MR LUMBAR SPINE W/O CONT GC (08/28/2007 11:05 AM EDT) Anatomical Region Laterality Modality Other 08/28/2007 11:0 5 AM EDT Narrative 08/28/2007 1:07 PM EDT MRI of the lumbar spine without contrast, 08/28/2007. History- Back pain. Trauma. Findings- MRI of the lumbar spine was performed without contrast. Comparison is made with prior study dated 09/15/2006. The lumbar vertebral bodies are normal in height and alignment. A normal conus is identified, ending at approximately the L1-L2 level. There is mild bilateral hypertrophic facet arthropathy at L4-L5 and L5-S1. The lumbar intervertebral disc spaces are normal. Impression- Facet arthropathy at L4-L5 and L5-S1. Otherwise normal MRI of the lumbar spine without contrast. No focal lumbar disc herniation, lumbar spinal stenosis, or focal lumbar nerve root compression identified at this time. ? Clinical Research Specialist- BHAVANA RODRIGUEZ ? Reading Radiologist- PERCY JOY ? Released Date Time- 08/28/07 1329 Procedure Note Percy Joy - 07/23/2009 MRI of the lumbar spine without contrast, 08/28/2007. History- Back pain. Trauma. Findings- MRI of the lumbar spine was performed without contrast. Comparison is made with prior study dated 09/15/2006. The lumbar vertebral bodies are normal in height and alignment. A normal conus is identified, ending at approximately the L1-L2 level. There is mild bilateral hypertrophic facet arthropathy at L4-L5 and L5-S1. The lumbar intervertebral disc spaces are normal. Impression- Facet arthropathy at L4-L5 and L5-S1. Otherwise normal MRI of the lumbar spine without contrast. No focal lumbar disc herniation, lumbar spinal stenosis, or focal lumbar nerve root compression identified at this time. Clinical Research Specialist- BHAVANA RODRIGUEZ Reading Radiologist- PERCY JOY MD Released Date Time- 08/28/07 1329 us [facility] Fin al Result documented in this encounter Visit Diagnoses Not on filedocumented in this encounter
--- OUTSIDE RECORDS SUMMARY | 2024-04-01 12:47 | XMS_ITS | Encounter Summary ---
Author Organization [place] [address] Care Team Providers Care Pension Fund Manager Name Role Phone Carmella Ulloa MD Primary Care Provider [phone] Reason for Visit * Reason Onset Date Comments Other 03/13/2018 Encounter Details Date Type Department Care Team (Late st Contact Info) Description 03/13/2018 Telephone [facility] [place] [address] Luanne Walter, PT Other Social History Tobacco Use Types Packs/Day Years [...] Raquel Magallon RMA documented in this encounter Miscellaneous Notes * Telephone Encounter - Kisha Weber - 03/13/2018 3:07 PM EDT Patient did not arrive for her Physical Therapy appointment. Spoke with patient, [facility]. Confirmed next scheduled appointment. documented in this encounter Plan of Treatment Not on file documented as of this encounter Goals Goal Patient Goal Type Associated Problems Recent Progress Patient-Stated? Author Maintain a healthy diet, exercise regularly and maintain an ideal body weight General No Tiana Mena RN documented as of this encounter Visit Diagnoses Not on filedocumented in this encounter Care Teams Pension Fund Manager Relationship Specialty Start Date End Date Carmella Ulloa MD [address] [place] [address] PCP - General Family Medicine 09/27/17 documented as of this encounter
--- OUTSIDE RECORDS SUMMARY | 2024-04-01 12:47 | XMS_ITS | Encounter Summary ---
Author Organization [place] [address] Care Team Providers Care Parking Control Officer Name Role Phone Unavailable Primary Care Provider Unavailabl e Encounter Details Date Type Department Care Team (Late st Contact Info) Description 06/07/2004 3:36 PM EST - 06/07/2004 11:59 PM EST Hospital Encounter [facility] Leo Lord, DO [address] [place] [address] Social History Tobacco Use Types Packs/Day Years [...]
--- OUTSIDE RECORDS SUMMARY | 2024-04-01 12:47 | XMS_ITS | Encounter Summary ---
Author Organization [place] [address] Care Team Providers Care Accounting Professor Name Role Phone Carmella Ulloa MD Primary Care Provider [phone] Reason for Visit * Physical Therapy (Routine) - Closed Specialty Diagnoses / Procedures Referred By Contac t Referred To Contact Clinic/Center-Physical Therapy / Physical Therapy Diagnoses eval bilateral wrist pain injury Procedures PT EVAL 60 Aleks Nichols, DO Phone: tel: fax: [facility] Physical Therapy [address] [address] Phone: tel: fax: Referral ID Status Reason Start Date Expiration Date Visits Re quested Visits Authorized [id number] Closed 01/26/2018 03/28/2018 12 12 Encounter Details Date Type Department Care Team (Latest Contact Info) Description 02/14/2018 3:16 PM EDT - 02/14/2018 11:59 PM EDT Hospital Encounter [facility] Physical Therapy [address] [address] Luanne Walter, PT Discharge Disposition: [...] Author No 09/29/2017 3:46 PM EDT Raquel Magaloln RMA * Because of a physical, mental [...] Progress Notes * Luanne Walter, PT - 02/14/2018 3:24 PM EDT Images from the original note were not included. Physical Therapy Daily Progress Note 02/14/2018 Raquel Manasa : 1970 Visit #/Insurance 5/Worker's Comp Onset Date: 3 weeks Diagnosis:other synovitis and tenosynovitis, unspecified hand. Precautions:MD steven Follow Up:Magdalena : 2 weeks from Monday02/20/18 Medication Changes: no changes. 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 States she was feeling better until she overdid it today. HEP: Compliant Objective FOTO Eval: Patient Score: 45 FOTO Expected Score: 60 Anticipated Change:15 Subsequent FOTO Scores (score and date): Education: Needs Assistance: Yes Understood: Yes Treatment: Therapeutic exercise x 28 min (TE) UE bike x 2 min forward and back at level 4 with braces. Wrist flexion/extension x 10, x 10 each with yellow band Wrist roller x 5 Sign language alphabet x 1 B Wrist deviation 1# 2 x 10 Beads with tweezers x 20 B Thumb flexion x 10 B w/rubber band Thumb adduction x 10 (B) Thumb abduction x 10 (B) Wrist flexion stretch x 30s (B) Wrist extension stretch x 30s (B) Thumb stretch x 30s (B) Scapular retraction x 10 for posture Total timed treatment: 28 min (TE x 2) Assessment Tolerates treatment fair. Decreased tolerance today due to being sore and in pain from work today. Very shakey with flexion/extension, deviation and wrist roller. Plan Continue PT: Progress as tolerated Signature: Luanne Walter, IVIS Date: 02/14/2018 documented in this encounter Plan of Treatment Not on file documented as of this encounter Goals Goal Patient Goal Type Associated Problems Recent Progress Patient-Stated? Author Maintain a healthy diet, exercise regularly and maintain an ideal body weight General No Tiana Mena, RN documented as of this encounter Visit Diagnoses Not on filedocumented in this encounter Care Teams Accounting Professor Relationship Specialty Start Date End Date Carmella Ulloa MD [address] [place] [address] PCP - General Family Medicine 09/27/17 documented as of this encounter
--- OUTSIDE RECORDS SUMMARY | 2024-04-01 12:47 | XMS_ITS | Encounter Summary ---
Author Organization [place] [address] Care Team Providers Care Calender Feeder Name Role Phone Unavailable Primary Care Provider Unavailabl e Reason for Visit * Reason Onset Date Comments Medication Refill 07/12/2012 Encounter Details Date Type Department Care Team (Late st Contact Info) Description 07/12/2012 Telephone [facility] [address] [place] [address] Maritza Gaona, [facility] [address] [phone] Medication Refill Social History Tobacco Use Types [...] on file documented as of this encounter Ordered Prescriptions Prescription Sig Dispense Quantity Refills Last Filled Start Date End Date permethrin (ELIMITE) 5 % creamIndications: Scabies Apply topically See Admin Instructions for 30 days. Apply repeat in 1 week if needed. 60 g 1 07/12/2012 3 documented in this encounter Miscellaneous Notes * Telephone Encounter - Raquel Marshall RMA - 07/12/2012 5:04 PM EST Pt was notified * Telephone Encounter - Dyan Bullock MA - 07/12/2012 5:01 PM EST Called no answer * Telephone Encounter - Carmella Ulloa MD - 07/12/2012 4:58 PM EST It is a cream this was called in * Telephone Encounter - Maritza Gaona CCMA - 07/12/2012 4:32 PM EST Wants a pill for scabies documented in this encounter Plan of Treatment Not on file documented as of this encounter Visit Diagnoses Diagnosis Scabies- Primary documented in this encounter
--- OUTSIDE RECORDS SUMMARY | 2024-04-01 12:47 | XMS_ITS | Encounter Summary ---
Author Organization [place] [address] Care Team Providers Care Steam Plant Control Room Operator Name Role Phone Unavailable Primary Care Provider Unavailabl e Encounter Details Date Type Department Care Team (Late st Contact Info) Description 10/18/2005 8:41 PM EDT - 10/18/2005 11:59 PM EDT Hospital Encounter [facility] Leo Lord, DO [address] [place] [address] Social History Tobacco Use Types Packs/Day Years [...]
--- OUTSIDE RECORDS SUMMARY | 2024-04-01 12:47 | XMS_ITS | Encounter Summary ---
Author Organization [facility] [place] [address] [place] [address] Care Team Providers Care Loss Prevention/Safety District Manager Name Role Phone Unavailable Primary Care Provider Unavailabl e Encounter Details Date Type Department Care Team (Late st Contact Info) Description 11/09/2008 1:42 AM EDT - 11/09/2008 2:42 AM EDT Hospital Encounter [facility] Júnior Mir MD [address] [phone] (Fax) Social History Tobacco Use Types Packs/Day Years [...]
--- OUTSIDE RECORDS SUMMARY | 2024-04-01 12:47 | XMS_ITS | Encounter Summary ---
Author Organization [place] [address] Care Team Providers Care Pre Parole Counseling Aide Name Role Phone Carmella Ulloa MD Primary Care Provider [phone] Reason for Visit * Physical Therapy (Routine) - Closed Specialty Diagnoses / Procedures Referred By Contac t Referred To Contact Clinic/Center-Physical Therapy / Physical Therapy Diagnoses eval bilateral wrist pain injury Procedures PT EVAL 60 Aleks Nichols, DO Phone: tel: fax: [facility] Physical Therapy [address] [address] Phone: tel: fax: Referral ID Status Reason Start Date Expiration Date Visits Re quested Visits Authorized [id number] Closed 01/26/2018 03/28/2018 12 12 Encounter Details Date Type Department Care Team (Latest Contact Info) Description 03/15/2018 3:00 PM EDT - 03/15/2018 11:59 PM EDT Hospital Encounter [facility] Physical Therapy [address] [address] Luanne Walter, PT Discharge Disposition: [...] Raquel Magallon RMA documented in this encounter Discharge Summaries * Luanne Walter, PT - 03/15/2018 11:59 PM EDT Images from the original note were not included. Discharge Summary Patient is discharged from OPPT due to patient not contacting clinic for any further appointments in over 30 days. Patient met 1/4 established therapy goals. For more information see below copied from last treatment note. 04/19/2018 Raquel Goel : 1970 Visit #/Insurance 11/Worker's Comp Onset Date: 3 weeks Diagnosis:other synovitis and tenosynovitis, unspecified hand. Precautions:MD steven Follow Up:Magdalena : Specialist tomorrow - [place] Medication Changes: no changes. Reassessment Date/Recert Date: 03/25/18 Next FOTO due: 6th visit GCodes due: 10th visit Time In/Out: 1505/1530 Pain Scale: did not rate /10 Location: bilateral wrist(s) Type: aching Subjective Reports her pain has mainly been in her pinky and her fingers. Reports she had to do a lot at work today. HEP: Compliant Objective FOTO Eval: Patient Score: 45 FOTO Expected Score: 60 Anticipated Change:15 Subsequent FOTO Scores (score and date): 02/28: 50 Education: Needs Assistance: Yes Understood: Yes Treatment: Therapeutic exercise x 25 min (TE) UE bike x 2 min forward and back at level 4 with braces. Wrist flexion/extension x 10 each with 1# Wrist roller x 5 Supination 2# 2 x 10 Bicep curls 2 x 10 2# Wrist deviation w/yellow band x 10 deferred Beads with tweezers x 20 B Thumb flexion x 10 B w/rubber band Thumb adduction x 10 (B) Thumb abduction x 10 (B) Thumb stretch x 30s (B) Wrist stretches x 10 - unable to hold on either hand for 20 Scapular retraction x 10 for posture - deferred Total timed treatment: 25 min (TE x 2) Assessment Tolerates treatment fair. Had slipping of the abductor hallucis longus this date, slightly painful.Patient reports it felt like her thumb was going to lock up. Patient see's specialist tomorrow and will call to make further appointments depending on his recommendation. Time Frame: 4 weeks. Rehab potential: Good Educational & Functional Rehab Goals: 1. Patient will demonstrate independence with HEP met 2. FOTO will increase to 52 in order to demonstrate overall improvement not met 3. Patient will demonstrate strength improved 1/2 to 1 grade to improve ability to lift not met - goal met on right side, but did not meet bilaterally 4. Patient will demonstrate vp production strength improved 5# to improve ability to vp production. not met - goal met on right side, but did not meet bilaterally ?? Plan Continue PT: Progress as tolerated Signature: Luanne Walter, PT Date: 04/19/2018 documented in this encounter Medications at Time [...] Progress Notes * Luanne Walter, PT - 03/15/2018 3:06 PM EDT Images from the original note were not included. Physical Therapy Daily Progress Note 03/15/2018 Raquel Goel : 1970 Visit #/Insurance 11/Worker's Comp Onset Date: 3 weeks Diagnosis:other synovitis and tenosynovitis, unspecified hand. Precautions:MD steven Follow Up:Magdalena : Specialist tomorrow - [place] Medication Changes: no changes. Reassessment Date/Recert Date: 03/25/18 Next FOTO due: 6th visit GCodes due: 10th visit Time In/Out: 1505/1530 Pain Scale: did not rate /10 Location: bilateral wrist(s) Type: aching Subjective Reports her pain has mainly been in her pinky and her fingers. Reports she had to do a lot at work today. HEP: Compliant Objective FOTO Eval: Patient Score: 45 FOTO Expected Score: 60 Anticipated Change:15 Subsequent FOTO Scores (score and date): Education: Needs Assistance: Yes Understood: Yes Treatment: Therapeutic exercise x 25 min (TE) UE bike x 2 min forward and back at level 4 with braces. Wrist flexion/extension x 10 each with 1# Wrist roller x 5 Supination 2# 2 x 10 Bicep curls 2 x 10 2# Wrist deviation w/yellow band x 10 deferred Beads with tweezers x 20 B Thumb flexion x 10 B w/rubber band Thumb adduction x 10 (B) Thumb abduction x 10 (B) Thumb stretch x 30s (B) Wrist stretches x 10 - unable to hold on either hand for 20 Scapular retraction x 10 for posture - deferred Total timed treatment: 25 min (TE x 2) Assessment Tolerates treatment fair. Had slipping of the abductor hallucis longus this date, slightly painful.Patient reports it felt like her thumb was going to lock up. Patient see's specialist tomorrow and will call to make further appointments depending on his recommendation. Plan Continue PT: Progress as tolerated Signature: Luanne Walter, IVIS Date: 03/15/2018 documented in this encounter Miscellaneous Notes * Addendum Note - Luanne Walter PT - 03/15/2018 11:59 PM EDTEncounter addended by: Luanne Walter PT on: 04/19/2018 3:39 PM
Actions taken: Episoderesolved, Sign clinical note documented in this encounter Plan of Treatment [...] on filedocumented in this encounter Care Teams Pre Parole Counseling Aide Relationship Specialty Start Date End Date Carmella Ulloa MD [address] [place] [address] PCP - General Family Medicine 09/27/17 documented as of this encounter
--- OUTSIDE RECORDS SUMMARY | 2024-04-01 12:47 | XMS_ITS | Encounter Summary ---
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 Encounter Details Date Type Department Care Team (Late st Contact Info) Description 12/12/2012 8:34 PM EDT - 12/12/2012 9:31 PM EDT [facility] [address] [place] [address] Leo White MD Headache (Primary Dx); Sinusitis Discharge Disposition: Home or Self Care Social [...] Sign Reading Time Taken Comments Blood Pressure 115/76 12/12/2012 8:38 PM EDT Pulse 90 12/12/2012 8:38 PM EDT Temperature 36.9 ??C (98.4 ??F) 12/12/2012 8:38 PM ED T Respiratory Rate 16 12/12/2012 8:38 PM EDT Oxygen Saturation 96% 12/12/2012 8:38 PM EDT Inhaled Oxygen Concentration - - Weight 86.2 kg (190 lb) 12/12/2012 8:38 PM EDT Height 167.6 cm (5' 6 ) 12/12/2012 8:38 PM EDT Body Mass Index 30.67 12/12/2012 8:38 PM EDT documented in this encounter Discharge Instructions * Discharge Instructions* Leo White MD - 12/12/2012 9:23 PM EDT Patient Education Regarding Narcotics and Sedatives A narcotic is a drug which has been declared by federal or state law to be illegal for sale or use,but may be dispensed under a physician's prescription. A sedative is a medicine that has a calming effect and may be used to treat nervousness or restlessness. Narcotics and sedatives are classified as controlled substances. The basis for control and regulation is the danger of addiction, abuse, physical and mental harm (including ), the trafficking by illegal means, and the dangers from actions of those who have used the substances. Examples of narcotics include: Hydrocodone, Oxycodone, & Tylenol #3. Examples of sedatives are Ativan and Xanax. Proper use of Controlled Substances 1. Carefully follow the physician instructions for use, including timing of doses, the correct amount, and whether to take with or without food; 2. Do not use medication after the expiration date; 3. Do not share medication with others. It is illegal to share, sell or give away controlled substances; 4. Do not take the medication with alcohol or other sedatives; 5. Do not crush, break or chew the medication; 6. Contact your family physician or return to the emergency room for any adverse reactions; Driving and work safety 1. Controlled substances may cause sleepiness, clouded thinking, decreased concentration, slower reflexes, or un-coordination, all of which may create a danger to you and others when driving or operating certain types of machinery; 2. Avoid driving or engaging in other potentially dangerous work or other activities, for a specific period of time until the initial effects of the controlled substances no longer create such dangers; and, 3. Ingesting other substances, such as alcohol, benzodiazepines or some cold remedies, at the same time you are taking the controlled substances prescribed or dispensed may increase cognitive and motor impairment. 1. Controlled substances in should only be used on a minimal basis unless the benefits ofsuch use outweigh the risks; 2. Call your assistant hairstylist or return to the emergency room if you experience an adverse reaction or side effects from the medication Potential for overdose and response 1. The use of controlled substances creates a risk of respiratory depression, or decreased respiratory rate, which may result in serious harm or ; 2. Signs of overmedication include: a. intoxicated behavior, such as confusion, slurred speech, or stumbling; b. feeling dizzy or faint; c. acting very drowsy or groggy; d. unusual snoring, gasping, or snorting during sleep; and/or e. difficulty waking up from sleep or difficulty in staying awake. 3. Call ???911?? if a person taking a controlled substance is observed or is experiencing any of the following conditions: a. patient cannot be aroused or awakened, or patient is unable to talk after being awakened; b. patient has shortness of breath, slow or light breathing, or stopped breathing; c. gurgling noises coming from the patient???s mouth or throat; d. patient???s body is limp, seems lifeless; e. patient???s face is pale or clammy; f. patient???s fingernails or lips are turning purple or blue; and/or g. patient???s heartbeat is slow, unusual or stopped. Safe storage of controlled substances 1. Partners, family members or other persons may improperly obtain your controlled substances if those substances are not stored in a safe manner; 2. Keep controlled substance prescribed or dispensed in the original container; 3. Store controlled substances in a locked cabinet or secure storage unit that is cool, dry, and out of direct sunlight, such as: a. an existing safe; b. a cut-proof travel bag; c. a portable lock box designed for travel; or, d. a locking medical box. 4. Avoid storage of controlled substances in: a. an unlocked medicine cabinet; b. in the car; or, c. in a refrigerator or freezer unless specifically recommended by the pharmacist. 5. Immediately notify your family physician or the police if any controlled substance which has been prescribed is stolen or improperly taken by another individual. Proper Disposal 1. If a controlled substance is or you no longer require using the medication for your condition, please dispose of properly; 2. In order to dispose of controlled substances properly, turn in unused medication to your local pharmacy or approved drug disposal facility; 3. Do not flush unused medication down the toilet due to environmental reasons; 4. A listing of drug disposal locations can be found at http://www.odcp.[place].gov * Attachments The following attachments cannot be sent through Care Everywhere. * HEADACHE, GENERAL, WITHOUT CAUSE (AZERBAIJANI) * SINUSITIS (AZERBAIJANI) documented in this encounter Medications at Time of Discharge amoxicillin (AMOXIL) 500 mg capsule Take 1 Cap by mouth 3 times daily for 10 days. 30 Cap 0 12/12/2012 12/22/2012 HYDROcodone-aceta minophen (VICODIN) 5-500 mg per tablet Take 1 Tab by mouth every 4 hours as needed for Pain for 7 days. 10 Tab 0 12/12/2012 12/19/2012 predniSONE (DELTASONE) 20 mg tablet Take 3 Tabs by mouth daily for 5 days. 15 Tab 0 12/12/2012 12/17/2012 documented as of this encounter Ordered Prescriptions Prescription Sig Dispense Quantity Refills Last Filled Start Date End Date HYDROcodone-acetam inophen (VICODIN) 5-500 mg per tablet Take 1 Tab by mouth every 4 hours as needed for Pain for 7 days. 10 Tab 0 12/12/2012 12/19/2012 predniSONE (DELTASONE) 20 mg tablet Take 3 Tabs by mouth daily for 5 days. 15 Tab 0 12/12/2012 12/17/2012 amoxicillin (AMOXIL) 500 mg capsule Take 1 Cap by mouth 3 times daily for 10 days. 30 Cap 0 12/12/2012 12/22/2012 documented in this encounter Discharge Disposition Disposition Code Departure Means Destination Home or Self [facility] documented in this encounter ED Notes * Leo White MD - 12/12/2012 8:54 PM EDT Images from the original note were not included. CHIEF COMPLAINT Chief Complaint Patient presents with ??? Headache c/o pressure behind left eye, pain and pressure to back of head and neck, occasional cough, and rash to arms, back, and abdomen. 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 female. Presents to emergency Department complaining of headache. She describes it as a pressure sensation behind her left eye around her left ear and left posterior head.She states that she has had some mild congestion and a cough however denies any fevers or any overtsigns of illness. She states she severed fine rash to her arms and abdomen however seems to be improving. She denies any fevers or chills. Denies any head injury. She states she has a history of migraines however has not had one in over a year and best her recollection this does not feel like her migraine. She denies any numbness tingling or weakness. She denies any chest pain or abdominal pain. REVIEW OF SYSTEMS See HPI for further details. Review of systems otherwise negative. PAST MEDICAL HISTORY Past Medical History Diagnosis Date ??? Chronic back pain ??? Migraine FAMILY HISTORY No family history on file. SOCIAL HISTORY History Social History ??? Marital Status: Spouse Name: N/A Number of Children: N/A ??? Years of Education: N/A Social History Main Topics ??? Smoking status: Never Smoker ??? Smokeless tobacco: None ??? Alcohol Use: No ??? Drug Use: ??? Sexually Active: Other Topics Concern ??? None Social History Narrative ??? None SURGICAL HISTORY No past surgical history on file. CURRENT MEDICATIONS Current Outpatient Rx Name Route Sig Dispense Refill ??? hydrocodone-ibuprofen (VICOPROFEN) 7.5-200 mg per tablet Oral Take 1 Tab by mouth every 8 hours as needed for Pain. 7.5/500 ??? trazodone (DESYREL) 50 mg tablet Oral Take 50 mg by mouth nightly. ??? sumatriptan (IMITREX) 100 mg tablet Oral Take 100 mg by mouth once as needed for Migraine. ??? sertraline (ZOLOFT) 50 mg tablet Oral Take 50 mg by mouth daily. ALLERGIES Allergies Allergen Reactions ??? Ciprofloxacin ??? Imitrex (Sumatriptan Succinate) ??? Promethazine PHYSICAL EXAM VITAL SIGNS: ED Triage Vitals Temp 12/12/122037 98.4 ??F (36.9 ??C) Heart Rate 12/12/122037 90 Resp 12/12/122037 16 BP 12/12/122037 115/76 mmHg SpO2 12/12/122037 96 % Height 12/12/122037 5' 6 (1.676 m) Weight - Scale 12/12/122037 190 lb (86.183 kg) Constitutional: Although female in no acute distress, awake and alert. Vital signs are noted HENT:Atraumatic, mild tenderness noted in her frontal maxillary sinuses the left. Her nasal passages reveal clear discharge however edema is noted. TMs are clear bilaterally. Cardiovascular structures are otherwise unremarkable. Eyes: pupils are equally round and reactive ocular muscles are intact Lymphatic: No lymphadenopathy noted. Cardiovascular: Normal heart rate, Normal rhythm Thorax & Lungs: No respiratory distress Abdomen: Soft, nondistended, nontender Skin: Warm and dry, no rash Neurologic: cranial nerves II through XII intact. Motor function is normal. Sensory examination is normal. Ambulation is normal Psychiatric: Affect normal LABS/RADIOLOGY/PROCEDURES Results for orders placed during the hospital encounter of 12/12/12 CT HEAD WO CONTRAST Narrative: HEAD CT WITHOUT CONTRAST dated 12/12/2012 COMPARISON: 11/29/2002 (note is made that only four limited images through the skull base are available from the prior study) HISTORY: Headache, pressure FINDINGS: Ventricles, sulci, and cisterns are normal in size and position. No abnormalities are identified in the brain parenchyma. No evidence of acute intracranial hemorrhage, mass effect, extra-axial collection, or acute vascular territory infarct by CT. There is mild chronic-appearing mucosal thickening in both ethmoid sinuses. Lobulated opacity in the right ethmoid sinus appears similar to prior images and most likely represents a mucous retention cyst, polyp, and/or focus of chronic inflammatory change. No air-fluid level is seen. Visualized paranasal sinuses, orbits, and osseous structures are otherwise unremarkable. Impression: IMPRESSION: 1. Mild chronic-appearing ethmoid sinus disease. 2. Otherwise negative noncontrast head CT. COURSE & MEDICAL DECISION MAKING Pertinent Labs & Imaging studies reviewed. (See chart for details) Patient felt better after IM injection. She'll be treated with amoxicillin, prednisone and 10 Vicodin. She has been encouraged to stop smoking. Attempted ALEJANDRA report however unavailable. FINAL IMPRESSION 1. Headache 2. Sinusitis Condition at discharge: stable Leo White MD 12/12/122123 documented in this encounter Plan of Treatment Not on file documented as of this encounter Procedures Procedure Name Priority Date/Time Associated Diagnosis Comments CT HEAD WO CONTRAST STAT 12/12/2012 9 :10 PM EDT documented in this encounter Results * CT HEAD WO CONTRAST (12/12/2012 9:10 PM EDT) Anatomical Region Laterality Modality Head Computed Tomogra phy 12/12/2012 8:54 PM EDT Impressions 12/12/2012 9:15 PM EDT IMPRESSION: 1. Mild chronic-appearing ethmoid sinus disease. 2. Otherwise negative noncontrast head CT. Narrative 12/12/2012 9:[address] WITHOUT CONTRAST dated 12/12/2012 COMPARISON: 11/29/2002 (note is made that only four limited images through the skull base are available from the prior study) HISTORY: Headache, pressure FINDINGS: Ventricles, sulci, and cisterns are normal in size and position. ??No abnormalities are identified in the brain parenchyma. ??No evidence of acute intracranial hemorrhage, mass effect, extra-axial collection, or acute vascular territory infarct by CT. There is mild chronic-appearing mucosal thickening in both ethmoid sinuses. Lobulated opacity in the right ethmoid sinus appears similar to prior images and most likely represents a mucous retention cyst, polyp, and/or focus of chronic inflammatory change. No air-fluid level is seen. Visualized paranasal sinuses, orbits, and osseous structures are otherwise unremarkable. Procedure Note Roderick Dhaliwal MD - 12/12/[address] WITHOUT CONTRAST dated 12/12/2012 COMPARISON: 11/29/2002 (note is made that only four limited images throughthe skull base are available from the prior study) HISTORY: Headache, pressure FINDINGS: Ventricles, sulci, and cisterns are normal in size and position. Noabnormalities are identified in the brain parenchyma. No evidence of acute intracranialhemorrhage, mass effect, extra-axial collection, or acute vascular territory infarct by CT. Thereis mild chronic-appearing mucosal thickening in both ethmoid sinuses. Lobulatedopacity in the right ethmoid sinus appears similar to prior images and most likely represents amucous retention cyst, polyp, and/or focus of chronic inflammatory change. No air-fluidlevel is seen. Visualized paranasal sinuses, orbits, and osseous structures are otherwiseunremarkable. IMPRESSION: 1. Mild chronic-appearing ethmoid sinus disease. 2. Otherwise negative noncontrast head CT. Leo White MD IMG CT ORDERABLES Final Result documented in this encounter Visit Diagnoses Diagnosis Headache(784.0)- Primary Headache Sinusitis Unspecified sinusitis (chronic) Acute sinusitis, unspecified documented in this encounter Administered Medications Inactive Administered Medications - up to 1 most recent administrations Medication Order MAR Action Action Date Dose Rate Site morphine injection 10 mg 10 mg, Intramuscular, ONCE, 1 dose, On Mon12/12/12 at 2099 Given 12/12/2012 8:58 PM EDT 10 mg Left Upper Outer Quadrant predniSONE (DELTASONE) tablet 60 mg 60 mg, Oral, ONCE, 1 dose, On Mon12/12/12 at 2099 Given 12/12/2012 8:58 PM EDT 60 mg Left Upper Outer Quadrant documented in this encounter Active and Recently Administered Medications Times are shown in EDT. Scheduled Medication Order 12/10/2012 12/11/2012 12/12/2012 morphine injection 10 mg (COMPLETED) 10 mg, Intramuscular, ONCE, 1 dose, On Mon12/12/12 at 2099 2057 (Given - Provid er: Tricia Montelongo RN) predniSONE (DELTASONE) tablet 60 mg (COMPLETED) 60 mg, Oral, ONCE, 1 dose, On Mon12/12/12 at 2099 2057 (Given - Provid er: Tricia Montelongo RN) documented in this encounter
--- OUTSIDE RECORDS SUMMARY | 2024-04-01 12:47 | XMS_ITS | Encounter Summary ---
Author Organization [place] [address] Care Team Providers Care Physiatrist Name Role Phone Carmella Ulloa MD Primary Care Provider [phone] Reason for Visit * Physical Therapy (Routine) - Closed Specialty Diagnoses / Procedures Referred By Contac t Referred To Contact Clinic/Center-Physical Therapy / Physical Therapy Diagnoses eval bilateral wrist pain injury Procedures PT EVAL 60 Aleks Nichols, DO Phone: tel: fax: [facility] Physical Therapy [address] [address] Phone: tel: fax: Referral ID Status Reason Start Date Expiration Date Visits Re quested Visits Authorized [id number] Closed 01/26/2018 03/28/2018 12 12 Encounter Details Date Type Department Care Team (Latest Contact Info) Description 02/15/2018 3:30 PM EDT - 02/15/2018 11:59 PM EDT Hospital Encounter [facility] Physical Therapy [address] [address] Luanne Walter, PT Discharge Disposition: [...] Progress Notes * Luanne Walter, PT - 02/15/2018 3:38 PM EDT Images from the original note were not included. Physical Therapy Daily Progress Note 02/15/2018 Raquel Manasa : 1970 Visit #/Insurance 6/Worker's Comp Onset Date: 3 weeks Diagnosis:other synovitis and tenosynovitis, unspecified hand. Precautions:MD steven Follow Up:Magdalena : 2 weeks from Monday02/20/18 Medication Changes: no changes. 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 Plan Continue PT: Progress as tolerated Signature: Luanne Walter, IVIS Date: 02/15/2018 documented in this encounter Plan of Treatment Not on file documented as of this encounter Goals Goal Patient Goal Type Associated Problems Recent Progress Patient-Stated? Author Maintain a healthy diet, exercise regularly and maintain an ideal body weight General No Tiana Mena RN documented as of this encounter Visit Diagnoses Not on filedocumented in this encounter Care Teams Physiatrist Relationship Specialty Start Date End Date Carmella Ulloa MD [address] [place] [address] PCP - General Family Medicine 09/27/17 documented as of this encounter
--- OUTSIDE RECORDS SUMMARY | 2024-04-01 12:47 | XMS_ITS | Encounter Summary ---
Author Organization [facility] [place] [address] Care Team Providers Care Belly Dump Driver Name Role Phone Unavailable Primary Care Provider Unavailabl e Encounter Details Date Type Department Care Team (Late st Contact Info) Description 07/25/2006 3:55 PM EDT - 07/25/2006 4:56 PM EDT Hospital Encounter HST EPIC CON UNK GRT Bruce Salgado MD Social History Tobacco Use Types Packs/Day Years Used Date Smoking Tobacco: Never Assessed Comments Unknown Sex and Gender Information Value Date Recorded Sex Assigned at Not on file Legal Sex Female 5:20 AM EDT Gender Identity Not on file Sexual Orientation Not on file documented as of this encounter Plan of Treatment Scheduled Orders Name Type Priority Associated Diagnoses Orde r Schedule XR LUMBOSACRAL SPINE Imaging Routine Once for 1 Occurrences starting 07/22/2009 until 07/22/2009, 1 completed documented as of this encounter Procedures Procedure Name Priority Date/Time Associated Diagnosis Comments XX LUMBOSACRAL SPINE Routine 07/25/2006 4:25 PM EDT documented in this encounter Results * XR LUMBOSACRAL SPINE (07/25/2006 4:25 PM EDT) Anatomical Region Laterality Modality Other 07/25/2006 4:25 PM EDT Narrative 07/25/2006 4:00 PM EDT RM8 Lumbosacral spine - 3 views History- Pain. No fracture or osseous destruction is seen. Disc interspaces normal. Opinion- Normal. ? Stop Attacher- VERN FLETCHER ? Reading Radiologist- RUFINA BAKER ??MD ? Released Date Time- 07/25/061841 Procedure Note Rufina Baker - 07/22/2009 RM8 Lumbosacral spine - 3 views History- Pain. No fracture or osseous destruction is seen. Disc interspaces normal. Opinion- Normal. Stop Attacher- VERN FLETCHER Reading Radiologist- RUFINA BAKER MD Released Date Time- 07/25/061841 us Bruce Salgado MD [facility] nal Result documented in this encounter Visit Diagnoses Not on filedocumented in this encounter
--- OUTSIDE RECORDS SUMMARY | 2024-04-01 12:47 | XMS_ITS | Encounter Summary ---
Author Organization [place] [address] Care Team Providers Care Paint Factory Worker Name Role Phone Carmella Juarez MD Primary Care Provider [phone] Reason for Visit * Reason Onset Date Comments Other 10/03/2017 Encounter Details Date Type Department Care Team (Late st Contact Info) Description 10/03/[address] [address] Carmella Juarez MD [address] [place] [address] Other Social History Tobacco Use Types Packs/Day [...] Raquel Magallon ALIDA documented in this encounter Ordered Prescriptions Prescription Sig Dispense Quantity Refills Last Filled Start Date End Date amoxicillin (AMOXIL) 875 mg Oral Tablet Take 1 Tab by mouth 2 times daily for 10 days. 20 Tab 10/03/2017 10/13/2017 documented in this encounter Miscellaneous Notes * Addendum Note - Carmella Juarez MD - 10/03/2017 5:12 PM EDTAddended by: CARMELLA JUAREZ on: 10/03/2017 05:12 PM Modules accepted: Orders * Telephone Encounter - Carmella Juarez MD - 10/03/2017 5:12 PM EDT Med sent * Telephone Encounter - Kassidy Jerez - 10/03/2017 1:27 PM EDT Patient wanted to see if could call in an antibiotic for her teeth they are infected. She said thatthey need to be pulled but she has not had to time to get to the dentist because of work. Please advise. documented in this encounter Plan of Treatment Not on file documented as of this encounter Goals Goal Patient Goal Type Associated Problems Recent Progress Patient-Stated? Author Maintain a healthy diet, exercise regularly and maintain an ideal body weight General No Tiana Mena RN documented as of this encounter Visit Diagnoses Not on filedocumented in this encounter Care Teams Paint Factory Worker Relationship Specialty Start Date End Date Carmella Juarez MD [address] [place] [address] PCP - General Family Medicine 09/27/17 documented as of this encounter
--- OUTSIDE RECORDS SUMMARY | 2024-04-01 12:47 | XMS_ITS | Encounter Summary ---
Author Organization [place] [address] Care Team Providers Care Information Systems Security Analyst Name Role Phone Carmella Ulloa MD Primary Care Provider [phone] Reason for Visit * Reason Comments Abscess Abscess in groin are a/ Pt. would prefer a female to examine her if at all possible. Encounter Details Date Type Department Care Team (Late st Contact Info) Description 03/26/2018 9:18 PM EST - 03/26/2018 9:49 PM EST [facility] [address] [facility] [place] [address] Luciana Gallardo MD [address] [place] [address] Cellulitis of labia majora (Primary Dx) Discharge Disposition: Home or Self [...] Sign Reading Time Taken Comments Blood Pressure 121/70 03/26/2018 8:36 PM EST Pulse 72 03/26/2018 8:36 PM EST Temperature 36.7 ??C (98.1 ??F) 03/26/2018 8:36 PM ES T Respiratory Rate 16 03/26/2018 8:36 PM EST Oxygen Saturation 98% 03/26/2018 8:36 PM EST Inhaled Oxygen Concentration - - Weight 93 kg (205 lb) 03/26/2018 8:29 PM EST Height 165.1 cm (5' 5 ) 03/26/2018 8:29 PM EST Body Mass Index 34.11 03/26/2018 8:29 PM EST documented in this encounter Functional [...] Magallon RMA documented in this encounter Discharge Instructions * Discharge Instructions* Luciana Gallardo MD - 03/26/2018 9:35 PM EST Take antibiotics as prescribed. Take your pain medications as directed. * Attachments The following attachments cannot be sent through Care Everywhere. * Cellulitis Adult [id number] ([place] Islander) documented in this encounter Medications at Time of Discharge gabapentin (NEURONTIN) 300 mg Oral Capsule Take by mouth 5 times daily. HYDROcodone-aceta minophen (NORCO) 5-325 mg Oral Tablet Take 1 Tab by mouth every 6 hours as needed for Pain. cephALEXin (KEFLEX) 500 mg Oral Capsule Take 1 Cap by mouth 4 times daily for 7 days. 28 Cap 03/26/2018 04/02/2018 sulfamethoxazole- trimethoprim (BACTRIM DS) 800-160 mg Oral Tablet Take 2 Tabs by mouth 2 times daily for 7 days. 28 Tab 03/26/2018 04/02/2018 documented as of this encounter Ordered Prescriptions Prescription Sig Dispense Quantity Refills Last Filled Start Date End Date cephALEXin (KEFLEX) 500 mg Oral Capsule Take 1 Cap by mouth 4 times daily for 7 days. 28 Cap 03/26/2018 04/02/2018 sulfamethoxazole-tr imethoprim (BACTRIM DS) 800-160 mg Oral Tablet Take 2 Tabs by mouth 2 times daily for 7 days. 28 Tab 03/26/2018 04/02/2018 documented in this encounter Discharge Disposition Disposition Code Departure Means Destination Home or Self Fpc documented in this encounter ED Notes * Luciana Gallardo MD - 03/26/2018 8:24 PM EST CHIEF COMPLAINT Chief Complaint Patient presents with ??? Abscess Abscess in groin area/ Pt. would prefer a female to examine her if at all possible. HPI Raquel Goel is a 47 y.o. female who presents to the emergency department with pain and swelling in her groin. The patient states yesterday she noticed a tender hard area on her groin that spontaneously opened today. She denies any drainage or bleeding into her underwear. She denies any trauma, vaginal discharge, urinary symptoms, fever, vomiting, systemic symptoms. REVIEW OF SYSTEMS See HPI for further details. Review of systems otherwise negative. PAST MEDICAL HISTORY Past Medical History: Diagnosis Date ??? Chronic back pain ??? Migraine FAMILY HISTORY No family history on file. SOCIAL HISTORY Social History Social History ??? Marital status: Spouse name: N/A ??? Number of children: [...] Laterality Date ??? TUBAL LIGATION CURRENT MEDICATIONS Current Facility-Administered Medications: ??? cephALEXin (KEFLEX) capsule 500 mg, 500 mg, Oral, Once, Luciana Gallardo MD ??? sulfamethoxazole-trimethoprim (BACTRIM DS) 800-160 mg per tablet 1 Tab, 1 Tab, Oral, Once, Luciana Gallardo MD Current Outpatient Prescriptions: ??? albuterol (PROVENTIL HFA;VENTOLIN HFA) 90 mcg/actuation Inhl HFA Aerosol Inhaler, Inhale 2 Puffs into the lungs every 6 hours as needed for Wheezing., Disp: , Rfl: ??? cyclobenzaprine (FLEXERIL) 10 mg Oral Tablet, Take 10 mg by mouth 3 times daily., Disp: , Rfl: ??? HYDROcodone-acetaminophen (NORCO) 5-325 mg Oral Tablet, Take 1 Tab by mouth every 6 hours as needed for Pain., Disp: , Rfl: ??? cephALEXin (KEFLEX) 500 mg Oral Capsule, Take 1 Cap by mouth 4 times daily for 7 days., Disp: 28 Cap, Rfl: 0 ??? gabapentin (NEURONTIN) 300 mg Oral Capsule, Take by mouth 5 times daily., Disp: , Rfl: ??? meloxicam (MOBIC) 15 mg Oral Tablet, Take 1 Tab by mouth daily. (Patient not taking: Reported on 03/26/2018), Disp: 30 Tab, Rfl: 1 ??? sulfamethoxazole-trimethoprim (BACTRIM DS) 800-160 mg Oral Tablet, Take 2 Tabs by mouth 2 timesdaily for 7 days., Disp: 28 Tab, Rfl: 0 ALLERGIES Allergies Allergen Reactions ??? Ciprofloxacin ??? Imitrex [Sumatriptan Succinate] ??? Promethazine PHYSICAL EXAM ED Triage Vitals Temp 03/26/182035 98.1 ??F (36.7 ??C) Pulse 03/26/182035 72 Resp 03/26/182035 16 BP 03/26/182035 121/70 SpO2 03/26/182035 98 % Height 03/26/182028 5' 5 (1.651 m) Weight 11/12/18 2029 205 lb (93 kg) refer to nursing notes for most recent vital signs Constitutional: Awake, Alert & oriented x 3, oriented to person place and time. HENT: Normocephalic, Atraumatic, Bilateral external ears normal, Oropharynx moist, Nose normal. Eyes: PERRLA, EOMI, Conjunctiva normal. Neck: Normal range of motion, No tenderness, Supple, No stridor. Cardiovascular: Normal heart rate, Normal rhythm. Thorax & Lungs: Normal breath sounds, No respiratory distress Abdomen: Soft, nontender, nondistended, no rebound or guarding Skin: Warm, Dry, No erythema, No rash. Genitourinary: Exam performed in presence of female milk sampler. Patient has a one by one 7 m tender erythematous indurated nodule on the right posterior aspect of the labia majora. There is some surrounding erythema and lateral to this where the labia majora connects to the skin there is a 1 cm linear spontaneously opened lesion that is about a half centimeter in depth. There is no active drainage. No purulence. There is no swelling at the introitus. No bulla or crepitus. Neurologic: No focal deficits Psych- euthymic LABS/RADIOLOGY/PROCEDURES Labs Reviewed - No data to display No orders to display COURSE & MEDICAL DECISION MAKING Pertinent Labs & Imaging studies reviewed. (See chart for details) Medications cephALEXin (KEFLEX) capsule 500 mg (not administered) sulfamethoxazole-trimethoprim (BACTRIM DS) 800-160 mg per tablet 1 Tab (not administered) Patient was seen in the emergency department [...] Bactrim and Keflex. She takes Aleve and [place] for chronic pain. She can take these as prescribed by her physician. She is to follow-up with her primary care physician within the next 2 days for a recheck and is to return to the emergency department as needed for new or worsening symptoms. I will give her the next 2 days off of work. The patient understands and agrees with the plan. ED Current Prescriptions Medication Dispense Auth. Provider sulfamethoxazole-trimethoprim (BACTRIM DS) 800-160 mg Oral Tablet 28 Tab Luciana Gallardo MD cephALEXin (KEFLEX) 500 mg Oral Capsule 28 Cap Luciana Gallardo MD I reviewed the patient's medical record. FINAL IMPRESSION 1. Cellulitis of labia majora Condition at Discharge Stable This chart was completed using voice recognition technology and may contain unintended errors Luciana Gallardo MD 03/26/182135 documented in this encounter Plan of Treatment Not on file documented as of this encounter Goals Goal Patient Goal Type Associated Problems Recent Progress Patient-Stated? Author Maintain a healthy diet, exercise regularly and maintain an ideal body weight General Tiana Duenas RN documented as of this encounter Visit Diagnoses Diagnosis Cellulitis of labia majora- Primary Vaginitis and vulvovaginitis, unspecified documented in this encounter Administered Medications Inactive Administered Medications - up to 1 most recent administrations Medication Order MAR Action Action Date Dose Rate Site cephALEXin (KEFLEX) capsule 500 mg 500 mg, Oral, ONCE, 1 dose, On Mon03/26/18 at 2145 Given 03/26/2018 9:38 PM EST 500 mg sulfamethoxazole-trimethoprim (BACTRIM DS) 800-160 mg per tablet 1 Tab 1 Tablet, Oral, ONCE, 1 dose, On Mon03/26/18 at 2145 Given 03/26/2018 9:38 PM EST 1 Tablet documented in this encounter Active and Recently Administered Medications Times are shown in EST. Scheduled Medication Order 03/24/2018 03/25/2018 03/26/2018 cephALEXin (KEFLEX) capsule 500 mg (COMPLETED) 500 mg, Oral, ONCE, 1 dose, On Mon03/26/18 at 2145 2138 (Given - Provid er: Maritza Mckeon RN) sulfamethoxazole-trimethoprim (BACTRIM DS) 800-160 mg per tablet 1 Tab (COMPLETED) 1 Tablet, Oral, ONCE, 1 dose, On Mon03/26/18 at 2145 2138 (Given - Provid er: Maritza Mckeon RN) documented in this encounter Care Teams Information Systems Security Analyst Relationship Specialty Start Date End Date Carmella Ulloa MD [address] [place] [id number] PCP - General Family Medicine 09/27/17 documented as of this encounter
--- OUTSIDE RECORDS SUMMARY | 2024-04-01 12:47 | XMS_ITS | Encounter Summary ---
Author Organization [place] [address] Care Team Providers Care Mold Car Pusher Name Role Phone Unavailable Primary Care Provider Unavailabl e Encounter Details Date Type Department Care Team (Late st Contact Info) Description 10/25/2009 12:36 AM EDT - 10/25/2009 12:57 AM EDT Hospital Encounter HST GES GRT Thierry Vega MD [address] [place] [phone] Social History Tobacco Use Types Packs/Day Years [...] on file documented as of this encounter Progress Notes * Unknown, 02/24/2010 7:35 PM EDT * Unknown, 02/24/2010 7:35 PM EDT documented in this encounter Nursing Notes * Unknown, 02/24/2010 4:34 PM EDT documented in this encounter ED Notes * Unknown, 02/24/2010 7:35 PM EDT * Unknown, 02/24/2010 7:35 PM EDT documented in this encounter Plan of Treatment Not on file documented as of this encounter Visit Diagnoses Not on filedocumented in this encounter
--- OUTSIDE RECORDS SUMMARY | 2024-04-01 12:47 | XMS_ITS | Encounter Summary ---
Author Organization [place] [address] Care Team Providers Care Director Of Intelligence Name Role Phone Carmella Ulloa MD Primary Care Provider [phone] Reason for Visit * Physical Therapy (Routine) - Closed Specialty Diagnoses / Procedures Referred By Contdeandra t Referred To Contact Clinic/Center-Physical Therapy / Physical Therapy Diagnoses eval bilateral wrist pain injury Procedures PT EVAL 60 Aleks Nichols, DO Phone: tel: fax: [facility] Physical Therapy [address] [address] Phone: tel: fax: Referral ID Status Reason Start Date Expiration Date Visits Re quested Visits Authorized [id number] Closed 01/26/2018 03/28/2018 12 12 Encounter Details Date Type Department Care Team (Latest Contact Info) Description 01/31/2018 3:30 PM EDT - 01/31/2018 11:59 PM EDT Hospital Encounter [facility] Physical Therapy [address] [address] Luanne Walter, PT Discharge Disposition: [...] Progress Notes * Luanne Walter, PT - 01/31/2018 3:39 PM EDT Images from the original note were not included. Physical Therapy Daily Progress Note 01/31/2018 Raquel Manasa : 1970 Visit #/Insurance 2/Worker's Comp Onset Date: 3 weeks Diagnosis:other synovitis and tenosynovitis, unspecified hand. Precautions:MD steven Follow Up:[facility] 02/06/18 Medication Changes: supposed to start new medication but hasn't pickd I tup Reassessment Date/Recert Date: 02/25/18 Next FOTO due: 6th visit GCodes due: 10th visit Time In/Out: 1535/1604 Pain Scale: 5-6 Location: bilateral wrist(s) Type: aching Subjective Reports she's very tired due to coming here straight from work. 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 HEP: Compliant Objective FOTO Eval: Patient Score: 45 FOTO Expected Score: 60 Anticipated Change:15 Subsequent FOTO Scores (score and date): Education: Needs Assistance: Yes Understood: Yes Treatment: Therapeutic exercise x 25 UE bike x 2 min Wrist Roller x 1 Electroencephalogram Technologist theraputty x 10 (B) [place] x 1 (B) Opposition x 10 (B) Thumb to pinky x 30s (B) Supination/Pronation long level x 10 (B) Wall push up x 10 Wrist Flexoin stretch x 10s Wrist Extension stretch x 10s Total timed treatment: 25 min (TE x 2) Assessment Tolerates treatment well. Pain with wall push ups. Fatigued and pain with wrist roller on right. Attempted wrist flexion and extension stretches for longer next session. Plan Continue PT: Progress as tolerated Signature: Luanne Walter, IVIS Date: 01/31/2018 documented in this encounter Plan of Treatment Not on file documented as of this encounter Goals Goal Patient Goal Type Associated Problems Recent Progress Patient-Stated? Author Maintain a healthy diet, exercise regularly and maintain an ideal body weight General No Tiana Mena RN documented as of this encounter Visit Diagnoses Not on filedocumented in this encounter Care Teams Director Of Intelligence Relationship Specialty Start Date End Date Carmella Ulloa MD [address] [place] [address] PCP - General Family Medicine 09/27/17 documented as of this encounter
--- OUTSIDE RECORDS SUMMARY | 2024-04-01 12:47 | XMS_ITS | Encounter Summary ---
Author Organization [place] [address] Care Team Providers Care Engineering Operator Name Role Phone Carmella Ulloa MD Primary Care Provider [phone] Reason for Visit * Physical Therapy (Routine) - Closed Specialty Diagnoses / Procedures Referred By Contac t Referred To Contact Clinic/Center-Physical Therapy / Physical Therapy Diagnoses eval bilateral wrist pain injury Procedures PT EVAL 60 Aleks Nichols, DO Phone: tel: fax: [facility] Physical Therapy [address] [address] Phone: tel: fax: Referral ID Status Reason Start Date Expiration Date Visits Re quested Visits Authorized [id number] Closed 01/26/2018 03/28/2018 12 12 Encounter Details Date Type Department Care Team (Latest Contact Info) Description 02/28/2018 3:30 PM EDT - 02/28/2018 11:59 PM EDT Hospital Encounter [facility] Physical Therapy [address] [address] Luanne Walter, PT Discharge Disposition: [...] of Care - Luanne Walter, PT - 02/28/2018 3:29 PM EDT Images from the original note were not included. Physical Therapy Daily Progress Note/Reassessment 02/28/2018 Raquel Manasa : 1970 Visit #/Insurance 8/Worker's Comp Onset Date: 3 weeks Diagnosis:other synovitis and tenosynovitis, unspecified hand. Precautions:MD steven Follow Up:[facility] : 2 weeks from Monday02/20/18 Medication Changes: no changes. Reassessment Date/Recert Date: Today Next FOTO due: 6th visit GCodes due: 10th visit Time In/Out: 1530/1600 Pain Scale: 7 /10 Location: bilateral wrist(s) Type: aching Subjective Reports her wrists aren't too bad right now. Left wrist is about a 6, right about a 5. HEP: Compliant Objective RIGHT AROM: WFL Thumb abduction: 60* Wrist globally 3+/5 Ulnar deviation/Radial deviation: 4/5 Elbow flex: 4+/5 Extension: 5/5 Supination: 5/5 ?? LEFT AROM: WFL Thumb abduction: 60* Wrist flex/ext: 4/5 Ulnar deviation: 5/5 Radial deviation: 5/5 Elbow: 4+/5 Pronation: 5/5 Supination: 5/5 ?? Firer Locomotive Crane Strength: Left Right Ring 4 25 10 Ring 3 20 10 Ring 2 45 25 30 25 16 17 23 14 FOTO Eval: Patient Score: 45 FOTO Expected Score: 60 Anticipated Change:15 Subsequent FOTO Scores (score and date): 02/28/18 - 50 Education: Needs Assistance: Yes Understood: Yes [...] US to Bilateral wrists x 8 min - deferred Assessment Patient demonstrates improved wrist strength and improved healthcare administration intern strength on the right. Patient has decreased healthcare administration intern strength on the left, reports she feels she has been overworking the left more with work. Patient would continue to benefit from therapy to improve strength, ROM and functional activity. Plan Continue PT: Continue 2 times a week for 4 weeks. Signature: Luanne Walter PT Date: 02/28/2018 documented in this encounter Plan of Treatment Not on file documented as of this encounter Goals Goal Patient Goal Type Associated Problems Recent Progress Patient-Stated? Author Maintain a healthy diet, exercise regularly and maintain an ideal body weight General Tiana Duenas RN documented as of this encounter Visit Diagnoses Not on filedocumented in this encounter Care Teams Engineering Operator Relationship Specialty Start Date End Date Carmella Ulloa MD [address] [place] [address] PCP - General Family Medicine 09/27/17 documented as of this encounter
--- OUTSIDE RECORDS SUMMARY | 2024-04-01 12:47 | XMS_ITS | Encounter Summary ---
Author Organization [place] [address] Care Team Providers Care Dye Reel Operator Name Role Phone Unavailable Primary Care Provider Unavailabl e Encounter Details Date Type Department Care Team (Late st Contact Info) Description 01/25/2007 10:59 AM EDT - 01/25/2007 11:59 PM EDT Hospital Encounter [facility] LAB EDG Zeferino Schroeder MD [address] [place] [address] Social History Tobacco Use Types Packs/Day Years [...]
--- OUTSIDE RECORDS SUMMARY | 2024-04-01 12:47 | XMS_ITS | Encounter Summary ---
Author Organization [place] [address] Care Team Providers Care Commutator V Ring Assembler Name Role Phone Carmella Ulloa MD Primary Care Provider [phone] Reason for Visit * Physical Therapy (Routine) - Closed Specialty Diagnoses / Procedures Referred By Contdeandra t Referred To Contact Clinic/Center-Physical Therapy / Physical Therapy Diagnoses eval bilateral wrist pain injury Procedures PT EVAL 60 Aleks Nichols, DO Phone: tel: fax: [facility] Physical Therapy [address] [address] Phone: tel: fax: Referral ID Status Reason Start Date Expiration Date Visits Re quested Visits Authorized [id number] Closed 01/26/2018 03/28/2018 12 12 Encounter Details Date Type Department Care Team (Latest Contact Info) Description 01/26/2018 2:43 PM EDT - 01/26/2018 11:59 PM EDT Hospital Encounter [facility] Physical Therapy [address] [address] Luanne Walter, PT Discharge Disposition: [...] of Care - Luanne Walter, PT - 01/26/2018 3:02 PM EDT Images from the original note were not included. Therapy Elbow Evaluation 01/26/2018 Name: Raquel Manasa DavisB. 1970 This is a 47 y.o. female referred by Aleks Nichols DO to [facility] OPPT with a primary diagnosis of other synovitis and tenosynovitis, unspecified hand. Onset Date: About 3 weeks Next MD appt: 02/06/18 Subjective PT History: Reports she pulled her wrists at work when she was pulling something. She was told it was tendinitis in her wrists. Has been happening for about 3 weeks. Went back to doctor and was told no repetitive motion. 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 Has been having pain for a while and finally her wrists got too bad. Both wrists hurt, right more than left. Left hand dominant. Is sleeping in her wrist braces as well. Pain: Current Pain Level: 3 right now, 8-9 at worst Location: bilateral wrist(s) Increases Pain: movement, lifting and pulling Decreases Pain: rest and hot bath Sensation/Neurovascular: Numbness and Tingling Diagnostic Tests: None in Epic Prior Physical Therapy? No When: Any Problems with speech, communication, memory? 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 Chronic back pain ??? Migraine No past surgical history on file. (Not in a hospital admission) Current Outpatient Prescriptions: ??? albuterol (PROVENTIL HFA;VENTOLIN [...] mouth daily., Disp: 30 Tab, Rfl: 1 Allergies Allergen Reactions ??? Ciprofloxacin ??? Imitrex [Sumatriptan Succinate] ??? Promethazine Not taking gabapentin due to feeling balance off Denies latex allergy Objective Observation: Mental Status: Alert Palpation: TTP Sensation: Intact FOTO Eval: Patient Score: 45 FOTO Expected Score: 60 Anticipated Change:15 Writin Liftin Grippin S/H Rhythm: Right: Mild dyskinises Left: Mild dyskinesis RIGHT AROM: WFL Thumb abduction: 45* Wrist globally 3/5 Elbow: 4/5 Supination: 4/5 LEFT AROM: WFL Thumb abduction: 60* Wrist flex/ext: 4/5 Ulnar deviation: 5/5 Radial deviation: 5/5 Elbow: 4+/5 Pronation: 4/5 Supination: 5/5 Divider Operator Strength: Left Right Ring 4 25 10 Ring 3 20 10 Ring 2 45 10 Special Tests: Right Left Comment Varus Stress Test Positive Negative Valgus Stress Test Positive Negative Lateral Epicondyle Test Positive Positive Medial Epicondyle Test Positive Positive Mill's Test Positive Negative Cozen's Test Not Tested Not Tested Tinel's Test Positive Negative Phalen's negative Reverse Phalen's positive Pinch test Positive Negative Chintan Positive Positive Other: (ie: Shoulder ROM/Strength): Shoulder ROM WFL Treatment: Patient performed therapeutic exercises per flowsheet Wrist ABC Bilat Wrist supination/pronation x 10 (B) Thumb abduction x 10 (B) Thumb oppositive x 10 (B) Towel scrunch x 10 (B) Patient/Family Instructed on: HEP Patient's Response to teaching: verbalizes understanding Assessment Impression: Patient is a 47 year old female who presents with bilateral wrist pain. Patient demonstrates decreased strength, decreased thumb abduction ROM, decreased functional activity, increased pain. Patient is motivated to get better and to return to work. Precautions/Restrictions: None Time Frame: 4 weeks. Rehab potential: Good Educational & Functional Rehab Goals: 1. Patient will demonstrate independence with HEP 2. FOTO will increase to 52 in order to demonstrate overall improvement 3. Patient will demonstrate strength improved 1/2 to 1 grade to improve ability to lift 4. Patient will demonstrate firearms assembly supervisor strength improved 5# to improve ability to firearms assembly supervisor. Plan Patient will be seen 2 x week for 4 weeks. Rx to consist of Modalities as indicated, Exercises/Activities, Education and Manual Therapy Future educational needs: Review HEP Time: Start: 1500 Finish: 1600 documented in this encounter Plan of Treatment Not on file documented as of this encounter Goals Goal Patient Goal Type Associated Problems Recent Progress Patient-Stated? Author Maintain a healthy diet, exercise regularly and maintain an ideal body weight General No Tiana Mena RN documented as of this encounter Visit Diagnoses Not on filedocumented in this encounter Care Teams Commutator V Ring Assembler Relationship Specialty Start Date End Date Carmella Ulloa MD [address] [place] [address] PCP - General Family Medicine 09/27/17 documented as of this encounter
--- OUTSIDE RECORDS SUMMARY | 2024-04-01 12:47 | XMS_ITS | Encounter Summary ---
Author Organization [place] [address] Care Team Providers Care Electric Motor And Generator Assembler Name Role Phone Carmella Ulloa MD Primary Care Provider [phone] Reason for Visit * Physical Therapy (Routine) - Closed Specialty Diagnoses / Procedures Referred By Contac t Referred To Contact Clinic/Center-Physical Therapy / Physical Therapy Diagnoses eval bilateral wrist pain injury Procedures PT EVAL 60 Aleks Nichols, DO Phone: tel: fax: [facility] Physical Therapy [address] [address] Phone: tel: fax: Referral ID Status Reason Start Date Expiration Date Visits Re quested Visits Authorized [id number] Closed 01/26/2018 03/28/2018 12 12 Encounter Details Date Type Department Care Team (Latest Contact Info) Description 03/01/2018 3:30 PM EDT - 03/01/2018 11:59 PM EDT Hospital Encounter [facility] Physical Therapy [address] [address] Luanne Walter, PT Discharge Disposition: [...] Progress Notes * Luanne Walter, PT - 03/01/2018 3:36 PM EDT Images from the original note were not included. Physical Therapy Daily Progress Note 03/01/2018 Raquel Manasa : 1970 Visit #/Insurance 9/Worker's Comp Onset Date: 3 weeks Diagnosis:other synovitis and tenosynovitis, unspecified hand. Precautions:MD steven Follow Up:Magdalena : 2 weeks from Monday02/20/18 Medication Changes: no changes. Reassessment Date/Recert Date: 03/25/18 Next FOTO due: 6th visit GCodes due: 10th visit Time In/Out: 1534/1603 Pain Scale: 5 /10 Location: bilateral wrist(s) Type: aching Subjective Reports today her wrists aren't too bad due to having help. HEP: Compliant Objective FOTO Eval: Patient Score: 45 FOTO Expected Score: 60 Anticipated Change:15 Subsequent FOTO Scores (score and date): Education: Needs Assistance: Yes Understood: Yes Treatment: Therapeutic exercise x 20 min (TE) UE bike x 2 min [...] x 10 for posture Total timed treatment: 20 min (TE x 1, US x 1) US to Bilateral wrists x 8 min to palmar wrist. Assessment Tolerates treatment fair. US applied to palmar side of wrist over the carpal tunnel. Plan Continue PT: Progress as tolerated Signature: Luanne Walter, PT Date: 03/01/2018 documented in this encounter Plan of Treatment Not on file documented as of this encounter Goals Goal Patient Goal Type Associated Problems Recent Progress Patient-Stated? Author Maintain a healthy diet, exercise regularly and maintain an ideal body weight General Tiana Duenas, RN documented as of this encounter Visit Diagnoses Not on filedocumented in this encounter Care Teams Electric Motor And Generator Assembler Relationship Specialty Start Date End Date Carmella Ulloa MD [address] [place] [address] PCP - General Family Medicine 09/27/17 documented as of this encounter
--- OUTSIDE RECORDS SUMMARY | 2024-04-01 12:47 | XMS_ITS | Encounter Summary ---
Author Organization [place] [address] Care Team Providers Care Belt Glass Sander Name Role Phone Unavailable Primary Care Provider Unavailabl e Encounter Details Date Type Department Care Team (Late st Contact Info) Description 08/08/2006 7:57 PM EDT - 08/08/2006 9:15 PM EDT Hospital Encounter [facility] Nam Valdez MD [address] [place] [id number] Social History Tobacco Use Types Packs/Day [...]
--- OUTSIDE RECORDS SUMMARY | 2024-04-01 12:47 | XMS_ITS | Encounter Summary ---
Author Organization [place] [address] Care Team Providers Care Grommet Worker Name Role Phone Carmella Ulloa MD Primary Care Provider [phone] Reason for Visit * Reason Comments Foot Injury foot pain and swelli ng- left foot- onset month. pt states that the pain has increased in nature today. 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 Encounter Details Date Type Department Care Team (Late st Contact Info) Description 09/27/2017 3:55 PM EDT - 09/27/2017 5:08 PM EDT [facility] [address] [place] [address] Douglas Serrano MD [address] [place] [id number] Foot pain, left (Primary Dx) Discharge Disposition: Home or Self [...] Sign Reading Time Taken Comments Blood Pressure 115/60 09/27/2017 3:48 PM EDT Pulse 80 09/27/2017 3:48 PM EDT Temperature 37 ??C (98.6 ??F) 09/27/2017 3:48 PM EDT Respiratory Rate 14 09/27/2017 3:48 PM EDT Oxygen Saturation 98% 09/27/2017 3:48 PM EDT Inhaled Oxygen Concentration - - Weight 86.2 kg (190 lb) 09/27/2017 3:48 PM EDT Height - - Body Mass Index 30.67 07/16/2017 9:09 PM EST documented in this encounter Discharge Instructions * Discharge Instructions* Rip Rodriguez APRN - 09/27/2017 5:02 PM EDT Follow-up with car designer in 2-3 days for reevaluation. Continue home medications as directed. * Attachments The following attachments cannot be sent through Care Everywhere. * MUSCULOSKELETAL PAIN (IRAQI) documented in this encounter Medications at Time of Discharge gabapentin (NEURONTIN) 300 mg Oral Capsule Take by mouth 5 times daily. HYDROcodone-aceta minophen (NORCO) 5-325 mg Oral Tablet Take 1 Tab by mouth every 6 hours as needed for Pain. documented as of this encounter Discharge Disposition Disposition Code Departure Means Destination Home or Self Prison documented in this encounter ED Notes * Rip Rdoriguez APRN - 09/27/2017 3:36 PM EDT Chief Complaint Patient presents with ??? Foot Injury foot pain and swelling- left foot- onset month. pt states that the pain has increased in nature today. 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 Which is worse with weightbearing and movement. She has been taking Mobic as directed. She takes Heber as needed for discomfort and states she just took a steroid injection in one to 2 weeks ago for her foot pain. Denies any known injury. History provided by: Patient flow nurse used: No Foot Injury Pertinent negatives include no chest pain, no abdominal pain and no shortness of breath. Patient History Allergies Allergen Reactions ??? Ciprofloxacin ??? Imitrex [Sumatriptan Succinate] ??? Promethazine Home Medications: Prior to Admission medications Medication Sig Start Date End Date Taking? Authorizing Provider albuterol (PROVENTIL HFA;VENTOLIN HFA) 90 mcg/actuation Inhl HFA Aerosol Inhaler Inhale 2 Puffs into the lungs every 6 hours as needed for Wheezing. Yes Provider, Historical cyclobenzaprine (FLEXERIL) 10 mg Oral Tablet Take 10 mg by mouth 3 times daily. Yes Provider, Historical gabapentin (NEURONTIN) 300 mg Oral Capsule Take by mouth 5 times daily. Yes Provider, Historical HYDROcodone-acetaminophen (NORCO) 5-325 mg Oral Tablet Take 1 Tab by mouth every 6 hours as needed for Pain. Yes Provider, Historical meloxicam (MOBIC) 7.5 mg Oral Tablet Take 7.5 mg by mouth daily. Yes Provider, Historical sertraline (ZOLOFT) 50 mg tablet Take 50 mg by mouth daily. Yes Provider, Historical hydrocodone-ibuprofen (VICOPROFEN) 7.5-200 mg per tablet Take 1 Tab by mouth every 8 hours as needed for Pain. 7.5/500 Provider, Historical sumatriptan (IMITREX) 100 mg tablet Take 100 mg by mouth once as needed for Migraine. Provider, Historical trazodone (DESYREL) 50 mg tablet Take 50 mg by mouth nightly. Provider, Historical Past Medical History: Past Medical History: Diagnosis Date ??? Chronic back pain ??? Migraine Social History: reports that she has never smoked. She has never used smokeless tobacco. She reports that she does not drink alcohol. Family History: No family history on file. Surgical History: History reviewed. No pertinent surgical history. Review of Systems Review of Systems Constitutional: Negative for chills and fever. HENT: Negative. Eyes: Negative. Respiratory: Negative for cough and shortness of breath. Cardiovascular: Negative for chest pain, palpitations and leg swelling. Gastrointestinal: Negative for abdominal pain, diarrhea, nausea and vomiting. Genitourinary: Negative for dysuria and frequency. Musculoskeletal: Pain left foot. Skin: Negative for rash. Neurological: Negative. Psychiatric/Behavioral: Negative. All other systems reviewed and are negative. Physical Exam Blood pressure 115/60, pulse 80, temperature 98.6 ??F (37 ??C), temperature source Oral, resp. rate14, weight 190 lb (86.2 kg), last menstrual period 09/22/2017, SpO2 98 %. Physical Exam Constitutional: She is oriented to person, place, and time. She appears well- developed and well-nourished. HENT: Head: Normocephalic. Neck: Normal range of motion. Neck supple. Cardiovascular: Normal rate. Pulmonary/Chest: Effort normal. No respiratory distress. Musculoskeletal: Complains of tenderness upon palpation of the left lateral dorsal foot. No obvious external injury.Sensation and capillary refill are intact to the distal left toes. Left pedal pulse is 3+. Neurological: She is alert and oriented to person, place, and time. Skin: Skin is warm and dry. Psychiatric: She has a normal mood and affect. Procedures Radiology/EKG/Labs: Results for orders placed or performed during the hospital encounter of 09/27/17 XR FOOT LEFT AP LATERAL AND OBLIQUE Narrative XR FOOT LEFT AP LATERAL AND OBLIQUE, 09/27/2017 4:37 PM CLINICAL HISTORY: -FOOT INJURY COMPARISON: None. PROCEDURE COMMENTS: Routine views of the foot and toes per protocol. FINDINGS: There is no fracture or traumatic malalignment. Joint spaces are maintained. There are no erosive or periosteal changes. Impression No acute bony abnormality of the foot. ED Course: Appropriate laboratory and radiology studies reviewed Patient presents with left Foot pain. X-ray findings noted above. States she has a cast shoe to wear as needed at home. Instructed to continue home medicines as directed and follow-up with podiatry in 2-3 days for reevaluation. ED Clinical Impression: Left foot pain Critical Care time Condition at Discharge/Transfer from Department: Stable This chart was completed using voice recognition technology and may contain unintended errors Rip Rodriguez APRN 09/27/17 1704 Cosigned by Douglas Serrano MD at 10/07/2017 7:44 AM EDT Associated attestation - Douglas Serrano MD - 10/07/2017 7:44 AM EDT Patient discussed with the advanced practitioner and I agree with their plan as documented. This chart was completed using voice recognition technology and may contain unintended errors documented in this encounter Plan of Treatment Not on file documented as of this encounter Procedures Procedure Name Priority Date/Time Associated Diagnosis Comments XR FOOT LEFT AP LATERAL AND OBLIQUE BORIS 09/27/2017 4:37 PM EDT documented in this encounter Results * XR FOOT LEFT AP LATERAL AND OBLIQUE (09/27/2017 4:37 PM EDT) Anatomical Region Laterality Modality Foot Radiographic Shyann ging 09/27/2017 4:37 PM EDT Impressions 09/27/2017 4:41 PM EDT No acute bony abnormality of the foot. Narrative 09/27/2017 4:41 PM EDT XR FOOT LEFT AP LATERAL AND OBLIQUE, ??09/27/2017 4:37 PM CLINICAL HISTORY: ??-FOOT INJURY COMPARISON: ??None. PROCEDURE COMMENTS: Routine views of the foot and toes per protocol. FINDINGS: ?? There is no fracture or traumatic malalignment. Joint spaces are maintained. There are no erosive or periosteal changes. Procedure Note Sudhakar Rdz MD - 09/27/2017 XR FOOT LEFT AP LATERAL AND OBLIQUE, 09/27/2017 4:37 PM CLINICAL HISTORY: -FOOT INJURY COMPARISON: None. PROCEDURE COMMENTS: Routine views of the foot and toes per protocol. FINDINGS: There is no fracture or traumatic malalignment. Joint spaces are maintained. There are no erosive or periosteal changes. IMPRESSION: No acute bony abnormality of the foot. Rip Rodriguez APRN IMG DIAGNOSTIC IMAGING OR DERABLES Final Result documented in this encounter Visit Diagnoses Diagnosis Foot pain, left- Primary Pain in limb documented in this encounter Historical Medications * This list may reflect changes made after this encounter. HYDROcodone-aceta minophen (NORCO) 5-325 mg Oral Tablet Take 1 Tab by mouth every 6 hours as needed for Pain. gabapentin (NEURONTIN) 300 mg Oral Capsule Take by mouth 5 times daily. albuterol (PROVENTIL HFA;VENTOLIN HFA) 90 mcg/actuation Inhl HFA Aerosol Inhaler Inhale 2 Puffs into the lungs every 6 hours as needed for Wheezing. 11/01/2019 meloxicam (MOBIC) 7.5 mg Oral Tablet Take 7.5 mg by mouth daily. 09/29/2017 cyclobenzaprine (FLEXERIL) 10 mg Oral Tablet Take 10 mg by mouth 3 times daily. 08/21/2018 added in this encounter Care Teams Grommet Worker Relationship Specialty Start Date End Date Carmella Ulloa MD [address] [place] [address] PCP - General Family Medicine 09/27/17 documented as of this encounter
--- OUTSIDE RECORDS SUMMARY | 2024-04-01 12:47 | XMS_ITS | Encounter Summary ---
Author Organization [place] [address] Care Team Providers Care Embossing Press Operator Molded Goods Name Role Phone Carmella Ulloa MD Primary Care Provider [phone] Reason for Visit * Reason Comments Otalgia Encounter Details Date Type Department Care Team (Late st Contact Info) Description 12/27/2017 3:30 PM EDT Office Visit [address] [address] Waleska Alexandra MD [address] [place] [address] Dental caries (Primary Dx); Middle ear effusion, bilateral; Carpal tunnel syndrome of right wrist; Grade 1 ankle sprain, left, initial encounter Social History Tobacco Use Types Packs/Day Years [...] Sign Reading Time Taken Comments Blood Pressure 122/74 12/27/2017 3:34 PM EDT Pulse - - Temperature 36.7 ??C (98.1 ??F) 12/27/2017 3:34 PM ED T Respiratory Rate - - Oxygen Saturation - - Inhaled Oxygen Concentration - - Weight 93 kg (205 lb) 12/27/2017 3:34 PM EDT Height 167.6 cm (5' 6 ) 12/27/2017 3:34 PM EDT Body Mass Index 33.09 12/27/2017 3:34 PM EDT documented in this encounter Functional [...] Refills Last Filled Start Date End Date Leg Brace (ANKLE BRACE) [facility] MiscIndications:Gra de 1 ankle sprain, left, initial encounter 1 Each by [facility].(Non-D rug; Combo Route) route once for 1 dose. 1 Each 1 12/27/2017 12/27/2017 amoxicillin-clavula noe (AUGMENTIN) 875-125 mg Oral TabletIndications:D ental caries,Middle ear effusion, bilateral Take 1 Tab by mouth 2 times daily for 10 days. 20 Tab 12/27/2017 01/06/2018 documented in this encounter Progress Notes * Waleska Alexandra MD - 12/27/2017 3:30 PM EDT Vitals: 12/27/17 1534 BP: 122/74 Temp: 98.1 ??F (36.7 ??C) TempSrc: Tympanic Weight: 205 lb (93 kg) Height: 5' 6 (1.676 m) Chief Complaint Patient presents with ??? Otalgia HPI: Otalgia There is pain in both ears. This is a new problem. Episode onset: 1 week. Associated symptoms include coughing. Pertinent negatives include no abdominal pain, diarrhea, headaches, rash, rhinorrhea orsore throat. Dental infection. States that she does not have the time to go to the dentist right now due to work. Pain in hands, worse with movement, diagnosed with carpal tunnel previously. Review of Systems Constitutional: Negative for fever. HENT: Positive for ear pain. Negative for congestion, dental problem, drooling, postnasal drip, rhinorrhea, sinus pain, sinus pressure, sore throat, tinnitus and trouble swallowing. Eyes: Negative for visual disturbance. Respiratory: Positive for cough. Negative for shortness of breath. Cardiovascular: Negative for chest pain, palpitations and leg swelling. Gastrointestinal: Negative for abdominal pain, constipation and diarrhea. Genitourinary: Negative for difficulty urinating. Musculoskeletal: Negative for joint swelling. Skin: Negative for rash. Neurological: Negative for dizziness, light-headedness and headaches. Physical Exam Constitutional: She appears well-developed and well-nourished. HENT: Head: Normocephalic and atraumatic. Right Ear: External ear and ear canal normal. Tympanic membrane is bulging. Tympanic membrane is not erythematous. Left Ear: External ear and ear canal normal. Tympanic membrane is bulging. Tympanic membrane is noterythematous. Mouth/Throat: She does not have dentures. Abnormal dentition. Dental caries present. Eyes: Conjunctivae are normal. Cardiovascular: Normal rate, regular rhythm and normal heart sounds. Exam reveals no gallop and no friction rub. No murmur heard. Pulmonary/Chest: Effort normal and breath sounds normal. No respiratory distress. She has no wheezes. She has no rales. Abdominal: Soft. Bowel sounds are normal. Musculoskeletal: Normal range of motion. She exhibits no edema. Neurological: She is alert. She has normal strength. Skin: Skin is warm. No rash noted. Psychiatric: She has a normal mood and affect. Thought content normal. See time date stamps in the EMR for other pertient history components reviewed as part of today's encounter. [facility] Documentation [facility] Flowsheet was not completed/reviewed as part of today's visit. Educated patient regarding the diagnosis, medication/treatment, goals, self- management tools and instructions based on their care plan. They verbalized understanding of the education given on the After Visit Summary [AVS] for today's visit. A copy of the AVS was provided either in writing and/or via [employer]. A new medicine was prescribed during this office visit. I did discuss the reason for prescribing this new medication. I also informed of possible likely side effects, but also encouraged them to readthe medication insert that will accompany their prescription and encouraged them to discuss any questions about the insert with their pharmacist. I instructed them to call if having side effects or possible allergic reaction after taking. I also discussed the risk of stopping the medication or deviating from prescribing instructions. Dosing instructions are present on the AVS and they are aware. I inquired of any questions and answered accordingly. Assessment Diagnoses and all orders for this visit: Dental caries - amoxicillin-clavulanate (AUGMENTIN) 875-125 mg Oral Tablet; Take 1 Tab by mouth 2 times daily for10 days. Dispense: 20 Tab; Refill: 0 Middle ear effusion, bilateral - amoxicillin-clavulanate (AUGMENTIN) 875-125 mg Oral Tablet; Take 1 Tab by mouth 2 times daily for10 days. Dispense: 20 Tab; Refill: 0 Carpal tunnel syndrome of right wrist - CO WHO WRIST EXTENSION CONTROL NON MOLDED Grade 1 ankle sprain, left, initial encounter - Leg Brace (ANKLE BRACE) Misc Misc; 1 Each by Misc.(Non-Drug; Combo Route) route once for 1 dose. Dispense: 1 Each; Refill: 1 Patient declines steroids. documented in this encounter Miscellaneous Notes * Addendum Note - Waleska Alexandra MD - 12/27/2017 3:30 PM EDTAddended by: WALESKA ALEXANDRA on: 12/27/2017 03:57 PM Modules accepted: Orders, Level of Service documented in this encounter Plan of Treatment Scheduled Orders Name Type Priority Associated Diagnoses Orde r Schedule CO WHO WRIST EXTENSION CONTROL NON MOLDED CO Charge Routine Carpal Tunnel Syndrome Of Right Wrist Ordered: 12/27/2017 documented as of this encounter Goals Goal Patient Goal Type Associated Problems Recent Progress Patient-Stated? Author Maintain a healthy diet, exercise regularly and maintain an ideal body weight General No Tiana Mena RN documented as of this encounter Visit Diagnoses Diagnosis Dental caries- Primary Unspecified dental caries Middle ear effusion, bilateral Carpal tunnel syndrome of right wrist Carpal tunnel syndrome Grade 1 ankle sprain, left, initial encounter documented in this encounter Care Teams Embossing Press Operator Molded Goods Relationship Specialty Start Date End Date Carmella Ulloa MD [address] [place] [address] PCP - General Family Medicine 09/27/17 documented as of this encounter
--- OUTSIDE RECORDS SUMMARY | 2024-04-01 12:47 | XMS_ITS | Encounter Summary ---
Author Organization [place] [address] Care Team Providers Care Conference Coordinator Name Role Phone Carmella Ulloa MD Primary Care Provider [phone] Reason for Visit * Physical Therapy (Routine) - Closed Specialty Diagnoses / Procedures Referred By Contdeandra t Referred To Contact Clinic/Center-Physical Therapy / Physical Therapy Diagnoses eval bilateral wrist pain injury Procedures PT EVAL 60 Aleks Nichols, DO Phone: tel: fax: [facility] Physical Therapy [address] [address] Phone: tel: fax: Referral ID Status Reason Start Date Expiration Date Visits Re quested Visits Authorized [id number] Closed 01/26/2018 03/28/2018 12 12 Encounter Details Date Type Department Care Team (Latest Contact Info) Description 02/02/2018 3:30 PM EDT - 02/02/2018 11:59 PM EDT Hospital Encounter [facility] Physical Therapy [address] [address] Luanne Walter, PT Discharge Disposition: [...] Progress Notes * Luanne Walter, PT - 02/02/2018 3:32 PM EDT Images from the original note were not included. Physical Therapy Daily Progress Note 02/02/2018 Raquel Manasa : 1970 Visit #/Insurance 3/Worker's Comp Onset Date: 3 weeks Diagnosis:other synovitis and tenosynovitis, unspecified hand. Precautions:MD steven Follow Up:Magdalena 02/06/18 Medication Changes: supposed to start new medication but hasn't pickd I tup Reassessment Date/Recert Date: 02/25/18 Next FOTO due: 6th visit GCodes due: 10th visit Time In/Out: 1531/1600 Pain Scale: 2-3 Location: bilateral wrist(s) Type: aching Subjective Reports she hasn't done too much today due to not working. HEP: Compliant Objective FOTO Eval: Patient Score: 45 FOTO Expected Score: 60 Anticipated Change:15 Subsequent FOTO Scores (score and date): Education: Needs Assistance: Yes Understood: Yes Treatment: Therapeutic exercise x 29 min (TE) UE bike x 4 min Wrist flexion/extension x 10, x 10 each with yellow band Wrist roller x 5 Wrist deviation 1# 2 x 10 Beads with tweezers x 20 B Thumb flexion x 10 B w/rubber band Thumb adduction x 10 (B) Thumb abduction x 10 (B) Wrist flexion stretch x 30s (B) Wrist extension stretch x 30s (B) Thumb stretch x 30s (B) Total timed treatment: 29 min (TE x 2) Assessment Tolerates treatment well. Nubmness with wrist extension stretch. Addition HEP given. Educated with wrist extension stretch to only perform 15s or less, to avoid numbness with stretch. Plan Continue PT: Progress as tolerated Signature: Luanne Walter, PT Date: 02/02/2018 documented in this encounter Plan of Treatment Not on file documented as of this encounter Goals Goal Patient Goal Type Associated Problems Recent Progress Patient-Stated? Author Maintain a healthy diet, exercise regularly and maintain an ideal body weight General No Tiana Mena, RN documented as of this encounter Visit Diagnoses Not on filedocumented in this encounter Care Teams Conference Coordinator Relationship Specialty Start Date End Date Carmella Ulloa MD [address] [place] [address] PCP - General Family Medicine 09/27/17 documented as of this encounter
--- OUTSIDE RECORDS SUMMARY | 2024-04-01 12:47 | XMS_ITS | Encounter Summary ---
Author Organization [place] [address] Care Team Providers Care Towboat Captain Name Role Phone Unavailable Primary Care Provider Unavailabl e Encounter Details Date Type Department Care Team (Late st Contact Info) Description 10/18/2005 9:11 AM EDT - 10/18/2005 11:59 PM EDT Hospital Encounter [facility] Leo Lord, DO [address] [place] [address] Social History Tobacco Use Types Packs/Day Years Used Date Smoking Tobacco: Never Assessed Comments Unknown Sex and Gender Information Value Date Recorded Sex Assigned at Not on file Legal Sex Female 5:20 AM EDT Gender Identity Not on file Sexual Orientation Not on file documented as of this encounter Plan of Treatment Scheduled Orders Name Type Priority Associated Diagnoses Orde r Schedule CT ABDOMEN W/O CONTRAST Imaging Routine Once for 1 Occur rences starting 07/22/2009 until 07/22/2009, 1 completed documented as of this encounter Procedures Procedure Name Priority Date/Time Associated Diagnosis Comments CT ABDOMEN W/O CONTRAST Routine 10/18/2005 9:22 AM EDT documented in this encounter Results * CT ABDOMEN W/O CONTRAST (10/18/2005 9:22 AM EDT) Anatomical Region Laterality Modality Other 10/18/2005 9:22 AM EDT Narrative 10/18/2005 12:06 PM EDT Noncontrast abdomen CT, 10/18/2005- Comparison- Abdomen and pelvis CT with contrast 10/13/2005. Indication- 35 year old female with 1.9 cm right adrenal mass. Technical factors- 1 mm collimated axial images obtained through the adrenal gland. No contrast agents were administered. Findings- Reidentified is the 1.9 cm low attenuation right adrenal mass. Precontrast Hounsfield unit evaluation ranged from 0 to -7. Some mild enhancement was demonstrated in this lesion on original study. Impression- 1. Well defined 1.9 cm right adrenal mass demonstrating some mild enhancement, most consistent with benign adenoma. ? Wildlife Photographer- JASMIN IQBAL ? Reading Radiologist- BHAVANA JUAREZ ??. ? Released Date Time- 10/18/051630 Procedure Note Bhavana Juarez - 07/22/[address], 10/18/2005- Comparison- Abdomen and pelvis CT with contrast 10/13/2005. Indication- 35 year old female with 1.9 cm right adrenal mass. Technical factors- 1 mm collimated axial images obtained through the adrenal gland. No contrast agents were administered. Findings- Reidentified is the 1.9 cm low attenuation right adrenal mass. Precontrast Hounsfield unit evaluation ranged from 0 to -7. Some mild enhancement was demonstrated in this lesion on original study. Impression- 1. Well defined 1.9 cm right adrenal mass demonstrating some mild enhancement, most consistent with benign adenoma. Wildlife Photographer- JASMIN IQBAL Reading Radiologist- BHAVANA JUAREZ MD. Released Date Time- 10/18/051630 Leo Lord DO [facility]ICAL Fin [facility] Result documented in this encounter Visit Diagnoses Not on filedocumented in this encounter
--- OUTSIDE RECORDS SUMMARY | 2024-04-01 12:47 | XMS_ITS | Encounter Summary ---
Author Organization [place] [address] Care Team Providers Care Black Ash Burner Operator Name Role Phone Unavailable Primary Care Provider Unavailabl e Encounter Details Date Type Department Care Team (Late st Contact Info) Description 08/10/2007 1:12 PM EDT - 08/10/2007 11:59 PM EDT Hospital Encounter [facility] Leo Lord, DO [address] [place] [address] Social History Tobacco Use Types Packs/Day Years [...]
--- OUTSIDE RECORDS SUMMARY | 2024-04-01 12:47 | XMS_ITS | Encounter Summary ---
Author Organization [place] [address] Care Team Providers Care Certified Court/Medical Interpreter Name Role Phone Unavailable Primary Care Provider Unavailabl e Encounter Details Date Type Department Care Team (Late st Contact Info) Description 07/23/2007 10:05 PM EDT - 07/23/2007 11:13 PM EDT Hospital Encounter [facility] EP[facility] CON UNK [facility] Farshad Veloz MD [address] [place] [phone] Social History Tobacco Use Types Packs/Day [...]
--- OUTSIDE RECORDS SUMMARY | 2024-04-01 12:47 | XMS_ITS | Encounter Summary ---
Author Organization [place] [place] [address] Care Team Providers Care Pit Hand Name Role Phone Nonstaff, Referring Primary Care Provider Zonia kidd Reason for Visit * Reason Comments Back Pain Back pain, has been working in [employer] thinks might have turned wrong Encounter Details Date Type Department Care Team (Late st Contact Info) Description 06/01/2014 8:50 PM EST - 06/01/2014 9:27 PM EST [facility] [address] [place] [address] Farshad Veloz MD [address] [place] [phone] Acute thoracic myofascial strain, initial encounter (Primary Dx) Discharge Disposition: Home or Self [...] Sign Reading Time Taken Comments Blood Pressure 123/66 06/01/2014 8:55 PM EST Pulse 87 06/01/2014 8:55 PM EST Temperature 36.5 ??C (97.7 ??F) 06/01/2014 8:55 PM ES T Respiratory Rate 18 06/01/2014 8:55 PM EST Oxygen Saturation 100% 06/01/2014 8:55 PM EST Inhaled Oxygen Concentration - - Weight 83.9 kg (185 lb) 06/01/2014 8:55 PM EST Height 167.6 cm (5' 6 ) 06/01/2014 8:55 PM EST Body Mass Index 29.86 06/01/2014 8:55 PM EST documented in this encounter Discharge Instructions * Attachments The following attachments cannot be sent through Care Everywhere. * MUSCLE STRAIN (GHANAIAN) documented in this encounter Medications at Time of Discharge cyclobenzaprine (FLEXERIL) 10 mg Oral Tablet Take 1 Tab by mouth 3 times daily as needed for Muscle spasms for up to 15 doses. 15 Tab 0 06/01/2014 07/01/2014 diclofenac (VOLTAREN) 75 mg Oral Tablet, Delayed Release (E.C.) Take 1 Tab by mouth 2 times daily for 10 days. 20 Tab 0 06/01/2014 06/11/2014 documented as of this encounter Ordered Prescriptions Prescription Sig Dispense Quantity Refills Last Filled Start Date End Date cyclobenzaprine (FLEXERIL) 10 mg Oral Tablet Take 1 Tab by mouth 3 times daily as needed for Muscle spasms for up to 15 doses. 15 Tab 0 06/01/2014 07/01/2014 diclofenac (VOLTAREN) 75 mg Oral Tablet, Delayed Release (E.C.) Take 1 Tab by mouth 2 times daily for 10 days. 20 Tab 0 06/01/2014 06/11/2014 documented in this encounter Discharge Disposition Disposition Code Departure Means Destination Home or Self [place] documented in this encounter ED Notes * Farshad Veloz MD - 06/02/2014 3:21 AM EST CHIEF COMPLAINT Chief Complaint Patient presents with ??? Back Pain Back pain, has been working in [employer] thinks might have turned wrong HPI Raquel Goel is a 44 y.o. 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 Alcohol Use: No ??? Drug Use: None ??? Sexual Activity: None Other Topics Concern ??? None Social History Narrative SURGICAL HISTORY History reviewed. No pertinent past surgical history. CURRENT MEDICATIONS Current Outpatient Rx Name Route Sig Dispense Refill ??? diclofenac (VOLTAREN) 75 mg Oral Tablet, Delayed Release (E.C.) Oral Take 1 Tab by mouth 2 times daily for 10 days. 20 Tab 0 ??? cyclobenzaprine (FLEXERIL) 10 mg Oral Tablet Oral Take 1 Tab by mouth 3 times daily as needed for Muscle spasms for up to 15 doses. 15 Tab 0 ??? hydrocodone-ibuprofen (VICOPROFEN) 7.5-200 mg per tablet [...] Succinate] ??? Promethazine PHYSICAL EXAM VITAL SIGNS: BP 123/66 Pulse 87 Temp(Src) 97.7 ??F (36.5 ??C) (Oral) Resp 18 Ht 5' 6 (1.676 m) Wt 185 lb (83.915 kg) BMI 29.87 kg/m2 SpO2 100% Constitutional: Well developed, Well nourished, No acute distress, Non-toxic appearance. Neck: Normal range of motion, No tenderness, Supple, No stridor. Cardiovascular: Normal heart rate, Normal rhythm, No murmurs, No rubs, No gallops. No pulsatile masses. Thorax & Lungs: Normal breath sounds, No respiratory distress, No wheezing, No chest tenderness. Abdomen: Bowel sounds normal, Soft, No tenderness, No masses, No pulsatile masses. Skin: Warm, Dry, No erythema, No rash. Back: positive reproducible pain posterior thoracic muscles bilaterally. Pain worse with trunk twisting against resistance. Negative midline pain of the cervical, thoracic, lumbar spine Extremities: Intact distal pulses, No edema, No tenderness, No cyanosis, No clubbing. Neurologic: Alert & oriented x 3, Normal motor function, Normal sensory function, No focal deficits noted. EKG RADIOLOGY/PROCEDURES COURSE & MEDICAL DECISION MAKING Pertinent Labs & Imaging studies reviewed. (See chart for details) Musculoskeletal back pain-Toradol 60 mg IM in the ER. Continue with muscle relaxants and NSAIDs. Diagnosis and treatment plan explained Return to ER instructions discussed Advise followup with PCP FINAL IMPRESSION Acute thoracic back pain, musculoskeletal This chart was completed using voice recognition technology and may contain unintended errors Farshad Veloz MD 06/02/14 0322 documented in this encounter Plan of Treatment Not on file documented as of this encounter Visit Diagnoses Diagnosis Acute thoracic myofascial strain, initial encounter- Primary documented in this encounter Administered Medications Inactive Administered Medications - up to 1 most recent administrations Medication Order MAR Action Action Date Dose Rate Site ketorolac (TORADOL) injection 60 mg 60 mg, Intramuscular, ONCE, 1 dose, On 06/01/14 at 2115 Given 06/01/2014 9:18 PM EST 60 mg Left Upper Outer Quadrant documented in this encounter Active and Recently Administered Medications Times are shown in EST. Scheduled Medication Order 05/30/2014 05/31/2014 06/01/2014 ketorolac (TORADOL) injection 60 mg (COMPLETED) 60 mg, Intramuscular, ONCE, 1 dose, On 06/01/14 at 2115 2118 (Given - [facility] er: Melvi Emerson RN) documented in this encounter Care Teams Pit Hand Relationship Specialty Start Date End Date Nonstaff, Referring PCP - General 06/01/14 09/26/17 documented as of this encounter
--- OUTSIDE RECORDS SUMMARY | 2024-04-01 12:47 | XMS_ITS | Encounter Summary ---
Author Organization [place] [address] Care Team Providers Care Catalog Specialist Name Role Phone Carmella Ulloa MD Primary Care Provider [phone] Reason for Visit * Reason Onset Date Comments ED Follow-Up Call 09/28/2017 Encounter Details Date Type Department Care Team (Late st Contact Info) Description 09/28/2017 Patient Outreach [address] [address] Tiana Mena MUSEUM ASSISTANT Follow-Up Call Social History Tobacco Use Types [...] as of this encounter Progress Notes * Amaya Comer RMA - 09/29/2017 10:47 AM EDT ED Follow Up Regarding the most recent emergency room visit: Appropriate for follow up?: Yes Contact made?: No If no, did you leave a message?: No Was letter sent?: Yes If patient is unable to fill medications, please consider a social work consult if criteria met: * Tiana Mena RN - 09/28/2017 2:22 PM EDT Chart reviewed after recent ED visit for foot pain. Patient is not a candidate for CTT/HCA to follow at this time. level 1. documented in this encounter Plan of Treatment Not on file documented as of this encounter Goals Goal Patient Goal Type Associated Problems Recent Progress Patient-Stated? Author Maintain a healthy diet, exercise regularly and maintain an ideal body weight General No Tiana Mena RN documented as of this encounter Visit Diagnoses Not on filedocumented in this encounter Care Teams Catalog Specialist Relationship Specialty Start Date End Date Carmella Ulloa MD [address] [place] [address] PCP - General Family Medicine 09/27/17 documented as of this encounter
--- OUTSIDE RECORDS SUMMARY | 2024-04-01 12:47 | XMS_ITS | Encounter Summary ---
Author Organization [place] [address] Care Team Providers Care Project Accountant Name Role Phone Unavailable Primary Care Provider Unavailabl e Encounter Details Date Type Department Care Team (Late st Contact Info) Description 05/25/2006 7:51 PM EST - 05/25/2006 11:59 PM EST Hospital Encounter [facility] EPIC CON UNK GRT [...]
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
--- OUTSIDE RECORDS SUMMARY | 2024-04-01 12:47 | XMS_ITS | Encounter Summary ---
Author Organization [place] [address] Care Team Providers Care Assistant Refinery Operator Name Role Phone Unavailable Primary Care Provider Unavailabl e Encounter Details Date Type Department Care Team (Late st Contact Info) Description 11/29/2002 11:06 AM EDT - 11/29/2002 11:59 PM EDT Hospital Encounter [facility] Zeferino Schroeder MD [address] [place] [address] Social History Tobacco Use Types Packs/Day Years [...]
--- OUTSIDE RECORDS SUMMARY | 2024-04-01 12:47 | XMS_ITS | Encounter Summary ---
Author [place] [address] Care Team Providers Care Spider Assembler Name Role Phone Carmella Ulloa MD Primary Care Provider [phone] Reason for Visit * Reason Onset Date Comments Care Management - Chart Review 09/28/2017 Encounter Details Date Type Department Care Team (Late st Contact Info) Description 09/28/2017 Patient Outreach [facility] [address] [place] [address] Sherri Ulrich RN Care Management - Chart Review Social History Tobacco Use Types Packs/Day Years [...] as of this encounter Progress Notes * Sherri Sullivan RN - 09/28/2017 1:17 PM EDT Chart reviewed after recent ED [...] on filedocumented in this encounter Care Teams Spider Assembler Relationship Specialty Start Date End Date Carmella Ulloa MD [address] [place] [address] PCP - General Family Medicine 09/27/17 documented as of this encounter
--- OUTSIDE RECORDS SUMMARY | 2024-04-01 12:47 | XMS_ITS | Encounter Summary ---
Author Organization [facility] [address] Care Team Providers Care Computer Programmer Analyst Name Role Phone Carmella Ulloa MD Primary Care Provider [phone] Reason for Referral * Consultation (Routine) - Closed Specialty Diagnoses / Procedures Referred By Contdeandra t Referred To Contact Diagnoses Left foot pain Carmella Ulloa MD Phone: tel: fax: Farshad Haas DPM Phone: tel: fax: Referral ID Status Reason Start Date Expiration Date Visits Re quested Visits Authorized [id number] Closed 09/29/2017 09/29/2018 1 99 Reason for Visit * Reason Comments Establish Care Annual Exam Toe Pain left Encounter Details Date Type Department Care Team (Late st Contact Info) Description 09/29/2017 3:15 PM EDT Office Visit [facility] [address] [place] [address] Carmella Ulloa MD [address] [place] [address] Left foot pain (Primary Dx) Social History Tobacco Use Types [...] Sign Reading Time Taken Comments Blood Pressure 108/64 09/29/2017 3:50 PM EDT Pulse - - Temperature 35.8 ??C (96.5 ??F) 09/29/2017 3:50 PM ED T Respiratory Rate - - Oxygen Saturation - - Inhaled Oxygen Concentration - - Weight 92.1 kg (203 lb) 09/29/2017 3:50 PM EDT Height 167.6 cm (5' 6 ) 09/29/2017 3:50 PM EDT Body Mass Index 32.77 09/29/2017 3:50 PM EDT documented in this encounter Functional [...] Assessment Author No 09/29/2017 3:46 PM EDT Raqule Magallon RMA documented as of this encounter Mental Status * Because of a physical, mental or emotional condition, does this person have serious difficulty concentrating, remembering or making decisions? Answer Entry Date Author No 09/29/2017 3:46 PM EDT Raquel Magallon RMA documented in this encounter Ordered Prescriptions Prescription Sig Dispense Quantity Refills Last Filled Start Date End Date predniSONE (DELTASONE) 20 mg Oral TabletIndications:L eft foot pain Take 2 Tabs by mouth daily for 5 days. 10 Tab 09/29/2017 10/04/2017 meloxicam (MOBIC) 15 mg Oral Tablet Take 1 Tab by mouth daily. 30 Tab 1 09/29/2017 08/21/2018 documented in this encounter Progress Notes * Carmella Ulloa MD - 09/29/2017 3:15 PM EDT Vitals: 09/29/17 1550 BP: 108/64 Temp: 96.5 ??F (35.8 ??C) TempSrc: Tympanic Weight: 203 lb (92.1 kg) Height: 5' 6 (1.676 m) Chief Complaint Patient presents with ??? Establish Care ??? Annual Exam ??? Toe Pain left Establish Care This is a new problem. The current episode started today. The problem occurs constantly. The problem has been unchanged. Associated symptoms include arthralgias. Pertinent negatives include no coughing, fatigue, fever, joint swelling or rash. Toe Pain The pain is present in the left foot. This is a recurrent problem. The current episode started morethan 1 month ago. The problem occurs constantly. The problem has been unchanged. Pertinent negatives include no fever. on chronic meds from pain doctor Pt is here today to establish care and for left foot pain that has been present for over a month Well Adult: Subjective Ms. Goel is a 47 y.o. female here for an annual wellness visit. Diet: good Exercise: good Activities of Daily Living: Functional Level: Self-care ADL Limitations: none Social Interaction Screen: Do you have concerns about issues that may impact social interaction such as developmental or behavioral/mental health conditions? no Health Maintenance Due Topic Date Due ??? Annual Wellness Exam 1972 ??? Cervical Cancer Screening 1991 Health Maintenance Topic Date Due ??? Annual Wellness Exam 1972 ??? Cervical Cancer Screening 1991 ??? Influenza Vaccine (Season Ended) 2018 There is no immunization history on file for this patient. Patient Active Problem List Diagnosis ??? Asthma ??? Migraine Past Medical History: Diagnosis Date ??? Chronic back pain ??? Migraine No past surgical history on file. Allergies Allergen Reactions ??? Ciprofloxacin ??? Imitrex [Sumatriptan Succinate] ??? Promethazine Current Outpatient Prescriptions on File Prior to Visit Medication Sig Dispense Refill ??? albuterol (PROVENTIL [...] on file prior to visit. Social History Social History ??? Marital status: Spouse name: N/A ??? Number of children: N/A ??? Years of education: N/A Social History Main Topics ??? Smoking status: Never Smoker ??? Smokeless tobacco: Never Used ??? Alcohol use No ??? Drug use: Unknown ??? Sexual activity: Not Asked Other Topics Concern ??? None Social History Narrative ??? None No family history on file. No exam data present No results found for this visit on 09/29/17. Patient Care Team: Carmella Ulloa MD as PCP - General (Family Medicine) No results found for: WBC, HGB, HCT, PLT, CHOLESTEROL, TRIG, HDL, LDLDIRECT, LDLCALC, ALT, AST, NA,K, CL, CREATININE, BUN, CO2, TSH, INR, GLUCOSE, GLU, HGBA1C, MICROALBUR, TSHREFLEX === Other chronic disease management or a new acute condition was addressed today as a separate identifiable service today and the HPI of those conditions may be noted in the body of this note just below this statement with associated pertinent ROS/EXAM/A&P incorporated into the documentation within the appropriate sections of the note. Separate service billing not applicable if the patient is in for Initial Medicare wellness Assessment or as a new patient to the practice. Some commercial insurers may not allow wellness services and acute care/chronic care service billing on the same dateof service. === Additional issues addressed today: Review of Systems Constitutional: Negative for fatigue and fever. HENT: Negative. Respiratory: Negative for cough and wheezing. Cardiovascular: Negative. Gastrointestinal: Negative. Genitourinary: Negative. Musculoskeletal: Positive for arthralgias and gait problem. Negative for joint swelling. Skin: Negative for rash. Psychiatric/Behavioral: Negative. Physical Exam Constitutional: She appears well-developed. HENT: Head: Normocephalic. Eyes: Conjunctivae are normal. Cardiovascular: Normal rate and regular rhythm. Pulmonary/Chest: Effort normal. She has no wheezes. Abdominal: Soft. There is no tenderness. Musculoskeletal: She exhibits tenderness. Left foot lateral ttp base of 5th metatarsal Skin: Skin is warm. Psychiatric: She has a normal mood and affect. Nursing note and vitals reviewed. Patient Active Problem List Diagnosis ??? Asthma ??? Migraine See time date stamps in the EMR for other pertient history components reviewed as part of today's encounter. [facility] Documentation Medication Compliance: Compliant all the time Understanding of Current Medications: Good Medication Compliance Barriers: None or N/A Self-Management Tools: N/A, no chronic conditions Self-Management Ability: Good Willingness to Adopt Healthy Behaviors: Good Potential Barriers to completing treatment plans today: No significant barriers [facility] Flowsheet was completed/reviewed as part of today's visit. Educated patient regarding the diagnosis, medication/treatment, goals, self- management tools and instructions based on their care plan. They verbalized understanding of the education given on the After Visit Summary [AVS] for today's visit. A copy of the AVS was provided either in writing and/or via [employer]. A new medicine was not prescribed on this visit. Assessment Diagnoses and all orders for this visit: Left foot pain - AMB REFERRAL TO PODIATRY - predniSONE (DELTASONE) 20 mg Oral Tablet; Take 2 Tabs by mouth daily for 5 days. Dispense: 10 Tab; Refill: 0 Other orders - meloxicam (MOBIC) 15 mg Oral Tablet; Take 1 Tab by mouth daily. Dispense: 30 Tab; Refill: 1 declines annual as has no insurance Above problems were discussed with patient and all are stable except otherwise noted. Continue medications as prior. Refills done as requested. Blood work done. Will adjust medications by phone as needed based on lab results and as noted. Follow up for any changes and as directed Educated patient regarding the care plan and instructions listed on the After Visit Summary [AVS] for today's visit. The patient verbalized full understanding of the care plan and instructions given on the AVS for today's visit. documented in this encounter Plan of Treatment Scheduled Referrals Name Type Priority Associated Diagnoses Orde r Schedule AMB REFERRAL TO PODIATRY Outpatient Referral Routine Left foot pain Ordered: 09/29/2017 documented as of this encounter Goals Goal Patient Goal Type Associated Problems Recent Progress Patient-Stated? Author Maintain a healthy diet, exercise regularly and maintain an ideal body weight Tiana Chamorro RN documented as of this encounter Visit Diagnoses Diagnosis Left foot pain- Primary Pain in limb documented in this encounter Discontinued Medications Medication Sig Discontinue Reason Start Date End Da te hydrocodone-ibuprofen (VICOPROFEN) 7.5-200 mg per tablet Take 1 Tab by mouth every 8 hours as needed for Pain. 7.5/500 DELETE-Therapy completed 09/29/2017 sertraline (ZOLOFT) 50 mg tablet Take 50 mg by mouth daily. DELETE-Therapy completed 09/29/2017 sumatriptan (IMITREX) 100 mg tablet Take 100 mg by mouth once as needed for Migraine. DELETE-Therapy completed 09/29/2017 trazodone (DESYREL) 50 mg tablet Take 50 mg by mouth nightly. DELETE-Therapy completed 09/29/2017 meloxicam (MOBIC) 7.5 mg Oral Tablet Take 7.5 mg by mouth daily. Reorder 09/29/2017 documented as of this encounter Care Teams Computer Programmer Analyst Relationship Specialty Start Date End Date Carmella Ulloa MD [address] [place] [address] PCP - General Family Medicine 09/27/17 documented as of this encounter
--- OUTSIDE RECORDS SUMMARY | 2024-04-01 12:47 | XMS_ITS | Encounter Summary ---
Author Organization [place] [address] Care Team Providers Care R And D Lab Technician Name Role Phone Unavailable Primary Care Provider Unavailabl e Encounter Details Date Type Department Care Team (Late st Contact Info) Description 02/10/2006 6:27 PM EDT - 02/10/2006 11:59 PM EDT Hospital Encounter [facility] Leo Lord, DO [address] [place] [address] Social History Tobacco Use Types Packs/Day Years [...]
--- OUTSIDE RECORDS SUMMARY | 2024-04-01 12:47 | XMS_ITS | Encounter Summary ---
Author Organization [facility] [place] [address] Care Team Providers Care Bellmaker Name Role Phone Carmella Ulloa MD Primary Care Provider [phone] Reason for Visit * Reason Comments Rash Encounter Details Date Type Department Care Team (Late st Contact Info) Description 10/25/2017 1:45 PM EDT Office Visit [address] [address] Carmella Ulloa MD [address] [place] [address] Tinea corporis (Primary Dx) Social History Tobacco Use Types [...] Sign Reading Time Taken Comments Blood Pressure 116/74 10/25/2017 1:10 PM EDT Pulse - - Temperature 36.6 ??C (97.8 ??F) 10/25/2017 1:10 PM ED T Respiratory Rate - - Oxygen Saturation - - Inhaled Oxygen Concentration - - Weight 92.1 kg (203 lb) 10/25/2017 1:10 PM EDT Height 167.6 cm (5' 6 ) 10/25/2017 1:10 PM EDT Body Mass Index 32.77 10/25/2017 1:10 PM EDT documented in this encounter Functional [...] Start Date End Date nystatin (MYCOSTATIN) Top CreamIndications:T inea corporis Apply topically 2 times daily for 14 days. 30 g 2 10/25/2017 8 fluconazole (DIFLUCAN) 100 mg Oral TabletIndications: Tinea corporis Take 1 Tab by mouth daily for 14 days. 14 Tab 10/25/2017 8 documented in this encounter Progress Notes * Carmella Ulloa MD - 10/25/2017 1:45 PM EDT Vitals: 10/25/17 1310 BP: 116/74 Temp: 97.8 ??F (36.6 ??C) TempSrc: Tympanic Weight: 203 lb (92.1 kg) Height: 5' 6 (1.676 m) Chief Complaint Patient presents with ??? Rash Rash This is a recurrent problem. The current episode started 1 to 4 weeks ago. The problem is unchanged. The affected locations include the groin. Pertinent negatives include no cough, fatigue or fever. Pt is here today for a rash in her groin area that has been present for a while. Pt has tried OTC meds with no relief Itchy and peeling. Boyfriend with same rash Review of Systems Constitutional: Negative for fatigue and fever. HENT: Negative. Respiratory: Negative for cough and wheezing. Cardiovascular: Negative. Gastrointestinal: Negative. Genitourinary: Negative. Musculoskeletal: Negative. Skin: Positive for rash. Psychiatric/Behavioral: Negative. Physical Exam Constitutional: She appears well-developed. HENT: Head: Normocephalic. Cardiovascular: Normal rate and regular rhythm. No murmur heard. Pulmonary/Chest: Effort normal. She has no wheezes. Abdominal: Soft. There is no tenderness. Skin: Rash noted. There is erythema. Bilateral inguinal folds with erythematous scaling rash Nursing note and vitals reviewed. Patient Active Problem List Diagnosis ??? Asthma ??? Migraine See time date stamps in the EMR for other pertient history components reviewed as part of today's encounter. [facility] Documentation Understanding of Current Medications: Good Medication Compliance Barriers: None or N/A Self-Management Tools: N/A, no chronic conditions Self-Management Ability: Good Willingness to Adopt Healthy Behaviors: Good Potential Barriers to completing treatment plans today: No significant barriers [facility] Flowsheet was completed/reviewed as part of today's visit. Educated patient regarding the diagnosis, medication/treatment, goals, self- management tools and instructions based on their care plan. They verbalized understanding of the education given on the After Visit Summary [AVS] for today's visit. A copy of the AVS was provided either in writing and/or via [employer]. A new medicine was not prescribed on this visit. Assessment Diagnoses and all orders for this visit: Tinea corporis - fluconazole (DIFLUCAN) 100 mg Oral Tablet; Take 1 Tab by mouth daily for 14 days. Dispense: 14 Tab; Refill: 0 - nystatin (MYCOSTATIN) Top Cream; Apply topically 2 times daily for 14 days. Dispense: 30 g; Refill: 2 Above problems were discussed with patient and [...] for today's visit. documented in this encounter Miscellaneous Notes * Patient Instructions - Carmella Ulloa MD - 10/25/2017 1:45 PM EDT Body glide to prevent it in the future. documented in this encounter Plan of Treatment Not on file documented as of this encounter Goals Goal Patient Goal Type Associated Problems Recent Progress Patient-Stated? Author Maintain a healthy diet, exercise regularly and maintain an ideal body weight General Tiana Duenas RN documented as of this encounter Visit Diagnoses Diagnosis Tinea corporis- Primary Dermatophytosis of the body documented in this encounter Care Teams Bellmaker Relationship Specialty Start Date End Date Carmella Ulloa MD [address] [place] [address] PCP - General Family Medicine 09/27/17 documented as of this encounter
--- NOTE | 2024-04-01 13:17 | A.OFFVIS_ITS ---
[facility] Disclaimer: The information contained in this section may have been updated after the patient was seen, as this information can be updated by other users. Medical History (Updated 11/27/23 @ 11:20 by Roseline Reynolds APRN) No significant past medical history Family History (Updated 08/28/23 @ 10:39 by Karl Jon RN) Other No significant family history Social History Smoking Status: Current every day smoker tobacco type: cigarettes packs per day: 1 alcohol intake: never substance use type: denies use current occupational status: employed Travel in the last 8 weeks: None household members: significant other housing: house PM Subjective & Objective Subjective Subjective:: Patient is a pleasant 54-year-old female who presents today for medication re fill and follow-up. Today she rates her pain a 5 out of 10. She denies any new trauma or injury. She does state overall she is doing well. She is currently managed with gabapentin 300 mg 4 times a day, Flexeril 10 mg twice a day and [place] 5 mg 4 times a day. She denies any side effects from this medication. She does states she only needs her [place] refilled. Her [place] has been reviewed and is appropriate. Review of Systems: General: No recent weight changes, no fever, no sleep disturbances Respiratory: No cough, no shortness of air, no recurring pulmonary infections Cardiovascular/peripheral vascular: No chest pain, no palpitations, no edema, no shortness of breath Gastrointestinal: No new onset incontinence, normal bowel movements reported Genitourinary: No new onset incontinence Musculoskeletal: Low back pain Psychiatric: [Normal mood/affect] Neurological: [Denies weakness in extremities], [denies balance issues] Pain at rest (0-10 scale): 5 Objective Objective:: Physical Exam: General: Alert and oriented x3, no acute distress, pleasant and cooperative Lungs: Respirations even and unlabored, symmetrical chest expansion Eyes: PERRL Musculoskeletal: Flexion and extension of Lumbar [spine] somewhat guarded secondary to pain, [antalgic gait noted] Neurological: Speech clear, no gross sensory deficit Has patient had previous pain injection?: No Conservative treatment options previously tried: Home exercise plan Length of treatment: Longer than 12 weeks Meds Home Medications and Allergies Home Medications ?Medication ?Instructions ?Recorded ?Confirmed ?Type albuterol sulfate 90 mcg/actuation 2 puff INHALATION Q6H PRN 09/15/17 03/04/24 History breath activated powder inhaler Shortness Of Breath duloxetine 30 mg capsule,delayed 30 mg PO DAILY Pain 09/15/17 03/04/24 History release (Cymbalta) meloxicam 15 mg tablet 15 mg PO DAILY Pain #30 tabs 09/27/21 03/04/24 Rx camphor 3.1 %-methyl salicylate 10 1 patch topical TID N/A 09/26/22 03/04/24 History %-menthol 6 % topical patch (Salonpas) prednisone 20 mg tablet 20 mg PO BID #10 tabs 08/28/23 03/04/24 Rx lidocaine 5 % topical patch 1 patch topical DAILY Pain #30 ea 09/25/23 03/04/24 Rx cyclobenzaprine 10 mg tablet 10 mg PO BID Pain #60 tabs 02/05/24 03/04/24 Rx gabapentin 300 mg capsule 300 mg PO QID #120 caps 02/05/24 03/04/24 Rx hydrocodone 5 mg-acetaminophen 325 1 tab PO QID Pain #120 tabs 03/04/24 Rx mg tablet New Prescriptions to Start Prescriptions: Allergies Allergy/AdvReac Type Severity Reaction Status Date / Time aspirin Allergy Difficulty Verified 10/19/22 09:15 Breathing ibuprofen Allergy Difficulty Verified 10/19/22 09:15 Breathing ketorolac AdvReac Anxiety Verified 10/19/22 09:15 promethazine AdvReac Hallucinati Verified 10/19/22 09:15 ng Assessment and Plan *Assessment and plan (1) Lumbar radiculopathy: Status: Acute Category: Medical Code(s): M54.16 - Radiculopathy, lumbar region (2) Degenerative disc disease, lumbar: Status: Acute Category: Medical Code(s): M51.36 - Other intervertebral disc degeneration, lumbar region Plan I will refill the patient's [place] and provide a 1 month supply of this medication. Patient will return to clinic in 1 month for reevaluation of symptoms and plan of care. Risks and benefits of the medication have been explained in detail to the patient. The patient does understand the risk of dependence on the medication when given over a prolonged period. Patient has been advised of risks of oversedation with the prescribed medication. Narcan has been offered to the paitent in the event of oversedation. Patient has been advised that a family member should also be educated regarding administration of Narcan. The patient has been advised to consult with his/her primary care provider and pharmacist regarding drug-drug interaction of medications currently prescribed. Patient has been prescribed a controlled substance after being counseled on the medication, medication safety, and possible side effects. Opioid contract was reviewed and signed by the patient, and that they have agreed to all of the terms set forth by our compliance program. Patient has been instructed to contact the clinic with any concerns before the next appointment. Dr. Acosta has reviewed this note and agrees with this plan of care. This note was dictated using voice recognition software and make contain errors or omissions.
[2024-04-01 14:00] VITALS: BP 120/84; PULSE 68; RESP 16; O2SAT 97; BMI 32.3
== END 2024-04-01 23:59 | disposition home or self-care (01) ==
PROVIDERS: PCP Family Medicine; Visit Provider Nurse Practitioner Family
DX: M51.16 Intervertebral disc disorders with radiculopathy, lumbar region (principal); F17.210 Nicotine dependence, cigarettes, uncomplicated
CPT/HCPCS: 99212; G0463

== ENCOUNTER 2024-05-09 09:03 | Outpatient (POV) | payer SELFPAY ==
--- NOTE | 2024-05-09 09:26 | EXP.PAIN.SOA ---
[facility] Disclaimer: The information contained in this section may have been updated after the patient was seen, as this information can be updated by other users. Medical History (Updated 11/27/23 @ 11:20 by Roseline Reynolds APRN) No significant past medical history Family History (Updated 08/28/23 @ 10:39 by Karl Jon RN) Other No significant family history Social History Smoking Status: Current every day smoker tobacco type: cigarettes packs per day: 1 alcohol intake: never substance use type: denies use current occupational status: other Travel in the last 8 weeks: None household members: significant other housing: house PM Subjective & Objective Subjective Subjective:: Patient is a pleasant 54-year-old female who presents today for 1 month medication refill via telehealth appointment. Patient did have an in office appointment today however ended up contacting us that she could not get off work for that appointment. Patient rates her pain today a 6 out of 10. She denies any new trauma or injury. Patient does state that she is not sure if the weather is playing a role in her increased pain. Patient is currently managed with gabapentin 300 mg 4 times a day and [place] 5 mg 4 times a day she denies any side effects from this medication. She is requesting refills on both of these her [place] has been reviewed and is appropriate. Review of Systems: General: No recent weight changes, no fever, no sleep disturbances Respiratory: No cough, no shortness of air, no recurring pulmonary infections Cardiovascular/peripheral vascular: No chest pain, no palpitations, no edema, no shortness of breath Gastrointestinal: No new onset incontinence, normal bowel movements reported Genitourinary: No new onset incontinence Musculoskeletal: Low back pain Psychiatric: [Normal mood/affect] Neurological: [Denies weakness in extremities], [denies balance issues] Pain at rest (0-10 scale): 6 Objective Objective:: General: Alert and oriented x3, pleasant and cooperative Lungs: Patient is able to say complete sentences without dyspnea Neurological: Speech clear Has patient had previous pain injection?: No Conservative treatment options previously tried: Home exercise plan Length of treatment: Longer than 12 weeks Meds Home Medications and Allergies Home Medications ?Medication ?Instructions ?Recorded ?Confirmed ?Type albuterol sulfate 90 mcg/actuation 2 puff INHALATION Q6H PRN 09/15/17 04/01/24 History breath activated powder inhaler Shortness Of Breath duloxetine 30 mg capsule,delayed 30 mg PO DAILY Pain 09/15/17 04/01/24 History release (Cymbalta) meloxicam 15 mg tablet 15 mg PO DAILY Pain #30 tabs 09/27/21 04/01/24 Rx camphor 3.1 %-methyl salicylate 10 1 patch topical TID N/A 09/26/22 04/01/24 History %-menthol 6 % topical patch (Salonpas) prednisone 20 mg tablet 20 mg PO BID #10 tabs 08/28/23 04/01/24 Rx lidocaine 5 % topical patch 1 patch topical DAILY Pain #30 ea 09/25/23 04/01/24 Rx cyclobenzaprine 10 mg tablet 10 mg PO BID Pain #60 tabs 02/05/24 04/01/24 Rx gabapentin 300 mg capsule 300 mg PO QID #120 caps 02/05/24 04/01/24 Rx hydrocodone 5 mg-acetaminophen 325 1 tab PO QID Pain #120 tabs 04/01/24 Rx mg tablet New Prescriptions to Start Prescriptions: Allergies Allergy/AdvReac Type Severity Reaction Status Date / Time aspirin Allergy Difficulty Verified 10/19/22 09:15 Breathing ibuprofen Allergy Difficulty Verified 10/19/22 09:15 Breathing ketorolac AdvReac Anxiety Verified 10/19/22 09:15 promethazine AdvReac Hallucinati Verified 10/19/22 09:15 ng Assessment and Plan *Assessment and plan (1) Lumbar radiculopathy: Status: Acute Category: Medical Code(s): M54.16 - Radiculopathy, lumbar region (2) Degenerative disc disease, lumbar: Status: Acute Category: Medical Code(s): M51.369 - Other intervertebral disc degeneration, lumbar region without mention of lumbar back pain or lower extremity pain Plan Will refill the patient's [place] and gabapentin and provide a 1 month supply of this medication. Patient will return to clinic in 1 month for reevaluation. This visit lasted from [id number]. Risks and benefits of the medication have been explained in detail to the patient. The patient does understand the risk of dependence on the medication when given over a prolonged period. Patient has been advised of risks of oversedation with the prescribed medication. Narcan has been offered to the paitent in the event of oversedation. Patient has been advised that a family member should also be educated regarding administration of Narcan. The patient has been advised to consult with his/her primary care provider and pharmacist regarding drug-drug interaction of medications currently prescribed. Patient has been prescribed a controlled substance after being counseled on the medication, medication safety, and possible side effects. Opioid contract was reviewed and signed by the patient, and that they have agreed to all of the terms set forth by our compliance program. A UDS is needed to verify patient's compliance with our office pain contract. This is ordered based off specific treatments related to chronic pain with the potential to abuse certain medications. Patient has been instructed to contact the clinic with any concerns before the next appointment. Dr. Acosta has reviewed this note and agrees with this plan of care. This note was dictated using voice recognition software and make contain errors or omissions.
== END 2024-05-09 23:59 | disposition home or self-care (01) ==
PROVIDERS: Visit Provider Nurse Practitioner Family
DX: M51.16 Intervertebral disc disorders with radiculopathy, lumbar region (principal); F17.210 Nicotine dependence, cigarettes, uncomplicated
CPT/HCPCS: 99212; G0463

== ENCOUNTER 2024-06-10 11:22 | Outpatient (POV) | payer SELFPAY ==
--- NOTE | 2024-06-10 11:59 | EXP.PAIN.SOA ---
[facility] Disclaimer: The information contained in this section may have been updated after the patient was seen, as this information can be updated by other users. Medical History (Updated 11/27/23 @ 11:20 by Roseline Reynolds APRN) No significant past medical history Family History (Updated 08/28/23 @ 10:39 by Karl Jon RN) Other No significant family history Social History Smoking Status: Current every day smoker tobacco type: cigarettes packs per day: 1 alcohol intake: never substance use type: denies use current occupational status: other Travel in the last 8 weeks: None household members: significant other housing: house PM Subjective & Objective Subjective Subjective:: Patient is a pleasant 54-year-old female who presents today for medication refill and follow-up. Today she rates her pain an 8 out of 10. She denies any new trauma or injury. She does state she feels like a lot of her increasing pain is more related to stress, weather and just her general pains. Patient does state that she has already had some deaths in the family as well as some car issues. Patient is currently managed with gabapentin 300 mg 4 times a day, [place] 5 mg 4 times a day, meloxicam 15 mg daily and Flexeril 10 mg twice daily. She denies any side effects from this medication and is requesting refills on all of these. She denies any heart or kidney issues. Her [place] has been reviewed and is appropriate. Review of Systems: General: No recent weight changes, no fever, no sleep disturbances Respiratory: No cough, no shortness of air, no recurring pulmonary infections Cardiovascular/peripheral vascular: No chest pain, no palpitations, no edema, no shortness of breath Gastrointestinal: No new onset incontinence, normal bowel movements reported Genitourinary: No new onset incontinence Musculoskeletal: Low back pain Psychiatric: [Normal mood/affect] Neurological: [Denies weakness in extremities], [denies balance issues] Pain at rest (0-10 scale): 8 Objective Objective:: Physical Exam: General: Alert and oriented x3, no acute distress, pleasant and cooperative Lungs: Respirations even and unlabored, symmetrical chest expansion Eyes: PERRL Musculoskeletal: Flexion and extension of lumbar [spine] somewhat guarded secondary to pain, [antalgic gait noted] Neurological: Speech clear, no gross sensory deficit Has patient had previous pain injection?: No Conservative treatment options previously tried: Home exercise plan Length of treatment: Longer than 12-week Meds Home Medications and Allergies Home Medications ?Medication ?Instructions ?Recorded ?Confirmed ?Type albuterol sulfate 90 mcg/actuation 2 puff INHALATION Q6H PRN 09/15/17 04/01/24 History breath activated powder inhaler Shortness Of Breath duloxetine 30 mg capsule,delayed 30 mg PO DAILY Pain 09/15/17 04/01/24 History release (Cymbalta) meloxicam 15 mg tablet 15 mg PO DAILY Pain #30 tabs 09/27/21 04/01/24 Rx camphor 3.1 %-methyl salicylate 10 1 patch topical TID N/A 09/26/22 04/01/24 History %-menthol 6 % topical patch (Salonpas) prednisone 20 mg tablet 20 mg PO BID #10 tabs 08/28/23 04/01/24 Rx lidocaine 5 % topical patch 1 patch topical DAILY Pain #30 ea 09/25/23 04/01/24 Rx cyclobenzaprine 10 mg tablet 10 mg PO BID Pain #60 tabs 02/05/24 04/01/24 Rx gabapentin 300 mg capsule 300 mg PO QID #120 caps 05/09/24 Rx hydrocodone 5 mg-acetaminophen 325 1 tab PO QID Pain #120 tabs 05/09/24 Rx mg tablet New Prescriptions to Start Prescriptions: Allergies Allergy/AdvReac Type Severity Reaction Status Date / Time aspirin Allergy Difficulty Verified 10/19/22 09:15 Breathing ibuprofen Allergy Difficulty Verified 10/19/22 09:15 Breathing ketorolac AdvReac Anxiety Verified 10/19/22 09:15 promethazine AdvReac Hallucinati Verified 10/19/22 09:15 ng Assessment and Plan *Assessment and plan (1) Lumbar radiculopathy: Status: Acute Category: Medical Code(s): M54.16 - Radiculopathy, lumbar region (2) Degenerative disc disease, lumbar: Status: Acute Category: Medical Code(s): M51.369 - Other intervertebral disc degeneration, lumbar region without mention of lumbar back pain or lower extremity pain Plan We will refill the patient's [place], gabapentin, meloxicam and Flexeril and provide a 1 month supply of these medications. Patient will return to clinic in 1 month for reevaluation of symptoms and plan of care. Risks and benefits of the medication have been explained in detail to the patient. The patient does understand the risk of dependence on the medication when given over a prolonged period. Patient has been advised of risks of oversedation with the prescribed medication. Narcan has been offered to the paitent in the event of oversedation. Patient has been advised that a family member should also be educated regarding administration of Narcan. The patient has been advised to consult with his/her primary care provider and pharmacist regarding drug-drug interaction of medications currently prescribed. Patient has been prescribed a controlled substance after being counseled on the medication, medication safety, and possible side effects. Opioid contract was reviewed and signed by the patient, and that they have agreed to all of the terms set forth by our compliance program. A UDS is needed to verify patient's compliance with our office pain contract. This is ordered based off specific treatments related to chronic pain with the potential to abuse certain medications. Patient has been instructed to contact the clinic with any concerns before the next appointment. Dr. Acosta has reviewed this note and agrees with this plan of care. This note was dictated using voice recognition software and make contain errors or omissions.
[2024-06-10 12:35] VITALS: BP 129/82; PULSE 74; RESP 14; O2SAT 100; BMI 32.3
== END 2024-06-10 23:59 | disposition home or self-care (01) ==
PROVIDERS: PCP Family Medicine; Visit Provider Nurse Practitioner Family
DX: M51.16 Intervertebral disc disorders with radiculopathy, lumbar region (principal); F17.210 Nicotine dependence, cigarettes, uncomplicated
CPT/HCPCS: 99212; G0463

== ENCOUNTER 2024-07-08 13:51 | Outpatient (POV) | payer SELFPAY ==
[2024-07-08 14:00] VITALS: BP 122/78; PULSE 72; RESP 16; O2SAT 97; BMI 32.3
--- NOTE | 2024-07-08 14:05 | EXP.PAIN.SOA ---
[facility] Disclaimer: The information contained in this section may have been updated after the patient was seen, as this information can be updated by other users. Medical History No significant past medical history Family History Other No significant family history Social History Smoking Status: Current every day smoker tobacco type: cigarettes packs per day: 1 alcohol intake: never substance use type: denies use current occupational status: other Travel in the last 8 weeks: None household members: significant other housing: house PM Subjective & Objective Subjective Subjective:: Patient is a pleasant 54-year-old female who presents today for medication refill. Today she rates her pain a 6 out of 10. She denies any new trauma or injury. She does state that she has been having some respiratory issues because everyone around her is sick. Patient denies any other changes. She is currently managed with gabapentin 300 mg 4 times a day, [place] 5 mg 4 times a day, meloxicam 15 mg daily and Flexeril 10 mg twice a day. She denies any side effects from these medications. She does state that she only needs refill on the pain medication and does make mention that her Flexeril ended up getting called to [facility] when it should have gone to clinic. Patient states that it been a while since she had that filled and previously had used that pharmacy. Patient wanted to make sure that we were aware for future. Her [place] has been reviewed and is appropriate. Review of Systems: General: No recent weight changes, no fever, no sleep disturbances Respiratory: No cough, no shortness of air, no recurring pulmonary infections Cardiovascular/peripheral vascular: No chest pain, no palpitations, no edema, no shortness of breath Gastrointestinal: No new onset incontinence, normal bowel movements reported Genitourinary: No new onset incontinence Musculoskeletal: Low back pain Psychiatric: [Normal mood/affect] Neurological: [Denies weakness in extremities], [denies balance issues] Pain at rest (0-10 scale): 6 Objective Objective:: Physical Exam: General: Alert and oriented x3, no acute distress, pleasant and cooperative Lungs: Respirations even and unlabored, symmetrical chest expansion Eyes: PERRL Musculoskeletal: Flexion and extension of lumbar [spine] somewhat guarded secondary to pain, [antalgic gait noted] Neurological: Speech clear, no gross sensory deficit Has patient had previous pain injection?: No Conservative treatment options previously tried: Prescription medications Length of treatment: Longer than 12 Meds Home Medications and Allergies Home Medications ?Medication ?Instructions ?Recorded ?Confirmed ?Type albuterol sulfate 90 mcg/actuation 2 puff INHALATION Q6H PRN 09/15/17 07/08/24 History breath activated powder inhaler Shortness Of Breath duloxetine 30 mg capsule,delayed 30 mg PO DAILY Pain 09/15/17 07/08/24 History release (Cymbalta) camphor 3.1 %-methyl salicylate 10 1 patch topical TID N/A 09/26/22 07/08/24 History %-menthol 6 % topical patch (Salonpas) prednisone 20 mg tablet 20 mg PO BID #10 tabs 08/28/23 07/08/24 Rx lidocaine 5 % topical patch 1 patch topical DAILY Pain #30 ea 09/25/23 07/08/24 Rx cyclobenzaprine 10 mg tablet 10 mg PO BID Pain #60 tabs 06/10/24 07/08/24 Rx gabapentin 300 mg capsule 300 mg PO QID #120 caps 06/10/24 07/08/24 Rx hydrocodone 5 mg-acetaminophen 325 1 tab PO QID Pain #120 tabs 06/10/24 07/08/24 Rx mg tablet meloxicam 15 mg tablet 15 mg PO DAILY Pain #30 tabs 06/10/24 07/08/24 Rx New Prescriptions to Start Prescriptions: Allergies Allergy/AdvReac Type Severity Reaction Status Date / Time aspirin Allergy Difficulty Verified 07/08/24 14:02 Breathing ibuprofen Allergy Difficulty Verified 07/08/24 14:02 Breathing ketorolac AdvReac Anxiety Verified 07/08/24 14:02 promethazine AdvReac Hallucinati Verified 07/08/24 14:02 ng Assessment and Plan *Assessment and plan (1) Lumbar radiculopathy: Status: Acute Category: Medical Code(s): M54.16 - Radiculopathy, lumbar region (2) Degenerative disc disease, lumbar: Status: Acute Category: Medical Code(s): M51.369 - Other intervertebral disc degeneration, lumbar region without mention of lumbar back pain or lower extremity pain (3) Bilateral hand pain: Status: Acute Category: Medical Code(s): M79.641 - Pain in right hand; M79.642 - Pain in left hand Plan I will refill the patient's [place] and provide a 1 month supply of this medication. Patient will return to the clinic in 1 month for reevaluation of symptoms and plan of care. Risks and benefits of the medication have been explained in detail to the patient. The patient does understand the risk of dependence on the medication when given over a prolonged period. Patient has been advised of risks of oversedation with the prescribed medication. Narcan has been offered to the paitent in the event of oversedation. Patient has been advised that a family member should also be educated regarding administration of Narcan. The patient has been advised to consult with his/her primary care provider and pharmacist regarding drug-drug interaction of medications currently prescribed. Patient has been prescribed a controlled substance after being counseled on the medication, medication safety, and possible side effects. Opioid contract was reviewed and signed by the patient, and that they have agreed to all of the terms set forth by our compliance program. A UDS is needed to verify patient's compliance with our office pain contract. This is ordered based off specific treatments related to chronic pain with the potential to abuse certain medications. Patient has been instructed to contact the clinic with any concerns before the next appointment. Dr. Acosta has reviewed this note and agrees with this plan of care. This note was dictated using voice recognition software and make contain errors or omissions.
== END 2024-07-08 23:59 | disposition home or self-care (01) ==
PROVIDERS: PCP Family Medicine; Visit Provider Nurse Practitioner Family
DX: M51.16 Intervertebral disc disorders with radiculopathy, lumbar region (principal); M79.641 Pain in right hand; M79.642 Pain in left hand; F17.210 Nicotine dependence, cigarettes, uncomplicated
CPT/HCPCS: 99212; G0463

== ENCOUNTER 2024-08-05 14:21 | Outpatient (POV) | payer SELFPAY ==
--- NOTE | 2024-08-05 14:40 | EXP.PAIN.SOA ---
[facility] Disclaimer: The information contained in this section may have been updated after the patient was seen, as this information can be updated by other users. Medical History No significant past medical history Family History Other No significant family history Social History Smoking Status: Current every day smoker tobacco type: cigarettes packs per day: 1 alcohol intake: never substance use type: denies use current occupational status: other Travel in the last 8 weeks: None household members: significant other housing: house PM Subjective & Objective Subjective Subjective:: Patient is a pleasant 54-year-old female who presents today for medication refill and 1 month follow-up. Today she rates her pain a 5 out of 10. She does state that she has a little bit worse pain more related to her sleep schedule is off. Patient states that she has had someone who quit at her work and so they did adjust her time schedule. Patient states that it is throwing her off a little bit and she feels like she has had a little bit more migraines related to adjusting her sleep schedule. Patient is currently managed with gabapentin 300 mg 4 times a day, [place] 5 mg 4 times a day, meloxicam 15 mg daily and Flexeril 10 mg twice a day. She denies any side effects from this medication. She is requesting that we still send this medication to clinic. Patient does state that she only needs the pain medication called in. Her [place] has been reviewed and is appropriate. Review of Systems: General: No recent weight changes, no fever, no sleep disturbances Respiratory: No cough, no shortness of air, no recurring pulmonary infections Cardiovascular/peripheral vascular: No chest pain, no palpitations, no edema, no shortness of breath Gastrointestinal: No new onset incontinence, normal bowel movements reported Genitourinary: No new onset incontinence Musculoskeletal: Low back pain, migraines Psychiatric: [Normal mood/affect] Neurological: [Denies weakness in extremities], [denies balance issues] Pain at rest (0-10 scale): 5 Objective Objective:: Physical Exam: General: Alert and oriented x3, no acute distress, pleasant and cooperative Lungs: Respirations even and unlabored, symmetrical chest expansion Eyes: PERRL Musculoskeletal: Flexion and extension of lumbar [spine] somewhat guarded secondary to pain, [antalgic gait noted] Neurological: Speech clear, no gross sensory deficit Has patient had previous pain injection?: No Conservative treatment options previously tried: Home exercise plan Length of treatment: Longer than 12 weeks Meds Home Medications and Allergies Home Medications ?Medication ?Instructions ?Recorded ?Confirmed ?Type albuterol sulfate 90 mcg/actuation 2 puff INHALATION Q6H PRN 09/15/17 07/08/24 History breath activated powder inhaler Shortness Of Breath duloxetine 30 mg capsule,delayed 30 mg PO DAILY Pain 09/15/17 07/08/24 History release (Cymbalta) camphor 3.1 %-methyl salicylate 10 1 patch topical TID N/A 09/26/22 07/08/24 History %-menthol 6 % topical patch (Salonpas) prednisone 20 mg tablet 20 mg PO BID #10 tabs 08/28/23 07/08/24 Rx lidocaine 5 % topical patch 1 patch topical DAILY Pain #30 ea 09/25/23 07/08/24 Rx cyclobenzaprine 10 mg tablet 10 mg PO BID Pain #60 tabs 06/10/24 07/08/24 Rx gabapentin 300 mg capsule 300 mg PO QID #120 caps 06/10/24 07/08/24 Rx meloxicam 15 mg tablet 15 mg PO DAILY Pain #30 tabs 06/10/24 07/08/24 Rx hydrocodone 5 mg-acetaminophen 325 1 tab PO QID Pain #120 tabs 07/08/24 Rx mg tablet New Prescriptions to Start Prescriptions: Allergies Allergy/AdvReac Type Severity Reaction Status Date / Time aspirin Allergy Difficulty Verified 07/08/24 14:02 Breathing ibuprofen Allergy Difficulty Verified 07/08/24 14:02 Breathing ketorolac AdvReac Anxiety Verified 07/08/24 14:02 promethazine AdvReac Hallucinati Verified 07/08/24 14:02 ng Assessment and Plan *Assessment and plan (1) Lumbar radiculopathy: Status: Acute Category: Medical Code(s): M54.16 - Radiculopathy, lumbar region (2) Degenerative disc disease, lumbar: Status: Acute Category: Medical Code(s): M51.369 - Other intervertebral disc degeneration, lumbar region without mention of lumbar back pain or lower extremity pain Plan I will refill her [place] and make sure she does have refills on her other medications. Patient will return to clinic in 1 month. Risks and benefits of the medication have been explained in detail to the patient. The patient does understand the risk of dependence on the medication when given over a prolonged period. Patient has been advised of risks of oversedation with the prescribed medication. Narcan has been offered to the paitent in the event of oversedation. Patient has been advised that a family member should also be educated regarding administration of Narcan. The patient has been advised to consult with his/her primary care provider and pharmacist regarding drug-drug interaction of medications currently prescribed. Patient has been prescribed a controlled substance after being counseled on the medication, medication safety, and possible side effects. Opioid contract was reviewed and signed by the patient, and that they have agreed to all of the terms set forth by our compliance program. A UDS is needed to verify patient's compliance with our office pain contract. This is ordered based off specific treatments related to chronic pain with the potential to abuse certain medications. Patient has been instructed to contact the clinic with any concerns before the next appointment. Dr. Acosta has reviewed this note and agrees with this plan of care. This note was dictated using voice recognition software and make contain errors or omissions.
[2024-08-05 14:51] VITALS: BP 117/78; PULSE 66; RESP 18; O2SAT 98; BMI 32.3
== END 2024-08-05 23:59 | disposition home or self-care (01) ==
PROVIDERS: PCP Family Medicine; Visit Provider Nurse Practitioner Family
DX: M51.16 Intervertebral disc disorders with radiculopathy, lumbar region (principal); F17.210 Nicotine dependence, cigarettes, uncomplicated
CPT/HCPCS: 99212; G0463

== ENCOUNTER 2024-09-09 09:15 | Outpatient (POV) | payer SELFPAY ==
[2024-09-09 09:26] VITALS: BP 123/72; PULSE 84; RESP 18; O2SAT 95; BMI 32.3
--- NOTE | 2024-09-09 09:45 | A.OFFVIS_ITS ---
[facility] Disclaimer: The information contained in this section may have been updated after the patient was seen, as this information can be updated by other users. Medical History No significant past medical history Family History Other No significant family history Social History Smoking Status: Current every day smoker tobacco type: cigarettes packs per day: 1 alcohol intake: never substance use type: denies use current occupational status: employed Travel in the last 8 weeks: None household members: significant other housing: house PM Subjective & Objective Subjective Subjective:: Patient is a pleasant 54-year-old female who presents today for medication refill. Today she rates her pain a 5 out of 10. She denies any new trauma or injury. She does state overall she is still doing well with her current medication regimen. Patient is currently managed with gabapentin 300 mg 4 times a day, [place] 5 mg 4 times a day, meloxicam 15 mg daily and Flexeril 10 mg twice a day. She denies any side effects. She states that she only needs refills on the gabapentin and the [place]. Her [place] has been reviewed. \ Review of Systems: General: No recent weight changes, no fever, no sleep disturbances Respiratory: No cough, no shortness of air, no recurring pulmonary infections Cardiovascular/peripheral vascular: No chest pain, no palpitations, no edema, no shortness of breath Gastrointestinal: No new onset incontinence, normal bowel movements reported Genitourinary: No new onset incontinence Musculoskeletal: Chronic low back pain Psychiatric: [Normal mood/affect] Neurological: [Denies weakness in extremities], [denies balance issues] Pain at rest (0-10 scale): 5 Objective Objective:: Physical Exam: General: Alert and oriented x3, no acute distress, pleasant and cooperative Lungs: Respirations even and unlabored, symmetrical chest expansion Eyes: PERRL Musculoskeletal: Flexion and extension of lumbar [spine] somewhat guarded sec ondary to pain, [antalgic gait noted] Neurological: Speech clear, no gross sensory deficit Has patient had previous pain injection?: No Conservative treatment options previously tried: Home exercise plan Length of treatment: Longer than 12 weeks Meds Home Medications and Allergies Home Medications ?Medication ?Instructions ?Recorded ?Confirmed ?Type albuterol sulfate 90 mcg/actuation 2 puff INHALATION Q6H PRN 09/15/17 08/05/24 History breath activated powder inhaler Shortness Of Breath duloxetine 30 mg capsule,delayed 30 mg PO DAILY Pain 09/15/17 08/05/24 History release (Cymbalta) camphor 3.1 %-methyl salicylate 10 1 patch topical TID N/A 09/26/22 08/05/24 History %-menthol 6 % topical patch (Salonpas) prednisone 20 mg tablet 20 mg PO BID #10 tabs 08/28/23 08/05/24 Rx lidocaine 5 % topical patch 1 patch topical DAILY Pain #30 ea 09/25/23 08/05/24 Rx cyclobenzaprine 10 mg tablet 10 mg PO BID Pain #60 tabs 06/10/24 08/05/24 Rx gabapentin 300 mg capsule 300 mg PO QID #120 caps 06/10/24 08/05/24 Rx meloxicam 15 mg tablet 15 mg PO DAILY Pain #30 tabs 06/10/24 08/05/24 Rx hydrocodone 5 mg-acetaminophen 325 1 tab PO QID Pain #120 tabs 08/05/24 Rx mg tablet New Prescriptions to Start Prescriptions: Allergies Allergy/AdvReac Type Severity Reaction Status Date / Time aspirin Allergy Difficulty Verified 07/08/24 14:02 Breathing ibuprofen Allergy Difficulty Verified 07/08/24 14:02 Breathing ketorolac AdvReac Anxiety Verified 07/08/24 14:02 promethazine AdvReac Hallucinati Verified 07/08/24 14:02 ng Assessment and Plan *Assessment and plan (1) Lumbar radiculopathy: Status: Acute Category: Medical Code(s): M54.16 - Radiculopathy, lumbar region (2) Degenerative disc disease, lumbar: Status: Acute Category: Medical Code(s): M51.369 - Other intervertebral disc degeneration, lumbar region without mention of lumbar back pain or lower extremity pain Plan I will refill the patient's gabapentin and [place] and provide a 1 month supply of this medication. Patient will return to clinic in 1 month. Risks and benefits of the medication have been explained in detail to the patient. The patient does understand the risk of dependence on the medication when given over a prolonged period. Patient has been advised of risks of oversedation with the prescribed medication. Narcan has been offered to the paitent in the event of oversedation. Patient has been advised that a family member should also be educated regarding administration of Narcan. The patient has been advised to consult with his/her primary care provider and pharmacist regarding drug-drug interaction of medications currently prescribed. Patient has been prescribed a controlled substance after being counseled on the medication, medication safety, and possible side effects. Opioid contract was reviewed and signed by the patient, and that they have agreed to all of the terms set forth by our compliance program. A UDS is needed to verify patient's compliance with our office pain contract. This is ordered based off specific treatments related to chronic pain with the potential to abuse certain medications. Patient has been instructed to contact the clinic with any concerns before the next appointment. Dr. Acosta has reviewed this note and agrees with this plan of care. This note was dictated using voice recognition software and make contain errors or omissions.
== END 2024-09-09 23:59 | disposition home or self-care (01) ==
PROVIDERS: PCP Family Medicine; Visit Provider Nurse Practitioner Family
DX: M51.16 Intervertebral disc disorders with radiculopathy, lumbar region (principal); F17.210 Nicotine dependence, cigarettes, uncomplicated; Z79.891 Long term (current) use of opiate analgesic
CPT/HCPCS: 99212; G0463

== ENCOUNTER 2024-10-14 09:36 | Outpatient (POV) | payer SELFPAY ==
--- NOTE | 2024-10-14 10:13 | A.OFFVIS_ITS ---
[facility] Disclaimer: The information contained in this section may have been updated after the patient was seen, as this information can be updated by other users. Medical History No significant past medical history Family History Other No significant family history Social History Smoking Status: Current every day smoker tobacco type: cigarettes packs per day: 1 alcohol intake: never substance use type: denies use current occupational status: employed Travel in the last 8 weeks?: None household members: significant other housing: house PM Subjective & Objective Subjective Subjective:: Patient is a pleasant 54-year-old female who presents today for medication re fill and follow-up. She rates her pain a 7 out of 10. She denies any new trauma or injury. Patient is currently managed from our office with gabapentin 300 mg 4 times a day, [place] 5 mg 4 times a day, meloxicam 15 mg daily and Flexeril 10 mg twice a day. She denies any side effects. Patient states that she only needs refills on the [place] and the Flexeril at this time. Patient states that she has been using Emmanuel back and body and knows not to take the meloxicam at the same time. Patient denies any changes with her pharmacy. Her [place] has been reviewed and is appropriate. Review of Systems: General: No recent weight changes, no fever, no sleep disturbances Respiratory: No cough, no shortness of air, no recurring pulmonary infections Cardiovascular/peripheral vascular: No chest pain, no palpitations, no edema, no shortness of breath Gastrointestinal: No new onset incontinence, normal bowel movements reported Genitourinary: No new onset incontinence Musculoskeletal: Low back pain Psychiatric: [Normal mood/affect] Neurological: [Denies weakness in extremities], [denies balance issues] Pain at rest (0-10 scale): 7 Objective Objective:: Physical Exam: General: Alert and oriented x3, no acute distress, pleasant and cooperative Lungs: Respirations even and unlabored, symmetrical chest expansion Eyes: PERRL Musculoskeletal: Flexion and extension of lumbar [spine] somewhat guarded secondary to pain, [antalgic gait noted] Neurological: Speech clear, no gross sensory deficit Has patient had previous pain injection?: No Conservative treatment options previously tried: Prescription medications Length of treatment: Longer than 12 weeks Meds Home Medications and Allergies Home Medications ?Medication ?Instructions ?Recorded ?Confirmed ?Type albuterol sulfate 90 mcg/actuation 2 puff INHALATION Q 6H PRN 09/15/17 09/09/24 History breath activated powder inhaler Shortness Of Breath duloxetine 30 mg capsule,delayed 30 mg PO DAILY Pain 0 09/15/17 09/09/24 History release (Cymbalta) camphor 3.1 %-methyl salicylate 10 1 patch topical TID N/A 09/26/22 09/09/24 History %-menthol 6 % topical patch (Salonpas) prednisone 20 mg tablet 20 mg PO BID #10 tabs 09/09/24 Rx lidocaine 5 % topical patch 1 patch topical DAILY Pain #30 ea 09/25/23 09/09/24 Rx cyclobenzaprine 10 mg tablet 10 mg PO BID Pain #60 tab s 06/10/24 09/09/24 Rx meloxicam 15 mg tablet 15 mg PO DAILY Pain #30 tabs 06/10/24 09/09/24 Rx gabapentin 300 mg capsule 300 mg PO QID #120 caps 08/14 01/06 Rx hydrocodone 5 mg-acetaminophen 325 1 tab PO QID Pain # 120 tabs 09/09/24 Rx mg tablet New Prescriptions to Start Prescriptions: Allergies Allergy/AdvReac Type Severity Reaction Status Date / Time aspirin Allergy Difficulty Verified 07/08/24 14:02 Breathing ibuprofen Allergy Difficulty Verified 07/08/24 14:02 Breathing ketorolac AdvReac Anxiety Verified 07/08/24 14:02 promethazine AdvReac Hallucinati Verified 07/08/24 14:02 ng Assessment and Plan *Assessment and plan (1) Lumbar radiculopathy: Status: Acute Category: Medical Code(s): M54.16 - Radiculopathy, lumbar region (2) Degenerative disc disease, lumbar: Status: Acute Category: Medical Code(s): M51.369 - Other intervertebral disc degeneration, lumbar region without mention of lumbar back pain or lower extremity pain Plan I will refill the patient's [place] and Flexeril and provide a 1 month supply of this medication. Patient will return to clinic in 1 month. Risks and benefits of the medication have been explained in detail to the patient. The patient does understand the risk of dependence on the medication when given over a prolonged period. Patient has been advised of risks of oversedation with the prescribed medication. Narcan has been offered to the paitent in the event of oversedation. Patient has been advised that a family member should also be educated regarding administration of Narcan. The patient has been advised to consult with his/her primary care provider and pharmacist regarding drug-drug interaction of medications currently prescribed. Patient has been prescribed a controlled substance after being counseled on the medication, medication safety, and possible side effects. Opioid contract was reviewed and signed by the patient, and that they have agreed to all of the terms set forth by our compliance program. A UDS is needed to verify patient's compliance with our office pain contract. This is ordered based off specific treatments related to chronic pain with the potential to abuse certain medications. Patient has been instructed to contact the clinic with any concerns before the next appointment. Dr. Acosta has reviewed this note and agrees with this plan of care. This note was dictated using voice recognition software and make contain errors or omissions.
[2024-10-14 10:24] VITALS: BP 116/67; PULSE 84; RESP 18; O2SAT 96; BMI 32.3
== END 2024-10-14 23:59 | disposition home or self-care (01) ==
PROVIDERS: PCP Family Medicine; Visit Provider Nurse Practitioner Family
DX: M51.16 Intervertebral disc disorders with radiculopathy, lumbar region (principal); Z79.899 Other long term (current) drug therapy; Z79.1 Long term (current) use of non-steroidal anti-inflammatories (NSAID); Z79.891 Long term (current) use of opiate analgesic
CPT/HCPCS: 99212; G0463

== ENCOUNTER 2024-11-13 09:49 | Outpatient (POV) | payer SELFPAY ==
--- OUTSIDE RECORDS SUMMARY | 2024-11-13 09:52 | XMS_ITS | Clinical Summary ---
Author Organization [facility] Address [address] [place] [address] Phone Care Team Providers Care Face Boss Name Role Phone Carmella Ulloa MD Primary Care Provider [phone] Allergies Active Allergy Reactions Criticality Noted Date [...] different from the original. [place] report 08/11/2014 [facility] audit completed by Frida Borges RN on [...] 88 06/17/2018 5:14 PM EST Temperature 36.7 C (98.1 F) 04/16/2022 11:24 AM EST Respiratory Rate 18 06/17/2018 5:14 PM EST Oxygen Saturation 100% 06/17/2018 5:14 PM EST Inhaled Oxygen Concentration - - Weight 103.4 kg (228 lb) 04/16/2022 11:24 AM EST Height 167.6 cm (5' 6 ) 04/16/2022 11:24 AM EST Body Mass Index 36.8 04/16/2022 11:24 AM EST Plan of Treatment Health Maintenance Due Date Last Done Comments DTaP/TDaP/Td (1 - Tdap) 1989 Hepatitis B Vaccine (1 of 3 - 19+ 3-dose series) 1989 Pneumococcal Vaccine 50+ (1 of 2 - PCV) 1989 HPV/Pap Cotest 2000 Breast Cancer Screening 2010 Cologuard 2015 Colon Cancer Screening 2015 Colonoscopy 2015 FIT 2015 Sigmoidoscopy 2015 Virtual Colonography 2015 Zoster (1 of 2) 2020 Annual Wellness Exam 04/16/2023 04/16/2022 COVID-19 Vaccine (1 - 2023-2 5 season) 2024 Influenza Vaccine (#1) 2025 Cervical Cancer Screening 04/16/2025 Pap Smear 04/16/2025 04/16/2022 Meningococcal B Vaccine Aged Out No l onger eligible based on patient's age to complete this topic Goals Goal Patient Goal Type Associated Problems Recent Progress Patient-Stated? Author Maintain a healthy diet, exercise regularly and maintain an ideal body weight General No Tiana Mena RN Stay Tobacco Free Lifestyle No Tiana Mena RN Procedures Procedure Name Priority Date/Time Associated Diagnosis Comments [employer] PROFESSIONAL CYTOLOGY REQUEST (PAP ONLY) Routine 04/16/2022 12:05 PM EST Pap smear for cervical cancer screening from Last 3 Months or Most Recently Relevant to Health Maintenance Results * [employer] PROFESSIONAL CYTOLOGY REQUEST (PAP ONLY) (04/16/2022 12:05 PM EST) CASE REPORT Gynecologic Cytology Report Case: [id number] Authorizing Provider: Carmella Ulloa MD Collected: 04/16/2022 1205 Ordering Location: [facility] Received: 04/16/2022 1205 First Screen: Alejandra Moe CT Specimen: LIQUID-BASED PAP - CERVICAL/ENDOCERV ICAL, Cervix, Endocervical 04/20/2022 3:58 PM EST [facility] P[facility] FINAL DIAGNOSIS Negative for intraepithelial lesion or malignancy 04/20/2022 3:58 PM EST [facility] at 1558 EST MICROSCOPIC DESCRIPTION Microscopic examination is performed and the findings corroborate the diagnosis. 04/20/2022 3:58 PM EST [facility] PAP SMEAR ADEQUACY Satisfactory for evaluation 04/20/2022 3:58 PM EST [facility] PAP ORGANISMS NOTED Abundant bacteria present. 04/20/2022 3:58 PM EST [facility] ENDOCERVICAL T-ZONE Transformation zone present 04/20/2022 3:58 PM EST [facility] EMBEDDED IMAGES 3:58 PM EST [facility] PAP DISCLAIMER The Pap Smear is a screening test that aids in the detection of cervical cancer and cancer precursors. Both false positive and false negative results can occur. The test should be used at regular intervals, and positive results should be confirmed before definitive therapy. Processed using the Beacon EndoscopicPrep Estate Planning Counselor Automated cytology screening device ([employer]). 04/20/2022 3:58 PM EST [facility] Thin Prep ENDOCERVICAL STRUCTURE / Unknown 04/16/2022 12:05 PM EST 04/16/2022 12:05 PM EST us Carmella Ulloa MD CYTOLOGY ORDERABLES Final Resu lt [facility] [address] [place] [address] from Last 3 Months or Most Recently Relevant to Health Maintenance Insurance [place] [id number] * Guarantor: Raquel Goel Account Type Relation to Patient Date of Phone Billing Address [place] Personal Family Self Care Teams Face Boss Relationship Specialty Start Date End Date Carmella Ulloa MD [address] [place] [address] PCP - General Family Medicine 09/27/17
--- NOTE | 2024-11-13 10:04 | EXP.PAIN.SOA ---
[facility] Disclaimer: The information contained in this section may have been updated after the patient was seen, as this information can be updated by other users. Medical History No significant past medical history Family History Other No significant family history Social History Smoking Status: Current every day smoker tobacco type: cigarettes packs per day: 1 alcohol intake: never substance use type: denies use current occupational status: employed Travel in the last 8 weeks?: None household members: significant other housing: house PM Subjective & Objective Subjective Subjective:: Patient is a pleasant 54-year-old female who presents today for medication refill. Today she rates her pain a 6 out of 10. She denies any new falls or injuries. Patient does state that she has been having a little bit more chest pain but it is only related to when she is eating. Patient has not been to her primary care or any other specialties to have this checked out. Patient states that she is difficult where she has limited funds for this. She states that her stress level has been getting a little bit better and that she did make her last house payment to pay off her home. Patient does state that she just still had a lot of stress with work and repairs possible to her home related to renters tearing it up. Patient is currently managed with gabapentin 300 mg 4 times a day, [place] 5 mg 4 times a day, meloxicam 15 mg daily and Flexeril 10 mg a day. She denies any side effects. She states that she thinks she only needs the pain medicine refilled. Her [place] has been reviewed and is appropriate. Review of Systems: General: No recent weight changes, no fever, no sleep disturbances Respiratory: No cough, no shortness of air, no recurring pulmonary infections Cardiovascular/peripheral vascular: No chest pain, no palpitations, no edema, no shortness of breath Gastrointestinal: No new onset incontinence, normal bowel movements reported Genitourinary: No new onset incontinence Musculoskeletal: Low back pain, chest pain Psychiatric: [Normal mood/affect] Neurological: [Denies weakness in extremities], [denies balance issues] Pain at rest (0-10 scale): 6 Objective Objective:: Physical Exam: General: Alert and oriented x3, no acute distress, pleasant and cooperative Lungs: Respirations even and unlabored, symmetrical chest expansion Eyes: PERRL Musculoskeletal: Flexion and extension of lumbar [spine] somewhat guarded secondary to pain, [antalgic gait noted] Neurological: Speech clear, no gross sensory deficit Has patient had previous pain injection?: No Conservative treatment options previously tried: Prescription medications Length of treatment: Longer than 12 weeks Meds Home Medications and Allergies Home Medications ?Medication ?Instructions ?Recorded ?Confirmed ?Type albuterol sulfate 90 mcg/actuation 2 puff INHALATION Q6H PRN 09/15/17 10/14/24 History breath activated powder inhaler Shortness Of Breath duloxetine 30 mg capsule,delayed 30 mg PO DAILY Pain 09/15/17 10/14/24 History release (Cymbalta) camphor 3.1 %-methyl salicylate 10 1 patch topical TID N/A 09/26/22 10/14/24 History %-menthol 6 % topical patch (Salonpas) prednisone 20 mg tablet 20 mg PO BID #10 tabs 08/28/23 10/14/24 Rx lidocaine 5 % topical patch 1 patch topical DAILY Pain #30 ea 09/25/23 10/14/24 Rx meloxicam 15 mg tablet 15 mg PO DAILY Pain #30 tabs 06/10/24 10/14/24 Rx gabapentin 300 mg capsule 300 mg PO QID #120 caps 09/09/24 10/14/24 Rx cyclobenzaprine 10 mg tablet 10 mg PO BID Pain #60 tabs 10/14/24 Rx hydrocodone 5 mg-acetaminophen 325 1 tab PO QID Pain #120 tabs 10/14/24 Rx mg tablet New Prescriptions to Start Prescriptions: Allergies Allergy/AdvReac Type Severity Reaction Status Date / Time aspirin Allergy Difficulty Verified 07/08/24 14:02 Breathing ibuprofen Allergy Difficulty Verified 07/08/24 14:02 Breathing ketorolac AdvReac Anxiety Verified 07/08/24 14:02 promethazine AdvReac Hallucinati Verified 07/08/24 14:02 ng Assessment and Plan *Assessment and plan (1) Lumbar radiculopathy: Status: Acute Category: Medical Code(s): M54.16 - Radiculopathy, lumbar region (2) Degenerative disc disease, lumbar: Status: Acute Category: Medical Code(s): M51.369 - Other intervertebral disc degeneration, lumbar region without mention of lumbar back pain or lower extremity pain Plan I did discuss at length with the patient that I would strongly recommend that if the chest pain continues to immediately go to the ER for evaluation but that I would recommend her to make a follow-up appointment as soon as possible with primary care to do updated labs EKG and other test to rule out any cardiac abnormalities. We did also discuss the possibility that it may be acid reflux or GI related. We will continue to follow-up with this. Patient did acknowledge understanding and agree with this plan of care. I will refill her [place] and provide a 1 month supply of this medication. Patient will return to clinic in 1 month. Risks and benefits of the medication have been explained in detail to the patient. The patient does understand the risk of dependence on the medication when given over a prolonged period. Patient has been advised of risks of oversedation with the prescribed medication. Narcan has been offered to the paitent in the event of oversedation. Patient has been advised that a family member should also be educated regarding administration of Narcan. The patient has been advised to consult with his/her primary care provider and pharmacist regarding drug-drug interaction of medications currently prescribed. Patient has been prescribed a controlled substance after being counseled on the medication, medication safety, and possible side effects. Opioid contract was reviewed and signed by the patient, and that they have agreed to all of the terms set forth by our compliance program. A UDS is needed to verify patient's compliance with our office pain contract. This is ordered based off specific treatments related to chronic pain with the potential to abuse certain medications. Patient has been instructed to contact the clinic with any concerns before the next appointment. Dr. Acosta has reviewed this note and agrees with this plan of care. This note was dictated using voice recognition software and make contain errors or omissions.
[2024-11-13 10:08] VITALS: BP 130/79; PULSE 78; RESP 14; O2SAT 98; BMI 32.3
== END 2024-11-13 23:59 | disposition home or self-care (01) ==
PROVIDERS: PCP Family Medicine; Visit Provider Nurse Practitioner Family
DX: M51.16 Intervertebral disc disorders with radiculopathy, lumbar region (principal); Z79.1 Long term (current) use of non-steroidal anti-inflammatories (NSAID); Z79.899 Other long term (current) drug therapy
CPT/HCPCS: 99212; G0463

== ENCOUNTER 2024-12-11 09:22 | Outpatient (POV) | payer SELFPAY ==
--- NOTE | 2024-12-11 09:24 | EXP.PAIN.SOA ---
[facility] Disclaimer: The information contained in this section may have been updated after the patient was seen, as this information can be updated by other users. Medical History No significant past medical history Family History Other No significant family history Social History Smoking Status: Current every day smoker tobacco type: cigarettes packs per day: 1 alcohol intake: never substance use type: denies use current occupational status: other Travel in the last 8 weeks?: None household members: significant other housing: house PM Subjective & Objective Subjective Subjective:: Patient is a pleasant 54-year-old female who presents today for medication refill and follow-up. She denies any new falls or injuries. Patient is currently managed with gabapentin 300 mg 4 times a day, Belpre 5 mg 4 times a day, meloxicam 15 mg daily and Flexeril 10 mg a day. She denies any side effects. At her last visit she was having some chest pain that we did discuss about following up with her primary care or if it got severe go to the ER. She states that she did end up getting some acid reflux medication and it has made all the difference. Patient is not having the same sensations. Her [place] has been reviewed and is appropriate. Review of Systems: General: No recent weight changes, no fever, no sleep disturbances Respiratory: No cough, no shortness of air, no recurring pulmonary infections Cardiovascular/peripheral vascular: No chest pain, no palpitations, no edema, no shortness of breath Gastrointestinal: No new onset incontinence, normal bowel movements reported Genitourinary: No new onset incontinence Musculoskeletal: Chronic back pain Psychiatric: [Normal mood/affect] Neurological: [Denies weakness in extremities], [denies balance issues] Pain at rest (0-10 scale): 5 Objective Objective:: Physical Exam: General: Alert and oriented x3, no acute distress, pleasant and cooperative Lungs: Respirations even and unlabored, symmetrical chest expansion Eyes: PERRL Musculoskeletal: Flexion and extension of lumbar [spine] somewhat guarded secondary to pain, [antalgic gait noted] Neurological: Speech clear, no gross sensory deficit Has patient had previous pain injection?: No Conservative treatment options previously tried: Prescription medications Length of treatment: Longer than 12 weeks Meds Home Medications and Allergies Home Medications ?Medication ?Instructions ?Recorded ?Confirmed ?Type albuterol sulfate 90 mcg/actuation 2 puff INHALATION Q6H PRN 09/15/17 11/13/24 History breath activated powder inhaler Shortness Of Breath duloxetine 30 mg capsule,delayed 30 mg PO DAILY Pain 09/15/17 11/13/24 History release (Cymbalta) camphor 3.1 %-methyl salicylate 10 1 patch topical TID N/A 09/26/22 11/13/24 History %-menthol 6 % topical patch (Salonpas) prednisone 20 mg tablet 20 mg PO BID #10 tabs 08/28/23 11/13/24 Rx lidocaine 5 % topical patch 1 patch topical DAILY Pain #30 ea 09/25/23 11/13/24 Rx meloxicam 15 mg tablet 15 mg PO DAILY Pain #30 tabs 06/10/24 11/13/24 Rx gabapentin 300 mg capsule 300 mg PO QID #120 caps 09/09/24 11/13/24 Rx cyclobenzaprine 10 mg tablet 10 mg PO BID Pain #60 tabs 10/14/24 11/13/24 Rx hydrocodone 5 mg-acetaminophen 325 1 tab PO QID Pain #120 tabs 11/13/24 Rx mg tablet New Prescriptions to Start Prescriptions: Allergies Allergy/AdvReac Type Severity Reaction Status Date / Time aspirin Allergy Difficulty Verified 07/08/24 14:02 Breathing ibuprofen Allergy Difficulty Verified 07/08/24 14:02 Breathing ketorolac AdvReac Anxiety Verified 07/08/24 14:02 promethazine AdvReac Hallucinati Verified 07/08/24 14:02 ng Assessment and Plan *Assessment and plan (1) Lumbar radiculopathy: Status: Acute Category: Medical Code(s): M54.16 - Radiculopathy, lumbar region (2) Degenerative disc disease, lumbar: Status: Acute Category: Medical Code(s): M51.369 - Other intervertebral disc degeneration, lumbar region without mention of lumbar back pain or lower extremity pain Plan We will refill the patient's Belpre and Flexeril and provide a 1 month supply of this medication. Patient will return to clinic in 1 month for reevaluation of symptoms and plan of care. Risks and benefits of the medication have been explained in detail to the patient. The patient does understand the risk of dependence on the medication when given over a prolonged period. Patient has been advised of risks of oversedation with the prescribed medication. Narcan has been offered to the paitent in the event of oversedation. Patient has been advised that a family member should also be educated regarding administration of Narcan. The patient has been advised to consult with his/her primary care provider and pharmacist regarding drug-drug interaction of medications currently prescribed. Patient has been prescribed a controlled substance after being counseled on the medication, medication safety, and possible side effects. Opioid contract was reviewed and signed by the patient, and that they have agreed to all of the terms set forth by our compliance program. A UDS is needed to verify patient's compliance with our office pain contract. This is ordered based off specific treatments related to chronic pain with the potential to abuse certain medications. Patient has been instructed to contact the clinic with any concerns before the next appointment. Dr. Acosta has reviewed this note and agrees with this plan of care. This note was dictated using voice recognition software and make contain errors or omissions.
--- OUTSIDE RECORDS SUMMARY | 2024-12-11 09:24 | XMS_ITS | Clinical Summary ---
Author Organization [facility] Address [address] [place] [address] Phone Care Team Providers Care [employer] Name Role Phone Carmella Ulloa MD Primary Care Provider Allergies Active Allergy Reactions Criticality Noted Date [...] different from the original. [place] report 08/11/2014 [facility] audit completed by Frida Borges RN on [...] Procedure Name Priority Date/Time Associated Diagnosis Comments IT ANALYST CYTOLOGY REQUEST (PAP ONLY) Routine 04/16/2022 12:05 PM EST Pap smear for cervical cancer screening from Last 3 Months or Most Recently Relevant to Health Maintenance Results * IT ANALYST CYTOLOGY REQUEST (PAP ONLY) (04/16/2022 12:05 PM EST) CASE REPORT Gynecologic Cytology Report Case: [id number] Authorizing Provider: Carmella Ulloa MD Collected: 04/16/2022 1205 Ordering Location: [facility] Received: 04/16/2022 1205 First Screen: Alejandra Moe CT Specimen: LIQUID-BASED PAP - CERVICAL/ENDOCERV ICAL, Cervix, Endocervical 04/20/2022 3:58 PM EST [facility] P[facility] FINAL DIAGNOSIS Negative for intraepithelial lesion or malignancy 04/20/2022 3:58 PM EST [facility] at 1558 EST MICROSCOPIC DESCRIPTION Microscopic examination is performed and the findings corroborate the diagnosis. 04/20/2022 3:58 PM EST [facility] PAP SMEAR ADEQUACY Satisfactory for evaluation 04/20/2022 3:58 PM EST [facility] PAP ORGANISMS NOTED Abundant bacteria present. 04/20/2022 3:58 PM EST [facility] ENDOCERVICAL T-ZONE Transformation zone present 04/20/2022 3:58 PM EST [facility] EMBEDDED IMAGES 3:58 PM EST [facility] PAP DISCLAIMER The Pap Smear is a screening test that aids in the detection of cervical cancer and cancer precursors. Both false positive and false negative results can occur. The test should be used at regular intervals, and positive results should be confirmed before definitive therapy. Processed using the [employer] Automated cytology screening device ([employer]). 04/20/2022 3:58 PM EST [facility] [employer] Prep ENDOCERVICAL STRUCTURE / Unknown 04/16/2022 12:05 PM EST 04/16/2022 12:05 PM EST us Carmella Ulloa MD CYTOLOGY ORDERABLES Final Resu lt [facility] [address] [place] [address] from Last 3 Months or Most Recently Relevant to Health Maintenance Insurance [place] [id number] * Guarantor: Raquel Goel Account Type Relation to Patient Date of Phone Billing Address [place] Personal Family Self Care Teams [employer] Relationship Specialty Start Date End Date Carmella Ulloa MD [address] [place] [address] PCP - General Family Medicine 09/27/17
[2024-12-11 09:52] VITALS: BP 127/75; PULSE 80; RESP 14; O2SAT 99; BMI 32.3
== END 2024-12-11 23:59 | disposition home or self-care (01) ==
PROVIDERS: PCP Family Medicine; Visit Provider Nurse Practitioner Family
DX: M51.16 Intervertebral disc disorders with radiculopathy, lumbar region (principal); Z79.899 Other long term (current) drug therapy; Z79.891 Long term (current) use of opiate analgesic
CPT/HCPCS: 99212; G0463